=== PATIENT | male | born 1970 | race Caucasian/White ===

== ENCOUNTER 2020-04-05 08:37 | Outpatient (REF) | payer OTHER, SELFPAY ==
[2020-04-05 11:39] LABS: Alanine Aminotransferase 25 U/L (0-40); Albumin Level 4.3 g/dL (3.5-5.0); Alkaline Phosphatase 66 U/L (39-117); Anion Gap 13 (12-20); Aspartate Amino Transferase 19 U/L (5-37); Bilirubin Total 1.1 mg/dL (0.0-1.0); Blood Urea Nitrogen 16 mg/dL (9-16); Calcium 9.2 mg/dL (8.4-10.2); Carbon Dioxide 30 mmol/L (22-29); Chloride 100 mmol/L (96-108); Cholesterol 132 mg/dL; Estimated Glomerular Filt Rate > 60; Glucose Fasting 113 mg/dL (60-99); HDL Cholesterol 42 mg/dL; LDL Cholesterol Calculated 78 mg/dl; Potassium 4.6 mmol/l (3.3-5.1); Sodium 138 mmol/L (135-145); Total Protein 6.4 g/dL (6.5-8.0); Triglycerides 63 mg/dL
[2020-04-05 11:48] LABS: Estimated Average Glucose 140 mg/dL; Hemoglobin A1c % 6.5 %
[2020-04-05 13:45] LABS: TSH reflex Free T4 0.73 mIU/mL (0.32-4.0)
== END 2020-04-05 08:38 | disposition home or self-care (01) ==
LOC: HO.HMGCLDS 08:37
PROVIDERS: PCP Nurse Practitioner Family; Visit Provider Nurse Practitioner Family
DX: Z13.29 Encounter for screening for other suspected endocrine disorder (principal); E11.9 Type 2 diabetes mellitus without complications
CPT/HCPCS: 80053; 80061; 83036; 84443

== ENCOUNTER 2020-09-29 06:10 | Outpatient (REF) | payer OTHER, SELFPAY ==
[2020-09-29 12:11] LABS: TSH reflex Free T4 1.19 uIU/mL (0.32-4.0)
[2020-09-29 12:13] LABS: Alanine Aminotransferase 41 U/L (0-40); Albumin Level 4.5 g/dL (3.5-5.0); Alkaline Phosphatase 70 U/L (39-117); Anion Gap 14 (12-20); Aspartate Amino Transferase 23 U/L (5-37); Bilirubin Total 1.2 mg/dL (0.0-1.0); Blood Urea Nitrogen 21 mg/dL (9-16); Calcium 9.3 mg/dL (8.4-10.2); Carbon Dioxide 27 mmol/L (22-29); Chloride 103 mmol/L (96-108); Cholesterol 122 mg/dL; Estimated Glomerular Filt Rate > 60; Glucose Fasting 124 mg/dL (60-99); HDL Cholesterol 42 mg/dL; LDL Cholesterol Calculated 71 mg/dl; Potassium 4.4 mmol/L (3.3-5.1); Sodium 140 mmol/L (135-145); Total Protein 6.8 g/dL (6.5-8.0); Triglycerides 45 mg/dL
[2020-09-29 12:34] LABS: Estimated Average Glucose 131 mg/dL; Hemoglobin A1c % 6.2 %
== END 2020-09-29 06:11 | disposition home or self-care (01) ==
LOC: HO.HMGCLDS 06:10
PROVIDERS: PCP Nurse Practitioner Family; Visit Provider Nurse Practitioner Family
DX: Z00.00 Encounter for general adult medical examination without abnormal findings (principal); E11.9 Type 2 diabetes mellitus without complications
CPT/HCPCS: 36415; 80053; 80061; 83036; 84443

== ENCOUNTER 2021-02-12 13:41 | Inpatient (IN) | payer OTHER, SELFPAY ==
--- NOTE | ~2021-02-12 | CT_ITS ---
EXAMINATION: CT ABDOMEN AND PELVIS WITH CONTRAST CLINICAL INFORMATION: Diffuse abdominal pain and bilious vomiting COMPARISON: Previous CT of the abdomen and pelvis December 2014 and abdominal ultrasound July 2016 TECHNIQUE: Multidetector volumetric images were obtained from the superior aspect of the liver through the pubic symphysis following administration 100 mL of Omnipaque 350 intravenous contrast. Sagittal and coronal reformatted images were obtained on the technologist's workstation. Oral contrast: Yes This CT examination was performed using dose optimization techniques as appropriate, variously including the following: *Automated exposure control *Adjustment of mA and/or kV according to patient size (this includes techniques or standardized protocols for targeted exams where dose is matched to indication/reason for exam; i.e. extremities or head) *Use of iterative reconstruction technique DLP: 1285 mGy-cm FINDINGS: LUNG BASES: The visualized lung bases are unremarkable. LIVER, GALLBLADDER, AND BILIARY TREE: The liver is low in attenuation suggestive of fatty infiltration. There are high attenuation areas in the medial segment of the left lobe of the liver near the cosmo hepatis and adjacent to the gallbladder probably representing areas of focal fatty sparing. No focal hepatic lesion or biliary ductal dilatation is present. The gallbladder is slightly enlarged measuring 13 x 4 x 4.4 cm in dimension. No gallstones are seen. There is question of a gallbladder wall thickening or fluid. PANCREAS: Unremarkable. SPLEEN: Unremarkable. ADRENAL GLANDS: Unremarkable. KIDNEYS AND URETERS: The kidneys are normal in size, shape, and attenuation. No hydronephrosis, hydroureter, or calculi seen. No perinephric stranding. BLADDER: Unremarkable. GASTROINTESTINAL TRACT: There is mild diverticulosis of the colon. No evidence of diverticulitis is seen. The small and large bowel are otherwise unremarkable. The appendix is unremarkable. The stomach is not optimally distended. ABDOMINAL WALL: There is a left inguinal hernia containing fat. LYMPH NODES: Normal. VASCULAR: Unremarkable. PELVIC VISCERA: Unremarkable. OSSEOUS STRUCTURES: There are degenerative changes of the spine. CT/CT abdomen pelvis w con IMPRESSION: Fatty liver. Distended gallbladder. No gallstones seen. Question slight gallbladder wall thickening or fluid. If there is clinical suspicion of cholecystitis, ultrasound or HIDA scan would be recommended. Diverticulosis of the colon. No evidence of diverticulitis.
--- NOTE | ~2021-02-12 | US_ITS ---
EXAMINATION: US ABDOMEN LIMITED CLINICAL INFORMATION: Assess for acute cholecystitis. COMPARISON: CT scan earlier today TECHNIQUE: Real-time imaging of the right upper quadrant abdominal viscera. FINDINGS: PANCREAS: Partially obscured by overlying bowel gas but where seen it is grossly unremarkable LIVER: Diffuse fatty infiltration of the liver with areas of fatty sparing giving a heterogeneous echotexture corresponding with the abnormal appearance on the recent CT scan. No focal hepatic lesion or biliary ductal dilatation. GALLBLADDER: The gallbladder is physiologically distended without evidence of stones, sludge, polyps, or gallbladder wall thickening. Small amount of nonspecific gallbladder wall edema suggested. COMMON BILE DUCT: Normal in caliber measuring 0.6 cm in diameter. RIGHT KIDNEY: Normal. No hydronephrosis. No renal calculi or focal parenchymal lesions. The kidney measures 13.3 cm in maximum dimension. FREE FLUID: None. US/US abdomen limited IMPRESSION: Diffuse fatty infiltration of the liver with areas of focal fatty sparing. No obvious gallstones with a small amount of fluid seen in the gallbladder wall. No obvious gallstones
--- NOTE | ~2021-02-12 | NM_ITS ---
EXAMINATION: NUCLEAR MEDICINE HEPATOBILIARY SCAN WITH PHARMACY. CLINICAL INFORMATION: Right upper quadrant pain. COMPARISON: None TECHNIQUE: Following intravenous administration of 5 mCi of 90 9M technetium mebrofenin imaging was obtained up to 3 1/2 hours. FINDINGS: There is normal hepatic uptake without any focal defect. There is prompt visualization of common bile duct by 14 minutes. Small bowel is visualized by 70 minutes. The gallbladder is not visualized up to 3 1/2 hours. Findings are consistent with cystic duct obstruction. NM/NM hepatobiliary w pharm IMPRESSION: Findings consistent with cystic duct obstruction. Patent CBD. Normal hepatic uptake.
[2021-02-12 14:10] VITALS: BP 119/62; BP 137/99; PULSE 90; PULSE 95; RESP 20; TEMP 36.6; O2SAT 97; O2SAT 99; BMI 39.4
--- NOTE | 2021-02-12 15:23 | ECG_ITS ---
Test Reason : ABD PAIN Blood Pressure : / mmHG Vent. Rate : 091 BPM Atrial Rate : 091 BPM P-R Int : 158 ms QRS Dur : 096 ms QT Int : 346 ms P-R-T Axes : 022 010 038 degrees QTc Int : 425 ms Normal sinus rhythm Normal ECG No previous ECGs available Referred By: Bekah Freire Electronically Signed By:MAGGIE WAGGONER
[2021-02-12] MEDS: Morphine Sulfate 4 MG/ML CARTRIDGE IVPUSH ×2 (15:46→17:19)
[2021-02-12] MEDS: ondansetron HCL 4 MG/2 ML VIAL IVPUSH (15:46)
[2021-02-12] MEDS: 0.9 % Sodium Chloride 1,000 ML 999 ML IV ×2 (15:47→19:44)
--- NOTE | 2021-02-12 15:50 | ED.ABDPAIN ---
HPI - Abdominal Pain General Chief Complaint: Abdominal Pain Stated Complaint: ABD PAIN Time Seen by Provider: 02/12/21 15:10 Source: patient Mode of arrival: ambulatory Limitations: no limitations History of Present Illness HPI narrative: 51-year-old male with a past medical history of NIDDM, HTN, HLD, GERD here with complaints of mid to upper abdominal pain since 20:00 Friday evening with associated vomiting. Patient tells me he is vomiting bile. He did have a small bowel movement this morning. No diarrhea. No fevers, chills, urinary symptoms. He went to urgent care was referred into the emergency department for further evaluation. No prior history of abdominal surgery. Related Data Previous Rx's Medication Instructions Recorded omeprazole 40 mg capsule,delayed 40 mg PO DAILY #90 cap 05/12/20 release cyclobenzaprine 10 mg tablet 10 mg PO BEDTIME PRN 30 Days #30 06/22/20 tab aspirin 81 mg chewable tablet 1 tab PO DAILY 90 Days #90 tab 09/25/20 atorvastatin 20 mg tablet 20 mg PO DAILY 90 Days #90 tab 10/02/20 metoprolol succinate 50 mg 50 mg PO DAILY #90 tab 11/06/20 tablet,extended release 24 hr amlodipine 5 mg tablet 5 mg PO DAILY #90 tab 12/27/20 hydrochlorothiazide 25 mg tablet 25 mg PO DAILY #90 tab 01/11/21 diclofenac sodium 75 mg 75 mg PO BID PRN 30 Days #60 tab 01/18/21 tablet,delayed release metformin 1,000 mg tablet 1,000 mg PO BID 90 Days #180 tab 01/18/21 tramadol 50 mg tablet 50 mg PO BID PRN 10 Days #20 tab 01/18/21 spironolactone 25 mg tablet 50 mg PO DAILY #90 tab 01/22/21 irbesartan 150 mg tablet 150 mg PO DAILY #90 tab 01/28/21 Allergies Allergy/AdvReac Type Severity Reaction Status Date / Time lisinopril AdvReac Unknown Cough Verified 09/25/20 16:23 Review of Systems Review of Systems Yes all other systems are reviewed and are negative Constitutional: Reports no additional constitutional complaints, Denies body ache(s), Denies chills, Denies fever(s), Denies headache(s) and Denies weakness Eyes: Reports no additional eye complaints and Denies change in vision Reports system reviewed and no additional complaints, except as documented, Denies dizziness, Denies headache(s), Denies nasal congestion, Denies nasal discharge and Denies neck pain Cardiovascular: Reports no additional cardiovascular complaints, Denies chest pain, Denies leg edema and Denies dyspnea Respiratory: Reports no additional respiratory complaints, Denies cough and Denies dyspnea Gastrointestinal: Reports no additional gastrointestinal complaints, Reports abdominal pain, Denies diarrhea, Reports nausea and Reports vomiting Genitourinary: Denies urinary incontinence Musculoskeletal: Reports no additional musculoskeletal complaints, Denies back pain, Denies arthralgias, Denies joint swelling, Denies neck pain, Denies numbness and Denies tingling Skin/Breast: Reports system reviewed and no additional complaints, except as docu and Denies rash Reports system reviewed and no additional complaints, except as documented, Denies Abnormal speech present, Denies dizziness, Denies headache(s), Denies numbness, Denies tingling and Denies weakness Physical Exam Vital Signs: Vital Signs: Last Vital Signs Temp 98.3 F 02/12/21 20:58 Pulse 115 H 02/12/21 20:58 Resp 21 H 02/12/21 20:58 BP 134/83 02/12/21 20:58 Pulse Ox 97 02/12/21 20:58 Body Mass Index 39.4 Const: General: cooperative, healthy appearing, comfortable and no acute distress Orientation/consciousness: patient oriented x3 Limitations: no limitations HENMT: Head: Yes normal to inspection Ears: hearing grossly normal bilaterally General nose exam: Normal external nose present Face and sinus: Yes normal facial exam Mouth: Normal oral and palatal mucosa present Throat: Yes posterior oropharynx normal Eyes: General: appearance normal, both eyes and all related structures Pupils: Equal, round and reactive pupils present Neck: Neck: Yes normal visual inspection Chest: Chest palpation & inspection: normal inspection of the chest Resp: Effort & Inspection: normal respiratory effort Auscultation: clear to auscultation bilaterally Cardio: Rate: regular rate Rhythm: regular rhythm Peripheral pulses: Peripheral pulses 2+ throughout GI: Inspection: Yes normal to inspection Palpation (GI): Soft to palpation and Tenderness to palpation present (GI) (mid to upper AP w/ rebound or guarding-hypoactive BS) Auscultation: normal bowel sounds Back/Spine/Pelvis: Thoracic/Lumbar Spine: thoracic and lumbar spine normal to inspection Skin: General skin exam: no rashes or lesions noted Neuro: General: patient oriented x3, no focal motor deficits and normal sensation to monofilament Cranial nerves: Yes Equal, round and reactive pupils present Cognition (Neuro): normal cognition Speech: No Abnormal speech present Gait exam (Neuro): Normal gait present Motor exam (neuro): 5/5 motor strength present throughout Extrem: General: Yes normal to inspection, Yes no pedal edema and Yes no calf tenderness Course Course Course Narrative: 51-year-old male here with complaints of mid to upper abdominal pain with bilious vomiting since Friday evening. On exam tender moderately with rebound and guarding. Will check labs, EKG, UA, CT. 1714- IMPRESSION: Fatty liver. Distended gallbladder. No gallstones seen. Question slight gallbladder wall thickening or fluid. If there is clinical suspicion of cholecystitis, ultrasound or HIDA scan would be recommended. Diverticulosis of the colon. No evidence of diverticulitis. Patient has a leukocytosis and elevated lactic acid 2.3. He has required 3 rounds of IV pain medications for pain control. At this time infection is suspected. Antibiotics ordered. 1714-spoke to Dr. Birch from surgery. Recommended obtaining a HIDA scan w/cck. This was ordered 1899-I have received a call from nuclear medicine department. Unable to get a HIDA scan tonight d/t lack of IV medication for the scan. Spoke to Dr Birch who recommends abdominal US, repeat cbc to see if improvement of leukocytosis. 2029- IMPRESSION: Diffuse fatty infiltration of the liver with areas of focal fatty sparing. No obvious gallstones with a small amount of fluid seen in the gallbladder wall. No obvious gallstones Repeat CBC shows unchanged leukocytosis with repeat lactic acid unchanged. Patient has required additional dose of analgesia. Now has low grade fever 100.3 with tachycardia 110. Call out to surgery to discuss. 2129-discussed with Dr. An. She feels like the patient should be admitted to the medicine service with plans for HIDA scan tomorrow morning. Discussed with Dr. Marinelli who accepted admission MDM - Abdominal Pain MDM Narrative Medical decision making narrative: Pancreatitis, cholecystitis Differential Diagnosis Differential diagnosis: Likely acute appendicitis Medical Records Attestation: I reviewed the patient's medical records. Lab Data Attestation: I reviewed the patient's lab results. Result diagrams: 02/12/21 19:08 02/12/21 15:40 Labs: Lab Results 02/12/21 02/12/21 02/12/21 Range/Units 15:40 15:40 15:40 WBC 23.0 H (4.8-10.8) X10*3/uL RBC 4.94 (4.60-5.80) X10*6/uL Hgb 15.0 (14.0-18.0) g/dl Hct 43.4 (42-52) % MCV 87.9 (80-98) fL MCH 30.4 (27.0-33.0) pg MCHC 34.6 (31.0-36.0) g/dl RDW 12.6 (11.0-16.0) % Plt Count 283 (160-400) X10*3/uL MPV 10.4 (9.4-12.4) fL Immature Gran % (Auto) 0.7 H (0.0-0.4) % Neut % (Auto) 89.3 H (45-73) % Lymph % (Auto) 3.4 L (20-40) % [place] % (Auto) 6.1 (2-11) % Eos % (Auto) 0.2 (0-4) % Baso % (Auto) 0.3 (0-2) % Lymph # (Auto) 0.8 L (1.2-4.9) X10*3/uL [place] # (Auto) 1.4 H (0.1-1.2) X10*3/uL Eos # (Auto) 0.0 (0.0-0.4) X10*3/uL Baso # (Auto) 0.1 (0.0-0.2) X10*3/uL Abs Immat Gran (auto) 0.15 H (0.00-0.03) X10*3/uL Absolute Neuts (auto) 20.5 H (2.0-8.3) X10*3/uL Absolute Nucleated RBC 0.000 (0.0-0.012) X10*3/uL Nucleated RBC % (auto) 0.0 (0.0-0.2) /100WBC Smear Tech's Comments VERIFIED Sodium 135 (135-145) mmol/L Potassium 3.6 (3.3-5.1) mmol/L Chloride 99 (96-108) mmol/L Carbon Dioxide 24 (22-29) mmol/L Anion Gap 16 (12-20) BUN 15 (9-16) mg/dL Creatinine 0.78 (0.5-1.4) mg/dL Estim Creat Clear Calc 150.1 Estimated GFR > 60 Random Glucose 148 H (60-115) mg/dL Lactic Acid 2.3 H* (0.5-2.0) mmol/L Lactic Acid Fup @ 2Hr (0.5-2.0) mmol/L Lactic Acid Fup @ 4Hr (0.5-2.0) mmol/L Calcium 9.4 (8.4-10.2) mg/dL Magnesium 1.6 (1.6-2.6) mg/dL Total Bilirubin 1.1 H (0.0-1.0) mg/dL Direct Bilirubin 0.5 (0.0-0.5) mg/dL AST 23 (5-37) U/L ALT 54 H (0-40) U/L Alkaline Phosphatase 69 (39-117) U/L Total Protein 6.7 (6.5-8.0) g/dL Albumin 4.4 (3.5-5.0) g/dL Lipase 16 (8-78) U/L COVID-19 (SANDIP) (Negative) COVID-19 Clin Com 02/12/21 02/12/21 02/12/21 Range/Units 17:25 18:21 19:08 WBC 22.3 H (4.8-10.8) X10*3/uL RBC 4.65 (4.60-5.80) X10*6/uL Hgb 14.2 (14.0-18.0) g/dl Hct 41.4 L (42-52) % MCV 89.0 (80-98) fL MCH 30.5 (27.0-33.0) pg MCHC 34.3 (31.0-36.0) g/dl RDW 12.7 (11.0-16.0) % Plt Count 263 (160-400) X10*3/uL MPV 10.3 (9.4-12.4) fL Immature Gran % (Auto) 0.6 H (0.0-0.4) % Neut % (Auto) 86.8 H (45-73) % Lymph % (Auto) 4.8 L (20-40) % [place] % (Auto) 7.4 (2-11) % Eos % (Auto) 0.2 (0-4) % Baso % (Auto) 0.2 (0-2) % Lymph # (Auto) 1.1 L (1.2-4.9) X10*3/uL [place] # (Auto) 1.7 H (0.1-1.2) X10*3/uL Eos # (Auto) 0.0 (0.0-0.4) X10*3/uL Baso # (Auto) 0.1 (0.0-0.2) X10*3/uL Abs Immat Gran (auto) 0.14 H (0.00-0.03) X10*3/uL Absolute Neuts (auto) 19.3 H (2.0-8.3) X10*3/uL Absolute Nucleated RBC 0.000 (0.0-0.012) X10*3/uL Nucleated RBC % (auto) 0.0 (0.0-0.2) /100WBC Smear Tech's Comments Sodium (135-145) mmol/L Potassium (3.3-5.1) mmol/L Chloride (96-108) mmol/L Carbon Dioxide (22-29) mmol/L Anion Gap (12-20) BUN (9-16) mg/dL Creatinine (0.5-1.4) mg/dL Estim Creat Clear Calc Estimated GFR Random Glucose (60-115) mg/dL Lactic Acid (0.5-2.0) mmol/L Lactic Acid Fup @ 2Hr 2.8 H* (0.5-2.0) mmol/L Lactic Acid Fup @ 4Hr (0.5-2.0) mmol/L Calcium (8.4-10.2) mg/dL Magnesium (1.6-2.6) mg/dL Total Bilirubin (0.0-1.0) mg/dL Direct Bilirubin (0.0-0.5) mg/dL AST (5-37) U/L ALT (0-40) U/L Alkaline Phosphatase (39-117) U/L Total Protein (6.5-8.0) g/dL Albumin (3.5-5.0) g/dL Lipase (8-78) U/L COVID-19 (SANDIP) Negative (Negative) COVID-19 Clin Com See Note 02/12/21 Range/Units 21:05 WBC (4.8-10.8) X10*3/uL RBC (4.60-5.80) X10*6/uL Hgb (14.0-18.0) g/dl Hct (42-52) % MCV (80-98) fL MCH (27.0-33.0) pg MCHC (31.0-36.0) g/dl RDW (11.0-16.0) % Plt Count (160-400) X10*3/uL MPV (9.4-12.4) fL Immature Gran % (Auto) (0.0-0.4) % Neut % (Auto) (45-73) % Lymph % (Auto) (20-40) % [place] % (Auto) (2-11) % Eos % (Auto) (0-4) % Baso % (Auto) (0-2) % Lymph # (Auto) (1.2-4.9) X10*3/uL [place] # (Auto) (0.1-1.2) X10*3/uL Eos # (Auto) (0.0-0.4) X10*3/uL Baso # (Auto) (0.0-0.2) X10*3/uL Abs Immat Gran (auto) (0.00-0.03) X10*3/uL Absolute Neuts (auto) (2.0-8.3) X10*3/uL Absolute Nucleated RBC (0.0-0.012) X10*3/uL Nucleated RBC % (auto) (0.0-0.2) /100WBC Smear Tech's Comments Sodium (135-145) mmol/L Potassium (3.3-5.1) mmol/L Chloride (96-108) mmol/L Carbon Dioxide (22-29) mmol/L Anion Gap (12-20) BUN (9-16) mg/dL Creatinine (0.5-1.4) mg/dL Estim Creat Clear Calc Estimated GFR Random Glucose (60-115) mg/dL Lactic Acid (0.5-2.0) mmol/L Lactic Acid Fup @ 2Hr (0.5-2.0) mmol/L Lactic Acid Fup @ 4Hr 1.9 (0.5-2.0) mmol/L Calcium (8.4-10.2) mg/dL Magnesium (1.6-2.6) mg/dL Total Bilirubin (0.0-1.0) mg/dL Direct Bilirubin (0.0-0.5) mg/dL AST (5-37) U/L ALT (0-40) U/L Alkaline Phosphatase (39-117) U/L Total Protein (6.5-8.0) g/dL Albumin (3.5-5.0) g/dL Lipase (8-78) U/L COVID-19 (SANDIP) (Negative) COVID-19 Clin Com Imaging Data US - abdomen: Attestation: I personally reviewed and interpreted this imaging study as follows: Radiologist's impression: IMPRESSION: Diffuse fatty infiltration of the liver with areas of focal fatty sparing. No obvious gallstones with a small amount of fluid seen in the gallbladder wall. No obvious gallstones CT scan - abdomen: Attestation: I personally reviewed and interpreted this imaging study as follows: Radiologist's impression: Pawan Epps??51??M??1970 ? Allergy/Adv: lisinopril Close Diabetic Eye Exam 01/02/21 [facility] ER Physician Documentation 02/12/21 15:50 Electrocardiogram 02/12/21 15:23 Office Visit 02/12/21 11:45 Abdomen Ultrasound 02/12/21 18:49 Abdomen/Pelvis CT 02/12/21 15:24 Launch?Image [address] [address] [address] Scan Report Signed Patient: Pawan Epps MR#: [id number] : 1970 Acct:[id number] Age/Sex: 51 / M ADM Date: 02/12/21 Loc: HO.ED Attending Dr: Ordering Physician: Bekah Freire NP Date of Service: 02/12/21 Procedure(s): CT abdomen pelvis w con Accession Number(s): [id number] cc: Bekah Freire PECAN HULLER~ EXAMINATION: CT ABDOMEN AND PELVIS WITH CONTRAST? CLINICAL INFORMATION: Diffuse abdominal pain and bilious vomiting? COMPARISON: Previous CT of the abdomen and pelvis December 2014 and abdominal ultrasound July 2016? TECHNIQUE: Multidetector volumetric images were obtained from the superior aspect of the liver through the pubic symphysis following administration 100 mL of Omnipaque 350 intravenous contrast. Sagittal and coronal reformatted images were obtained on the technologist's workstation.? Oral contrast: Yes This CT examination was performed using dose optimization techniques as appropriate, variously including the following: *Automated exposure control *Adjustment of mA and/or kV according to patient size (this includes techniques or standardized protocols for targeted exams where dose is matched to indication/reason for exam; i.e. extremities or head) *Use of iterative reconstruction technique DLP: 1285 mGy-cm FINDINGS: LUNG BASES: The visualized lung bases are unremarkable.? LIVER, GALLBLADDER, AND BILIARY TREE: The liver is low in attenuation suggestive of fatty infiltration. There are high attenuation areas in the medial segment of the left lobe of the liver near the cosmo hepatis and adjacent to the gallbladder probably representing areas of focal fatty sparing. No focal hepatic lesion or biliary ductal dilatation is present. The gallbladder is slightly enlarged measuring 13 x 4 x 4.4 cm in dimension. No gallstones are seen. There is question of a gallbladder wall thickening or fluid. PANCREAS: Unremarkable.? SPLEEN: Unremarkable.? ADRENAL GLANDS: Unremarkable.? KIDNEYS AND URETERS: The kidneys are normal in size, shape, and attenuation. No hydronephrosis, hydroureter, or calculi seen. No perinephric stranding. ? BLADDER: Unremarkable.? GASTROINTESTINAL TRACT: There is mild diverticulosis of the colon. No evidence of diverticulitis is seen. The small and large bowel are otherwise unremarkable. The appendix is unremarkable. The stomach is not optimally distended. ABDOMINAL WALL: There is a left inguinal hernia containing fat.? LYMPH NODES: Normal. VASCULAR: Unremarkable. PELVIC VISCERA: Unremarkable.? OSSEOUS STRUCTURES: There are degenerative changes of the spine. CT/CT abdomen pelvis w con IMPRESSION: Fatty liver. Distended gallbladder. No gallstones seen. Question slight gallbladder wall thickening or fluid. If there is clinical suspicion of cholecystitis, ultrasound or HIDA scan would be recommended. Diverticulosis of the colon. No evidence of diverticulitis. ECG Data Attestation: I personally reviewed and interpreted this ECG as follows: ECG interpretation date: 02/12/21 ECG interpretation time: 16:50 Interpretation: NSR with rate 91, normal pr, normal qrs, normal qt Discharge Plan Discharge Clinical Impression: Abdominal pain, Leukocytosis, Elevated lactic acid level Patient Disposition: Admitted As Inpatient [facility] Past Medical History Attestation statement: The following information was validated with the patient. Source: old records reviewed and nursing notes reviewed Medical History Diabetes Dyslipidemia HTN (hypertension) Leukocytosis Morbid obesity Surgical History H/O repair of left rotator cuff History of rotator cuff surgery Family History Family History Father Hypothyroidism Hypercholesteremia Mother Bladder cancer Paternal Grandmother Myocardial infarction Paternal Grandfather Stroke Paternal Aunt Breast cancer Social History Social History Alcohol intake: unknown Patient Tobacco Use Status: Tobacco use Unknown Use of substances other than those prescribed or required for medical reasons: No Advance Directives: No Advance Directives Information Provided: Yes
[2021-02-12 15:52] LABS: Basophils Absolute Auto 0.1 X10*3/uL (0.0-0.2); Basophils Percent Auto 0.3 % (0-2); Eosinophils Percent Auto 0.2 % (0-4); Hematocrit 43.4 % (42-52); Imm Gran Abs Auto 0.15 X10*3/uL (0.00-0.03); Imm Gran Pct Auto 0.7 % (0.0-0.4); Lymphocytes Absolute Auto 0.8 X10*3/uL (1.2-4.9); Lymphocytes Percent Auto 3.4 % (20-40); MANUAL DIFF FLAG SCAN; Mean Corpuscular HGB Conc 34.6 g/dl (31.0-36.0); Mean Corpuscular Hemoglobin 30.4 pg (27.0-33.0); Mean Corpuscular Volume 87.9 fL (80-98); Mean Platelet Volume 10.4 fL (9.4-12.4); Monocytes Absolute Auto 1.4 X10*3/uL (0.1-1.2); Monocytes Percent Auto 6.1 % (2-11); Neutrophils Absolute Auto 20.5 X10*3/uL (2.0-8.3); Neutrophils Percent Auto 89.3 % (45-73); Platelet Count 283 X10*3/uL (160-400); Red Blood Count 4.94 X10*6/uL (4.60-5.80); Red Cell Distribution Width 12.6 % (11.0-16.0); SCAN SMEAR FLAG 1
[2021-02-12 16:09] LABS: Alanine Aminotransferase 54 U/L (0-40); Albumin Level 4.4 g/dL (3.5-5.0); Alkaline Phosphatase 69 U/L (39-117); Anion Gap 16 (12-20); Aspartate Amino Transferase 23 U/L (5-37); Bilirubin Direct 0.5 mg/dL (0.0-0.5); Bilirubin Total 1.1 mg/dL (0.0-1.0); Blood Urea Nitrogen 15 mg/dL (9-16); Calcium 9.4 mg/dL (8.4-10.2); Carbon Dioxide 24 mmol/L (22-29); Chloride 99 mmol/L (96-108); Creatinine Clr Calc Pharmacy 150.1; Estimated Glomerular Filt Rate > 60; Glucose Random 148 mg/dL (60-115); Lipase 16 U/L (8-78); Magnesium 1.6 mg/dL (1.6-2.6); Potassium 3.6 mmol/L (3.3-5.1); Sodium 135 mmol/L (135-145); Total Protein 6.7 g/dL (6.5-8.0)
[2021-02-12 16:15] LABS: Lactic Acid 2.3 mmol/L (0.5-2.0)
[2021-02-12] MEDS: iohexoL 350 MG/ML 100 ML INFUS..BTL IV (16:23)
[2021-02-12 16:32] LABS: SLIDE REVIEW VERIFIED
[2021-02-12] MEDS: Piperacillin Sodium/Tazobactam 3.375 GM in 0.9 % Sodium Chloride 50 ML IV (17:19)
[2021-02-12 17:28] VITALS: BP 111/81; PULSE 105; RESP 18; O2SAT 99
[2021-02-12 17:49] LABS: Reflex Lactate? Lactic Acid Added
[2021-02-12 17:52] LABS: COVID-19 Test Negative (Negative)
--- NOTE | 2021-02-12 17:58 | PHA.MEDREC ---
Pharmacy Consult ? Medication Reconciliation Pharmacy has completed the medication reconciliation.
[2021-02-12 18:47] LABS: ~Lactic Acid-LAB USE ONLY 2.8 mmol/L (0.5-2.0)
[2021-02-12 18:58] VITALS: BP 144/91; PULSE 110; RESP 17; TEMP 37.9; O2SAT 97
--- NOTE | 2021-02-12 19:02 | PC.NURSE ---
Pt resting on stretcher in NAD, breathing with ease on RA. Pt aaox4, reports mid abd pain 8/10 as documented, denies nausea at this time. Pt denies BANUELOS, dizziness, weakness, CP, SOB/SAAD, cough, v/d, urinary sx at this time. Pt requesting pain meds, made aware that he has dilaudid ordered; this RN to administer. Pt aware and agreeable to plan for abd US and possible surgical intervention. Pt lactic increasing, Bekah PEEL OVEN TENDER made aware. Pt VSS at this time. Stretcher low locked position, rails raised, call sanchez within reach.
[2021-02-12 19:16] LABS: Basophils Absolute Auto 0.1 X10*3/uL (0.0-0.2); Basophils Percent Auto 0.2 % (0-2); Eosinophils Percent Auto 0.2 % (0-4); Hematocrit 41.4 % (42-52); Hemoglobin 14.2 g/dl (14.0-18.0); Imm Gran Abs Auto 0.14 X10*3/uL (0.00-0.03); Imm Gran Pct Auto 0.6 % (0.0-0.4); Lymphocytes Absolute Auto 1.1 X10*3/uL (1.2-4.9); Lymphocytes Percent Auto 4.8 % (20-40); MANUAL DIFF FLAG SCAN; Mean Corpuscular HGB Conc 34.3 g/dl (31.0-36.0); Mean Corpuscular Hemoglobin 30.5 pg (27.0-33.0); Mean Platelet Volume 10.3 fL (9.4-12.4); Monocytes Absolute Auto 1.7 X10*3/uL (0.1-1.2); Monocytes Percent Auto 7.4 % (2-11); Neutrophils Absolute Auto 19.3 X10*3/uL (2.0-8.3); Neutrophils Percent Auto 86.8 % (45-73); Platelet Count 263 X10*3/uL (160-400); Red Blood Count 4.65 X10*6/uL (4.60-5.80); Red Cell Distribution Width 12.7 % (11.0-16.0); SCAN SMEAR FLAG 1; White Blood Count 22.3 X10*3/uL (4.8-10.8)
[2021-02-12] MEDS: HYDROmorphone HCl 0.5 MG/0.5 ML SYRINGE 1 MG IVPUSH (19:44)
--- NOTE | 2021-02-12 20:11 | PC.NURSE ---
Pt found to be 88% on RA while this RN passing by room. Pt placed on 2L NC, sat 97% at this time on 2L NC. Pt was asleep in between care, when awoken for placement of NC, pt reports 0/0 pain.
[2021-02-12 20:27] LABS: Reflex Lactate? 2 Y
[2021-02-12 20:58] VITALS: BP 134/83; PULSE 115; RESP 21; TEMP 36.8; O2SAT 97
[2021-02-12 21:21] LABS: ~Lactic Acid-LAB USE ONLY 1.9 mmol/L (0.5-2.0)
[2021-02-12 22:36] VITALS: BP 139/80; PULSE 117; RESP 21; TEMP 37.2; O2SAT 95
[2021-02-12 22:44] LABS: Appearance Urine CLEAR; Color Urine YELLOW; Glucose Urine UA NEG (NEG); Leukocyte Esterase Urine NEG (NEG); Nitrite Urine NEG (NEG); Urine Blood NEG (NEG); Urine Ketones NEG (NEG); Urine Protein NEG (NEG-TRACE)
--- NOTE | 2021-02-12 23:09 | P.HPHOSP_ITS ---
History of Present Illness Date of Service: 02/12/21 Chief Complaint: abdominal pain 51-year-old male with past medical history of hypertension, diabetes, HLD, obesity presents to the hospital with complaints of epigastric abdominal pain that is radiating to the right upper quadrant, worse with drinking and eating, associated with nausea and vomiting, started on Friday night worsened over the next 24 hours. Patient denies any previous similar episode. Patient reports that Tylenol helps slightly but the pain is constant and non relenting. Denies any chest pain, no shortness of breath, no fever or chills, no diarrhea or constipation, no urinary symptoms and no lower extremity edema. No dizziness headache or change in vision. No numbness or tingling or weakness. On arrival to the ED vitals are significant for a temp of a 100.3?, heart rate of 110, respiratory rate of 17, blood pressure of 144/91, satting 97% on room air Labs are significant for 22.3, lactic acid of 2.3 that improved after IV fluids, normal direct bili, AST normal, ALT of 54, alk-phos of 69, UA negative. Liver, distended gallbladder, no gallstones seen. Question of slight gallbladder wall thickness or fluid. Ultrasound done showed no significant abnormality General surgery was consulted recommended admission to the medical team with HIDA scan in a.m. Review of Systems 2 Review of Systems: Yes all other systems are reviewed and are negative [facility] Medical History Diabetes Dyslipidemia HTN (hypertension) Leukocytosis Morbid obesity Family History Father Hypothyroidism Hypercholesteremia Mother Bladder cancer Paternal Grandmother Myocardial infarction Paternal Grandfather Stroke Paternal Aunt Breast cancer Pertinent family history: No pertinent history except as mentioned in family history Surgical History H/O repair of left rotator cuff History of rotator cuff surgery Social History Household Members: None Housing: House Do you presently have visiting nurse or other home services: No Alcohol intake: unknown Patient Tobacco Use Status: Never used Tobacco Use of substances other than those prescribed or required for medical reasons: No Have you been hit, kicked, punched, or otherwise hurt by someone within the past year? If so, by whom?: No Do you feel safe in your current relationship?: Yes Is there a partner from a previous relationship who is making you feel unsafe now?: No Are you made to feel afraid or neglected: No Advance Directives: No Advance Directives Information Provided: Yes Advance Directives on File: No Do you have thoughts of harming others: None Do you have a plan to hurt others: No Plan Recently lost weight without trying: No Nutrition Risks: No Nutritional Risk Poor oral hygiene: No Meds Allergies Allergy/AdvReac Type Severity Reaction Status Date / Time lisinopril AdvReac Unknown Cough Verified 09/25/20 16:23 Active Medications: Current Medications Acetaminophen (Acetaminophen 325 Mg Tablet) 650 mg PO Q6H PRN PRN Reason: Pain, Mild (Pain Scale 1-3) Amlodipine Besylate (Amlodipine Besylate 5 Mg Tablet) 5 mg PO DAILY [facility]; Protocol Aspirin (Aspirin 81 Mg Tab.Chew) 81 mg PO DAILY [facility] Atorvastatin Calcium (Atorvastatin Calcium 20 Mg Tablet) 20 mg PO DAILY [facility] Cyclobenzaprine HCl (Cyclobenzaprine Hcl 10 Mg Tablet) 10 mg PO BEDTIME PRN PRN Reason: muscle spasm Diclofenac Sodium (Diclofenac Sodium Delayed Rel 75 Mg Tablet.) 75 mg PO BID PRN PRN Reason: pain Docusate Sodium (Docusate Sodium 100 Mg Capsule) 100 mg PO DAILY PRN PRN Reason: Constipation Hydrochlorothiazide (Hydrochlorothiazide 25 Mg Tablet) 25 mg PO DAILY [facility]; Protocol Piperacillin Sod/Tazobactam (Sod 4.5 gm/ Sodium Chloride) 100 mls @ 200 mls/hr IV Q6H [facility] Metoprolol Succinate (Metoprolol Succinate Er 50 Mg Tab.Er.24h) 50 mg PO DAILY [facility]; Protocol Morphine Sulfate (Morphine Sulfate 4 Mg/Ml Cartridge) 4 mg IVPUSH Q4H PRN; Protocol PRN Reason: Pain, Severe (Pain Scale 7-10) Omeprazole (Omeprazole 40 Mg Capsule.) 40 mg PO DAILY@0630 [facility] Ondansetron HCl (Ondansetron Hcl 4 Mg/2 Ml Vial) 4 mg IVPUSH Q8H PRN PRN Reason: Nausea and Vomiting Pharmacy Consult (Consult Rx Perform Med Rec) 1 each MISCELLANE ONCE PRN PRN Reason: Consult order Sodium Chloride (0.9 % Sodium Chloride Flush 3 Ml Syringe) 3 ml IVFLUSH QSHIFT [facility] Spironolactone (Spironolactone 25 Mg Tablet) 50 mg PO DAILY [facility]; Protocol Tramadol HCl (Tramadol Hcl 50 Mg Tablet) 50 mg PO BID PRN PRN Reason: pain Valsartan (Valsartan 80 Mg Tablet) 80 mg PO DAILY [facility] Physical Exam Vital Signs and Narrative: Vital Signs: Last Vital Signs Temp 98.9 F 02/12/21 22:36 Pulse 117 H 02/12/21 22:36 Resp 21 H 02/12/21 22:36 BP 139/80 02/12/21 22:36 Pulse Ox 95 02/12/21 22:36 Body Mass Index 39.4 Const: General: cooperative and no acute distress Orientation/consciousness: patient oriented x3 Eyes: General: appearance normal, both eyes and all related structures Pupils: Equal, round and reactive pupils present Resp: Effort & Inspection: normal respiratory effort Auscultation: clear to auscultation bilaterally Cardio: Rate: regular rate Rhythm: regular rhythm GI: Other: Right upper quadrant tenderness on deep palpation Palpation (GI): Soft to palpation Auscultation: normal bowel sounds Skin: General skin exam: no rashes or lesions noted Neuro: General: patient oriented x3 Cranial nerves: Yes Equal, round and reactive pupils present Cognition (Neuro): normal cognition Extrem: General: Yes normal to inspection and Yes no pedal edema Results Labs CBC and Chem 7: 02/12/21 19:08 02/12/21 15:40 Labs: Laboratory Results - last 24 hr 02/12/21 02/12/21 02/12/21 15:40 15:40 15:40 MCV 87.9 MCH 30.4 MCHC 34.6 RDW 12.6 Plt Count 283 MPV 10.4 Immature Gran % (Auto) 0.7 H Neut % (Auto) 89.3 H Lymph % (Auto) 3.4 L [place] % (Auto) 6.1 Eos % (Auto) 0.2 Baso % (Auto) 0.3 Lymph # (Auto) 0.8 L [place] # (Auto) 1.4 H Eos # (Auto) 0.0 Baso # (Auto) 0.1 Abs Immat Gran (auto) 0.15 H Absolute Neuts (auto) 20.5 H Absolute Nucleated RBC 0.000 Nucleated RBC % (auto) 0.0 Smear Tech's Comments VERIFIED Anion Gap 16 Estim Creat Clear Calc 150.1 Estimated GFR > 60 Random Glucose 148 H Lactic Acid 2.3 H* Lactic Acid Fup @ 2Hr Lactic Acid Fup @ 4Hr Calcium 9.4 Magnesium 1.6 Total Bilirubin 1.1 H Direct Bilirubin 0.5 AST 23 ALT 54 H Alkaline Phosphatase 69 Total Protein 6.7 Albumin 4.4 Lipase 16 Urine Color Urine Appearance Urine pH Ur Specific [place] Urine Protein Urine Glucose (UA) Urine Ketones Urine Blood Urine Nitrite Ur Leukocyte Esterase COVID-19 ([facility]ANDIP) COVID-Critical [employer] 02/12/21 02/12/21 02/12/21 17:25 18:21 19:08 MCV 89.0 MCH 30.5 MCHC 34.3 RDW 12.7 Plt Count 263 MPV 10.3 Immature Gran % (Auto) 0.6 H Neut % (Auto) 86.8 H Lymph % (Auto) 4.8 L [place] % (Auto) 7.4 Eos % (Auto) 0.2 Baso % (Auto) 0.2 Lymph # (Auto) 1.1 L [place] # (Auto) 1.7 H Eos # (Auto) 0.0 Baso # (Auto) 0.1 Abs Immat Gran (auto) 0.14 H Absolute Neuts (auto) 19.3 H Absolute Nucleated RBC 0.000 Nucleated RBC % (auto) 0.0 Smear Tech's Comments Anion Gap Estim Creat Clear Calc Estimated GFR Random Glucose Lactic Acid Lactic Acid Fup @ 2Hr 2.8 H* Lactic Acid Fup @ 4Hr Calcium Magnesium Total Bilirubin Direct Bilirubin AST ALT Alkaline Phosphatase Total Protein Albumin Lipase Urine Color Urine Appearance Urine pH Ur Specific [place] Urine Protein Urine Glucose (UA) Urine Ketones Urine Blood Urine Nitrite Ur Leukocyte Esterase COVID-19 (SANDIP) Negative COVID-Critical [employer] See Note 02/12/21 02/12/21 21:05 22:32 MCV MCH MCHC RDW Plt Count MPV Immature Gran % (Auto) Neut % (Auto) Lymph % (Auto) [place] % (Auto) Eos % (Auto) Baso % (Auto) Lymph # (Auto) [place] # (Auto) Eos # (Auto) Baso # (Auto) Abs Immat Gran (auto) Absolute Neuts (auto) Absolute Nucleated RBC Nucleated RBC % (auto) Smear Tech's Comments Anion Gap Estim Creat Clear Calc Estimated GFR Random Glucose Lactic Acid Lactic Acid Fup @ 2Hr Lactic Acid Fup @ 4Hr 1.9 Calcium Magnesium Total Bilirubin Direct Bilirubin AST ALT Alkaline Phosphatase Total Protein Albumin Lipase Urine Color YELLOW Urine Appearance CLEAR Urine pH 6.0 Ur Specific [place] 1.010 Urine Protein NEG Urine Glucose (UA) NEG Urine Ketones NEG Urine Blood NEG Urine Nitrite NEG Ur Leukocyte Esterase NEG COVID-19 ([facility]ANDIP) COVID-19 Clin Com ECG Interpretation: Normal sinus rhythm Imaging Radiologist's Impressions: Impressions Abdomen/Pelvis CT 02/12/21 15:24 IMPRESSION: Fatty liver. Distended gallbladder. No gallstones seen. Question slight gallbladder wall thickening or fluid. If there is clinical suspicion of cholecystitis, ultrasound or HIDA scan would be recommended. Diverticulosis of the colon. No evidence of diverticulitis. Abdomen Ultrasound 02/12/21 18:49 IMPRESSION: Diffuse fatty infiltration of the liver with areas of focal fatty sparing. No obvious gallstones with a small amount of fluid seen in the gallbladder wall. No obvious gallstones Assessment and Plan (1) Sepsis: Status: Acute (2) Abdominal pain: Status: Acute (3) Thickening of wall of gallbladder: Status: Acute (4) Leukocytosis: Status: Acute (5) Elevated lactic acid level: Status: Acute This is a 51-year-old male with past medical history of diabetes and hypertension who presents to the hospital with complaints of abdominal pain being admitted for concern of cholecystitis # sepsis - has leukocytosis, febrile, as well as lactic acidosis, no tachycardia - most likely aches secondary to cholecystitis - start on IV antibiotics - HIDA scan in a.m. - follow cultures # abdominal pain - most likely secondary to cholecystitis? Versus gastritis - patient has right upper quadrant pain that is worsened with food intake - has elevated ALT with no elevated AST - CT abdomen showing gallbladder distention with gallbladder wall thickening - abdominal ultrasound negative for cholecystitis - gastroenterology recommended HIDA scan, ordered # thickening of gallbladder wall - will obtain HIDA scan - will start him on IV antibiotics - follow cultures # diabetes - hold oral antihyperglycemics - start low-dose sliding scale of - NPO in anticipation of further evaluation in a.m. # hypertension - continue home medications # GERD - continue home PPI DVT prophylaxis: lovenox Quality Stroke Does the patient have a stroke diagnosis?: No VTE Prior VTE?: No VTE Risk Level:: Medical - moderate - high VTE Device Contraindication: N/A - Device Ordered VTE Drug Contraindication: Treatment Not Tolerated
[2021-02-12] MEDS: Acetaminophen 325 MG TABLET 650 MG PO (23:37)
[2021-02-12] MEDS: Piperacillin Sodium/Tazobactam 4.5 GM in 0.9 % Sodium Chloride 100 ML IV (23:37)
[2021-02-13 02:32] VITALS: BP 136/92; PULSE 111; RESP 18; TEMP 36.7; O2SAT 94
[2021-02-13 02:34] VITALS: BMI 39.2
[2021-02-13] MEDS: Piperacillin Sodium/Tazobactam 4.5 GM in 0.9 % Sodium Chloride 100 ML IV ×2 (05:10→17:09)
[2021-02-13] MEDS: Morphine Sulfate 4 MG/ML CARTRIDGE IVPUSH ×4 (05:12→20:56)
[2021-02-13 06:45] LABS: Basophils Absolute Auto 0.1 X10*3/uL (0.0-0.2); Basophils Percent Auto 0.3 % (0-2); Eosinophils Absolute Auto 0.2 X10*3/uL (0.0-0.4); Eosinophils Percent Auto 0.8 % (0-4); Hematocrit 40.6 % (42-52); Hemoglobin 13.9 g/dl (14.0-18.0); Imm Gran Abs Auto 0.14 X10*3/uL (0.00-0.03); Imm Gran Pct Auto 0.7 % (0.0-0.4); Lymphocytes Percent Auto 4.9 % (20-40); MANUAL DIFF FLAG SCAN; Mean Corpuscular HGB Conc 34.2 g/dl (31.0-36.0); Mean Corpuscular Hemoglobin 30.7 pg (27.0-33.0); Mean Corpuscular Volume 89.6 fL (80-98); Mean Platelet Volume 10.5 fL (9.4-12.4); Monocytes Absolute Auto 2.1 X10*3/uL (0.1-1.2); Monocytes Percent Auto 10.6 % (2-11); Neutrophils Absolute Auto 16.1 X10*3/uL (2.0-8.3); Neutrophils Percent Auto 82.7 % (45-73); Platelet Count 242 X10*3/uL (160-400); Red Blood Count 4.53 X10*6/uL (4.60-5.80); Red Cell Distribution Width 12.7 % (11.0-16.0); SCAN SMEAR FLAG 1; White Blood Count 19.4 X10*3/uL (4.8-10.8)
[2021-02-13 06:58] LABS: Anion Gap 13 (12-20); Blood Urea Nitrogen 13 mg/dL (9-16); Calcium 8.5 mg/dL (8.4-10.2); Carbon Dioxide 26 mmol/L (22-29); Chloride 104 mmol/L (96-108); Creatinine Clr Calc Pharmacy 159.9; Estimated Glomerular Filt Rate > 60; Glucose Random 147 mg/dL (60-115); Potassium 3.9 mmol/L (3.3-5.1); Sodium 139 mmol/L (135-145)
[2021-02-13 07:07] VITALS: BP 130/79; PULSE 104; RESP 18; TEMP 36.6; O2SAT 92
[2021-02-13 07:15] LABS: SLIDE REVIEW VERIFIED
[2021-02-13 07:16] LABS: Glucose, Whole Blood 138 mg/dL (60-115)
[2021-02-13 08:40] LABS: Alanine Aminotransferase 41 U/L (0-40); Alkaline Phosphatase 59 U/L (39-117); Aspartate Amino Transferase 16 U/L (5-37); Bilirubin Direct 0.6 mg/dL (0.0-0.5); Bilirubin Total 1.7 mg/dL (0.0-1.0); Total Protein 6.1 g/dL (6.5-8.0)
[2021-02-13] MEDS: Aspirin 81 MG TAB.CHEW PO (08:48)
[2021-02-13] MEDS: amLODIPine Besylate 5 MG TABLET PO (08:48)
[2021-02-13] MEDS: Atorvastatin Calcium 20 MG TABLET PO (08:49)
[2021-02-13] MEDS: Spironolactone 25 MG TABLET 50 MG PO (08:49)
[2021-02-13] MEDS: Metoprolol Succinate ER 50 MG TAB.ER.24H PO (08:51)
[2021-02-13] MEDS: hydroCHLOROthiazide 25 MG TABLET PO (08:51)
[2021-02-13] MEDS: Dextrose 5 % and 0.45 % NaCl 1,000 ML 100 ML IVCONT ×2 (08:52→20:57)
[2021-02-13] MEDS: Enoxaparin Sodium 40 MG/0.4 ML SYRINGE SUBCUT (08:52)
[2021-02-13] MEDS: 0.9 % Sodium Chloride Flush 3 ML SYRINGE IVFLUSH ×2 (08:53→16:02)
[2021-02-13] MEDS: Valsartan 80 MG TABLET PO (08:54)
--- NOTE | 2021-02-13 09:28 | PM.CNGS ---
History of Present Illness Consult details Consult date: 02/13/21 Reason for consult: abdominal pain (Epigastric and right upper quadrant) Requesting physician: Brittany Bentley Narrative: This is a 51-year-old obese gentleman with a history of hypertension hypercholesterolemia and diabetes who presents to the emergency department yesterday with 10/10 epigastric pain that radiates around to the right upper quadrant. Patient reports this is 1st episode of pain of this sort. Patient reported the pain began about 12 hours previously. The pain began 2 hours after eating his last meal which was dinner of pasta in spaghetti sauce without meat or cheese. Patient reports sudden onset of epigastric pain and right upper quadrant pain. He reports several hours later he developed multiple episodes of bilious vomiting. Patient reports the epigastric and right upper quadrant pain and bilious vomiting continued throughout the night and then he went to see his primary care doctor the following morning at [facility] who sent him to the emergency department. In the emergency department the patient was noted to have a white blood cell count of 23 and lactic acid of 2.4. Patient underwent CT scan abdomen and pelvis that showed only showed a distended gallbladder without any evidence of gallstones. Patient then underwent ultrasound of the right upper quadrant which showed no evidence of gallbladder wall thickening or gallstones or sludge. Again the gallbladder was noted to be mildly distended. Patient was unable to undergo a HIDA scan as there was no CCK for the HIDA scan available until the following day. Patient had a repeat lactic acid which was 2.8. Patient was admitted to the Medicine service and a surgical consult was obtained to rule out cholecystitis. This morning patient reports his pain is significantly improved and is about a 4 to 5/10. He reports having some mild nausea but no further episodes of vomiting since last evening. Patient reports his last bowel movement was 2 days ago. Patient denies any fever chills or chest pain. He reports mild shortness of breath with exertion secondary to his weight. Review of Systems Constitutional: Constitutional: Denies chills, Denies difficulty sleeping, Denies excessive sweating, Denies fatigue, Denies fever(s), Denies headache(s), Denies night sweats, Reports poor appetite, Denies weakness and Denies weight loss Eyes: Eyes: Denies blurry vision, Denies diplopia and Denies eye discharge ENT: Reports Normal hearing present, Denies change in voice, Denies headache(s), Denies neck mass, Denies sore throat, Denies throat swelling and Denies tongue swelling Cardiovascular: Cardiovascular: Denies chest pain, Denies chest pain at rest, Denies chest pain with activity, Denies edema, Denies leg edema and Reports dyspnea on exertion Respiratory: Respiratory: Denies cough, Denies excessive phlegm production, Reports dyspnea on exertion, Denies stridor and Denies wheezing Gastrointestinal: Gastrointestinal: Reports abdominal pain (Epigastric and right upper quadrant), Denies melena, Denies bloating, Denies hematochezia, Denies constipation, Reports heartburn, Reports nausea and Reports vomiting Genitourinary: Genitourinary: Denies hematuria, Denies dysuria, Denies urinary hesitancy, Denies urinary incontinence and Denies urinary urgency Musculoskeletal: Musculoskeletal: Denies back pain, Reports arthralgias and Denies muscle weakness Integumentary/Breasts: Skin/Breast: Denies breast swelling, Denies breast pain, Denies breast mass, Denies change in pigmentation, Denies new lesions and Denies rash Neurologic: Reports Normal hearing present, Denies confusion, Denies headache(s), Denies lack of coordination, Denies focal weakness, Denies paresthesias and Denies weakness Psychiatric: Psychiatric: Denies anxiety, Denies confusion and Denies depression Endocrine: Endocrine: Denies cold intolerance, Denies excessive sweating and Denies fatigue Hematologic/Lymphatic: Hematologic/Lymphatic: Denies easy bleeding, Denies easy bruising and Denies lymphadenopathy Allergic/Immunologic: Allergic/Immunologic: Denies urticaria, Denies throat swelling, Denies tongue swelling and Denies wheezing PMFSH Past Medical History Medical History (Updated 02/13/21 @ 12:23 by Sparkle Ly MD) Diabetes Dyslipidemia GERD (gastroesophageal reflux disease) HTN (hypertension) Leukocytosis Morbid obesity Family History Family History (Updated 02/13/21 @ 12:26 by Sparkle Ly MD) Father Hypothyroidism Hypercholesteremia Colon cancer Dementia Mother Bladder cancer Paternal Grandmother Myocardial infarction Paternal Grandfather Stroke Paternal Aunt Breast cancer Brother No problems noted. Sister No problems noted. Brother No problems noted. Surgical History Surgical History (Updated 02/13/21 @ 12:23 by Sparkle Ly MD) History of oral surgery History of rotator cuff surgery Social History Social History (Updated 02/13/21 @ 12:27 by Sparkle Ly MD) Household Members: None Housing: House Are you a primary patient care technician to a significant other at home: No Do you presently have visiting nurse or other home services: No Alcohol intake: current Alcohol intake frequency: holidays/special occasions only Patient Tobacco Use Status: Never used Tobacco Use of substances other than those prescribed or required for medical reasons: No Have you been hit, kicked, punched, or otherwise hurt by someone within the past year? If so, by whom?: No Do you feel safe in your current relationship?: Yes Is there a partner from a previous relationship who is making you feel unsafe now?: No Are you made to feel afraid or neglected: No Advance Directives: No Advance Directives Information Provided: Yes Advance Directives on File: No Do you have thoughts of harming others: None Do you have a plan to hurt others: No Plan Recently lost weight without trying: No Nutrition Risks: No Nutritional Risk Poor oral hygiene: No service: No Meds Allergies Allergy/AdvReac Type Severity Reaction Status Date / Time lisinopril AdvReac Unknown Cough Verified 09/25/20 16:23 Active Medications: Current Medications Acetaminophen (Acetaminophen 325 Mg Tablet) 650 mg PO Q6H PRN PRN Reason: Pain, Mild (Pain Scale 1-3) Last Admin: 02/12/21 23:37 Dose: 650 mg Documented by: Amlodipine Besylate (Amlodipine Besylate 5 Mg Tablet) 5 mg PO DAILY [facility]; Protocol Last Admin: 02/13/21 08:48 Dose: 5 mg Documented by: Aspirin (Aspirin 81 Mg Tab.Chew) 81 mg PO DAILY [facility] Last Admin: 02/13/21 08:48 Dose: 81 mg Documented by: Atorvastatin Calcium (Atorvastatin Calcium 20 Mg Tablet) 20 mg PO DAILY [facility] Last Admin: 02/13/21 08:49 Dose: 20 mg Documented by: Cyclobenzaprine HCl (Cyclobenzaprine Hcl 10 Mg Tablet) 10 mg PO BEDTIME PRN PRN Reason: muscle spasm Dextrose (Dextrose 50 % 25 Gm/50 Ml Vial) 25 gm IVPUSH Q15M PRN; Protocol PRN Reason: per Hypoglycemia Standing Ord. Diclofenac Sodium (Diclofenac Sodium Delayed Rel 75 Mg Tablet.Dr) 75 mg PO BID PRN PRN Reason: pain Docusate Sodium (Docusate Sodium 100 Mg Capsule) 100 mg PO DAILY PRN PRN Reason: Constipation Enoxaparin Sodium (Enoxaparin Sodium 40 Mg/0.4 Ml Syringe) 40 mg SUBCUT Q24H [facility] Last Admin: 02/13/21 08:52 Dose: 40 mg Documented by: Glucose (Glucose Gel 15 Gm Gel..Gram.) 15 gm PO Q15M PRN; Protocol PRN Reason: per Hypoglycemia Standing Ord. Hydrochlorothiazide (Hydrochlorothiazide 25 Mg Tablet) 25 mg PO DAILY [facility]; Protocol Last Admin: 02/13/21 08:51 Dose: 25 mg Documented by: Piperacillin Sod/Tazobactam (Sod 4.5 gm/ Sodium Chloride) 100 mls @ 200 mls/hr IV Q6H [facility] Last Infusion: 02/13/21 05:51 Dose: Infused Documented by: Dextrose/Sodium Chloride (D51/2ns) 1,000 mls @ 100 mls/hr IVCONT .Q10H [facility] Last Admin: 02/13/21 08:52 Dose: 100 mls/hr Documented by: Insulin Human Lispro (Insulin Lispro 100 Unit/Ml 3 Ml Vial) 0 unit SUBCUT QIDACHS [facility]; Protocol Last Admin: 02/13/21 08:38 Dose: Not Given Documented by: Metoprolol Succinate (Metoprolol Succinate Er 50 Mg Tab.Er.24h) 50 mg PO DAILY [facility]; Protocol Last Admin: 02/13/21 08:51 Dose: 50 mg Documented by: Morphine Sulfate (Morphine Sulfate 4 Mg/Ml Cartridge) 4 mg IVPUSH Q4H PRN; Protocol PRN Reason: Pain, Severe (Pain Scale 7-10) Last Admin: 02/13/21 05:12 Dose: 4 mg Documented by: Omeprazole (Omeprazole 40 Mg Capsule.) 40 mg PO DAILY@0630 [facility] Last Admin: 02/13/21 04:33 Dose: Not Given Documented by: Ondansetron HCl (Ondansetron Hcl 4 Mg/2 Ml Vial) 4 mg IVPUSH Q8H PRN PRN Reason: Nausea and Vomiting Pharmacy Consult (Consult Rx Perform Med Rec) 1 each MISCELLANE ONCE PRN PRN Reason: Consult order Sodium Chloride (0.9 % Sodium Chloride Flush 3 Ml Syringe) 3 ml IVFLUSH QSHIFT [facility] Last Admin: 02/13/21 08:53 Dose: 3 ml Documented by: Spironolactone (Spironolactone 25 Mg Tablet) 50 mg PO DAILY [facility]; Protocol Last Admin: 02/13/21 08:49 Dose: 50 mg Documented by: Tramadol HCl (Tramadol Hcl 50 Mg Tablet) 50 mg PO BID PRN PRN Reason: pain Valsartan (Valsartan 80 Mg Tablet) 80 mg PO DAILY [facility] Last Admin: 02/13/21 08:54 Dose: 80 mg Documented by: Physical Exam Vital Signs: Vital Signs: Last Vital Signs Temp 98 F 02/13/21 07:07 Pulse 104 H 02/13/21 07:07 Resp 18 02/13/21 07:07 BP 130/79 02/13/21 07:07 Pulse Ox 92 02/13/21 07:07 Body Mass Index 39.2 Const: General: No confusion Nutritional Appearance: well nourished and obese Orientation/consciousness: No confusion HENMT: Head: Yes normal to inspection, Yes normocephalic and Yes atraumatic Ears: hearing grossly normal bilaterally Mouth: Normal oral and palatal mucosa present Teeth and gingiva: dentition normal Throat: Yes posterior oropharynx normal Eyes: General: appearance normal, both eyes and all related structures Eyelids: Yes eyelids normal EOM: EOMs intact bilaterally Neck: Neck: Yes normal visual inspection, Yes full ROM, Yes trachea midline and Yes no JVD Thyroid: Thyroid normal Lymphatic: no lymphadenopathy noted Resp: Effort & Inspection: normal respiratory effort and able to speak in complete sentences Auscultation: clear to auscultation bilaterally Cardio: Jugular venous distension: no JVD Rate: regular rate Heart sounds: S1 normal heart sound present, S2 normal heart sound present, no click, no gallops and no murmurs GI: Inspection: Yes normal to inspection, No distended and No incision Palpation (GI): Soft to palpation, Tenderness to palpation present (GI) (Tenderness to palpation in the epigastric and right upper quadrant), Guarding due to palpation present (GI) (Voluntary guarding with palpation in the epigastric and right upper quadran), not rigid, no hernias and no masses Percussion: Yes normal to percussion Rectal Exam - Male: Yes deferred Skin: Rashes: no rashes Neuro: General: No confusion Cranial nerves: Yes Normal hearing present Extrem: General: Yes normal to inspection, Yes full ROM, Yes no clubbing, cyanosis or edema and Yes no calf tenderness Results Labs Result diagrams: 02/13/21 06:26 02/13/21 06:26 Labs: Abnormal lab results 02/12/21 02/12/21 02/12/21 Range/Units 15:40 15:40 15:40 WBC 23.0 H (4.8-10.8) X10*3/uL RBC (4.60-5.80) X10*6/uL Hgb (14.0-18.0) g/dl Hct (42-52) % Immature Gran % (Auto) 0.7 H (0.0-0.4) % Neut % (Auto) 89.3 H (45-73) % Lymph % (Auto) 3.4 L (20-40) % Lymph # (Auto) 0.8 L (1.2-4.9) X10*3/uL [place] # (Auto) 1.4 H (0.1-1.2) X10*3/uL Abs Immat Gran (auto) 0.15 H (0.00-0.03) X10*3/uL Absolute Neuts (auto) 20.5 H (2.0-8.3) X10*3/uL POC Glucose (60-115) mg/dL Random Glucose 148 H (60-115) mg/dL Lactic Acid 2.3 H* (0.5-2.0) mmol/L Lactic Acid Fup @ 2Hr (0.5-2.0) mmol/L Total Bilirubin 1.1 H (0.0-1.0) mg/dL Direct Bilirubin (0.0-0.5) mg/dL ALT 54 H (0-40) U/L Total Protein (6.5-8.0) g/dL 02/12/21 02/12/21 02/13/21 Range/Units 18:21 19:08 06:26 WBC 22.3 H 19.4 H (4.8-10.8) X10*3/uL RBC 4.53 L (4.60-5.80) X10*6/uL Hgb 13.9 L (14.0-18.0) g/dl Hct 41.4 L 40.6 L (42-52) % Immature Gran % (Auto) 0.6 H 0.7 H (0.0-0.4) % Neut % (Auto) 86.8 H 82.7 H (45-73) % Lymph % (Auto) 4.8 L 4.9 L (20-40) % Lymph # (Auto) 1.1 L 1.0 L (1.2-4.9) X10*3/uL [place] # (Auto) 1.7 H 2.1 H (0.1-1.2) X10*3/uL Abs Immat Gran (auto) 0.14 H 0.14 H (0.00-0.03) X10*3/uL Absolute Neuts (auto) 19.3 H 16.1 H (2.0-8.3) X10*3/uL POC Glucose (60-115) mg/dL Random Glucose (60-115) mg/dL Lactic Acid (0.5-2.0) mmol/L Lactic Acid Fup @ 2Hr 2.8 H* (0.5-2.0) mmol/L Total Bilirubin (0.0-1.0) mg/dL Direct Bilirubin (0.0-0.5) mg/dL ALT (0-40) U/L Total Protein (6.5-8.0) g/dL 02/13/21 02/13/21 Range/Units 06:26 07:07 WBC (4.8-10.8) X10*3/uL RBC (4.60-5.80) X10*6/uL Hgb (14.0-18.0) g/dl Hct (42-52) % Immature Gran % (Auto) (0.0-0.4) % Neut % (Auto) (45-73) % Lymph % (Auto) (20-40) % Lymph # (Auto) (1.2-4.9) X10*3/uL [place] # (Auto) (0.1-1.2) X10*3/uL Abs Immat Gran (auto) (0.00-0.03) X10*3/uL Absolute Neuts (auto) (2.0-8.3) X10*3/uL POC Glucose 138 H (60-115) mg/dL Random Glucose 147 H (60-115) mg/dL Lactic Acid (0.5-2.0) mmol/L Lactic Acid Fup @ 2Hr (0.5-2.0) mmol/L Total Bilirubin 1.7 H (0.0-1.0) mg/dL Direct Bilirubin 0.6 H (0.0-0.5) mg/dL ALT 41 H (0-40) U/L Total Protein 6.1 L (6.5-8.0) g/dL Short CBC 02/12/21 02/12/21 02/13/21 Range/Units 15:40 19:08 06:26 WBC 23.0 H 22.3 H 19.4 H (4.8-10.8) X10*3/uL Hgb 15.0 14.2 13.9 L (14.0-18.0) g/dl Hct 43.4 41.4 L 40.6 L (42-52) % Plt Count 283 263 242 (160-400) X10*3/uL BMP 02/12/21 02/13/21 15:40 06:26 Sodium 135 139 Potassium 3.6 3.9 Chloride 99 104 Carbon Dioxide 24 26 BUN 15 13 Creatinine 0.78 0.73 Calcium 9.4 8.5 D Liver Function 02/12/21 02/13/21 Range/Units 15:40 06:26 Total Bilirubin 1.1 H 1.7 H (0.0-1.0) mg/dL Direct Bilirubin 0.5 0.6 H (0.0-0.5) mg/dL AST 23 16 (5-37) U/L ALT 54 H 41 H (0-40) U/L Alkaline Phosphatase 69 59 (39-117) U/L Albumin 4.4 4.0 (3.5-5.0) g/dL Urine 02/12/21 Range/Units 22:32 Urine Color YELLOW Urine Appearance CLEAR Urine pH 6.0 (5.0-8.0) Ur Specific [place] 1.010 (1.005-1.025) Urine Protein NEG (NEG-TRACE) MG/DL Urine Glucose (UA) NEG (NEG) MG/DL All other labs normal. Imaging Abdomen CT scan report/results: report reviewed and image reviewed Abdominal ultrasound report/results: report reviewed Assessment and Plan (1) Right upper quadrant abdominal pain: Status: Acute This is a 51-year-old gentleman with right upper quadrant abdominal pain with a CT scan and right upper quadrant ultrasound that showed no evidence gallstones or sludge or gallbladder wall thickening which are either the usual signs for cholecystitis or biliary colic. Patient will undergo HIDA scan with CCK administration to evaluate for cholecystitis. If cholecystitis is found on HIDA scan the plan will be to perform a laparoscopic possible open cholecystectomy tomorrow. I discussed this with the patient who agrees to proceed with surgical intervention should he be diagnosed with cholecystitis by HIDA scan. Patient may have clear liquids now but should be NPO after midnight. Aspirin should be held as well as any other blood thinners in anticipation of surgical intervention tomorrow. I spent 45 minutes with this patient performed history physical examination, reviewing blood work and radiologic studies and documenting. Procedures Date of Service Date of Service: 02/13/21
--- NOTE | 2021-02-13 11:39 | MHC.CM.PN ---
met with pt who is indepdent cm intervention is not indicated he will have his own transportaion home
--- NOTE | 2021-02-13 11:49 | MHC.CM.PN ---
met with pt pt is indepdent dc plan home with family no servceis
--- NOTE | 2021-02-13 13:37 | P.PNIM_ITS ---
Progress Note: A&P (1) Right upper quadrant abdominal pain: Status: Acute (2) HTN (hypertension): Status: Acute (3) Transaminitis: Status: Acute (4) Diabetes: Status: Acute Assessment and Plan: This is a 51-year-old male with past medical history of diabetes and hypertension who presents to the hospital with complaints of abdominal pain being admitted for concern of cholecystitis sepsis Fever, leukocytosis, lactic acidosis Continue IV antibiotics Follow cultures Zosyn for now abdominal pain. Question cholecystitis versus gastritis Abdominal CT showed gallbladder distension Abdominal ultrasound negative for cholecystitis GI to follow Seen and evaluated by gen surg, XANDER pending Transaminitis. question secondary to cholecystitis diabetes sliding scale, ADA diet hypertension continue home medications GERD ppi DVT prophylaxis: lovevijayx Attending Dr. Roche Subjective Subjective Date of Service: 02/13/21 Review of Systems Follow up and Abdominal pain Still with some diffuse abdominal pain Denies chest pain, shortness of breath, nausea, vomiting, diarrhea Physical Exam Vital Signs: Vital Signs: Last Vital Signs Temp 98 F 02/13/21 07:07 Pulse 104 H 02/13/21 07:07 Resp 18 02/13/21 07:07 BP 130/79 02/13/21 07:07 Pulse Ox 92 02/13/21 07:07 Body Mass Index 39.2 Appearing in no acute distress lung sounds are clear to auscultation heart regular rate rhythm, clear S1, S2 positive bowel sounds, a diffuse tenderness neuro patient is alert x3, no focal deficits Objective Data Current Medications Acetaminophen (Acetaminophen 325 Mg Tablet) 650 mg PO Q6H PRN PRN Reason: Pain, Mild (Pain Scale 1-3) Last Admin: 02/12/21 23:37 Dose: 650 mg Documented by: Amlodipine Besylate (Amlodipine Besylate 5 Mg Tablet) 5 mg PO DAILY [facility]; Protocol Last Admin: 02/13/21 08:48 Dose: 5 mg Documented by: Aspirin (Aspirin 81 Mg Tab.Chew) 81 mg PO DAILY [facility] Last Admin: 02/13/21 08:48 Dose: 81 mg Documented by: Atorvastatin Calcium (Atorvastatin Calcium 20 Mg Tablet) 20 mg PO DAILY [facility] Last Admin: 02/13/21 08:49 Dose: 20 mg Documented by: Cyclobenzaprine HCl (Cyclobenzaprine Hcl 10 Mg Tablet) 10 mg PO BEDTIME PRN PRN Reason: muscle spasm Dextrose (Dextrose 50 % 25 Gm/50 Ml Vial) 25 gm IVPUSH Q15M PRN; Protocol PRN Reason: per Hypoglycemia Standing Ord. Diclofenac Sodium (Diclofenac Sodium Delayed Rel 75 Mg Tablet.) 75 mg PO BID PRN PRN Reason: pain Docusate Sodium (Docusate Sodium 100 Mg Capsule) 100 mg PO DAILY PRN PRN Reason: Constipation Enoxaparin Sodium (Enoxaparin Sodium 40 Mg/0.4 Ml Syringe) 40 mg SUBCUT Q24H [facility] Last Admin: 02/13/21 08:52 Dose: 40 mg Documented by: Glucose (Glucose Gel 15 Gm Gel..Gram.) 15 gm PO Q15M PRN; Protocol PRN Reason: per Hypoglycemia Standing Ord. Hydrochlorothiazide (Hydrochlorothiazide 25 Mg Tablet) 25 mg PO DAILY [facility]; Protocol Last Admin: 02/13/21 08:51 Dose: 25 mg Documented by: Piperacillin Sod/Tazobactam (Sod 4.5 gm/ Sodium Chloride) 100 mls @ 200 mls/hr IV Q6H [facility] Last Admin: 02/13/21 10:50 Dose: Not Given Documented by: Dextrose/Sodium Chloride (D51/2ns) 1,000 mls @ 100 mls/hr IVCONT .Q10H [facility] Last Admin: 02/13/21 08:52 Dose: 100 mls/hr Documented by: Insulin Human Lispro (Insulin Lispro 100 Unit/Ml 3 Ml Vial) 0 unit SUBCUT QIDACHS [facility]; Protocol Last Admin: 02/13/21 10:49 Dose: Not Given Documented by: Metoprolol Succinate (Metoprolol Succinate Er 50 Mg Tab.Er.24h) 50 mg PO DAILY [facility]; Protocol Last Admin: 02/13/21 08:51 Dose: 50 mg Documented by: Morphine Sulfate (Morphine Sulfate 4 Mg/Ml Cartridge) 4 mg IVPUSH Q4H PRN; Protocol PRN Reason: Pain, Severe (Pain Scale 7-10) Last Admin: 02/13/21 13:02 Dose: 4 mg Documented by: Omeprazole (Omeprazole 40 Mg Capsule.) 40 mg PO DAILY@0630 [facility] Last Admin: 02/13/21 04:33 Dose: Not Given Documented by: Ondansetron HCl (Ondansetron Hcl 4 Mg/2 Ml Vial) 4 mg IVPUSH Q8H PRN PRN Reason: Nausea and Vomiting Pharmacy Consult (Consult Rx Perform Med Rec) 1 each MISCELLANE ONCE PRN PRN Reason: Consult order Sodium Chloride (0.9 % Sodium Chloride Flush 3 Ml Syringe) 3 ml IVFLUSH QSHIFT [facility] Last Admin: 02/13/21 08:53 Dose: 3 ml Documented by: Spironolactone (Spironolactone 25 Mg Tablet) 50 mg PO DAILY [facility]; Protocol Last Admin: 02/13/21 08:49 Dose: 50 mg Documented by: Tramadol HCl (Tramadol Hcl 50 Mg Tablet) 50 mg PO BID PRN PRN Reason: pain Valsartan (Valsartan 80 Mg Tablet) 80 mg PO DAILY [facility] Last Admin: 02/13/21 08:54 Dose: 80 mg Documented by: Labs CBC & Chem 7: 02/13/21 06:26 02/13/21 06:26 Labs: Laboratory Results - last 24 hr 02/12/21 02/12/21 02/12/21 15:40 15:40 15:40 MCV 87.9 MCH 30.4 MCHC 34.6 RDW 12.6 Plt Count 283 MPV 10.4 Immature Gran % (Auto) 0.7 H Neut % (Auto) 89.3 H Lymph % (Auto) 3.[address] [place] % (Auto) 6.1 Eos % (Auto) 0.2 Baso % (Auto) 0.3 Lymph # (Auto) 0.[address] [place] # (Auto) 1.4 H Eos # (Auto) 0.0 Baso # (Auto) 0.1 Abs Immat Gran (auto) 0.15 H Absolute Neuts (auto) 20.5 H Absolute Nucleated RBC 0.000 Nucleated RBC % (auto) 0.0 Smear Tech's Comments VERIFIED Anion Gap 16 Estim Creat Clear Calc 150.1 Estimated GFR > 60 POC Glucose Random Glucose 148 H Lactic Acid 2.3 H* Lactic Acid Fup @ 2Hr Lactic Acid Fup @ 4Hr Calcium 9.4 Magnesium 1.6 Total Bilirubin 1.1 H Direct Bilirubin 0.5 AST 23 ALT 54 H Alkaline Phosphatase 69 Total Protein 6.7 Albumin 4.4 Lipase 16 Urine Color Urine Appearance Urine pH Ur Specific [place] Urine Protein Urine Glucose (UA) Urine Ketones Urine Blood Urine Nitrite Ur Leukocyte Esterase COVID-19 (SANDIP) COVID-19 Clin Com 02/12/21 02/12/21 02/12/21 17:25 18:21 19:08 MCV 89.0 MCH 30.5 MCHC 34.3 RDW 12.7 Plt Count 263 MPV 10.3 Immature Gran % (Auto) 0.6 H Neut % (Auto) 86.8 H Lymph % (Auto) 4.[address] [place] % (Auto) 7.4 Eos % (Auto) 0.2 Baso % (Auto) 0.2 Lymph # (Auto) 1.[address] [place] # (Auto) 1.7 H Eos # (Auto) 0.0 Baso # (Auto) 0.1 Abs Immat Gran (auto) 0.14 H Absolute Neuts (auto) 19.3 H Absolute Nucleated RBC 0.000 Nucleated RBC % (auto) 0.0 Smear Tech's Comments Anion Gap Estim Creat Clear Calc Estimated GFR POC Glucose Random Glucose Lactic Acid Lactic Acid Fup @ 2Hr 2.8 H* Lactic Acid Fup @ 4Hr Calcium Magnesium Total Bilirubin Direct Bilirubin AST ALT Alkaline Phosphatase Total Protein Albumin Lipase Urine Color Urine Appearance Urine pH Ur Specific [place] Urine Protein Urine Glucose (UA) Urine Ketones Urine Blood Urine Nitrite Ur Leukocyte Esterase COVID-19 (SANDIP) Negative COVID-19 Clin Com See Note 02/12/21 02/12/21 02/13/21 21:05 22:32 06:26 MCV 89.6 MCH 30.7 MCHC 34.2 RDW 12.7 Plt Count 242 MPV 10.5 Immature Gran % (Auto) 0.7 H Neut % (Auto) 82.7 H Lymph % (Auto) 4.[address] [place] % (Auto) 10.6 Eos % (Auto) 0.8 Baso % (Auto) 0.3 Lymph # (Auto) 1.[address] [place] # (Auto) 2.1 H Eos # (Auto) 0.2 Baso # (Auto) 0.1 Abs Immat Gran (auto) 0.14 H Absolute Neuts (auto) 16.1 H Absolute Nucleated RBC 0.000 Nucleated RBC % (auto) 0.0 Smear Tech's Comments VERIFIED Anion Gap Estim Creat Clear Calc Estimated GFR POC Glucose Random Glucose Lactic Acid Lactic Acid Fup @ 2Hr Lactic Acid Fup @ 4Hr 1.9 Calcium Magnesium Total Bilirubin Direct Bilirubin AST ALT Alkaline Phosphatase Total Protein Albumin Lipase Urine Color YELLOW Urine Appearance CLEAR Urine pH 6.0 Ur Specific [place] 1.010 Urine Protein NEG Urine Glucose (UA) NEG Urine Ketones NEG Urine Blood NEG Urine Nitrite NEG Ur Leukocyte Esterase NEG COVID-19 (SANDIP) COVID-19 Clin Com 02/13/21 02/13/21 06:26 07:07 MCV MCH MCHC RDW Plt Count MPV Immature Gran % (Auto) Neut % (Auto) Lymph % (Auto) [place] % (Auto) Eos % (Auto) Baso % (Auto) Lymph # (Auto) [place] # (Auto) Eos # (Auto) Baso # (Auto) Abs Immat Gran (auto) Absolute Neuts (auto) Absolute Nucleated RBC Nucleated RBC % (auto) Smear Tech's Comments Anion Gap 13 Estim Creat Clear Calc 159.9 Estimated GFR > 60 POC Glucose 138 H Random Glucose 147 H Lactic Acid Lactic Acid Fup @ 2Hr Lactic Acid Fup @ 4Hr Calcium 8.5 D Magnesium Total Bilirubin 1.7 H Direct Bilirubin 0.6 H AST 16 ALT 41 H Alkaline Phosphatase 59 Total Protein 6.1 L Albumin 4.0 Lipase Urine Color Urine Appearance Urine pH Ur Specific [place] Urine Protein Urine Glucose (UA) Urine Ketones Urine Blood Urine Nitrite Ur Leukocyte Esterase COVID-19 (SANDIP) COVID-19 Clin Com Quality Stroke Does the patient have a stroke diagnosis?: No VTE Prior VTE?: No VTE Risk Level:: Medical - moderate - high VTE Device Contraindication: N/A - Device Ordered VTE Drug Contraindication: Treatment Not Tolerated
[2021-02-13 13:58] LABS: Glucose, Whole Blood 161 mg/dL (60-115)
[2021-02-13 16:00] VITALS: BP 130/84; PULSE 98; RESP 18; TEMP 38.3; O2SAT 93
--- NOTE | 2021-02-13 16:31 | MHC.SHP ---
Pre-Procedural Eval Section A Date of Service: 02/13/21 Section B Chief Complaint: Abdominal Pain Allergies: Allergies Allergy/AdvReac Type Severity Reaction Status Date / Time lisinopril AdvReac Unknown Cough Verified 09/25/20 16:23 Plan I have reviewed the history and physical and performed a pertinent physical examination on my patient. No changes have occurred unless specified.
[2021-02-13 16:35] LABS: Glucose, Whole Blood 154 mg/dL (60-115)
[2021-02-13] MEDS: Acetaminophen 325 MG TABLET 650 MG PO (17:09)
[2021-02-13] MEDS: Insulin Lispro 100 UNIT/ML 3 ML VIAL SUBCUT (17:12)
[2021-02-13 20:00] VITALS: BP 120/75; PULSE 95; RESP 18; TEMP 37.6; O2SAT 93
[2021-02-13 20:50] LABS: Glucose, Whole Blood 144 mg/dL (60-115)
[2021-02-13 23:49] VITALS: BP 134/87; PULSE 107; RESP 19; TEMP 36.7; O2SAT 94
[2021-02-14] VITALS (15 sets, daily range): BP systolic 105–136; BP diastolic 55–85; PULSE 86–101; RESP 16–21; TEMP 36.1–37.5; O2SAT 94–98
[2021-02-14] MEDS: Piperacillin Sodium/Tazobactam 4.5 GM in 0.9 % Sodium Chloride 100 ML IV ×4 (00:31→22:54)
[2021-02-14] MEDS: 0.9 % Sodium Chloride Flush 3 ML SYRINGE IVFLUSH ×3 (00:32→22:54)
[2021-02-14] MEDS: Morphine Sulfate 4 MG/ML CARTRIDGE IVPUSH ×4 (00:41→22:32)
[2021-02-14] MEDS: Dextrose 5 % and 0.45 % NaCl 1,000 ML 100 ML IVCONT (05:56)
[2021-02-14 07:29] LABS: Glucose, Whole Blood 146 mg/dL (60-115)
[2021-02-14] MEDS: Metoprolol Succinate ER 50 MG TAB.ER.24H PO (08:46)
[2021-02-14] MEDS: ondansetron HCL 4 MG/2 ML VIAL IVPUSH (09:09)
[2021-02-14 09:41] LABS: Hematocrit 41.2 % (42-52); Hemoglobin 13.7 g/dl (14.0-18.0); Mean Corpuscular HGB Conc 33.3 g/dl (31.0-36.0); Mean Corpuscular Volume 90.4 fL (80-98); Mean Platelet Volume 10.6 fL (9.4-12.4); Platelet Count 255 X10*3/uL (160-400); Red Blood Count 4.56 X10*6/uL (4.60-5.80); Red Cell Distribution Width 12.8 % (11.0-16.0); White Blood Count 19.7 X10*3/uL (4.8-10.8)
--- NOTE | 2021-02-14 09:49 | HO.PM.IMPN ---
Subjective Subjective Date of Service: 02/14/21 Interval History: seen and examined this AM feels soreness but not pain reports fevers denies current nausea Review of Systems +fevers, no chills +RUQ soreness, no pain no nausea or vomiting Review of Systems: Yes all other systems are reviewed and are negative Physical Exam Vital Signs: Vital Signs: Last Vital Signs Temp 98.6 F 02/14/21 08:00 Pulse 99 02/14/21 08:00 Resp 20 02/14/21 08:00 BP 136/84 02/14/21 08:00 Pulse Ox 94 02/14/21 08:00 Body Mass Index 39.2 Const: Other: General - no acute distress, appears comfortable Cardiovascular - regular rate and rhythm, S1-S2 Lungs - normal respiratory effort, clear to auscultation bilaterally, no wheezing Abdomen - RUQ mild TTP, no rebound Extremities - no edema bilaterally Neuro - awake and alert, no focal deficits Objective Data Active Medications Acetaminophen (Acetaminophen 325 Mg Tablet) 650 mg PO Q6H PRN PRN Reason: Pain, Mild (Pain Scale 1-3) Last Admin: 02/13/21 17:09 Dose: 650 mg Documented by: AMITA Amlodipine Besylate (Amlodipine Besylate 5 Mg Tablet) 5 mg PO DAILY [facility]; Protocol Last Admin: 02/14/21 09:12 Dose: Not Given Documented by: TJ Non-Admin Reason: NPO Atorvastatin Calcium (Atorvastatin Calcium 20 Mg Tablet) 20 mg PO DAILY [facility] Last Admin: 02/14/21 09:12 Dose: Not Given Documented by: TJ Non-Admin Reason: NPO Cyclobenzaprine HCl (Cyclobenzaprine Hcl 10 Mg Tablet) 10 mg PO BEDTIME PRN PRN Reason: muscle spasm Dextrose (Dextrose 50 % 25 Gm/50 Ml Vial) 25 gm IVPUSH Q15M PRN; Protocol PRN Reason: per Hypoglycemia Standing Ord. Docusate Sodium (Docusate Sodium 100 Mg Capsule) 100 mg PO DAILY PRN PRN Reason: Constipation Enoxaparin Sodium (Enoxaparin Sodium 40 Mg/0.4 Ml Syringe) 40 mg SUBCUT Q24H [facility] Last Admin: 02/13/21 08:52 Dose: 40 mg Documented by: INGRID Glucose (Glucose Gel 15 Gm Gel..Gram.) 15 gm PO Q15M PRN; Protocol PRN Reason: per Hypoglycemia Standing Ord. Hydrochlorothiazide (Hydrochlorothiazide 25 Mg Tablet) 25 mg PO DAILY [facility]; Protocol Last Admin: 02/14/21 09:12 Dose: Not Given Documented by: TJ Non-Admin Reason: NPO Piperacillin Sod/Tazobactam (Sod 4.5 gm/ Sodium Chloride) 100 mls @ 200 mls/hr IV Q6H [facility] Last Infusion: 02/14/21 06:27 Dose: 200 mls/hr Documented by: HEBERT Dextrose/Sodium Chloride (D51/2ns) 1,000 mls @ 100 mls/hr IVCONT .Q10H [facility] Last Admin: 02/14/21 05:56 Dose: 100 mls/hr Documented by: HEBERT Insulin Human Lispro (Insulin Lispro 100 Unit/Ml 3 Ml Vial) 0 unit SUBCUT QIDACHS [facility]; Protocol Last Admin: 02/14/21 07:58 Dose: Not Given Documented by: TJ Non-Admin Reason: No Insulin Coverage Metoprolol Succinate (Metoprolol Succinate Er 50 Mg Tab.Er.24h) 50 mg PO DAILY [facility]; Protocol Last Admin: 02/14/21 08:46 Dose: 50 mg Documented by: TJ Morphine Sulfate (Morphine Sulfate 4 Mg/Ml Cartridge) 4 mg IVPUSH Q4H PRN; Protocol PRN Reason: Pain, Severe (Pain Scale 7-10) Last Admin: 02/14/21 06:03 Dose: 4 mg Documented by: HEBERT Omeprazole (Omeprazole 40 Mg Capsule.Dr) 40 mg PO DAILY@0630 [facility] Last Admin: 02/14/21 05:54 Dose: Not Given Documented by: HEBERT Non-Admin Reason: NPO Ondansetron HCl (Ondansetron Hcl 4 Mg/2 Ml Vial) 4 mg IVPUSH Q8H PRN PRN Reason: Nausea and Vomiting Last Admin: 02/14/21 09:09 Dose: 4 mg Documented by: TJ Pharmacy Consult (Consult Rx Perform Med Rec) 1 each MISCELLANE ONCE PRN PRN Reason: Consult order Sodium Chloride (0.9 % Sodium Chloride Flush 3 Ml Syringe) 3 ml IVFLUSH QSHIFT [facility] Last Admin: 02/14/21 08:47 Dose: Not Given Documented by: TJ Non-Admin Reason: IV Running Spironolactone (Spironolactone 25 Mg Tablet) 50 mg PO DAILY [facility]; Protocol Last Admin: 02/14/21 09:12 Dose: Not Given Documented by: TJ Non-Admin Reason: NPO Tramadol HCl (Tramadol Hcl 50 Mg Tablet) 50 mg PO BID PRN PRN Reason: pain Valsartan (Valsartan 80 Mg Tablet) 80 mg PO DAILY [facility] Last Admin: 02/14/21 09:12 Dose: Not Given Documented by: TJ Non-Admin Reason: NPO Labs CBC & Chem 7: 02/14/21 08:56 02/13/21 06:26 Labs: Laboratory Results - last 24 hr 02/13/21 02/13/21 02/13/21 13:54 16:30 20:47 MCV MCH MCHC RDW Plt Count MPV Absolute Nucleated RBC Nucleated RBC % (auto) POC Glucose 161 H 154 H 144 H 02/14/21 02/14/21 07:24 08:56 MCV 90.4 MCH 30.0 MCHC 33.3 RDW 12.8 Plt Count 255 MPV 10.6 Absolute Nucleated RBC 0.000 Nucleated RBC % (auto) 0.0 POC Glucose 146 H Microbiology Microbiology Results: Microbiology 02/12/21 15:40 Blood Culture - Preliminary Blood - Venous No growth after 24 hours. 02/12/21 16:51 Blood Culture - Preliminary Blood - Venous Prelim: GPC Gram Stain only Assessment and Plan (1) Sepsis: Status: Acute Assessment and Plan: This is a 51 yo M with a PMH of DM, HTN who presented to the hospital on 02/12 with complaints of RUQ abdominal pain. He is admitted for further work up. Sepsis secondary to acute cholecysitis continue IV zosyn Gen Surg input appreciated - plan for CCK today npo d5-1/2 while npo 1/2 blood cx positive d/w micro -- verbally reported coag neg staph (contaminant) DM hold metformin sliding scale Elevated LFTs due to sepsis + acute cck HTN on multiple meds at home continue hctz, valsarta, metoprolol, aldactone, norvasc GERD PPI Full Code DVT pptx, Lovenox (on hold for surg) Quality Stroke Does the patient have a stroke diagnosis?: No VTE Prior VTE?: No VTE Risk Level:: Medical - moderate - high VTE Device Contraindication: N/A - Device Ordered VTE Drug Contraindication: Treatment Not Tolerated
[2021-02-14 09:54] LABS: Anion Gap 14 (12-20); Blood Urea Nitrogen 11 mg/dL (9-16); Calcium 8.6 mg/dL (8.4-10.2); Carbon Dioxide 25 mmol/L (22-29); Chloride 100 mmol/L (96-108); Creatinine Clr Calc Pharmacy 153.6; Estimated Glomerular Filt Rate > 60; Glucose Random 149 mg/dL (60-115); Potassium 3.3 mmol/L (3.3-5.1); Sodium 136 mmol/L (135-145)
[2021-02-14 10:33] LABS: Glucose, Whole Blood 134 mg/dL (60-115)
--- NOTE | 2021-02-14 11:03 | HO.ANESPROP2 ---
[facility] Active Problems Active Problems: All Active Problems (Updated 02/13/21 @ 14:07 by Adore Gar NP) Transaminitis (Acute) Right upper quadrant abdominal pain (Acute) Sepsis (Acute) Thickening of wall of gallbladder (Acute) Leukocytosis (Acute) Elevated lactic acid level (Acute) Abdominal pain (Acute) Physical exam (Acute) HTN (hypertension) (Acute) Screening for hypothyroidism (Acute) Diabetes (Acute) Past Medical History Medical History (Updated 02/13/21 @ 14:07 by Adore Gar NP) Diabetes Dyslipidemia GERD (gastroesophageal reflux disease) HTN (hypertension) Leukocytosis Morbid obesity Family History Family History (Updated 02/13/21 @ 12:26 by Sparkle Ly MD) Father Hypothyroidism Hypercholesteremia Colon cancer Dementia Mother Bladder cancer Paternal Grandmother Myocardial infarction Paternal Grandfather Stroke Paternal Aunt Breast cancer Brother No problems noted. Sister No problems noted. Brother No problems noted. Family history of problems with anesthesia: No Surgical History Surgical History (Updated 02/13/21 @ 12:23 by Sparkle Ly MD) History of oral surgery History of rotator cuff surgery History of Problems with Anesthesia: No Social History Social History (Updated 02/13/21 @ 12:27 by Sparkle Ly MD) Household Members: None Housing: House Are you a primary rn intensive care unit to a significant other at home: No Do you presently have visiting nurse or other home services: No Alcohol intake: current Alcohol intake frequency: holidays/special occasions only Patient Tobacco Use Status: Never used Tobacco Use of substances other than those prescribed or required for medical reasons: No Currently Displaying Signs/Symptoms of Drug Intoxication Withdrawal: No Have you been hit, kicked, punched, or otherwise hurt by someone within the past year? If so, by whom?: No Do you feel safe in your current relationship?: Yes Is there a partner from a previous relationship who is making you feel unsafe now?: No Are you made to feel afraid or neglected: No Are you DNR?: No Advance Directives: No Advance Directives Information Provided: Yes Advance Directives on File: No Do you have thoughts of harming others: None Do you have a plan to hurt others: No Plan Recently lost weight without trying: No Nutrition Risks: No Nutritional Risk Poor oral hygiene: No service: No Meds Allergies Allergy/AdvReac Type Severity Reaction Status Date / Time lisinopril AdvReac Unknown Cough Verified 09/25/20 16:23 Active Medications: Current Medications Acetaminophen (Acetaminophen 325 Mg Tablet) 650 mg PO Q6H PRN PRN Reason: Pain, Mild (Pain Scale 1-3) Last Admin: 02/13/21 17:09 Dose: 650 mg Documented by: Amlodipine Besylate (Amlodipine Besylate 5 Mg Tablet) 5 mg PO DAILY [facility]; Protocol Last Admin: 02/14/21 09:12 Dose: Not Given Documented by: Atorvastatin Calcium (Atorvastatin Calcium 20 Mg Tablet) 20 mg PO DAILY [facility] Last Admin: 02/14/21 09:12 Dose: Not Given Documented by: Cyclobenzaprine HCl (Cyclobenzaprine Hcl 10 Mg Tablet) 10 mg PO BEDTIME PRN PRN Reason: muscle spasm Dextrose (Dextrose 50 % 25 Gm/50 Ml Vial) 25 gm IVPUSH Q15M PRN; Protocol PRN Reason: per Hypoglycemia Standing Ord. Docusate Sodium (Docusate Sodium 100 Mg Capsule) 100 mg PO DAILY PRN PRN Reason: Constipation Enoxaparin Sodium (Enoxaparin Sodium 40 Mg/0.4 Ml Syringe) 40 mg SUBCUT Q24H [facility] Last Admin: 02/13/21 08:52 Dose: 40 mg Documented by: Glucose (Glucose Gel 15 Gm Gel..Gram.) 15 gm PO Q15M PRN; Protocol PRN Reason: per Hypoglycemia Standing Ord. Hydrochlorothiazide (Hydrochlorothiazide 25 Mg Tablet) 25 mg PO DAILY [facility]; Protocol Last Admin: 02/14/21 09:12 Dose: Not Given Documented by: Piperacillin Sod/Tazobactam (Sod 4.5 gm/ Sodium Chloride) 100 mls @ 200 mls/hr IV Q6H [facility] Last Infusion: 02/14/21 06:27 Dose: Infused Documented by: Dextrose/Sodium Chloride (D51/2ns) 1,000 mls @ 100 mls/hr IVCONT .Q10H [facility] Last Admin: 02/14/21 05:56 Dose: 100 mls/hr Documented by: Lactated Ringer's (Lr) 1,000 mls @ 50 mls/hr IVCONT .Q20H [facility] Insulin Human Lispro (Insulin Lispro 100 Unit/Ml 3 Ml Vial) 0 unit SUBCUT QIDACHS [facility]; Protocol Last Admin: 02/14/21 07:58 Dose: Not Given Documented by: Metoprolol Succinate (Metoprolol Succinate Er 50 Mg Tab.Er.24h) 50 mg PO DAILY [facility]; Protocol Last Admin: 02/14/21 08:46 Dose: 50 mg Documented by: Morphine Sulfate (Morphine Sulfate 4 Mg/Ml Cartridge) 4 mg IVPUSH Q4H PRN; Protocol PRN Reason: Pain, Severe (Pain Scale 7-10) Last Admin: 02/14/21 06:03 Dose: 4 mg Documented by: Omeprazole (Omeprazole 40 Mg Capsule.Dr) 40 mg PO DAILY@0630 [facility] Last Admin: 02/14/21 05:54 Dose: Not Given Documented by: Ondansetron HCl (Ondansetron Hcl 4 Mg/2 Ml Vial) 4 mg IVPUSH Q8H PRN PRN Reason: Nausea and Vomiting Last Admin: 02/14/21 09:09 Dose: 4 mg Documented by: Pharmacy Consult (Consult Rx Perform Med Rec) 1 each MISCELLANE ONCE PRN PRN Reason: Consult order Sodium Chloride (0.9 % Sodium Chloride Flush 3 Ml Syringe) [facility] Last Admin: 02/14/21 08:47 Dose: Not Given Documented by: Spironolactone (Spironolactone 25 Mg Tablet) 50 mg PO DAILY [facility]; Protocol Last Admin: 02/14/21 09:12 Dose: Not Given Documented by: Tramadol HCl (Tramadol Hcl 50 Mg Tablet) 50 mg PO BID PRN PRN Reason: pain Valsartan (Valsartan 80 Mg Tablet) 80 mg PO DAILY [facility] Last Admin: 02/14/21 09:12 Dose: Not Given Documented by: Exam Exam Date and Time: February 14, 2021 1104 Height,Weight and Vital Signs: Height 5 ft 10 in Weight 124 kg Last Vital Signs Temp 98.1 F 02/14/21 10:37 Pulse 94 02/14/21 10:37 Resp 16 02/14/21 10:37 BP 126/85 02/14/21 10:37 Pulse Ox 94 02/14/21 10:37 Pertinent Lab Results Pertinent Lab Results: Laboratory Tests 02/12/21 02/12/21 02/12/21 15:40 15:40 15:40 WBC 23.0 H RBC 4.94 Hgb 15.0 Hct 43.4 MCV 87.9 MCH 30.4 MCHC 34.6 RDW 12.6 Plt Count 283 MPV 10.4 Immature Gran % (Auto) 0.7 H Neut % (Auto) 89.3 H Lymph % (Auto) 3.4 L [place] % (Auto) 6.1 Eos % (Auto) 0.2 Baso % (Auto) 0.3 Lymph # (Auto) 0.8 L [place] # (Auto) 1.4 H Eos # (Auto) 0.0 Baso # (Auto) 0.1 Abs Immat Gran (auto) 0.15 H Absolute Neuts (auto) 20.5 H Absolute Nucleated RBC 0.000 Nucleated RBC % (auto) 0.0 Smear Tech's Comments VERIFIED Sodium 135 Potassium 3.6 Chloride 99 Carbon Dioxide 24 Anion Gap 16 BUN 15 Creatinine 0.78 Estim Creat Clear Calc 150.1 Estimated GFR > 60 POC Glucose Random Glucose 148 H Lactic Acid 2.3 H* Lactic Acid Fup @ 2Hr Lactic Acid Fup @ 4Hr Calcium 9.4 Magnesium 1.6 Total Bilirubin 1.1 H Direct Bilirubin 0.5 AST 23 ALT 54 H Alkaline Phosphatase 69 Total Protein 6.7 Albumin 4.4 Lipase 16 Urine Color Urine Appearance Urine pH Ur Specific [place] Urine Protein Urine Glucose (UA) Urine Ketones Urine Blood Urine Nitrite Ur Leukocyte Esterase COVID-19 ([facility]IP) COVID-19 Clin Com 02/12/21 02/12/21 02/12/21 17:25 18:21 19:08 WBC 22.3 H RBC 4.65 Hgb 14.2 Hct 41.4 L MCV 89.0 MCH 30.5 MCHC 34.3 RDW 12.7 Plt Count 263 MPV 10.3 Immature Gran % (Auto) 0.6 H Neut % (Auto) 86.8 H Lymph % (Auto) 4.8 L [place] % (Auto) 7.4 Eos % (Auto) 0.2 Baso % (Auto) 0.2 Lymph # (Auto) 1.1 L [place] # (Auto) 1.7 H Eos # (Auto) 0.0 Baso # (Auto) 0.1 Abs Immat Gran (auto) 0.14 H Absolute Neuts (auto) 19.3 H Absolute Nucleated RBC 0.000 Nucleated RBC % (auto) 0.0 Smear Tech's Comments Sodium Potassium Chloride Carbon Dioxide Anion Gap BUN Creatinine Estim Creat Clear Calc Estimated GFR POC Glucose Random Glucose Lactic Acid Lactic Acid Fup @ 2Hr 2.8 H* Lactic Acid Fup @ 4Hr Calcium Magnesium Total Bilirubin Direct Bilirubin AST ALT Alkaline Phosphatase Total Protein Albumin Lipase Urine Color Urine Appearance Urine pH Ur Specific [place] Urine Protein Urine Glucose (UA) Urine Ketones Urine Blood Urine Nitrite Ur Leukocyte Esterase COVID-19 ([facility]ANDIP) Negative COVID-19 Clin Com See Note 02/12/21 02/12/21 02/13/21 21:05 22:32 06:26 WBC 19.4 H RBC 4.53 L Hgb 13.9 L Hct 40.6 L MCV 89.6 MCH 30.7 MCHC 34.2 RDW 12.7 Plt Count 242 MPV 10.5 Immature Gran % (Auto) 0.7 H Neut % (Auto) 82.7 H Lymph % (Auto) 4.9 L [place] % (Auto) 10.6 Eos % (Auto) 0.8 Baso % (Auto) 0.3 Lymph # (Auto) 1.0 L [place] # (Auto) 2.1 H Eos # (Auto) 0.2 Baso # (Auto) 0.1 Abs Immat Gran (auto) 0.14 H Absolute Neuts (auto) 16.1 H Absolute Nucleated RBC 0.000 Nucleated RBC % (auto) 0.0 Smear Tech's Comments VERIFIED Sodium Potassium Chloride Carbon Dioxide Anion Gap BUN Creatinine Estim Creat Clear Calc Estimated GFR POC Glucose Random Glucose Lactic Acid Lactic Acid Fup @ 2Hr Lactic Acid Fup @ 4Hr 1.9 Calcium Magnesium Total Bilirubin Direct Bilirubin AST ALT Alkaline Phosphatase Total Protein Albumin Lipase Urine Color YELLOW Urine Appearance CLEAR Urine pH 6.0 Ur Specific [place] 1.010 Urine Protein NEG Urine Glucose (UA) NEG Urine Ketones NEG Urine Blood NEG Urine Nitrite NEG Ur Leukocyte Esterase NEG COVID-19 ([facility]IP) COVID-19 Clin Com 02/13/21 02/13/21 02/13/21 06:26 07:07 13:54 WBC RBC Hgb Hct MCV MCH MCHC RDW Plt Count MPV Immature Gran % (Auto) Neut % (Auto) Lymph % (Auto) [place] % (Auto) Eos % (Auto) Baso % (Auto) Lymph # (Auto) [place] # (Auto) Eos # (Auto) Baso # (Auto) Abs Immat Gran (auto) Absolute Neuts (auto) Absolute Nucleated RBC Nucleated RBC % (auto) Smear Tech's Comments Sodium 139 Potassium 3.9 Chloride 104 Carbon Dioxide 26 Anion Gap 13 BUN 13 Creatinine 0.73 Estim Creat Clear Calc 159.9 Estimated GFR > 60 POC Glucose 138 H 161 H Random Glucose 147 H Lactic Acid Lactic Acid Fup @ 2Hr Lactic Acid Fup @ 4Hr Calcium 8.5 D Magnesium Total Bilirubin 1.7 H Direct Bilirubin 0.6 H AST 16 ALT 41 H Alkaline Phosphatase 59 Total Protein 6.1 L Albumin 4.0 Lipase Urine Color Urine Appearance Urine pH Ur Specific [place] Urine Protein Urine Glucose (UA) Urine Ketones Urine Blood Urine Nitrite Ur Leukocyte Esterase COVID-19 ([facility]ANDIP) COVID-19 [facility]IOX 02/13/21 02/13/21 02/14/21 16:30 20:47 07:24 WBC RBC Hgb Hct MCV MCH MCHC RDW Plt Count MPV Immature Gran % (Auto) Neut % (Auto) Lymph % (Auto) [place] % (Auto) Eos % (Auto) Baso % (Auto) Lymph # (Auto) [place] # (Auto) Eos # (Auto) Baso # (Auto) Abs Immat Gran (auto) Absolute Neuts (auto) Absolute Nucleated RBC Nucleated RBC % (auto) Smear Tech's Comments Sodium Potassium Chloride Carbon Dioxide Anion Gap BUN Creatinine Estim Creat Clear Calc Estimated GFR POC Glucose 154 H 144 H 146 H Random Glucose Lactic Acid Lactic Acid Fup @ 2Hr Lactic Acid Fup @ 4Hr Calcium Magnesium Total Bilirubin Direct Bilirubin AST ALT Alkaline Phosphatase Total Protein Albumin Lipase Urine Color Urine Appearance Urine pH Ur Specific [place] Urine Protein Urine Glucose (UA) Urine Ketones Urine Blood Urine Nitrite Ur Leukocyte Esterase COVID-19 ([facility]ANDIP) COVID-19 MIOX 02/14/21 02/14/21 02/14/21 08:56 08:56 10:30 WBC 19.7 H RBC 4.56 L Hgb 13.7 L Hct 41.2 L MCV 90.4 MCH 30.0 MCHC 33.3 RDW 12.8 Plt Count 255 MPV 10.6 Immature Gran % (Auto) Neut % (Auto) Lymph % (Auto) [place] % (Auto) Eos % (Auto) Baso % (Auto) Lymph # (Auto) [place] # (Auto) Eos # (Auto) Baso # (Auto) Abs Immat Gran (auto) Absolute Neuts (auto) Absolute Nucleated RBC 0.000 Nucleated RBC % (auto) 0.0 Smear Tech's Comments Sodium 136 Potassium 3.3 Chloride 100 Carbon Dioxide 25 Anion Gap 14 BUN 11 Creatinine 0.76 Estim Creat Clear Calc 153.6 Estimated GFR > 60 POC Glucose 134 H Random Glucose 149 H Lactic Acid Lactic Acid Fup @ 2Hr Lactic Acid Fup @ 4Hr Calcium 8.6 Magnesium Total Bilirubin Direct Bilirubin AST ALT Alkaline Phosphatase Total Protein Albumin Lipase Urine Color Urine Appearance Urine pH Ur Specific [place] Urine Protein Urine Glucose (UA) Urine Ketones Urine Blood Urine Nitrite Ur Leukocyte Esterase COVID-19 ([facility]IP) COVID-19 Clin Com Airway Mallampati Class: III (One implant laterally) TM Dist: >3cm Neck ROM: Full Heart: rrr Lungs: cta Assessment and Plan Assessment Anesthesia Assessment: Anesthesia Plan Discussed, Smoking Cess. Discussed and Chart Reviewed Final Anesthetic Review Family History of Problems with Anesthesia: No History of Problems with Anesthesia: No NPO: Yes ASA Class: III Final Preanesthetic Review: No Changes in Pt Med Stat, Meds/Allgs Chart Reviewed and Consent Obtained/Reviewed Patient Risk: Intermediate Procedure Risk: Intermediate Anesthetic Plan Anesthetic Plan: GA Disposition: Standard PACU
--- NOTE | 2021-02-14 11:39 | P.BOP_ITS ---
Brief Operative Note Date of Service: 02/14/21 Pre-op diagnosis: Acalculous cholecystitis Post-op diagnosis: other (Cholelithiasis and cholecystitis) Procedure: Laparoscopic cholecystectomy with SERGIO drain placement Surgeon: Sparkle Ly MD Anesthesia: KINGSA Was an Preschool Paraprofessional used for this Procedure?: Yes Preschool Paraprofessional: Sofia Armstrong Estimated blood loss (mL): 400 Pathology: other (Gallbladder) Condition: stable Disposition: PACU
--- NOTE | 2021-02-14 11:39 | P.OP_ITS ---
Operative Note Operative Note Date of Service: 02/14/21 Narrative: Patient was brought into the operating room, placed on operating table in the supine position. Normal DVT prophylaxis was instituted. Patient received 2 g of IV cefotetan preoperatively. General anesthesia was induced. The abdomen was prepped and draped in the normal sterile fashion using ChloraPrep. A safety time-out was performed. Next a mixture of 1% lidocaine with epinephrine and 0.25% Marcaine plain was used to anesthetize the planned incision site in the infraumbilical position. A #11 Scalpel was used to make a 2 cm epigastric longitudinal surgical incision through which the subcutaneous tissues were dissected down to level the fascia. I then used the Veress needle and placed it into the intra-abdominal cavity. I used a saline drop test to confirm that the Veress needle was intra-abdominal. I insufflated the intra- abdominal cavity to 15 mm of mercury. I then placed a 5 mm port through this fascial site and placed a 5 mm 45 degree laparoscope intra-abdominally. There was a significant amount of intra-abdominal fat that came from the omentum. I then placed 4 additional 5 mm ports under direct vision 1 in the epigastrium to the right of falciform ligament and 2 in the patient's right upper quadrant 1 laterally, 1 more medially. I also placed an additional 5 mm port adjacent to the epigastric port that was 1st placed. I then converted the 5 mm port in epigastrium to a 12 mm port. We placed the patient in reverse Trendelenburg positioning. The liver was very large and fatty. We were able to removed the omentum from on top of the liver and noted a very distended inflamed tense g allbladder. We used a laparoscopic needle aspirator in order to aspirate the gallbladder so that we could grasp it. We then started to dissect the distal aspect of the gallbladder in order to find the cystic artery and cystic duct. We were able to find the cystic artery and its tributaries. We placed clips on the cystic artery and several of its tributaries and divided these. Given the amount of inflammation it was very difficult to find the cystic duct and the gallbladder wall was very thick and edematous. In the process of trying to hold onto the neck of the gallbladder we did create a hole in the distal aspect of the gallbladder and there were several small stones that we were able to suction with the laparoscopic suction microsoft bi consultant. We then decided to take the gallbladder down in a top-down fashion using the cautery. Given the inflammation of the gallbladder there was a significant amount of venous bleeding from the gallbladder fossa as we dissected the gallbladder off the g allbladder fossa. Once the gallbladder was off the gallbladder fossa and it was just being held by the cystic duct we noted that there was no additional bleeding from the gallbladder fossa. The cystic duct was very large in size and we decided to amputate the gallbladder from the cystic duct and we placed a total of 2, 0 Vicryl Endoloops around the cystic duct stump. We then cauterized the mucosa that was still visible at the cystic duct stump. We placed the gallbladder in an Endo-Catch bag removed from the abdomen through the 12 mm port site. We irrigated under the liver edge and over the liver edge into the effluent was clear. We evaluated the gallbladder fossa in who was also hemostatic. We visualized the cystic duct stump and there was evidence of any bleeding and again the endo-loops were around the cystic duct stump without any evidence of bleeding or bile draining. We then placed a 10 mm Héctor-Phillips drain in the gallbladder fossa and brought the tubing out of the right most right upper quadrant port site. We secured the tubing to the abdominal wall using a 2 0 nylon suture. We then removed the 5 mm ports under direct vision and removed the 12 mm port. We reapproximated the 12 mm port using a total of 2 [id number] 0 Vicryl sutures there is no residual fascial defect. We instilled local anesthetic into all of the skin incisions and the fascial closure site at the 12 mm port site. We placed a Héctor-Phillips drain to bulb suction. We then closed all skin incisions with 4-0 Monocryl subcuticular stitch. We cleaned and dried the skin and applied skin glue to all skin incisions. All counts were correct at the end the case there were no complications. The patient was awake and in stable condition prior to extubation and transfer to the recovery room.
--- NOTE | 2021-02-14 12:42 | MHC.CM.PN ---
Male 51 DX AB pain. He is scheduled for Cholicystectomy today. DP Home no services. He will arrange for transportation home. Per MD rounds discharge is anticipated tomorrow. CM will follow.
[2021-02-14 17:33] LABS: Glucose, Whole Blood 157 mg/dL (60-115)
[2021-02-14] MEDS: Lactated Ringers 1,000 ML 50 ML IVCONT (18:33)
[2021-02-14] MEDS: Insulin Lispro 100 UNIT/ML 3 ML VIAL SUBCUT ×2 (18:33→22:33)
[2021-02-14 21:02] LABS: Glucose, Whole Blood 173 mg/dL (60-115)
[2021-02-15] MEDS: Piperacillin Sodium/Tazobactam 4.5 GM in 0.9 % Sodium Chloride 100 ML IV (06:10)
[2021-02-15] MEDS: Omeprazole 40 MG CAPSULE.DR PO (06:12)
[2021-02-15 07:23] LABS: Glucose, Whole Blood 128 mg/dL (60-115)
[2021-02-15 08:21] LABS: Hematocrit 37.2 % (42-52); Hemoglobin 12.2 g/dl (14.0-18.0); Mean Corpuscular HGB Conc 32.8 g/dl (31.0-36.0); Mean Corpuscular Volume 91.4 fL (80-98); Mean Platelet Volume 10.5 fL (9.4-12.4); Platelet Count 258 X10*3/uL (160-400); Red Blood Count 4.07 X10*6/uL (4.60-5.80); Red Cell Distribution Width 12.9 % (11.0-16.0); White Blood Count 15.4 X10*3/uL (4.8-10.8)
[2021-02-15 08:26] LABS: Anion Gap 12 (12-20); Blood Urea Nitrogen 12 mg/dL (9-16); Calcium 8.2 mg/dL (8.4-10.2); Carbon Dioxide 27 mmol/L (22-29); Chloride 103 mmol/L (96-108); Creatinine Clr Calc Pharmacy 157.7; Estimated Glomerular Filt Rate > 60; Glucose Random 142 mg/dL (60-115); Potassium 3.6 mmol/L (3.3-5.1); Sodium 138 mmol/L (135-145)
--- NOTE | 2021-02-15 08:27 | P.PNGS_ITS ---
Subjective Subjective Date of Service: 02/15/21 <Sofia Armstrong PA-C - Last Filed: 02/15/21 08:34> 02/15/21 <Sparkle Ly MD - Last Filed: 02/15/21 09:16> Interval history: He feels much better this morning. He only has soreness at the incision sites and is comfortable with analgesics. He has been OOB to the bathroom without difficulty. Ate fruit last night without any nausea or vomiting. <Sofia Armstrong PA-C - Last Filed: 02/15/21 08:34> He feels much better this morning. He only has soreness at the incision sites and is comfortable with analgesics. He has been OOB to the bathroom without difficulty. Ate fruit last night without any nausea or vomiting. Patient doing well on postoperative day 1. Status post laparoscopic cholecystectomy with SERGIO drain placement. Patient feels well with the exception of some incisional soreness. He is tolerating a diet. Vital signs are within normal limits and the patient has been afebrile. Héctor-Phillips drain has put out serosanguineous fluid in last shift only 15 mL. Patient denies nausea vomiting. White blood cell count has decreased significantly down the 15 from 20/3 on admission. 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 Patient will keep the Héctor- Phillips drain a week and monitor outputs I will plan to remove the Héctor-Phillips drain in the office when the patient follows up with me next week. Patient should avoid all heavy lifting greater than 5-10 lb for the next 4 weeks. We did provide a work note. <Sparkle Ly MD - Last Filed: 02/15/21 09:16> Physical Exam Vital Signs: Vital Signs: Last Vital Signs Temp 98.7 F 02/14/21 23:27 Pulse 90 02/14/21 23:27 Resp 20 02/14/21 23:27 BP 105/61 02/14/21 23:27 Pulse Ox 97 02/14/21 23:27 Body Mass Index 39.2 <Sofia Armstrong PA-C - Last Filed: 02/15/21 08:34> Const: General: healthy appearing, comfortable, no acute distress and alert <Sofia Armstrong PA-C - Last Filed: 02/15/21 08:34> Orientation/consciousness: patient oriented x3 <Sofia Armstrong PA-C - Last Filed: 02/15/21 08:34> Resp: Effort & Inspection: normal respiratory effort <Sofia Armstrong PA-C - Last Filed: 02/15/21 08:34> GI: Other: SERGIO drain output sanguineous, nonbilious <CHRISTOPHER Sawant - Last Filed: 02/15/21 08:34> Inspection: No distended and Yes incision (clean) <Sofia Armstrong PA-C - Last Filed: 02/15/21 08:34> Palpation (GI): Soft to palpation, Tenderness to palpation present (GI) (mild, incisional), no guarding and not rigid <Sofia Armstrong PA-C - Last Filed: 02/15/21 08:34> Percussion: Yes normal to percussion <Sofia Armstrong PA-C - Last Filed: 02/15/21 08:34> Skin: General skin exam: no rashes or lesions noted <Sofia Armstrong PA-C - Last Filed: 02/15/21 08:34> Neuro: General: patient oriented x3 <Sofia Armstrong PA-C - Last Filed: 02/15/21 08:34> Extrem: General: Yes no clubbing, cyanosis or edema <Sofia Armstrong PA-C - Last Filed: 02/15/21 08:34> Procedures Date of Service Date of Service: 02/15/21 <Sparkle Ly MD - Last Filed: 02/15/21 09:16> Progress Note: A&P Assessment and plan (1) Sepsis: Status: Acute <Sofia Armstrong PA-C - Last Filed: 02/15/21 08:34> (2) Transaminitis: Status: Acute <Sofia Armstrong PA-C - Last Filed: 02/15/21 08:34> (3) Acute calculous cholecystitis: Status: Acute <Sofia Armstrong PA-C - Last Filed: 02/15/21 08:34> (4) S/P laparoscopic cholecystectomy: Status: Acute <Sofia Armstrong PA-C - Last Filed: 02/15/21 08:34> Assessment and Plan: 51 year old male admitted with RUQ pain, leukocytosis, transaminitis found to sepsis secondary to acute cholecystitis. He has been on IV zosyn. He is now POD #1 s/p lap CCY. The gallbladder was found to be significantly inflamed with hydroptic and purulent contents. He is doing well post op, comfortable. VSS. Abd exam benign with clean incisions and appropriate post op tenderness. SERGIO with moderate output with nonbilious, nonpurulent output. WBC downtrending. He is stable for discharge but unsure if he feels comfortable going home this morning. Will reassess later today. Will remove SERGIO drain prior to discharge. <Sofia Armstrong PA-C - Last Filed: 02/15/21 08:34> Fall Risk Details Current Medications: Current Medications Acetaminophen (Acetaminophen 325 Mg Tablet) 650 mg PO Q6H PRN PRN Reason: Pain, Mild (Pain Scale 1-3) Last Admin: 02/13/21 17:09 Dose: 650 mg Documented by: Amlodipine Besylate (Amlodipine Besylate 5 Mg Tablet) 5 mg PO DAILY BEVERLY; Protocol Last Admin: 02/14/21 09:12 Dose: Not Given Documented by: Atorvastatin Calcium (Atorvastatin Calcium 20 Mg Tablet) 20 mg PO DAILY B[facility]LY Last Admin: 02/14/21 09:12 Dose: Not Given Documented by: Cyclobenzaprine HCl (Cyclobenzaprine Hcl 10 Mg Tablet) 10 mg PO BEDTIME PRN PRN Reason: muscle spasm Dextrose (Dextrose 50 % 25 Gm/50 Ml Vial) 25 gm IVPUSH Q15M PRN; Protocol PRN Reason: per Hypoglycemia Standing Ord. Docusate Sodium (Docusate Sodium 100 Mg Capsule) 100 mg PO DAILY PRN PRN Reason: Constipation Glucose (Glucose Gel 15 Gm Gel..Gram.) 15 gm PO Q15M PRN; Protocol PRN Reason: per Hypoglycemia Standing Ord. Hydrochlorothiazide (Hydrochlorothiazide 25 Mg Tablet) 25 mg PO DAILY BEVERLY; Protocol Last Admin: 02/14/21 09:12 Dose: Not Given Documented by: Piperacillin Sod/Tazobactam (Sod 4.5 gm/ Sodium Chloride) 100 mls @ 200 mls/hr IV Q6H [facility] Last Infusion: 02/15/21 07:13 Dose: Infused Documented by: Lactated Ringer's (Lr) 1,000 mls @ 50 mls/hr IVCONT .Q20H [facility] Last Admin: 02/14/21 18:33 Dose: 50 mls/hr Documented by: Insulin Human Lispro (Insulin Lispro 100 Unit/Ml 3 Ml Vial) 0 unit SUBCUT QIDACHS [facility]; Protocol Last Admin: 02/15/21 08:02 Dose: Not Given Documented by: Metoprolol Succinate (Metoprolol Succinate Er 50 Mg Tab.Er.24h) 50 mg PO DAILY [facility]; Protocol Last Admin: 02/14/21 08:46 Dose: 50 mg Documented by: Morphine Sulfate (Morphine Sulfate 4 Mg/Ml Cartridge) 4 mg IVPUSH Q4H PRN; Protocol PRN Reason: Pain, Severe (Pain Scale 7-10) Last Admin: 02/14/21 22:32 Dose: 4 mg Documented by: Omeprazole (Omeprazole 40 Mg Capsule.Dr) 40 mg PO DAILY@0630 [facility] Last Admin: 02/15/21 06:12 Dose: 40 mg Documented by: Ondansetron HCl (Ondansetron Hcl 4 Mg/2 Ml Vial) 4 mg IVPUSH Q8H PRN PRN Reason: Nausea and Vomiting Last Admin: 02/14/21 09:09 Dose: 4 mg Documented by: Oxycodone HCl (Oxycodone Hcl Immed Release 5 Mg Tablet) 5 mg PO Q3H PRN PRN Reason: Pain, Moderate (Pain Scale 4-6 Oxycodone HCl (Oxycodone Hcl Immed Release 5 Mg Tablet) 10 mg PO Q3H PRN PRN Reason: Pain, Severe (Pain Scale 7-10) Pharmacy Consult (Consult Rx Perform Med Rec) 1 each MISCELLANE ONCE PRN PRN Reason: Consult order Sodium Chloride (0.9 % Sodium Chloride Flush 3 Ml Syringe) 3 ml IVFLUSH QSHIFT [facility] Last Admin: 02/14/21 22:54 Dose: 3 ml Documented by: Spironolactone (Spironolactone 25 Mg Tablet) 50 mg PO DAILY [facility]; Protocol Last Admin: 02/14/21 09:12 Dose: Not Given Documented by: Valsartan (Valsartan 80 Mg Tablet) 80 mg PO DAILY [facility] Last Admin: 02/14/21 09:12 Dose: Not Given Documented by: <Sofia Armstrong PA-C - Last Filed: 02/15/21 08:34> Time Spent With Patient Time: Total time spent is greater than 50% in coordination of care (as documented) at patient's floor/unit and/or counseling patient: <Sofia Armstrong PA-C - Last Filed: 02/15/21 08:34> Time with patient: 15 - 24 minutes <Sofia Armstrong PA-C - Last Filed: 02/15/21 08:34> Quality Stroke Does the patient have a stroke diagnosis?: No <Sofia Armstrong PA-C - Last Filed: 02/15/21 08:34> VTE Prior VTE?: No <Sofia Armstrong PA-C - Last Filed: 02/15/21 08:34> VTE Risk Level:: Medical - moderate - high <Sofia Armstrong PA-C - Last Filed: 02/15/21 08:34> VTE Device Contraindication: N/A - Device Ordered <VERÓNICA Sawant Last Filed: 02/15/21 08:34> VTE Drug Contraindication: Treatment Not Tolerated <VERÓNICA Sawant Last Filed: 02/15/21 08:34>
[2021-02-15 08:31] VITALS: BP 132/81; PULSE 100; RESP 18; TEMP 37.4; O2SAT 93
[2021-02-15] MEDS: Morphine Sulfate 4 MG/ML CARTRIDGE IVPUSH (08:48)
[2021-02-15 08:49] VITALS: BP 132/81; PULSE 100
[2021-02-15] MEDS: hydroCHLOROthiazide 25 MG TABLET PO (08:49)
[2021-02-15] MEDS: Spironolactone 25 MG TABLET 50 MG PO (08:49)
[2021-02-15] MEDS: Valsartan 80 MG TABLET PO (08:49)
[2021-02-15] MEDS: amLODIPine Besylate 5 MG TABLET PO (08:49)
[2021-02-15] MEDS: Metoprolol Succinate ER 50 MG TAB.ER.24H PO (08:49)
[2021-02-15] MEDS: Atorvastatin Calcium 20 MG TABLET PO (08:50)
--- NOTE | 2021-02-15 09:08 | PM.DS ---
DS: Providers Provider Date of Service: 02/15/21 Date of admission: 02/12/21 21:51 Primary care physician: JACKIE Jimenez Consults: 02/12/21 22:03 Consult to General Surgery Routine Consulting Provider: Sparkle Birch Reason for consultation: Maddison? Has provider been notified: Yes DS: Diagnosis Discharge Diagnosis (1) Sepsis: Status: Acute (2) Acute calculous cholecystitis: Status: Acute (3) Transaminitis: Status: Acute (4) S/P laparoscopic cholecystectomy: Status: Acute DS: Summary Hospital Course Hospital Course: HPI: 51-year-old male with past medical history of hypertension, diabetes, HLD, obesity presents to the hospital with complaints of epigastric abdominal pain that is radiating to the right upper quadrant, worse with drinking and eating, associated with nausea and vomiting, started on Friday night worsened over the next 24 hours.? Patient denies any previous similar episode.? Patient reports that Tylenol helps slightly but the pain is constant and non relenting.? Denies any chest pain, no shortness of breath, no fever or chills, no diarrhea or constipation, no urinary symptoms and no lower extremity edema.? No dizziness headache or change in vision.? No numbness or tingling or weakness. On arrival to the ED vitals are significant for a temp of a 100.3?, heart rate of 110, respiratory rate of 17, blood pressure of 144/91, satting 97% on room air Labs are significant for 22.3, lactic acid of 2.3 that improved after IV fluids, normal direct bili, AST normal, ALT of 54, alk-phos of 69, UA negative. Hospital Course: Patient presented to the hospital with right upper quadrant abdominal pain. He met sepsis criteria. His biochemical and imaging studies were consistent with acute cholecystitis. He was started on IV fluids and antibiotics. He had blood cultures drawn. He was evaluated by General surgery and on the medically underwent a laparoscopic cholecystectomy. A SERGIO drain has been placed and will be continued at the time of discharge. His blood cultures were positive 1/2 with coag-negative Staph aureus which is likely contaminant. Patient's sepsis has resolved. He will be discharged on postop day 1. He has been tolerating a diet and has been cleared by surgery for discharge. He will be discharged on 7 more days of oral Augmentin Time Spent with Patient Time attestation: Total time spent providing and/or coordinating discharge services: Discharge coordination time: Greater than 30 minutes Quality: Stroke Does the patient have a stroke diagnosis?: No Physical Exam Vital Signs: Vital Signs: Last Vital Signs Temp 99.4 F 02/15/21 08:31 Pulse 100 02/15/21 08:49 Resp 18 02/15/21 08:31 BP 132/81 02/15/21 08:49 Pulse Ox 93 02/15/21 08:31 Body Mass Index 39.2 Const: Other: General - no acute distress, appears comfortable Cardiovascular - regular rate and rhythm, S1-S2 Lungs - normal respiratory effort, clear to auscultation bilaterally, no wheezing Abdomen - soft, ND, no rebound or guarding, serosanginous drainage in SERGIO drain Extremities - no edema bilaterally Neuro - awake and alert, no focal deficits DS: Data Data Completed and Pending Pending studies at discharge: Pending at discharge 02/14/21 14:30 Surgical [PTH] Routine Labs on day of discharge: Laboratory Results - last 24 hr 02/14/21 02/14/21 02/14/21 08:56 08:56 10:30 WBC 19.7 H RBC 4.56 L Hgb 13.7 L Hct 41.2 L MCV 90.4 MCH 30.0 MCHC 33.3 RDW 12.8 Plt Count 255 MPV 10.6 Absolute Nucleated RBC 0.000 Nucleated RBC % (auto) 0.0 Sodium 136 Potassium 3.3 Chloride 100 Carbon Dioxide 25 Anion Gap 14 BUN 11 Creatinine 0.76 Estim Creat Clear Calc 153.6 Estimated GFR > 60 POC Glucose 134 H Random Glucose 149 H Calcium 8.6 02/14/21 02/14/21 02/15/21 17:29 20:52 07:09 WBC RBC Hgb Hct MCV MCH MCHC RDW Plt Count MPV Absolute Nucleated RBC Nucleated RBC % (auto) Sodium Potassium Chloride Carbon Dioxide Anion Gap BUN Creatinine Estim Creat Clear Calc Estimated GFR POC Glucose 157 H 173 H 128 H Random Glucose Calcium 02/15/21 02/15/21 08:02 08:02 WBC 15.4 H RBC 4.07 L Hgb 12.2 L Hct 37.2 L MCV 91.4 MCH 30.0 MCHC 32.8 RDW 12.9 Plt Count 258 MPV 10.5 Absolute Nucleated RBC 0.000 Nucleated RBC % (auto) 0.0 Sodium 138 Potassium 3.6 Chloride 103 Carbon Dioxide 27 Anion Gap 12 BUN 12 Creatinine 0.74 Estim Creat Clear Calc 157.7 Estimated GFR > 60 POC Glucose Random Glucose 142 H Calcium 8.2 L Preliminary micro results at discharge 02/12/21 15:40 Blood Culture - Preliminary Blood - Venous No growth after 48 hours. Discharge Plan Discharge Patient Disposition: Home, Self-Care Discharge Diagnosis: Acute cholecystitis Referrals: Kevin Griffith FNP- [Primary Care Provider] - 1 Week Sparkle Birch MD [Physician] - 1 Week Discharge Medications: New amoxicillin-pot clavulanate [Augmentin] 875-125 mg tablet 1 tab PO BID Qty: 14 RF: 0 oxycodone 5 mg tablet 5 mg PO TID PRN (Reason: pain (scale score 7-10)) Qty: 20 RF: 0 Continued omeprazole 40 mg capsule,delayed release(DR/EC) 40 mg PO DAILY Qty: 90 RF: 1 cyclobenzaprine 10 mg tablet 10 mg PO BEDTIME PRN (Reason: muscle spasm) 30 Days Qty: 30 RF: 0 atorvastatin 20 mg tablet 20 mg PO DAILY 90 Days Qty: 90 RF: 1 metoprolol succinate 50 mg tablet extended release 24 hr 50 mg PO DAILY Qty: 90 RF: 0 amlodipine 5 mg tablet 5 mg PO DAILY Qty: 90 RF: 1 hydrochlorothiazide 25 mg tablet 25 mg PO DAILY Qty: 90 RF: 0 tramadol 50 mg tablet 50 mg PO BID PRN (Reason: pain) 10 Days Qty: 20 RF: 0 metformin 1,000 mg tablet 1,000 mg PO BID 90 Days Qty: 180 RF: 1 diclofenac sodium 75 mg tablet,delayed release (DR/EC) 75 mg PO BID PRN (Reason: pain) 30 Days Qty: 60 RF: 1 spironolactone 25 mg tablet 50 mg PO DAILY Qty: 90 RF: 4 irbesartan 150 mg tablet 150 mg PO DAILY Qty: 90 RF: 0 aspirin 81 mg tablet,chewable 1 tab PO DAILY 90 Days Qty: 90 RF: 5 Discharge Orders: Discharge Order (Routine); Ordered 02/15/21 Ordered By: Edgardo Roche Diet: low fat, low cholesterol Activity on Discharge: No heavy lifting Stand Alone Forms: Patient Portal Discharge page, Work/School Release Activity Restrictions/Additional Instructions: If the incision area is tender, you may apply an ice pack for short intervals (No more than 20 minutes on, followed by at least 20 minutes off). Do not apply heat. Do not use creams, lotions, or topical antibiotics unless instructed to do so by your surgeon. These can cause infection or allergic reaction. Patient may sponge bathe while the Héctor-Phillips drain is in place. Patient will follow-up with Dr. Birch in 1 weeks time frame and should call the office at [phone] to schedule the follow-up appointment. Patient should also call Dr. Birch office with any questions or concerns such as increasing abdominal pain, persistent nausea vomiting, fever, chills, shortness of breath, chest pain, lower extremity pain or swelling. Patient may not return to work for the next 4 weeks given the lifting restrictions of 5-10 lb. No heavy lifting (>10lbs)! Call Your Doctor If: -Your temperature exceeds 101.5? F -You experience excessive pain or swelling -You have an unexpected reaction to medication -You have excessive bleeding -You experience continued vomiting/nausea -Your incision begins to separate -Your incision shows signs of infection such as increased redness, swelling, excessive pain, drainage (light blood or clear fluid is normal) or heat Care Plan Goals: To stay healthy and out of the hospital. Health Concerns: To stay healthy and out of the hospital. Plan of Treatment: Take Augmentin for 1 week. Follow up with Dr. Birch next week. Assessment: 51 yo M admitted for acute maddison. Treated with iv antibiotics and eventually surgery.
--- NOTE | 2021-02-15 09:10 | MHC.CM.PN ---
PT CLEARED TO DC HOME TODAY WITH NO SERVICES PT TO SELF ARRANGE TRANSPORTATION
[2021-02-15 10:55] LABS: Glucose, Whole Blood 152 mg/dL (60-115)
[2021-02-15 10:59] VITALS: BP 125/71; PULSE 93; RESP 18; TEMP 37; O2SAT 94
[2021-02-15 11:00] VITALS: O2SAT 94
--- NOTE | 2021-02-15 15:11 | HO.POSTANES ---
Post Anesthesia Evaluation Post Anesthesia Evaluation Vital Signs: Vital Signs Temp Pulse Resp BP Pulse Ox 02/15/21 11:00 94 02/15/21 10:59 98.6 F 93 18 125/71 94 02/15/21 08:49 100 132/81 02/15/21 08:31 99.4 F 100 18 132/81 93 Anesthesia: General Endotracheal-GETA Mental Status: Awake Pain Control: Satisfactory Nausea/Vomiting: None Hydration: Adequate Anesthesia-Related Issues: No Anes. Related Issues
== END 2021-02-15 12:22 | disposition home or self-care (01) | DRG 263 ==
LOC: HO.ED 21:40 → HO.EDOVER 22:28 → HO.IMC 02-13 00:10
PROVIDERS: Family Medicine; Nurse Practitioner Acute Care; Nurse Practitioner Family; Surgery; Admitting Provider Internal Medicine; Emergency Provider Emergency Medicine Emergency Medical Services; PCP Nurse Practitioner Family; Visit Provider Physician Assistant Medical
PROC: 0FT44ZZ Resection of Gallbladder, Percutaneous Endoscopic Approach (ICD-10-PCS; CPT 47562; principal; 2021-02-14 11:10)
DX: K80.00 Calculus of gallbladder with acute cholecystitis without obstruction (principal); E11.9 Type 2 diabetes mellitus without complications; E78.5 Hyperlipidemia, unspecified; K21.9 Gastro-esophageal reflux disease without esophagitis; Z20.822 Contact with and (suspected) exposure to COVID-19; Z79.82 Long term (current) use of aspirin; Z79.84 Long term (current) use of oral hypoglycemic drugs; Z79.899 Other long term (current) drug therapy
CPT/HCPCS: 36415; 74177; 76705; 78227; 80048; 80076; 81003; 82947; 83605; 83690; 83735; 85025; 85027; 87040; 87147; 87205; 87635; 88304; 93005; 96361; 96365; 96376; 99024; 99285; A9537; J1100; J1170; J1650; J2250; J2270; J2370; J2405; J2543; J3010; Q9967

== ENCOUNTER → 2021-02-19 10:55 | Outpatient (BNVA) | payer OTHER, SELFPAY | PROVIDERS: PCP Nurse Practitioner Family; Referring Provider Nurse Practitioner Family; Visit Provider Surgery | DX: Z48.815 Encounter for surgical aftercare following surgery on the digestive system (principal); Z90.49 Acquired absence of other specified parts of digestive tract; Z87.19 Personal history of other diseases of the digestive system | CPT/HCPCS: 99212 ==

== ENCOUNTER → 2021-03-09 12:50 | Outpatient (BNVA) | payer OTHER, SELFPAY | PROVIDERS: PCP Nurse Practitioner Family; Visit Provider Physician Assistant Surgical | DX: Z90.49 Acquired absence of other specified parts of digestive tract (principal) | CPT/HCPCS: 99212 ==

== ENCOUNTER 2021-04-21 06:58 | Outpatient (REF) | payer OTHER, SELFPAY ==
[2021-04-21 11:13] LABS: Appearance Urine CLEAR; Color Urine YELLOW; Glucose Urine UA NEG (NEG); Leukocyte Esterase Urine NEG (NEG); Nitrite Urine NEG (NEG); PH 7.5 (5.0-8.0); Urine Blood NEG (NEG); Urine Ketones NEG (NEG); Urine Protein NEG (NEG-TRACE)
[2021-04-21 11:25] LABS: Estimated Average Glucose 123 mg/dL; Hemoglobin A1c % 5.9 %
[2021-04-21 11:33] LABS: Creatinine Urine 92.43 mg/dL; Microalbum/Creatinine Ratio Ur 5.4 ug/mg cr
[2021-04-21 11:39] LABS: Alanine Aminotransferase 51 U/L (0-40); Albumin Level 4.4 g/dL (3.5-5.0); Alkaline Phosphatase 69 U/L (39-117); Anion Gap 16 (12-20); Aspartate Amino Transferase 28 U/L (5-37); Bilirubin Total 1.4 mg/dL (0.0-1.0); Blood Urea Nitrogen 17 mg/dL (9-16); Calcium 9.5 mg/dL (8.4-10.2); Carbon Dioxide 26 mmol/L (22-29); Chloride 102 mmol/L (96-108); Cholesterol 108 mg/dL; Estimated Glomerular Filt Rate > 60; Glucose Fasting 110 mg/dL (60-99); HDL Cholesterol 33 mg/dL; LDL Cholesterol Calculated 60 mg/dl; Potassium 4.4 mmol/L (3.3-5.1); Sodium 140 mmol/L (135-145); Total Protein 6.8 g/dL (6.5-8.0); Triglycerides 79 mg/dL
[2021-04-21 11:54] LABS: Prostate Specific Antigen Scr 0.39 ng/mL (<0.05-4.0); TSH reflex Free T4 1.27 uIU/mL (0.32-4.0)
== END 2021-04-21 06:59 | disposition home or self-care (01) ==
LOC: HO.HMGCLDS 06:58
PROVIDERS: PCP Nurse Practitioner Family; Visit Provider Nurse Practitioner Family
DX: Z12.5 Encounter for screening for malignant neoplasm of prostate (principal); E11.9 Type 2 diabetes mellitus without complications
CPT/HCPCS: 36415; 80053; 80061; 81003; 82043; 83036; 84153; 84443

== ENCOUNTER 2021-05-08 08:58 | Outpatient (REF) | payer OTHER, SELFPAY ==
--- NOTE | ~2021-05-08 | XR_ITS ---
EXAMINATION: XR SHOULDER, RIGHT CLINICAL INFORMATION: M25.511 - Pain in right shoulder COMPARISON: Radiographs right shoulder 10/30/2017 TECHNIQUE: Right shoulder is imaged in 4 views. FINDINGS: There is old posttraumatic changes distal right clavicle with corticated ossific fragments similar to prior exam 10/30/2017. There is no acute fracture or dislocation or destructive process. No visible rotator cuff calcifications. XR/XR shoulder RT min 2V IMPRESSION: 1. Old posttraumatic changes distal right clavicle similar to 2018. 2. No acute fracture or dislocation. 3. No visible rotator cuff calcifications.
== END 2021-05-08 08:59 | disposition home or self-care (01) ==
LOC: HO.HMGCX 08:58
PROVIDERS: PCP Nurse Practitioner Family; Visit Provider Nurse Practitioner Family
DX: M25.511 Pain in right shoulder (principal)
CPT/HCPCS: 73030

== ENCOUNTER → 2021-06-04 13:24 | Outpatient (BNVA) | payer OTHER, SELFPAY | PROVIDERS: Visit Provider Orthopaedic Surgery | DX: M25.511 Pain in right shoulder (principal); E11.9 Type 2 diabetes mellitus without complications | CPT/HCPCS: 20610; 99212; J1100 ==

== ENCOUNTER → 2021-08-28 07:48 | Outpatient (BNVA) | payer OTHER, SELFPAY | PROVIDERS: PCP Nurse Practitioner Family; Referring Provider Nurse Practitioner Family; Visit Provider Nurse Practitioner Family | DX: Z12.11 Encounter for screening for malignant neoplasm of colon (principal); K21.9 Gastro-esophageal reflux disease without esophagitis | CPT/HCPCS: 99202 ==

== ENCOUNTER 2021-10-15 07:27 | Outpatient (REF) | payer OTHER, SELFPAY ==
[2021-10-15 11:14] LABS: MANUAL DIFF FLAG NO
[2021-10-15 11:16] LABS: Appearance Urine CLEAR; Color Urine YELLOW; Glucose Urine UA NEG (NEG); Leukocyte Esterase Urine NEG (NEG); Nitrite Urine NEG (NEG); Urine Blood NEG (NEG); Urine Ketones NEG (NEG); Urine Protein NEG (NEG-TRACE)
[2021-10-15 11:23] LABS: Basophils Absolute Auto 0.1 X10*3/uL (0.0-0.2); Basophils Percent Auto 0.9 % (0-2); Eosinophils Absolute Auto 0.6 X10*3/uL (0.0-0.4); Eosinophils Percent Auto 5.6 % (0-4); Hematocrit 46.2 % (42.0-52.0); Hemoglobin 15.2 g/dl (14.0-18.0); Imm Gran Abs Auto 0.14 X10*3/uL (0.00-0.03); Imm Gran Pct Auto 1.3 % (0.0-0.4); Lymphocytes Absolute Auto 2.1 X10*3/uL (1.2-4.9); Mean Corpuscular HGB Conc 32.9 g/dl (31.0-36.0); Mean Corpuscular Volume 91.1 fL (80.0-98.0); Mean Platelet Volume 10.7 fL (9.4-12.4); Monocytes Percent Auto 9.2 % (2-11); Neutrophils Absolute Auto 6.7 x10*3/uL (2.0-8.3); Platelet Count 319 X10*3/uL (160-400); Red Blood Count 5.07 X10*6/uL (4.60-5.80); Red Cell Distribution Width 12.8 % (11.0-16.0); White Blood Count 10.6 X10*3/uL (4.8-10.8)
[2021-10-15 11:30] LABS: Estimated Average Glucose 131 mg/dL; Hemoglobin A1c % 6.2 %
[2021-10-15 11:53] LABS: Alanine Aminotransferase 32 U/L (0-40); Albumin Level 4.2 g/dL (3.5-5.0); Alkaline Phosphatase 75 U/L (39-117); Anion Gap 15 (12-20); Aspartate Amino Transferase 16 U/L (5-37); Bilirubin Total 0.6 mg/dL (0.0-1.0); Blood Urea Nitrogen 18 mg/dL (9-16); Calcium 9.5 mg/dL (8.4-10.2); Carbon Dioxide 26 mmol/L (22-29); Chloride 102 mmol/L (96-108); Cholesterol 126 mg/dL; Estimated Glomerular Filt Rate > 60; Glucose Fasting 143 mg/dL (60-99); HDL Cholesterol 40 mg/dL; LDL Cholesterol Calculated 69 mg/dl; Potassium 4.8 mmol/L (3.3-5.1); Sodium 138 mmol/L (135-145); Total Protein 6.6 g/dL (6.5-8.0); Triglycerides 87 mg/dL
[2021-10-15 11:54] LABS: TSH reflex Free T4 1.55 uIU/mL (0.32-4.0)
== END 2021-10-15 07:28 | disposition home or self-care (01) ==
LOC: HO.HMGCLDS 07:27
PROVIDERS: Visit Provider Nurse Practitioner Family
DX: E11.9 Type 2 diabetes mellitus without complications (principal); I10 Essential (primary) hypertension
CPT/HCPCS: 36415; 80053; 80061; 81003; 83036; 84443; 85025

== ENCOUNTER 2021-10-31 08:21 | Outpatient (REF) | payer OTHER, SELFPAY ==
--- NOTE | ~2021-10-31 | CT_ITS ---
EXAMINATION: CT ABDOMEN WITHOUT CONTRAST CLINICAL INFORMATION: Abdominal hernia COMPARISON: Previous CT of the abdomen and pelvis January 2021 TECHNIQUE: Contiguous axial thin section helical images of the abdomen were performed without contrast. The data set was reformatted in the coronal and sagittal planes and reviewed on an independent workstation. This CT examination was performed using dose optimization techniques as appropriate, variously including the following: *Automated exposure control *Adjustment of mA and/or kV according to patient size (this includes techniques or standardized protocols for targeted exams where dose is matched to indication/reason for exam; i.e. extremities or head) *Use of iterative reconstruction technique DLP: 606 mGy-cm FINDINGS: LUNG BASES: The lung bases are clear. LIVER, GALLBLADDER, BILIARY TREE: The liver is low in attenuation suggestive of fatty infiltration. There is a hyperechoic area in the medial segment of the left lobe of the liver. This is similar to previous exams and likely represents an area of focal fatty sparing. No other focal liver lesion is seen. The gallbladder is been removed. There is no biliary duct dilatation. PANCREAS: Normal SPLEEN: Normal ADRENAL GLANDS AND KIDNEYS: Normal BOWEL LOOPS: There is an upper midline ventral hernia containing transverse colon. There is no evidence of obstruction. There is mild diverticulosis of the colon. Visualized bowel is otherwise unremarkable. LYMPH NODES: Normal. VASCULAR: Unremarkable. BONES: There are degenerative changes of the spine. CT/CT abdomen wo con IMPRESSION: Midline ventral hernia containing transverse colon. No evidence for obstruction. Fatty liver without large area of focal fatty sparing in the medial segment of the left lobe of the liver similar to previous exams. Post cholecystectomy. Fleischner guidelines were followed.
== END 2021-10-31 08:22 | disposition home or self-care (01) ==
LOC: HO.CT 08:21
PROVIDERS: PCP Nurse Practitioner Family; Visit Provider Nurse Practitioner Family
DX: K46.9 Unspecified abdominal hernia without obstruction or gangrene (principal)
CPT/HCPCS: 74150

== ENCOUNTER → 2021-11-02 08:11 | Outpatient (BNVA) | payer OTHER, SELFPAY | PROVIDERS: PCP Nurse Practitioner Family; Visit Provider Surgery | DX: K43.2 Incisional hernia without obstruction or gangrene (principal); E66.01 Morbid (severe) obesity due to excess calories; Z68.41 Body mass index [BMI] 40.0-44.9, adult; E78.5 Hyperlipidemia, unspecified; M25.511 Pain in right shoulder; M25.512 Pain in left shoulder; K46.9 Unspecified abdominal hernia without obstruction or gangrene; M50.90 Cervical disc disorder, unspecified, unspecified cervical region; I10 Essential (primary) hypertension; E11.9 Type 2 diabetes mellitus without complications; G47.33 Obstructive sleep apnea (adult) (pediatric); K75.81 Nonalcoholic steatohepatitis (NASH); Z90.49 Acquired absence of other specified parts of digestive tract | CPT/HCPCS: 99202 ==

== ENCOUNTER → 2021-11-16 08:34 | Outpatient (BNVA) | payer OTHER, SELFPAY | PROVIDERS: PCP Nurse Practitioner Family; Visit Provider Surgery | DX: K43.2 Incisional hernia without obstruction or gangrene (principal); E66.01 Morbid (severe) obesity due to excess calories; E78.5 Hyperlipidemia, unspecified; G47.33 Obstructive sleep apnea (adult) (pediatric); K75.81 Nonalcoholic steatohepatitis (NASH); M25.511 Pain in right shoulder; M25.512 Pain in left shoulder; M50.90 Cervical disc disorder, unspecified, unspecified cervical region; I10 Essential (primary) hypertension; E11.9 Type 2 diabetes mellitus without complications; Z90.49 Acquired absence of other specified parts of digestive tract | CPT/HCPCS: 99212 ==

== ENCOUNTER 2021-11-30 08:55 | Day surgery (SDC) | payer OTHER, SELFPAY ==
--- NOTE | 2021-11-29 09:29 | HO.ANESPROP2 ---
Documented by User: Lety Bains NP 11/29/21 09:30 HPI - Anesthesia Eval Consult details Narrative: 51yo M for Colonoscopy PMFSH Active Problems Active Problems: All Active Problems (Updated 11/02/21 @ 09:41 by Jonnathan Astudillo MD) Nonalcoholic steatohepatitis (MATHEW) (Acute) SABA (obstructive sleep apnea) (Acute) Dyslipidemia (Acute) Morbid obesity (Acute) Incisional hernia (Acute) Bilateral shoulder pain (Acute) Abdominal hernia (Acute) Cervical neck pain with evidence of disc disease (Acute) Right shoulder pain (Acute) Screening PSA (prostate specific antigen) (Acute) Screening for colon cancer (Acute) S/P laparoscopic cholecystectomy (Acute) Acute calculous cholecystitis (Acute) Sepsis (Acute) Physical exam (Acute) HTN (hypertension) (Acute) Screening for hypothyroidism (Acute) Diabetes (Acute) Past Medical History Medical History GERD (gastroesophageal reflux disease) Leukocytosis Family History Family History Father Hypothyroidism Hypercholesteremia Colon cancer Dementia Mother Bladder cancer Paternal Grandmother Myocardial infarction Paternal Grandfather Stroke Paternal Aunt Breast cancer Brother No problems noted. Sister No problems noted. Brother No problems noted. Family history of problems with anesthesia: No Surgical History Surgical History History of oral surgery History of rotator cuff surgery Hx laparoscopic cholecystectomy History of Problems with Anesthesia: No Social History Social History Household Members: None Housing: House Are you a primary career services manager to a significant other at home: No Do you presently have visiting nurse or other home services: No Alcohol intake: current Alcohol intake frequency: holidays/special occasions only Patient Tobacco Use Status: Never used Tobacco e-Cigarette/Vaping Use: Never Used Second Hand Smoke Exposure: No Use of substances other than those prescribed or required for medical reasons: No Are you DNR?: No Advance Directives: No Advance Directives Information Provided: Yes service: No Current occupational status: employed Current occupation: [employer] Cognitive needs: No Hearing needs: No Vision needs: No Meds Allergies Allergy/AdvReac Type Severity Reaction Status Date / Time lisinopril AdvReac Unknown Cough Verified 11/16/21 08:45 Exam Exam Date and Time: November 29, [id number] Pertinent Lab Results Pertinent Lab Results: Laboratory Tests 10/15/21 10/15/21 07:33 07:33 WBC 10.6 Hgb 15.2 Hct 46.2 Plt Count 319 Sodium 138 Potassium 4.8 Chloride 102 Carbon Dioxide 26 BUN 18 H Creatinine 0.85 Assessment and Plan Assessment Anesthesia Assessment: Chart Reviewed Final Anesthetic Review Family History of Problems with Anesthesia: No History of Problems with Anesthesia: No Documented by User: Christin Castro MD 11/30/21 10:16 [facility] Past Medical History Medical History GERD (gastroesophageal reflux disease) Leukocytosis Family History Family History Father Hypothyroidism Hypercholesteremia Colon cancer Dementia Mother Bladder cancer Paternal Grandmother Myocardial infarction Paternal Grandfather Stroke Paternal Aunt Breast cancer Brother No problems noted. Sister No problems noted. Brother No problems noted. Surgical History Surgical History History of oral surgery History of rotator cuff surgery Hx laparoscopic cholecystectomy Social History Social History Household Members: None Housing: House Are you a primary career services manager to a significant other at home: No Do you presently have visiting nurse or other home services: No Alcohol intake: current Alcohol intake frequency: holidays/special occasions only Patient Tobacco Use Status: Never used Tobacco e-Cigarette/Vaping Use: Never Used Second Hand Smoke Exposure: No Use of substances other than those prescribed or required for medical reasons: No Are you DNR?: No Advance Directives: No Advance Directives Information Provided: Yes service: No Current occupational status: employed Current occupation: [employer] Cognitive needs: No Hearing needs: No Vision needs: No Meds Allergies Allergy/AdvReac Type Severity Reaction Status Date / Time lisinopril AdvReac Unknown Cough Verified 11/16/21 08:45 Exam Airway Mallampati Class: II (Imokant upoer right) TM Dist: >3cm Neck ROM: Full Heart: rrr Lungs: cta Assessment and Plan Assessment Anesthesia Assessment: Anesthesia Plan Discussed and Chart Reviewed Final Anesthetic Review NPO: Yes ASA Class: III Final Preanesthetic Review: No Changes in Pt Med Stat, Meds/Allgs Chart Reviewed and Consent Obtained/Reviewed Patient Risk: Intermediate Procedure Risk: Intermediate Anesthetic Plan Anesthetic Plan: MAC: Disposition: Standard PACU
--- NOTE | 2021-11-30 09:33 | MHC.SHP ---
Pre-Procedural Eval Section A Date of Service: 11/30/21 The patient is an INPATIENT: No The History & Physical has been completed within 30 days and I have reviewed it.: No Section B Chief Complaint: screening Details of Present Illness: Colon cancer screening Relevant Family History (Specify if Yes): Yes Relevant Social History: None Present Medications: see Short Stay Collaborative assessment Medical History: Significant History (Diabetes Dyslipidemia GERD (gastroesophageal reflux disease) HTN (hypertension) Leukocytosis Morbid obesity) History of Previous Operations: Relevant previous surgery/procedure and date(s) (History of oral surgery History of rotator cuff surgery Hx laparoscopic cholecystectomy S/P laparoscopic cholecystectomy) Allergies: Allergies Allergy/AdvReac Type Severity Reaction Status Date / Time lisinopril AdvReac Unknown Cough Verified 11/16/21 08:45 Review of Systems Sugical H&P ROS: Negative: Constitution, Cardiovascular, Respiratory and Gastrointestinal Exam Surgical H&P Exam: Normal: Heart, Normal: Lungs, Normal: Extremities and Normal: Abdomen Plan Diagnosis/Plan: Unchanged I have reviewed the history and physical and performed a pertinent physical examination on my patient. No changes have occurred unless specified.
[2021-11-30 09:50] VITALS: BMI 41.3
[2021-11-30 10:01] VITALS: BP 153/103; PULSE 88; RESP 16; TEMP 36.8; O2SAT 95
[2021-11-30 10:10] LABS: Glucose, Whole Blood 136 mg/dL (60-115)
--- NOTE | 2021-11-30 10:14 | W.PM.OPN ---
Operative Note Operative Note Date of Service: 11/30/21 Narrative: Pre-op diagnosis: Colon cancer screening, colorectal cancer in his father, diagnosed in early 60s.? Post-op diagnosis:?other (Colon polyps, diverticulosis, hemorrhoids) Procedure: COLONOSCOPY TILL CECUM WITH SNARE POLYPECTOMY Consent: Indications for the procedure and potential complications of bleeding, perforation, reaction to medications and missed diagnosis were discussed with the patient and informed consent was obtained. Instrument: Olympus CF H 190 L variable stiffness adult colonoscope Monitoring: Vital signs and clinical assessment, intermittent blood pressure monitoring, continuous EKG monitoring, Pulse oximetry and Carbon Dioxide monitoring were done throughout the procedure. Colon withdrawl time was 20 minutes. Procedure: The patient was placed in the left lateral decubitis position and pre-procedure medications were administered. After a digital rectal examination of the ano-rectum, the video colonoscope was inserted into the rectum and advanced through the colon to the cecum. The colonoscope was slowly withdrawn in a retrograde panoramic fashion and the colon mucosa was carefully examined including a retroflexed view of the rectum. Findings and interventions are described below. Procedure Difficulty: Without difficulty Findings: Terminal Ileum: Not evaluated Cecum:? Normal Ascending Colon:? Normal Transverse Colon:? Normal Descending Colon:? Normal Sigmoid Colon:? A 10 mm sessile polyp removed with a cold snare. Moderate diverticulosis Rectum:? A 1.6 to 1.8 mm sessile polyp removed with a hot snare. Ano-rectum:? Moderate internal hemorrhoids Colon preparation:? Good? Impression and Post Procedure Diagnosis: Colonoscopy Findings: Two medium sized polyps removed Moderate diverticulosis seen in the sigmoid colon Moderate hemorrhoids on retroflexed exam. Plan: Await pathology results Patient has an appointment on 12/14/21 in the GI Clinic with ? Catherine Campo FNP-POOJA . Repeat Colonoscopy interval based on path results - in 3 years if polyps are adenomatous and 5 years if polyps are hyperplastic (due to FH of colon cancer). Above findings were reviewed with the patient and colon polyps and diverticulosis handouts were given in the discharge area Surgeon: Dinah Montgomery MD Anesthesia:?MAC (Dr Law) Was an Sr Technical Sales Consultant used for this Procedure?:?Yes Sr Technical Sales Consultant:?Uzma Juárez Estimated blood loss (mL):?0 Pathology:?other ( A. sigmoid polyp? B. rectal polyp) Condition:?stable Disposition:?PACU
[2021-11-30] MEDS: Lactated Ringers 1,000 ML 100 ML IVCONT (10:16)
[2021-11-30 10:56] VITALS: BP 125/80; PULSE 93; RESP 16; TEMP 36.5; O2SAT 94
[2021-11-30 11:11] VITALS: BP 130/86; PULSE 85; RESP 16; TEMP 36.5; O2SAT 97
== END 2021-11-30 13:30 | disposition home or self-care (01) ==
PROVIDERS: PCP Nurse Practitioner Family; Visit Provider Internal Medicine Gastroenterology
PROC: 0DJD8ZZ Inspection of Lower Intestinal Tract, Via Natural or Artificial Opening Endoscopic (ICD-10-PCS; CPT 45378; principal; 2021-11-30 10:50)
DX: Z12.11 Encounter for screening for malignant neoplasm of colon (principal); Z80.0 Family history of malignant neoplasm of digestive organs; D12.5 Benign neoplasm of sigmoid colon; K62.1 Rectal polyp; K57.30 Diverticulosis of large intestine without perforation or abscess without bleeding; K64.8 Other hemorrhoids; K21.9 Gastro-esophageal reflux disease without esophagitis; E78.5 Hyperlipidemia, unspecified; I10 Essential (primary) hypertension; D72.829 Elevated white blood cell count, unspecified; E66.01 Morbid (severe) obesity due to excess calories; Z68.39 Body mass index [BMI] 39.0-39.9, adult; E11.9 Type 2 diabetes mellitus without complications; Z79.84 Long term (current) use of oral hypoglycemic drugs; Z79.82 Long term (current) use of aspirin; Z79.899 Other long term (current) drug therapy; Z88.8 Allergy status to other drugs, medicaments and biological substances; Z90.49 Acquired absence of other specified parts of digestive tract
CPT/HCPCS: 45385; 82947; 88305

== ENCOUNTER → 2021-12-13 08:41 | Outpatient (BNVA) | payer OTHER, SELFPAY | PROVIDERS: PCP Nurse Practitioner Family; Visit Provider Physician Assistant | DX: M75.22 Bicipital tendinitis, left shoulder (principal); M75.21 Bicipital tendinitis, right shoulder; M54.12 Radiculopathy, cervical region; R20.0 Anesthesia of skin; R20.2 Paresthesia of skin | CPT/HCPCS: 99202 ==

== ENCOUNTER → 2021-12-14 08:04 | Outpatient (BNVA) | payer OTHER, SELFPAY | PROVIDERS: PCP Nurse Practitioner Family; Visit Provider Nurse Practitioner Family | DX: D12.5 Benign neoplasm of sigmoid colon (principal); K62.1 Rectal polyp; K64.8 Other hemorrhoids; K21.9 Gastro-esophageal reflux disease without esophagitis; K57.30 Diverticulosis of large intestine without perforation or abscess without bleeding; Z79.899 Other long term (current) drug therapy; Z98.890 Other specified postprocedural states | CPT/HCPCS: 99212 ==

== ENCOUNTER 2022-02-07 16:00 | Outpatient (RCR) | payer OTHER, SELFPAY ==
--- NOTE | 2021-12-31 17:51 | MHC.PT.EP ---
[facility] [place] Office [place] Office [place] Office [address] Emily Chaney [address] [phone] F: [phone] F: [phone] F: [phone] F: [phone] Physical Therapy Plan of Care Date of Evaluation: Date of Surgery: n/a Diagnosis: B shoulder tendinitis, neck radiculopathy Assessment: Patient is a 51 year old male presenting to PT with complaints of pain in in his B shoulders and neck. Pt reports onset of pain began about 3 years ago due to insidious onset. He presents today with impairments in pain, numbness and tingling, shoulder strength, DNF strength. 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 Clinical presentation today is most consistent with signs and sx associated with possible cervical radiculopathy and B shoulder pain with likely postural component and pt will benefit from skilled PT to address the following problems and impairments noted upon evaluation: pain, numbness and tingling, shoulder strength, DNF strength. These problems limit the patient with the following functional activities: ADLs, work, sleep. The prescribed treatment plan of care is medically necessary. Co-morbidities of HTN, DM were identified and taken into considerations of plan of care. Pt was educated on HEP, role of PT, prognosis, POC. Frequency and Duration: The patient will be seen 2 x week x 4 weeks Short Term Goals: Pt will demonstrate centralization of sx in 2 weeks. Pt will demonstrate improved shoulder MMT strength by 1/3 grade with min pain in 2 weeks. Pt will demonstrate ability to perform chin tuck without sx and good DNF recruitment in 2 weeks. Jail Goals: Pt will demonstrate improved SPADI score by 13 points in 4 weeks for improved functional mobility. Pt will demonstrate improved NDI score to <10% disability in 4 weeks for improved functional mobility. Pt will demonstrate ability to complete ADLs with min to no pain or sx in 4 weeks for return to PLOF. Treatment Plan: Modalities to reduce pain, spasms and effusion. Manual therapy to restore motion and function. Therapeutic exercise to improve strength and flexibility. Neuromuscular re-education for posture and balance. Therapeutic activities to return to functional activities of daily living. Electronically signed by: Tasneem Hammond PT, DPT, ATC Please sign and return to therapist. Thank you for your referral.
--- NOTE | 2022-02-07 17:03 | MHC.PT.DC ---
[facility] [place] Office [place] Office [place] Office [address] Emily Chaney [address] [phone] F: [phone] F: [phone] F: [phone] F: [phone] Physical Therapy Discharge Report Diagnosis: B shoulder tendinitis, neck radiculopathy Date of Surgery: n/a Date of Evaluation: 12/31/21 Date of Discharge: 02/07/22 Treatments to Date: 9 Cancellations to Date: 0 No Shows to Date: 0 Discharge Status: Recommend MD Follow-up Discharge Summary: 02/07/2022: Pt has unfortunately made only minimal progress and functional improvement since start of care. He feels some relief however this is temporary only lasting a few hours at best. He has a very physical job which is likely contributing to his continued pain and sx. Despite this however he does tolerate his HEP slightly better than when he initially started. Sx appear to be coming from both his neck and shoulders. At this point max benefits of PT have been provided as pt is not making significant progress. Skilled PT is no longer indicated at this time. He does have EMG testing scheduled and advised him to attend this as well as follow ups as further imaging appears necessary at this point. Pt is in agreement with this plan and d/c today. 02/04/2022: Lasted longer today before onset of discomfort with exercises. Still most relief felt from manual. Discussed plan going forward and concern that pt is feeling only temporary relief from PT. Plan is to d/c pt next visit while he is pending further imaging tests. Pt in agreement with this plan. 01/31/2022: Pt with relief from gentle manual traction today. Tolerated exercises with minor discomfort in the shoulders although this did not increase from his baseline presentation. At end of session sx resolved and without pain. 01/24; Pt baldo exs with no increase in c/o pain. pt had relief from manual Rx. Pt job is very taxing on his body. Electronically signed by: Tasneem Hammond, PT, DPT, ATC Please sign and return to therapist. Thank you for your referral.
== END 2022-02-07 17:03 | disposition home or self-care (01) ==
LOC: HO.PTCHIC 16:00
PROVIDERS: PCP Nurse Practitioner Family; Visit Provider Physician Assistant
DX: M75.22 Bicipital tendinitis, left shoulder (principal); M75.21 Bicipital tendinitis, right shoulder; M54.12 Radiculopathy, cervical region
CPT/HCPCS: 97012; 97110; 97140; 97162

== ENCOUNTER → 2022-03-08 07:51 | Outpatient (BNVA) | payer OTHER, SELFPAY | PROVIDERS: PCP Nurse Practitioner Family; Visit Provider Nurse Practitioner Family | DX: G47.33 Obstructive sleep apnea (adult) (pediatric) (principal); E11.9 Type 2 diabetes mellitus without complications; E66.01 Morbid (severe) obesity due to excess calories; I10 Essential (primary) hypertension | CPT/HCPCS: 99202 ==

== ENCOUNTER 2022-03-14 13:04 | Outpatient (REF) | payer OTHER, SELFPAY ==
--- NOTE | 2022-03-14 08:00 | EMG_ITS ---
Bilateral median and ulnar motor and sensory studies were performed. Bilateral radial and sensory studies were performed and paraspinal muscles were tested. IMPRESSION: 1. Mild bilateral median neuropathy across carpal tunnel. 2. Chronic bilateral lower cervical radiculopathy. MD ISELA Hurtado/TRUDY / [id number]
== END 2022-03-14 13:05 | disposition home or self-care (01) ==
LOC: HO.NEURO 13:04
PROVIDERS: Visit Provider Physician Assistant
DX: R20.0 Anesthesia of skin (principal); R20.2 Paresthesia of skin; K43.2 Incisional hernia without obstruction or gangrene; E66.01 Morbid (severe) obesity due to excess calories; E78.5 Hyperlipidemia, unspecified; G47.33 Obstructive sleep apnea (adult) (pediatric); K75.81 Nonalcoholic steatohepatitis (NASH); E11.9 Type 2 diabetes mellitus without complications; Z90.49 Acquired absence of other specified parts of digestive tract
CPT/HCPCS: 95886; 95911; 99212

== ENCOUNTER → 2022-03-21 08:58 | Outpatient (BNVA) | payer OTHER, SELFPAY | PROVIDERS: PCP Nurse Practitioner Family; Visit Provider Physician Assistant | DX: G56.03 Carpal tunnel syndrome, bilateral upper limbs (principal); M75.21 Bicipital tendinitis, right shoulder; M75.22 Bicipital tendinitis, left shoulder; M54.12 Radiculopathy, cervical region | CPT/HCPCS: 99212 ==

== ENCOUNTER → 2022-05-01 11:16 | Outpatient (BNVA) | payer OTHER, SELFPAY | PROVIDERS: PCP Nurse Practitioner Family; Visit Provider Anesthesiology | DX: M47.812 Spondylosis without myelopathy or radiculopathy, cervical region (principal); M48.02 Spinal stenosis, cervical region; G56.03 Carpal tunnel syndrome, bilateral upper limbs; E66.01 Morbid (severe) obesity due to excess calories; Z68.41 Body mass index [BMI] 40.0-44.9, adult | CPT/HCPCS: 99202 ==

== ENCOUNTER 2022-05-21 18:32 | Outpatient (REF) | payer OTHER, SELFPAY ==
--- NOTE | ~2022-05-21 | MR_ITS ---
EXAMINATION: MR CERVICAL SPINE WITHOUT CONTRAST CLINICAL INFORMATION: Spinal stenosis, cervical region. COMPARISON: There are no prior studies available for comparison. TECHNIQUE: MRI of the cervical spine was obtained using routine sequences without contrast. Due to patient's weight, the gantry table undocked and the axial images do not directly correlate with the sagittal images. FINDINGS: VERTEBRAL BODIES AND PARASPINAL SOFT TISSUES: There is a mild anterolisthesis of C7 on T1. There is narrowing of intervertebral disc height at C5-C6 with loss of signal from the disc. The vertebral bodies have normal height and contour and no fractures are demonstrated. Overall, marrow signal is homogenous. The regional soft tissues are unremarkable. CERVICOMEDULLARY JUNCTION AND VISUALIZED POSTERIOR FOSSA: The craniocervical and posterior fossa structures are normal. Accounting for artifact, spinal cord signal appears normal. SPINAL LEVELS: C2-C3: There is mild right facet arthropathy. Posterior disc contour is normal. There is no central stenosis or foraminal narrowing. C3-C4: The facet joints appear normal. There is a shallow posterior disc protrusion without cord compression or central stenosis. The neural foramina are patent bilaterally. C4-C5: The facets joints appear normal. There is a broad-based posterior disc protrusion which is most prominent to the left of midline, and there may be impingement on the ventral spinal cord on the left. There is effacement of CSF around the cord with mild central stenosis. There are uncovertebral osteophytes and there is moderate right and mild left foraminal narrowing. C5-C6: The facet joints appear normal. There is a broad-based posterior disc protrusion, which is more prominent on the right. There is effacement of CSF around the cord without cord compression, and there is mild central stenosis. There are uncovertebral osteophytes and there is severe right and mild left foraminal narrowing. C6-C7: There is a shallow posterior disc protrusion without cord compression or central stenosis. There are uncovertebral osteophytes with mild bilateral foraminal narrowing. C7-T1: The facet joints appear normal bilaterally. Posterior disc contour is normal. There is no spinal cord compression or central stenosis. The neural foramina are patent bilaterally. MR/MR cervical spine wo con IMPRESSION: 1. At C4-C5 there is a broad-based posterior disc protrusion, most prominent to the left of midline. There is mild central stenosis. There is moderate right and mild left foraminal narrowing. 2. At C5-C6 there is a broad-based posterior disc protrusion, more prominent on the right. There is mild central stenosis. There is severe right and mild left foraminal narrowing. 3. Spondylosis and facet arthropathic changes are also demonstrated at other levels as described above. 4. Due to patient's weight, the gantry table undocked and the axial images do not directly correlate with the sagittal images.
== END 2022-05-21 18:33 | disposition home or self-care (01) ==
LOC: HO.MRI 18:32
PROVIDERS: Visit Provider Anesthesiology
DX: M48.02 Spinal stenosis, cervical region (principal)
CPT/HCPCS: 72141

== ENCOUNTER → 2022-06-03 15:49 | Outpatient (BNVA) | payer OTHER, SELFPAY | PROVIDERS: PCP Nurse Practitioner Family; Visit Provider Anesthesiology | DX: Z13.89 Encounter for screening for other disorder (principal) ==

== ENCOUNTER → 2022-06-24 08:09 | Outpatient (BNVA) | payer OTHER, SELFPAY | PROVIDERS: PCP Nurse Practitioner Family; Visit Provider Physician Assistant | DX: M75.81 Other shoulder lesions, right shoulder (principal); M25.512 Pain in left shoulder; M75.20 Bicipital tendinitis, unspecified shoulder | CPT/HCPCS: 20610; 99212; J1020 ==

== ENCOUNTER → 2022-07-03 12:04 | Outpatient (BNVA) | payer OTHER, SELFPAY | PROVIDERS: PCP Nurse Practitioner Family; Visit Provider Orthopaedic Surgery | DX: G56.03 Carpal tunnel syndrome, bilateral upper limbs (principal) | CPT/HCPCS: 99202 ==

== ENCOUNTER → 2022-08-09 19:30 | Outpatient (REF) | payer OTHER, SELFPAY | LOC: HO.SL 19:30 | PROVIDERS: Visit Provider Nurse Practitioner Family | DX: G47.33 Obstructive sleep apnea (adult) (pediatric) (principal) | CPT/HCPCS: 95810 ==

== ENCOUNTER → 2022-09-27 20:30 | Outpatient (REF) | payer OTHER, SELFPAY | LOC: HO.SL 20:30 | PROVIDERS: PCP Nurse Practitioner Family; Visit Provider Nurse Practitioner Family | DX: G47.33 Obstructive sleep apnea (adult) (pediatric) (principal); E66.01 Morbid (severe) obesity due to excess calories | CPT/HCPCS: 95811 ==

== ENCOUNTER 2022-10-23 07:33 | Outpatient (REF) | payer OTHER, SELFPAY ==
[2022-10-23 11:10] LABS: MANUAL DIFF FLAG NO
[2022-10-23 11:22] LABS: Appearance Urine Clear; Color Urine Yellow; Glucose Urine UA Negative (Negative); Leukocyte Esterase Urine Negative (Negative); Nitrite Urine Negative (Negative); PH 7.5 (5.0-9.0); Specific Gravity - Urine 1.025 (1.005-1.025); Urine Blood Negative (Negative); Urine Ketones Negative (Negative); Urine Protein Trace mg/dL (Neg-Trace)
[2022-10-23 11:37] LABS: Basophils Absolute Auto 0.1 X10*3/uL (0.0-0.2); Basophils Percent Auto 0.8 % (0-2); Eosinophils Absolute Auto 0.4 X10*3/uL (0.0-0.4); Eosinophils Percent Auto 4.2 % (0-4); Hematocrit 43.2 % (42.0-52.0); Hemoglobin 14.4 g/dl (14.0-18.0); Imm Gran Abs Auto 0.11 X10*3/uL (0.00-0.03); Imm Gran Pct Auto 1.1 % (0.0-0.4); Lymphocytes Absolute Auto 1.9 X10*3/uL (1.2-4.9); Lymphocytes Percent Auto 18.3 % (20-40); Mean Corpuscular HGB Conc 33.3 g/dl (31.0-36.0); Mean Corpuscular Hemoglobin 30.2 pg (27.0-33.0); Mean Corpuscular Volume 90.6 fL (80.0-98.0); Mean Platelet Volume 10.8 fL (9.4-12.4); Monocytes Absolute Auto 0.8 X10*3/uL (0.1-1.2); Monocytes Percent Auto 7.5 % (2-11); Neutrophils Percent Auto 68.1 % (45-73); Platelet Count 285 X10*3/uL (160-400); Red Blood Count 4.77 X10*6/uL (4.60-5.80); Red Cell Distribution Width 12.8 % (11.0-16.0); White Blood Count 10.2 X10*3/uL (4.8-10.8)
[2022-10-23 11:59] LABS: Alanine Aminotransferase 42 U/L (0-40); Albumin Level 4.3 g/dL (3.5-5.0); Alkaline Phosphatase 68 U/L (39-117); Anion Gap 17 (12-20); Aspartate Amino Transferase 30 U/L (5-37); Bilirubin Total 1.4 mg/dL (0.0-1.0); Blood Urea Nitrogen 13 mg/dL (9-16); Calcium 9.6 mg/dL (8.4-10.2); Carbon Dioxide 28 mmol/L (22-29); Chloride 99 mmol/L (96-108); Cholesterol 115 mg/dL; Estimated Glomerular Filt Rate > 60; Glucose Fasting 153 mg/dL (60-99); HDL Cholesterol 33 mg/dL; LDL Cholesterol Calculated 64 mg/dl; Potassium 4.5 mmol/L (3.3-5.1); Prostate Specific Antigen Scr 0.45 ng/mL (<0.05-4.0); Sodium 139 mmol/L (135-145); TSH reflex Free T4 1.59 uIU/mL (0.32-4.0); Total Protein 6.6 g/dL (6.5-8.0); Triglycerides 90 mg/dL
[2022-10-23 12:05] LABS: Estimated Average Glucose 148 mg/dL; Hemoglobin A1c % 6.8 %
[2022-10-23 12:06] LABS: Creatinine Urine 227.17 mg/dL
== END 2022-10-23 07:34 | disposition home or self-care (01) ==
LOC: HO.HMGCLDS 07:33
PROVIDERS: PCP Nurse Practitioner Family; Visit Provider Nurse Practitioner Family
DX: Z00.00 Encounter for general adult medical examination without abnormal findings (principal); E11.9 Type 2 diabetes mellitus without complications; Z12.5 Encounter for screening for malignant neoplasm of prostate
CPT/HCPCS: 36415; 80053; 80061; 81003; 82043; 83036; 84153; 84443; 85025

== ENCOUNTER → 2022-11-11 14:22 | Outpatient (BNVA) | payer OTHER, SELFPAY | PROVIDERS: PCP Nurse Practitioner Family; Visit Provider Physician Assistant | DX: M75.80 Other shoulder lesions, unspecified shoulder (principal); M75.20 Bicipital tendinitis, unspecified shoulder | CPT/HCPCS: 20610; 99212; J1040 ==

== ENCOUNTER 2022-12-16 08:05 | Outpatient (AMB) | payer OTHER, SELFPAY ==
--- NOTE | 2022-12-16 08:15 | MHC.OFFVIS ---
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 Polysomnograph Tech Required: No Allergies lisinopril Adverse Reaction (Unknown, Verified 12/16/22 08:16) Cough HPI HPI Comments History of Present Illness Details 52 y/o male patient presents for follow up of sleep apnea. Pt had a spilt sleep study done. The baseline portion of sleep study result was significant for severe degree of sleep apnea. The AHI was 86/hr and oxygen malorie was 76%. Pt tried CPAP titration study twice, but not tolerated. He developped vomiting, dizziness and tingling on his extremities. He tried wt management program, but left the program. Pt states that he sleep on his stomach, and does not have problem sleeping. He sleeps 9 pm to 5 am. He denies daytime sleepiness. [facility] Medical History Cervical radiculopathy Diabetes Dyslipidemia Fatty liver GERD (gastroesophageal reflux disease) GERD (gastroesophageal reflux disease) HTN (hypertension) Leukocytosis Morbid obesity Tubular adenoma Surgical History History of oral surgery History of rotator cuff surgery Hx laparoscopic cholecystectomy S/P laparoscopic cholecystectomy Family History Father Hypothyroidism Hypercholesteremia Colon cancer Dementia Mother Bladder cancer Paternal Grandmother Myocardial infarction Paternal Grandfather Stroke Paternal Aunt Breast cancer Brother No problems noted. Sister No problems noted. Brother No problems noted. Social History Household Members: None Housing: House Are you a primary elderly caregiver to a significant other at home: No Do you presently have visiting nurse or other home services: No Alcohol intake: current Alcohol intake frequency: holidays/special occasions only Patient Tobacco Use Status: Never used Tobacco e-Cigarette/Vaping Use: Never Used Second Hand Smoke Exposure: No Use of substances other than those prescribed or required for medical reasons: No service: No Current occupational status: employed Current occupation: [employer] Cognitive needs: No Hearing needs: No Vision needs: No Review of Systems ENT Reports Normal hearing present Neuro Reports Normal hearing present Physical Exam Vital Signs: Last Vital Signs Pulse 78 12/16/22 08:20 BP 128/82 12/16/22 08:20 Pulse Ox 96 12/16/22 08:20 Oxygen Delivery Method Room Air 12/16/22 08:20 Const General: no acute distress Nutritional Appearance: obese Orientation/consciousness: patient oriented x3 Neck Neck: Yes full ROM and Yes supple Resp Effort & Inspection: normal respiratory effort and able to speak in complete sentences Neuro General: patient oriented x3, gait normal and moves all extremities Cranial nerves: Yes Bilaterally intact EOM present, Yes Normal facial strength present, Yes Midline tongue present, Yes Symmetric palate elevation present, Yes Normal hearing present, Yes Ability to bilaterally rotate head present and Yes Ability to bilaterally elevate shoulders present Cognition (Neuro): normal cognition Psych Appearance: grossly normal Mental Status: mental status grossly normal Assessment & Plan Assessment & Plan (1) SABA (obstructive sleep apnea): Comment: Severe degree of sleep apnea. The AHI was 83/hr and oxygen malorie was 76%. Code(s): G47.33 - Obstructive sleep apnea (adult) (pediatric) Plan Pt is in processing to treat his severe degree of sleep apnea. He did not tolerate CPAP, so will refer to dentist try mandibular device to treat sleep apnea. Also refer patient to ENT for evaluation for surgery to treat SABA. Wt reduction advised. Orders: Orders RT PSG in-lab sleep titration 09/27/22 E66.01 - Morbid (severe) obesity due to excess calories, G47.33 - Obstructive sleep apnea (adult) (pediatric) Referrals Ear/Nose/Throat Referral G47.33 - Obstructive sleep apnea (adult) (pediatric) Dentistry Referral G47.33 - Obstructive sleep apnea (adult) (pediatric) Coding Level of Care Code Est Pt Level 4 (92589) Diagnoses SABA (obstructive sleep apnea) G47.33
[2022-12-16 08:20] VITALS: BP 128/82; PULSE 78; O2SAT 96; BMI 42.5
== END 2022-12-16 08:53 | disposition home or self-care (01) ==
PROVIDERS: Visit Provider Nurse Practitioner Family
DX: G47.33 Obstructive sleep apnea (adult) (pediatric) (principal)
CPT/HCPCS: 99214

== ENCOUNTER → 2022-12-16 08:05 | Outpatient (BNVA) | payer OTHER, SELFPAY | PROVIDERS: Visit Provider Nurse Practitioner Family | DX: G47.33 Obstructive sleep apnea (adult) (pediatric) (principal) | CPT/HCPCS: 99212 ==

== ENCOUNTER → 2022-12-16 14:47 | Outpatient (BNVA) | payer SELFPAY | PROVIDERS: PCP Nurse Practitioner Family; Visit Provider Physician Assistant Medical | DX: Z02.79 Encounter for issue of other medical certificate (principal) ==

== ENCOUNTER → 2023-01-24 14:53 | Outpatient (BNVA) | payer SELFPAY | PROVIDERS: PCP Nurse Practitioner Family; Visit Provider Physician Assistant | DX: Z02.79 Encounter for issue of other medical certificate (principal) ==

== ENCOUNTER 2023-02-04 15:29 | Outpatient (AMB) | payer OTHER, SELFPAY ==
--- NOTE | 2023-02-04 15:31 | A.OFFPC_ITS ---
Vital Signs 02/04/23 15:32 Height 5 ft 9 in Weight 294 lb 6 oz BMI 43.5 BP 110/76 Blood Pressure Location Rt brachial Position Sitting Pulse 82 Pulse Source Pulse Oximeter Pulse Oximetry (%) 96 Oxygen Delivery Method Room Air Intake Visit Reasons: work form Allergies lisinopril Adverse Reaction (Unknown, Verified 02/04/23 15:33) Cough Tobacco use date assessed: 02/04/23 Dental Screening Dental Screen Date: 02/04/23 Did you have a dental visit in the last 12 months?: Yes Did you have a dental problem in the last 6 months where you did not have access to dental care?: No Was dental information given to patient?: Patient has dentist HPI work form HPI Details 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 Form will be filled out by me. Denies fever, chills, and dizziness. (see scanned copy) [facility] Medical History Tubular adenoma of colon Fatty liver GERD (gastroesophageal reflux disease) Cervical radiculopathy SABA (obstructive sleep apnea) Morbid obesity Dyslipidemia Leukocytosis Diabetes HTN (hypertension) Surgical History History of colonoscopy History of laparoscopic cholecystectomy History of oral surgery History of rotator cuff surgery Family History Father Hypothyroidism Hypercholesteremia Colon cancer Dementia Mother Bladder cancer Paternal Grandmother Myocardial infarction Paternal Grandfather Stroke Paternal Aunt Breast cancer Brother No problems noted. Sister No problems noted. Brother No problems noted. Social History Household Members: None Housing: House Are you a primary healthcare administrative assistant to a significant other at home: No Do you presently have visiting nurse or other home services: No Alcohol intake: current Alcohol intake frequency: holidays/special occasions only Patient Tobacco Use Status: Never used Tobacco e-Cigarette/Vaping Use: Never Used Second Hand Smoke Exposure: No service: No Current occupational status: employed Current occupation: [employer] Cognitive needs: No Hearing needs: No Vision needs: No Questionnaire Thrive Questionnaire Date Thrive assessed: 10/01/21 EDGAR-7 AMB Questionnaire EDGAR-7 Date EDGAR - 7 assessed: 10/01/21 Source: Developed by Drs. Dane Holden, Mackenzie Perez, Nasir Grossman and colleagues, with an educational hector from [employer]. Review of Systems Const Reports as per HPI Physical exam (Primary Care) Vital Signs: Last Vital Signs Pulse 82 02/04/23 15:32 BP 110/76 02/04/23 15:32 Pulse Ox 96 02/04/23 15:32 Oxygen Delivery Method Room Air 02/04/23 15:32 BMI result Body Mass Index 43.5 Tobacco/Smoking Status: Tobacco use Status Tobacco use date assessed 02/04/23 02/04/23 15:37 Patient Tobacco Use Status Never used Tobacco 02/04/23 15:37 e-Cigarette/Vaping Use Never Used 02/04/23 15:37 Thrive Assessment: Date of Thrive Assessment Date Thrive assessed 10/01/21 02/04/23 15:37 Const General: cooperative Nutritional Appearance: obese morbidly obese Orientation/consciousness: patient oriented x3 Resp Effort & Inspection: normal respiratory effort Auscultation: clear to auscultation bilaterally Cardio Rate: regular rate Rhythm: regular rhythm Heart sounds: S1 normal heart sound present and S2 normal heart sound present Neuro Other: passed whisper test, no color deficiency noted General: patient oriented x3 Psych Appearance: grossly normal Mental Status: mental status grossly normal Speech and movement: Normal speech and movement present Affect: normal affect Attitude: cooperative Thought process: Normal thought process present Thought content: Normal thought content present Insight: Good insight present (Psych) Judgement: Good judgement present (Psych) Assessment and Plan Assessment & Plan (1) Encounter for work capability assessment: Code(s): Z00.8 - Encounter for other general examination Plan The patient agreed to the use of a biomedical technician for this encounter. Scribed for MARY Mcdaniels by Ashly Ortiz biomedical technician, on 02/04/2023 at 15:45 EST. Coding Level of Care Code Est Pt Level 3 (67236) Diagnoses Encounter for work capability assessment Z00.8
[2023-02-04 15:32] VITALS: BP 110/76; PULSE 82; O2SAT 96; BMI 43.5
== END 2023-02-04 15:58 | disposition home or self-care (01) ==
PROVIDERS: PCP Nurse Practitioner Family; Visit Provider Nurse Practitioner Family
DX: Z00.8 Encounter for other general examination (principal)
CPT/HCPCS: 99213

== ENCOUNTER 2023-06-05 15:36 | Outpatient (AMB) | payer OTHER, SELFPAY ==
--- NOTE | 2023-06-05 15:41 | MHC.PC.OV ---
Vital Signs 06/05/23 15:45 Height 5 ft 9 in Weight 258 lb BMI 38.1 BP 126/80 Blood Pressure Location Rt brachial Position Sitting Pulse 81 Pulse Source Pulse Oximeter Pulse Oximetry (%) 97 Oxygen Delivery Method Room Air Intake Visit Reasons: diabetes f/u Intake Note: Patient here for diabetes f/u and states sugars have been very good at home. Allergies lisinopril Adverse Reaction (Unknown, Verified 02/04/23 15:33) Cough Medication List - Last Reconciled 06/05/23 by MARY Randle amlodipine 5 mg PO DAILY aspirin 1 tab PO DAILY PRN atorvastatin 20 mg PO DAILY blood sugar diagnostic ([employer] Verio test strips) TEST 3 TIMES A DAY cyclobenzaprine 10 mg PO BEDTIME PRN 30 days diclofenac sodium 75 mg PO BID PRN 30 days empagliflozin (Jardiance) 10 mg PO DAILY hydrochlorothiazide 25 mg PO DAILY irbesartan 150 mg PO DAILY 90 days lancets use to test blood sugar tid metformin 1,000 mg PO BID 90 days metoprolol succinate ER 50 mg PO DAILY omeprazole 40 mg PO DAILY spironolactone 50 mg (2 x 25 mg) PO DAILY tramadol 50 mg PO BID PRN 10 days Tobacco use date assessed: 06/05/23 Dental Screening Dental Screen Date: 06/05/23 Did you have a dental visit in the last 12 months?: Yes Did you have a dental problem in the last 6 months where you did not have access to dental care?: No Was dental information given to patient?: Patient has dentist HPI diabetes f/u HPI Details DM: on a arb and statin. eye exam is up to date. 7.2 A1c today. WIll start jardiance. Pt understands the s/s of hypoglycemia and how to correct it. Pt denies any polyuria, polydipsia, or neuropathy. Pt has been working on his diet and reports exercising more [facility] Medical History Tubular adenoma of colon Fatty liver GERD (gastroesophageal reflux disease) Cervical radiculopathy SABA (obstructive sleep apnea) Morbid obesity Dyslipidemia Leukocytosis Diabetes HTN (hypertension) Surgical History History of colonoscopy History of laparoscopic cholecystectomy History of oral surgery History of rotator cuff surgery Family History Father Hypothyroidism Hypercholesteremia Colon cancer Dementia Mother Bladder cancer Paternal Grandmother Myocardial infarction Paternal Grandfather Stroke Paternal Aunt Breast cancer Brother No problems noted. Sister No problems noted. Brother No problems noted. Social History Household Members: None Housing: House Are you a primary personal caregiver to a significant other at home: No Do you presently have visiting nurse or other home services: No Alcohol intake: current Alcohol intake frequency: holidays/special occasions only Comment: soreness Patient Tobacco Use Status: Never used Tobacco e-Cigarette/Vaping Use: Never Used Second Hand Smoke Exposure: No service: No Current occupational status: employed Current occupation: [employer] Cognitive needs: No Hearing needs: No Vision needs: No Questionnaire Thrive Questionnaire Date Thrive assessed: 10/01/21 I am a: Patient What is your living situation today?: I have a steady place to live Within the past 12 months, did the food you bought not last and you didn't have the money to get more?: I choose not to answer this question Within the past 12 months, did you worry whether your food would run out before you got money to buy more?: I choose not to answer this question AUDIT C Alcohol Use Questionnaire (AUDIT-C) 1. How often do you have a drink containing alcohol?: Monthly or less 2. How many drinks containing alcohol do you have on a typical day when you are drinking?: 1 or 2 3. How often do you have six or more drinks on one occasion?: Never Total Score: 1 EDGAR-7 AMB Questionnaire EDGAR-7 Date EDGAR - 7 assessed: 10/01/21 Feeling nervous, anxious, or on edge: 0 = Not at all Not being able to stop or control worryin = Not at all Worrying too much about different things: 0 = Not at all Trouble relaxin = Not at all Being so restless that it is hard to sit still: 0 = Not at all Becoming easily annoyed or irritable: 0 = Not at all Feeling afraid as if something awful might happen: 0 = Not at all Total EDGAR-7 score (0-4 normal; 5-9 mild; 10-14 moderate; 15-21 severe): 0 Source: Developed by Drs. Dane Holden, Mackenzie Perez, Nasir Grossman and colleagues, with an educational hector from [employer]. Physical exam (Primary Care) Vital Signs: Last Vital Signs Pulse 81 06/05/23 15:45 BP 126/80 06/05/23 15:45 Pulse Ox 97 06/05/23 15:45 Oxygen Delivery Method Room Air 06/05/23 15:45 BMI result Body Mass Index 38.1 Tobacco/Smoking Status: Tobacco use Status Tobacco use date assessed 06/05/23 06/05/23 15:50 Patient Tobacco Use Status Never used Tobacco 06/05/23 15:44 e-Cigarette/Vaping Use Never Used 06/05/23 15:44 Thrive Assessment: Date of Thrive Assessment Date Thrive assessed 10/01/21 06/05/23 15:44 Const General: cooperative and healthy appearing Nutritional Appearance: obese Resp Effort & Inspection: normal respiratory effort Auscultation: clear to auscultation bilaterally Cardio Rate: regular rate Rhythm: regular rhythm Heart sounds: S1 normal heart sound present, S2 normal heart sound present and no murmurs Extrem Other: feet are intact, + sensation with use of monofilament. Psych Appearance: grossly normal Mental Status: mental status grossly normal Speech and movement: Normal speech and movement present Affect: normal affect Attitude: cooperative Thought process: Normal thought process present Thought content: Normal thought content present Results AMB Hemoglobin A1c AMB Hemoglobin A1c 7.2 % Last Edit by AIDEN Clark on 06/05/23 16:30 Immunizations pneumoc 20-sherry conj-dip cr(PF) 0.5 mL IM syringe Performing Provider: MARY Randle [place] [facility] [place] [facility] Administered by: AIDEN Clark on 06/05/23 16:43 Dose Route Admin Location Dispensed Lot Number Expiration Date NDC Toe Puller 0.5 mL IM Left Deltoid 0.5 mL [id number] 07/24/24 4489-3114-08 [employer] VIS Given Date VIS Provided VIS Publication Date 06/05/23 Single Vaccine 21 Eligibility Eligibility Date Funding Source Not VFC Eligible 06/05/23 Private Results Reviewed Results Reviewed: Laboratory Last Values Hgb A1c (Clinic) 7.2 % (4.0-6.0) H 06/05/23 15:54 Assessment and Plan Assessment & Plan (1) Diabetes: Code(s): E11.9 - Type 2 diabetes mellitus without complications Orders: Orders AMB Hemoglobin A1c Today E11.9 - Type 2 diabetes mellitus without complications TSH reflex Free T4 Today E11.9 - Type 2 diabetes mellitus without complications Complete Blood Count Auto Diff Today E11.9 - Type 2 diabetes mellitus without complications Comprehensive [place]. Panel Fast Today E11.9 - Type 2 diabetes mellitus without complications UA CC w/rflx Micro + Cult Today E11.9 - Type 2 diabetes mellitus without complications Lipid Panel Today E11.9 - Type 2 diabetes mellitus without complications Pneumococcal 20 Immunization Today Z23 - Encounter for immunization Medications: New empagliflozin (Jardiance) 10 mg PO DAILY 30 tabs 3RF Coding Level of Care Code Est Pt Level 3 (79255) Diagnoses Diabetes E11.9
[2023-06-05 15:45] VITALS: BP 126/80; PULSE 81; O2SAT 97; BMI 38.1
== END 2023-06-05 16:41 | disposition home or self-care (01) ==
PROVIDERS: PCP Nurse Practitioner Family; Visit Provider Nurse Practitioner Family
DX: E11.9 Type 2 diabetes mellitus without complications (principal); Z23 Encounter for immunization
CPT/HCPCS: 83036; 90471; 90677; 99213

== ENCOUNTER 2023-06-18 08:41 | Outpatient (AMB) | payer OTHER, SELFPAY ==
--- NOTE | 2023-06-18 08:42 | MHC.OFFVIS ---
Intake Vital Signs 06/18/23 08:50 Height 5 ft 9 in Weight 278 lb 2 oz BMI 41.1 BP 126/80 Blood Pressure Location Lt brachial Position Sitting Pulse 83 Pulse Source Pulse Oximeter Pulse Oximetry (%) 94 Oxygen Delivery Method Room Air Intake Visit Reasons: 2 mo f/u -SABA-Confirmed Intake Note: Patient presents laying on his belly, when he went for his sleep study had difficult time laying on his back and got physically sick. sleeping better at night Allergies lisinopril Adverse Reaction (Unknown, Verified 06/18/23 08:48) Cough HPI HPI Comments History of Present Illness Details 53 y/o male patient presents for follow up of sleep apnea. Pt had a spilt sleep study done. The baseline portion of sleep study result was significant for severe degree of sleep apnea. The AHI was 86/hr and oxygen malorie was 76%. Pt tried CPAP titration study twice, but not tolerated. He developped vomiting, dizziness and tingling on his extremities. He tried wt management program, but left the program. He saw director of medical staff services and changed his diet. He lost about 30 lb since January,. Pt was also evaluated by dentist, and will get the mandibular device probably next week. He also evaualted by ENT but not surgical candidate to treat SABA. Pt states that he sleep on his stomach, and does not have problem sleeping. He sleeps 9 pm to 5 am. He denies daytime sleepiness. [facility] Medical History Tubular adenoma of colon Fatty liver GERD (gastroesophageal reflux disease) Cervical radiculopathy SABA (obstructive sleep apnea) Morbid obesity Dyslipidemia Leukocytosis Diabetes HTN (hypertension) Surgical History History of colonoscopy History of laparoscopic cholecystectomy History of oral surgery History of rotator cuff surgery Family History Father Hypothyroidism Hypercholesteremia Colon cancer Dementia Mother Bladder cancer Paternal Grandmother Myocardial infarction Paternal Grandfather Stroke Paternal Aunt Breast cancer Brother No problems noted. Sister No problems noted. Brother No problems noted. Social History Household Members: None Housing: House Are you a primary campground caretaker to a significant other at home: No Do you presently have visiting nurse or other home services: No Alcohol intake: current Alcohol intake frequency: holidays/special occasions only Comment: soreness Patient Tobacco Use Status: Never used Tobacco e-Cigarette/Vaping Use: Never Used Second Hand Smoke Exposure: No service: No Current occupational status: employed Current occupation: [employer] Cognitive needs: No Hearing needs: No Vision needs: No Review of Systems Const All systems reviewed & are unremarkable except as noted in HPI and below ENT Reports Normal hearing present Neuro Reports Normal hearing present Physical Exam Vital Signs: Last Vital Signs Pulse 83 06/18/23 08:50 BP 126/80 06/18/23 08:50 Pulse Ox 94 06/18/23 08:50 Oxygen Delivery Method Room Air 06/18/23 08:50 BMI result Body Mass Index 41.1 Const General: no acute distress Nutritional Appearance: obese Orientation/consciousness: patient oriented x3 Neck Neck: Yes full ROM and Yes supple Resp Effort & Inspection: normal respiratory effort and able to speak in complete sentences Neuro General: patient oriented x3, gait normal and moves all extremities Cranial nerves: Yes Bilaterally intact EOM present, Yes Normal facial strength present, Yes Midline tongue present, Yes Symmetric palate elevation present, Yes Normal hearing present, Yes Ability to bilaterally rotate head present and Yes Ability to bilaterally elevate shoulders present Cognition (Neuro): normal cognition Psych Appearance: grossly normal Mental Status: mental status grossly normal Assessment & Plan Assessment & Plan (1) SABA (obstructive sleep apnea): Comment: Severe degree of sleep apnea. The AHI was 83/hr and oxygen malorie was 76%. Code(s): G47.33 - Obstructive sleep apnea (adult) (pediatric) Plan Pt is in processing to treat his severe degree of sleep apnea. He did not tolerate CPAP, so will refer to dentist try mandibular device to treat sleep apnea. Wt reduction advised. Coding Level of Care Code Est Pt Level 3 (07948) Diagnoses SABA (obstructive sleep apnea) G47.33
[2023-06-18 08:50] VITALS: BP 126/80; PULSE 83; O2SAT 94; BMI 41.1
== END 2023-06-18 09:06 | disposition home or self-care (01) ==
PROVIDERS: PCP Nurse Practitioner Family; Visit Provider Nurse Practitioner Family
DX: G47.33 Obstructive sleep apnea (adult) (pediatric) (principal)
CPT/HCPCS: 99213

== ENCOUNTER → 2023-06-18 08:41 | Outpatient (BNVA) | payer OTHER, SELFPAY | PROVIDERS: PCP Nurse Practitioner Family; Visit Provider Nurse Practitioner Family | DX: G47.33 Obstructive sleep apnea (adult) (pediatric) (principal) | CPT/HCPCS: 99212 ==

== ENCOUNTER 2023-06-21 07:07 | Outpatient (REF) | payer OTHER, SELFPAY ==
[2023-06-21 11:20] LABS: MANUAL DIFF FLAG NO
[2023-06-21 11:30] LABS: Basophils Absolute Auto 0.1 X10*3/uL (0.0-0.2); Basophils Percent Auto 0.8 % (0-2); Eosinophils Absolute Auto 0.5 X10*3/uL (0.0-0.4); Eosinophils Percent Auto 5.5 % (0-4); Hematocrit 42.2 % (42.0-52.0); Hemoglobin 14.4 g/dl (14.0-18.0); Imm Gran Abs Auto 0.05 X10*3/uL (0.00-0.03); Imm Gran Pct Auto 0.6 % (0.0-0.4); Lymphocytes Absolute Auto 1.8 X10*3/uL (1.2-4.9); Lymphocytes Percent Auto 20.7 % (20-40); Mean Corpuscular HGB Conc 34.1 g/dl (31.0-36.0); Mean Corpuscular Hemoglobin 29.8 pg (27.0-33.0); Mean Corpuscular Volume 87.2 fL (80.0-98.0); Mean Platelet Volume 10.4 fL (9.4-12.4); Monocytes Absolute Auto 0.7 X10*3/uL (0.1-1.2); Monocytes Percent Auto 8.2 % (2-11); Neutrophils Absolute Auto 5.6 x10*3/uL (2.0-8.3); Neutrophils Percent Auto 64.2 % (45-73); Platelet Count 330 X10*3/uL (160-400); Red Blood Count 4.84 X10*6/uL (4.60-5.80); Red Cell Distribution Width 13.2 % (11.0-16.0); White Blood Count 8.8 X10*3/uL (4.8-10.8)
[2023-06-21 12:21] LABS: Alanine Aminotransferase 49 U/L (0-40); Albumin Level 4.3 g/dL (3.5-5.0); Alkaline Phosphatase 58 U/L (39-117); Anion Gap 16 (12-20); Aspartate Amino Transferase 39 U/L (5-37); Bilirubin Total 1.2 mg/dL (0.0-1.0); Blood Urea Nitrogen 18 mg/dL (9-16); Calcium 9.5 mg/dL (8.4-10.2); Carbon Dioxide 23 mmol/L (22-29); Chloride 103 mmol/L (96-108); Cholesterol 100 mg/dL (<200); Estimated Glomerular Filt Rate > 60; Glucose Fasting 131 mg/dL (60-99); HDL Cholesterol 33 mg/dL (>40); LDL Cholesterol Calculated 52 mg/dL (<100); Sodium 138 mmol/L (135-145); Total Protein 6.9 g/dL (6.5-8.0); Triglycerides 79 mg/dL (<150)
[2023-06-21 12:27] LABS: TSH reflex Free T4 0.85 uIU/mL (0.32-4.0)
== END 2023-06-21 07:08 | disposition home or self-care (01) ==
LOC: HO.HMGCLDS 07:07
PROVIDERS: PCP Nurse Practitioner Family; Visit Provider Nurse Practitioner Family
DX: E11.9 Type 2 diabetes mellitus without complications (principal)
CPT/HCPCS: 36415; 80053; 80061; 84443; 85025

== ENCOUNTER 2023-10-16 15:37 | Outpatient (AMB) | payer OTHER, SELFPAY ==
--- NOTE | 2023-10-16 15:45 | A.OFFPC_ITS ---
Vital Signs 10/16/23 15:49 Height 5 ft 9 in Weight 276 lb BMI 40.8 BP 110/74 Blood Pressure Location Rt brachial Position Sitting Pulse 70 Pulse Source Pulse Oximeter Pulse Oximetry (%) 95 Oxygen Delivery Method Room Air Intake Visit Reasons: PE Intake Note: Patient here for physical exam. Allergies lisinopril Adverse Reaction (Unknown, Verified 10/16/23 15:50) Cough Medication List - Last Reconciled 10/16/23 by MARY Randle amlodipine 5 mg PO DAILY aspirin 1 tab PO DAILY PRN atorvastatin 20 mg PO DAILY blood sugar diagnostic ([employer] test strips) TEST 3 TIMES A DAY cyclobenzaprine 10 mg PO BEDTIME PRN 30 days diclofenac sodium 75 mg PO BID PRN 30 days empagliflozin (Jardiance) 10 mg PO DAILY hydrochlorothiazide 25 mg PO DAILY irbesartan 150 mg PO DAILY 90 days lancets use to test blood sugar tid metformin 1,000 mg PO BID 90 days metoprolol succinate ER 50 mg PO DAILY omeprazole 40 mg PO DAILY spironolactone 50 mg (2 x 25 mg) PO DAILY tramadol 50 mg PO BID PRN 10 days Tobacco use date assessed: 06/05/23 Dental Screening Dental Screen Date: 06/05/23 HPI PE HPI Details Pt is here for a PE. Will order labs. Colon screen is up to date. Due for PSA, will order. Denies dribbling with urination, weak stream, and frequent nocturia. Pt is a diabetic, on an ARB and a statin. A1C in office today is 6.7. Due for microalbumin, will order. Denies polyuria, polydipsia, and neuropathy. Pt denies any signs and symptoms of hypoglycemia and does know how to correct it. Eye exam is up to date. Pt reports a cystic lesion just superior to his left testicle. Will order US. [facility] Medical History Tubular adenoma of colon Fatty liver GERD (gastroesophageal reflux disease) Cervical radiculopathy SABA (obstructive sleep apnea) Morbid obesity Dyslipidemia Leukocytosis Diabetes HTN (hypertension) Surgical History History of colonoscopy History of laparoscopic cholecystectomy History of oral surgery History of rotator cuff surgery Family History Father Hypothyroidism Hypercholesteremia Colon cancer Dementia Mother Bladder cancer Paternal Grandmother Myocardial infarction Paternal Grandfather Stroke Paternal Aunt Breast cancer Brother No problems noted. Sister No problems noted. Brother No problems noted. Social History Household Members: None Housing: House Are you a primary care tech to a significant other at home: No Do you presently have visiting nurse or other home services: No Alcohol intake: current Alcohol intake frequency: holidays/special occasions only Comment: soreness Patient Tobacco Use Status: Never used Tobacco e-Cigarette/Vaping Use: Never Used Second Hand Smoke Exposure: No service: No Current occupational status: employed Current occupation: [employer] Cognitive needs: No Hearing needs: No Vision needs: No Questionnaire PHQ-9 Over the last 2 weeks, how often have you been bothered by any of the following problems? 1. Little interest or pleasure in doing things: not at all 2. Feeling down, depressed, or hopeless: not at all 3. Trouble falling or staying asleep, or sleeping too much: not at all 4. Feeling tired or having little energy: not at all 5. Poor appetite or overeating: not at all 6. Feeling bad about yourself - or that you are a failure or have let yourself or your family down: not at all 7. Trouble concentrating on things, such as reading the newspaper or watching television: not at all 8. Moving or speaking so slowly that other people could have noticed. Or the opposite - being so fidgety or restless that you have been moving around a lot more than usual: not at all 9. Thoughts that you would be better off or of hurting yourself in some way: not at all Total score: 0 Depression Screening Interpretation: Negative Depression Screening Done: Yes 87430 - PHQ-9 Billing: Yes Source: Developed by Drs. Dane Holden, Mackenzie Perez, Nasir Grossman and colleagues, with an educational hector from [employer]. Thrive Questionnaire Date Thrive assessed: 10/16/23 I am a: Patient What is your living situation today?: I have a steady place to live Within the past 12 months, did the food you bought not last and you didn't have the money to get more?: Never true Within the past 12 months, did you worry whether your food would run out before you got money to buy more?: Never true Do you have trouble paying for medicines?: No Do you have trouble getting transportation to medical appointments?: No Do you have trouble paying your heating and electricity bill?: No Do you have trouble taking care of your child, family member or friend?: No Do you have trouble with day-to-day activities such as bathing, preparing meals, shopping, managing finances, etc.?: No Are you currently unemployed and looking for a job?: No Are you interested in more education?: No Currently or been in a relationship where the following occur: I choose not to answer this question THRIVE Score: 0 EDGAR-7 AMB Questionnaire EDGAR-7 Date EDGAR - 7 assessed: 10/16/23 Feeling nervous, anxious, or on edge: 0 = Not at all Not being able to stop or control worryin = Not at all Worrying too much about different things: 0 = Not at all Trouble relaxin = Not at all Being so restless that it is hard to sit still: 0 = Not at all Becoming easily annoyed or irritable: 0 = Not at all Feeling afraid as if something awful might happen: 0 = Not at all Total EDGAR-7 score (0-4 normal; 5-9 mild; 10-14 moderate; 15-21 severe): 0 Source: Developed by Drs. Dane Holden, Mackenzie Perez, Nasir Grossman and colleagues, with an educational hector from [employer]. EDGAR-7 Assessment Billing EDGAR-7 Assessment Tool: EDGAR-7 Assessment 98079 Review of Systems Const Denies chills and Denies fever(s) Eyes Denies blurry vision ENT Denies vertigo, Denies dizziness and Denies sore throat Card Denies chest pain at rest, Denies chest pain with activity, Denies diaphoresis, Denies dyspnea and Denies dyspnea on exertion Resp Denies cough, Denies dyspnea, Denies dyspnea on exertion and Denies wheezing GI Denies abdominal pain, Denies melena, Denies hematochezia, Denies constipation, Denies diarrhea and Denies loose stools Denies hematuria Musc Denies numbness and Denies tingling Skin/Breast Denies lesions Neuro Denies vertigo, Denies dizziness, Denies numbness and Denies tingling Psych Denies anxiety, Denies depression, Denies homicidal ideation, Denies suicidal ideation and Denies other (substance abuse) Aller/Immun Denies wheezing Physical exam (Primary Care) Vital Signs: Last Vital Signs Pulse 70 10/16/23 15:49 BP 110/74 10/16/23 15:49 Pulse Ox 95 10/16/23 15:49 Oxygen Delivery Method Room Air 10/16/23 15:49 BMI result Body Mass Index 40.8 Tobacco/Smoking Status: Tobacco use Status Tobacco use date assessed 06/05/23 10/16/23 15:47 Patient Tobacco Use Status Never used Tobacco 10/16/23 15:47 e-Cigarette/Vaping Use Never Used 10/16/23 15:47 PHQ-9: PHQ-9 Score PHQ-9: Total score 0 10/16/23 16:14 Depression Screening Interpretation: Negative Thrive Assessment: Date of Thrive Assessment Date Thrive assessed 10/16/23 10/16/23 16:14 Currently or been in a relationship where the following occur: I choose not to answer this question Const General: cooperative Nutritional Appearance: obese morbidly obese Orientation/consciousness: patient oriented x3 HENMT Head: Yes normal to inspection, Yes normocephalic and Yes atraumatic Ears: TM's normal bilaterally Eyes General: appearance normal, both eyes and all related structures Alignment and Position: alignment normal and position normal Neck Neck: Yes normal visual inspection and Yes no lymphadenopathy Thyroid: Thyroid normal Resp Effort & Inspection: normal respiratory effort Auscultation: clear to auscultation bilaterally Cardio Rate: regular rate Rhythm: regular rhythm Heart sounds: S1 normal heart sound present, S2 normal heart sound present and no murmurs GI Other: abdominal hernia noted Palpation (GI): Soft to palpation and nontender Auscultation: normal bowel sounds Other: just superior to left testicle with large palpable mass/lesion Male General Exam: Yes normal external exam Penis: normal penis Scrotum: scrotum normal, testes descended bilaterally and no inguinal hernias Skin Rashes: no rashes Neuro General: patient oriented x3, moves all extremities, no focal motor deficits and deep tendon reflexes 2+ bilaterally Romberg Test: Negative Extrem Other: bilat feet: + sensation with use of monofilament, feet intact Psych Appearance: grossly normal Mental Status: mental status grossly normal Speech and movement: Normal speech and movement present Affect: normal affect Attitude: cooperative Thought process: Normal thought process present Thought content: Normal thought content present Insight: Good insight present (Psych) Judgement: Good judgement present (Psych) Results AMB Hemoglobin A1c AMB Hemoglobin A1c 6.7 % Last Edit by AIDEN Clark on 10/16/23 16 :13 Results Reviewed Results Reviewed: Laboratory Last Values Hgb A1c (Clinic) 6.7 % (4.0-6.0) H 10/16/23 16:12 Assessment and Plan Assessment & Plan (1) Diabetes: Code(s): E11.9 - Type 2 diabetes mellitus without complications Plan: Labs ordered (2) Screening PSA (prostate specific antigen): Code(s): Z12.5 - Encounter for screening for malignant neoplasm of prostate (3) Encounter for routine adult physical exam with abnormal findings: Code(s): Z00.01 - Encounter for general adult medical examination with abnormal findings Plan The patient agreed to the use of a medical laboratory technicians for this encounter. Scribed for MARY Mcdaniels by Ashly Ortiz medical laboratory technicians, on 10/16/2023 at 16:30 EST. Orders: Orders AMB Hemoglobin A1c Today Z13.9 - Encounter for screening, unspecified TSH reflex Free T4 Today E11.9 - Type 2 diabetes mellitus without complications US scrotum Today N50.89 - Other specified disorders of the male genital organs Complete Blood Count Auto Diff Today E11.9 - Type 2 diabetes mellitus without complications Comprehensive [place]. Panel Fast Today E11.9 - Type 2 diabetes mellitus without complications UA CC w/rflx Micro + Cult Today E11.9 - Type 2 diabetes mellitus without complications Lipid Panel Today E11.9 - Type 2 diabetes mellitus without complications Microalbumin, Random (w Creat) Today E11.9 - Type 2 diabetes mellitus without complications Prostate Specific Antigen Scr Today Z12.5 - Encounter for screening for malignant neoplasm of prostate Coding Level of Care Code Est Pt Prev Care 40-64y(61614) Diagnoses Diabetes E11.9 Screening PSA (prostate specific antigen) Z12.5 Encounter for routine adult physical exam with abnormal findings Z00.01 Additional Codes EDGAR-7 Assessment Billing - EDGAR-7 Assessment Tool: EDGAR-7 Assessment 63253 ([id number])
[2023-10-16 15:49] VITALS: BP 110/74; PULSE 70; O2SAT 95; BMI 40.8
== END 2023-10-16 16:39 | disposition home or self-care (01) ==
PROVIDERS: Visit Provider Nurse Practitioner Family
DX: Z00.00 Encounter for general adult medical examination without abnormal findings (principal); E11.9 Type 2 diabetes mellitus without complications; Z12.5 Encounter for screening for malignant neoplasm of prostate
CPT/HCPCS: 83036; 99396

== ENCOUNTER 2023-11-21 09:26 | Outpatient (REF) | payer OTHER, SELFPAY ==
[2023-11-21 11:20] LABS: Appearance Urine Clear; Color Urine Yellow; Glucose Urine UA >=1000 mg/dL (Negative); Leukocyte Esterase Urine Negative (Negative); Nitrite Urine Negative (Negative); PH 5.5 (5.0-9.0); Specific Gravity - Urine >= 1.030 (1.005-1.025); UMIC TRIGGER UACC YES; Urine Blood Negative (Negative); Urine Ketones 15 mg/dL (Negative); Urine Protein Negative (Neg-Trace)
[2023-11-21 11:21] LABS: MANUAL DIFF FLAG NO
[2023-11-21 11:28] LABS: Basophils Absolute Auto 0.1 X10*3/uL (0.0-0.2); Basophils Percent Auto 0.5 % (0-2); Eosinophils Absolute Auto 0.5 X10*3/uL (0.0-0.4); Eosinophils Percent Auto 3.1 % (0-4); Hematocrit 46.9 % (42.0-52.0); Hemoglobin 15.7 g/dl (14.0-18.0); Imm Gran Abs Auto 0.15 X10*3/uL (0.00-0.03); Lymphocytes Absolute Auto 1.9 X10*3/uL (1.2-4.9); Lymphocytes Percent Auto 13.2 % (20-40); Mean Corpuscular HGB Conc 33.5 g/dl (31.0-36.0); Mean Corpuscular Hemoglobin 29.3 pg (27.0-33.0); Mean Corpuscular Volume 87.7 fL (80.0-98.0); Mean Platelet Volume 10.4 fL (9.4-12.4); Monocytes Absolute Auto 1.1 X10*3/uL (0.1-1.2); Monocytes Percent Auto 7.4 % (2-11); Neutrophils Percent Auto 74.8 % (45-73); Platelet Count 305 X10*3/uL (160-400); Red Blood Count 5.35 X10*6/uL (4.60-5.80); Red Cell Distribution Width 13.9 % (11.0-16.0); White Blood Count 14.7 X10*3/uL (4.8-10.8)
[2023-11-21 11:31] LABS: Bacteria Urine None Seen (None Seen); Hyaline Casts Urine 0-2 /LPF (0-2); RBC Urine 0-2 /HPF (0-2); Squamous Epithelial Cell Urine 0-2 /HPF (0-2); WBC Urine 0-5 /HPF (0-5)
[2023-11-21 11:54] LABS: Creatinine Urine 167.41 mg/dL; Microalbum/Creatinine Ratio Ur 6.5 ug/mg cr (<30)
[2023-11-21 12:05] LABS: Alanine Aminotransferase 40 U/L (0-40); Albumin Level 4.6 g/dL (3.5-5.0); Alkaline Phosphatase 75 U/L (39-117); Anion Gap 16 (12-20); Aspartate Amino Transferase 25 U/L (5-37); Bilirubin Total 1.2 mg/dL (0.0-1.0); Blood Urea Nitrogen 22 mg/dL (9-16); Calcium 9.8 mg/dL (8.4-10.2); Carbon Dioxide 28 mmol/L (22-29); Chloride 98 mmol/L (96-108); Cholesterol 116 mg/dL (<200); Estimated Glomerular Filt Rate > 60; Glucose Fasting 107 mg/dL (60-99); HDL Cholesterol 36 mg/dL (>40); LDL Cholesterol Calculated 64 mg/dL (<100); Potassium 4.4 mmol/L (3.3-5.1); Sodium 138 mmol/L (135-145); Total Protein 7.4 g/dL (6.5-8.0); Triglycerides 81 mg/dL (<150)
[2023-11-21 12:20] LABS: Prostate Specific Antigen Scr 0.49 ng/mL (<0.05-4.0)
[2023-11-21 12:21] LABS: TSH reflex Free T4 0.69 uIU/mL (0.32-4.0)
== END 2023-11-21 09:27 | disposition home or self-care (01) ==
LOC: HO.HMGCLDS 09:26
PROVIDERS: PCP Nurse Practitioner Family; Visit Provider Nurse Practitioner Family
DX: E11.9 Type 2 diabetes mellitus without complications (principal); Z12.5 Encounter for screening for malignant neoplasm of prostate
CPT/HCPCS: 36415; 80053; 80061; 81001; 82043; 82570; 84153; 84443; 85025

== ENCOUNTER 2023-12-08 07:59 | Outpatient (REF) | payer OTHER, SELFPAY ==
--- NOTE | ~2023-12-08 | US_ITS ---
EXAMINATION: US SCROTUM CLINICAL INFORMATION: Other specified disorders of the male genital organs. Scrotal mass. Cystic lesion just superior to the left testicle, question scrotal mass. COMPARISON: CT abdomen and pelvis of 02/12/2021. TECHNIQUE: A sonogram of the scrotum was performed assessing welch-scale appearance and color Doppler flow. Spectral Doppler analysis of the arterial and venous flow were performed in the testes bilaterally. FINDINGS: RIGHT: Right testicle measures 5.0 x 2.4 x 3.0 cm, volume 18.9 mL. No focal testicular parenchymal lesions are visualized. Spectral Doppler analysis of the arterial and venous flow is normal in the right testis. Multiple small cysts measuring up to 0.5 cm in the right epididymal head and body. Right appendix epididymis is visualized. No right varicocele is seen. Moderate right hydrocele. Right epididymal Doppler flow is normal. LEFT: Left testicle measures 4.8 x 2.7 x 3.2 cm, volume 21.7 mL. No focal testicular parenchymal lesions are visualized. Spectral Doppler analysis of the arterial and venous flow is normal in the left testis. Large 2.8 x 2.4 x 2.8 cm complex cyst in the region of the left epididymal head with low-level internal echoes. Left appendix epididymis visualized. Large 2.8 x 2.4 x 2.8 cm cyst in the region of the left epididymal head with low-level internal echoes. Moderate left hydrocele. No left varicocele is seen. Left epididymal Doppler flow is normal. US/US scrotum IMPRESSION: 1. Large 2.8 x 2.4 x 2.8 cm complex cyst in the region of the left epididymal head with low-level internal echoes. 2. Multiple small cysts measuring up to 0.5 cm in the right epididymal head and body. 3. Right appendix epididymis is visualized. 4. Left appendix epididymis visualized. 5. Urology consultation and correlation with clinical exam recommended to determine further management.
== END 2023-12-08 08:00 | disposition home or self-care (01) ==
LOC: HO.HMGCX 07:59
PROVIDERS: PCP Nurse Practitioner Family; Visit Provider Nurse Practitioner Family
DX: N50.3 Cyst of epididymis (principal); N50.89 Other specified disorders of the male genital organs
CPT/HCPCS: 76870

== ENCOUNTER 2024-01-01 10:11 | Outpatient (REF) | payer OTHER, SELFPAY ==
[2024-01-01 13:12] LABS: MANUAL DIFF FLAG NO
[2024-01-01 13:23] LABS: Basophils Absolute Auto 0.1 X10*3/uL (0.0-0.2); Eosinophils Absolute Auto 0.4 X10*3/uL (0.0-0.4); Eosinophils Percent Auto 4.1 % (0-4); Hematocrit 45.8 % (42.0-52.0); Hemoglobin 15.4 g/dl (14.0-18.0); Imm Gran Abs Auto 0.11 X10*3/uL (0.00-0.03); Imm Gran Pct Auto 1.1 % (0.0-0.4); Lymphocytes Absolute Auto 1.7 X10*3/uL (1.2-4.9); Lymphocytes Percent Auto 17.5 % (20-40); Mean Corpuscular HGB Conc 33.6 g/dl (31.0-36.0); Mean Corpuscular Hemoglobin 29.8 pg (27.0-33.0); Mean Corpuscular Volume 88.6 fL (80.0-98.0); Mean Platelet Volume 10.6 fL (9.4-12.4); Monocytes Absolute Auto 0.7 X10*3/uL (0.1-1.2); Monocytes Percent Auto 7.3 % (2-11); Neutrophils Absolute Auto 6.8 x10*3/uL (2.0-8.3); Platelet Count 305 X10*3/uL (160-400); Red Blood Count 5.17 X10*6/uL (4.60-5.80); Red Cell Distribution Width 13.6 % (11.0-16.0); White Blood Count 9.9 X10*3/uL (4.8-10.8)
[2024-01-01 13:50] LABS: Appearance Urine Clear; Color Urine Yellow; Glucose Urine UA >=1000 mg/dL (Negative); Leukocyte Esterase Urine Negative (Negative); Nitrite Urine Negative (Negative); PH 5.5 (5.0-9.0); Specific Gravity - Urine >= 1.030 (1.005-1.025); UMIC TRIGGER UACC YES; Urine Blood Negative (Negative); Urine Ketones Trace mg/dL (Negative); Urine Protein Negative (Neg-Trace)
[2024-01-01 13:56] LABS: Bacteria Urine None Seen (None Seen); Hyaline Casts Urine 0-2 /LPF (0-2); RBC Urine 0-2 /HPF (0-2); Squamous Epithelial Cell Urine 0-2 /HPF (0-2); WBC Urine 0-5 /HPF (0-5)
== END 2024-01-01 10:12 | disposition home or self-care (01) ==
LOC: HO.HMGCLDS 10:11
PROVIDERS: PCP Nurse Practitioner Family; Visit Provider Nurse Practitioner Family
DX: D72.829 Elevated white blood cell count, unspecified (principal)
CPT/HCPCS: 36415; 81001; 85025

== ENCOUNTER 2024-02-16 10:17 | Outpatient (AMB) | payer OTHER, SELFPAY ==
--- NOTE | 2024-02-16 10:21 | A.OFFVIS_ITS ---
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 He denies testicular pain. I reviewed Scrotal US 12/08/23--Left hydrocele moderate, 2.8 x 2.4 x 2.8 cm complex cyst in the region of the left epididymal head. Exam - Nontender, testicles no discrete mass. PSA 11/21/23--0.49ng/mL. Left Hydrocele currently asymptomatic. Left epididymal cyst. Plan continue to monitor hydrocele fu in 9 months. COUNT INCLUDES THE [facility] Medical History Tubular adenoma of colon Fatty liver GERD (gastroesophageal reflux disease) Cervical radiculopathy SABA (obstructive sleep apnea) Morbid obesity Dyslipidemia Leukocytosis Diabetes HTN (hypertension) Surgical History History of colonoscopy History of laparoscopic cholecystectomy History of oral surgery History of rotator cuff surgery Family History Father Hypothyroidism Hypercholesteremia Colon cancer Dementia Mother Bladder cancer Paternal Grandmother Myocardial infarction Paternal Grandfather Stroke Paternal Aunt Breast cancer Brother No problems noted. Sister No problems noted. Brother No problems noted. Social History Household Members: None Housing: House Are you a primary skin care therapist to a significant other at home: No Do you presently have visiting nurse or other home services: No Alcohol intake: current Alcohol intake frequency: holidays/special occasions only Comment: soreness Patient Tobacco Use Status: Never used Tobacco e-Cigarette/Vaping Use: Never Used Second Hand Smoke Exposure: No service: No Current occupational status: employed Current occupation: [employer] Cognitive needs: No Hearing needs: No Vision needs: No Review of Systems Const All systems reviewed & are unremarkable except as noted in HPI and below Reports no additional complaints Eyes Reports no additional complaints ENT Reports no additional complaints Card Reports no additional complaints Resp Reports no additional complaints GI Reports no additional complaints Reports as per HPI Musc Reports no additional complaints Skin/Breast Reports system reviewed and no additional complaints, except as documented Neuro Reports no additional complaints Psych Reports no additional complaints Endo Reports no additional complaints Elroy/Lymph Reports no additional complaints Aller/Immun Reports no additional complaints Physical Exam Const General: healthy appearing, no acute distress and well developed Orientation/consciousness: patient oriented x3 HEENT Head: Yes normocephalic and Yes atraumatic Eyes Conjunctivae: conjunctivae normal Neck Neck: Yes normal visual inspection Chest Chest palpation & inspection: normal inspection of the chest Resp Effort & Inspection: normal respiratory effort Cardio Rate: regular rate GI Inspection: Yes normal to inspection Palpation (GI): Soft to palpation Other: Nontender, left scrotal swelling, left epididymal cyst, left hydrocele Penis: normal penis Neuro General: patient oriented x3 Extrem General: No pedal edema Psych Appearance: grossly normal Affect: normal affect Results AMB Urinalysis, Automated UA Leukoctes 0 Tariq/uL Last Edit by AIDEN Brewer on 02/16/24 10:41 UA Nitrite Negative Last Edit by Jermaine Mackenzie [facility] on 02/16/24 10:41 UA Urobilinogen 0.2 mg/dL Last Edit by AIDEN Brewer on 02/16/24 10:4 1 UA Protein 15 mg/dL Last Edit by Jermaine Mackenzie [facility] on 02/16/24 10:41 UA pH 6.0 Last Edit by Jermaine Mackenzie [facility] on 02/16/24 10:41 UA Blood 0 Miquel/uL Last Edit by Jermaine Mackenzie [facility] on 02/16/24 10:41 UA Specific [place] 1.020 Last Edit by Jermaine Mackenzie [facility] on 02/16/24 10: 41 UA Ketone Positive Last Edit by Jermaine Mackenzie [facility] on 02/16/24 10:41 UA Bilirubin 0 mg/dL Last Edit by Jermaine Mackenzie [facility] on 02/16/24 10:41 UA Glucose 1000 mg/dL Last Edit by Jermaine Mackenzie [facility] on 02/16/24 10:41 Results Reviewed Results Reviewed: Laboratory Last Values Urine pH (Auto) 6.0 09/23/24 10:40 Specific [place] (Auto) 1.020 02/16/24 10:40 Urine Protein (Auto) 15 mg/dL 02/16/24 10:40 Glucose (UA)(Auto) 1000 mg/dL 02/16/24 10:40 Urine Ketones (Auto) Positive 02/16/24 10:40 Urine Blood (Auto) 0 Miquel/uL 02/16/24 10:40 Urine Nitrite (Auto) Negative 02/16/24 10:40 Urine Bilirubin (Auto) 0 mg/dL 02/16/24 10:40 Urine Urobilinogen (Auto) 0.2 mg/dL 02/16/24 10:40 Leukocyte Esterase (Auto) 0 Tariq/uL 02/16/24 10:40 Date of Service: 12/08/23 US SCROTUM CLINICAL INFORMATION: Other specified disorders of the male genital organs. Scrotal mass. Cystic lesion just superior to the left testicle, question scrotal mass. COMPARISON: CT abdomen and pelvis of 02/12/2021. TECHNIQUE: A sonogram of the scrotum was performed assessing welch-scale appearance and color Doppler flow. Spectral Doppler analysis of the arterial and venous flow were performed in the testes bilaterally. FINDINGS: RIGHT: Right testicle measures 5.0 x 2.4 x 3.0 cm, volume 18.9 mL. No focal testicular parenchymal lesions are visualized. Spectral Doppler analysis of the arterial and venous flow is normal in the right testis. Multiple small cysts measuring up to 0.5 cm in the right epididymal head and body. Right appendix epididymis is visualized. No right varicocele is seen. Moderate right hydrocele. Right epididymal Doppler flow is normal. LEFT: Left testicle measures 4.8 x 2.7 x 3.2 cm, volume 21.7 mL. No focal testicular parenchymal lesions are visualized. Spectral Doppler analysis of the arterial and venous flow is normal in the left testis. Large 2.8 x 2.4 x 2.8 cm complex cyst in the region of the left epididymal head with low-level internal echoes. Left appendix epididymis visualized. Large 2.8 x 2.4 x 2.8 cm cyst in the region of the left epididymal head with low-level internal echoes. Moderate left hydrocele. No left varicocele is seen. Left epididymal Doppler flow is normal. IMPRESSION: 1. Large 2.8 x 2.4 x 2.8 cm complex cyst in the region of the left epididymal head with low-level internal echoes. 2. Multiple small cysts measuring up to 0.5 cm in the right epididymal head and body. 3. Right appendix epididymis is visualized. 4. Left appendix epididymis visualized. Assessment & Plan Assessment & Plan (1) Scrotal swelling: Code(s): N50.89 - Other specified disorders of the male genital organs Category: Medical (2) Hydrocele, left: Code(s): N43.3 - Hydrocele, unspecified Category: Medical (3) Epididymal cyst: Code(s): N50.3 - Cyst of epididymis Category: Medical Plan Left Hydrocele currently asymptomatic. Left epididymal cyst. Plan continue to monitor hydrocele fu in 9 months. Orders: Orders AMB Urinalysis Automated 02/16/24 Z13.9 - Encounter for screening, unspecified Patient Instructions: The patient had an opportunity to ask questions regarding treatment plan. The patient expressed understanding and agreement with the above treatment plan. The patient is aware they should contact our office by phone for worsening of their current condition or the appearance of new symptoms. Compliance is encouraged with any medications and followup testing that is ordered. It is a privilege to be allowed the opportunity to participate in the urologic care of your patient. If you have any questions or concerns regarding treatment for the above conditions please do not hesitate to contact me. The office telephone contact is [phone]. This note is constructed in part using voice recognition software. While every effort has been made to ensure accuracy anesthesiologist errors may have been included. Yours sincerely, Delfino Castanon MD Coding Level of Care Code New Pt Level 3 (59874) Diagnoses Scrotal swelling N50.89 Hydrocele, left N43.3 Epididymal cyst N50.3
== END 2024-02-16 11:21 | disposition home or self-care (01) ==
PROVIDERS: PCP Nurse Practitioner Family; Visit Provider Urology
DX: N50.89 Other specified disorders of the male genital organs (principal); N43.3 Hydrocele, unspecified; N50.3 Cyst of epididymis
CPT/HCPCS: 99203

== ENCOUNTER → 2024-02-16 10:17 | Outpatient (BNVA) | payer OTHER, SELFPAY | PROVIDERS: PCP Nurse Practitioner Family; Visit Provider Urology | DX: N43.3 Hydrocele, unspecified (principal); N50.3 Cyst of epididymis; N50.89 Other specified disorders of the male genital organs; Z13.9 Encounter for screening, unspecified | CPT/HCPCS: 81003; 99202 ==

== ENCOUNTER 2024-02-17 07:59 | Outpatient (AMB) | payer OTHER, SELFPAY ==
[2024-02-17 08:00] VITALS: BP 128/76; PULSE 91; O2SAT 96; BMI 40.8
--- NOTE | 2024-02-17 08:00 | MHC.PC.OV ---
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 Required: No Accompanied by: Self / Same As Patient Allergies lisinopril Adverse Reaction (Unknown, Verified 02/17/24 08:00) Cough Medication List - Last Reconciled 02/17/24 by MARY Randle amlodipine 5 mg PO DAILY aspirin 1 tab PO DAILY PRN atorvastatin 20 mg PO DAILY blood sugar diagnostic (Screaming Sportsuch Verio test strips) TEST 3 TIMES A DAY cyclobenzaprine 10 mg PO BEDTIME PRN diclofenac sodium 75 mg PO BID PRN 30 days empagliflozin (Jardiance) 10 mg PO DAILY hydrochlorothiazide 25 mg PO DAILY irbesartan 150 mg PO DAILY 90 days lancets use to test blood sugar tid metformin 1,000 mg PO BID 90 days metoprolol succinate ER 50 mg PO DAILY omeprazole 40 mg PO DAILY spironolactone 50 mg (2 x 25 mg) PO DAILY tramadol 50 mg PO BID PRN 10 days Tobacco use date assessed: 06/05/23 Dental Screening Dental Screen Date: 06/05/23 HPI 4 mon f/u HPI Details Pt is a diabetic, on an ARB and a statin. A1C in office today is 6.6. Microalbumin is up to date. Denies polyuria, polydipsia, and neuropathy. Pt denies any signs and symptoms of hypoglycemic and does know how to correct it. Eye exam is up to date. Pt has been working on his diet. [facility] Medical History Tubular adenoma of colon Fatty liver GERD (gastroesophageal reflux disease) Cervical radiculopathy SABA (obstructive sleep apnea) Morbid obesity Dyslipidemia Leukocytosis Diabetes HTN (hypertension) Surgical History History of colonoscopy History of laparoscopic cholecystectomy History of oral surgery History of rotator cuff surgery Family History Father Hypothyroidism Hypercholesteremia Colon cancer Dementia Mother Bladder cancer Paternal Grandmother Myocardial infarction Paternal Grandfather Stroke Paternal Aunt Breast cancer Brother No problems noted. Sister No problems noted. Brother No problems noted. Social History Household Members: None Housing: House Are you a primary manager wound care to a significant other at home: No Do you presently have visiting nurse or other home services: No Alcohol intake: current Alcohol intake frequency: holidays/special occasions only Comment: soreness Patient Tobacco Use Status: Never used Tobacco e-Cigarette/Vaping Use: Never Used Second Hand Smoke Exposure: No service: No Current occupational status: employed Current occupation: [employer] Cognitive needs: No Hearing needs: No Vision needs: No Questionnaire PHQ-9 Over the last 2 weeks, how often have you been bothered by any of the following problems? 1. Little interest or pleasure in doing things: not at all 2. Feeling down, depressed, or hopeless: not at all 3. Trouble falling or staying asleep, or sleeping too much: not at all 4. Feeling tired or having little energy: not at all 5. Poor appetite or overeating: not at all 6. Feeling bad about yourself - or that you are a failure or have let yourself or your family down: not at all 7. Trouble concentrating on things, such as reading the newspaper or watching television: not at all 8. Moving or speaking so slowly that other people could have noticed. Or the opposite - being so fidgety or restless that you have been moving around a lot more than usual: not at all 9. Thoughts that you would be better off or of hurting yourself in some way: not at all Total score: 0 Depression Screening Interpretation: Negative Depression Screening Done: Yes 05092 - PHQ-9 Billing: Yes Source: Developed by Drs. Dane Holden, Mackenzie Perez, Nasir Grossman and colleagues, with an educational hector from [employer]. Thrive Questionnaire Date Thrive assessed: 02/17/24 I am a: Patient What is your living situation today?: I have a steady place to live Within the past 12 months, did the food you bought not last and you didn't have the money to get more?: Never true Within the past 12 months, did you worry whether your food would run out before you got money to buy more?: Never true Do you have trouble paying for medicines?: No Do you have trouble getting transportation to medical appointments?: No Do you have trouble paying your heating and electricity bill?: No Do you have trouble taking care of your child, family member or friend?: No Do you have trouble with day-to-day activities such as bathing, preparing meals, shopping, managing finances, etc.?: No Are you currently unemployed and looking for a job?: No Are you interested in more education?: I choose not to answer this question Please select the resources that you would like help with: None Currently or been in a relationship where the following occur: No concerns reported THRIVE Score: 0 AUDIT C Alcohol Use Questionnaire (AUDIT-C) 1. How often do you have a drink containing alcohol?: Monthly or less 2. How many drinks containing alcohol do you have on a typical day when you are drinking?: 1 or 2 3. How often do you have six or more drinks on one occasion?: Never Total Score: 1 Score Reviewed/Action Taken: Yes EDGAR-7 AMB Questionnaire EDGAR-7 Date EDGAR - 7 assessed: 02/17/24 Feeling nervous, anxious, or on edge: 0 = Not at all Not being able to stop or control worryin = Not at all Worrying too much about different things: 0 = Not at all Trouble relaxin = Not at all Being so restless that it is hard to sit still: 0 = Not at all Becoming easily annoyed or irritable: 0 = Not at all Feeling afraid as if something awful might happen: 0 = Not at all Total EDGAR-7 score (0-4 normal; 5-9 mild; 10-14 moderate; 15-21 severe): 0 Source: Developed by Drs. Dane Holden, Mackenzie Perez, Nasir Grossman and colleagues, with an educational hector from [employer]. EDGAR-7 Assessment Billing EDGAR-7 Assessment Tool: EDGAR-7 Assessment 50805 Review of Systems Const Reports as per HPI Physical exam (Primary Care) Vital Signs: Last Vital Signs Pulse 91 02/17/24 08:00 BP 128/76 02/17/24 08:00 Pulse Ox 96 02/17/24 08:00 BMI result Body Mass Index 40.8 Tobacco/Smoking Status: Tobacco use Status Tobacco use date assessed 06/05/23 02/17/24 08:01 Patient Tobacco Use Status Never used Tobacco 02/17/24 08:01 e-Cigarette/Vaping Use Never Used 02/17/24 08:01 PHQ-9: PHQ-9 Score PHQ-9: Total score 0 02/17/24 08:09 Depression Screening Interpretation: Negative Thrive Assessment: Date of Thrive Assessment Date Thrive assessed 02/17/24 02/17/24 08:01 Currently or been in a relationship where the following occur: No concerns reported Const General: cooperative Nutritional Appearance: obese Orientation/consciousness: patient oriented x3 Resp Effort & Inspection: normal respiratory effort Auscultation: clear to auscultation bilaterally Cardio Rate: regular rate Rhythm: regular rhythm Heart sounds: S1 normal heart sound present and S2 normal heart sound present Neuro General: patient oriented x3 Extrem Other: bilat feet: + sensation with use of monofilament, feet intact Psych Appearance: grossly normal Mental Status: mental status grossly normal Speech and movement: Normal speech and movement present Affect: normal affect Attitude: cooperative Thought process: Normal thought process present Thought content: Normal thought content present Insight: Good insight present (Psych) Judgement: Good judgement present (Psych) Results AMB Hemoglobin A1c AMB Hemoglobin A1c 6.6 % Last Edit by Ignacio Rob CMA on 02/17/24 08:15 Assessment and Plan Assessment & Plan (1) Diabetes: Code(s): E11.9 - Type 2 diabetes mellitus without complications Plan: Labs ordered Plan The patient agreed to the use of a dental assistant medical assistant for this encounter. Scribed for MARY Mcdaniels by Ashly Ortiz dental assistant medical assistant, on 02/17/2024 at 08:10 EST. Orders: Orders Comprehensive [place]. Panel Fast Today E11.9 - Type 2 diabetes mellitus without complications TSH reflex Free T4 Today E11.9 - Type 2 diabetes mellitus without complications AMB Hemoglobin A1c Today Z13.9 - Encounter for screening, unspecified Complete Blood Count Auto Diff Today E11.9 - Type 2 diabetes mellitus without complications UA CC w/rflx Micro + Cult Today E11.9 - Type 2 diabetes mellitus without complications Lipid Panel Today E11.9 - Type 2 diabetes mellitus without complications Coding Level of Care Code Est Pt Level 3 (73215) Diagnoses Diabetes E11.9 Additional Codes EDGAR-7 Assessment Billing - EDGAR-7 Assessment Tool: EDGAR-7 Assessment [id number] ([id number])
== END 2024-02-17 10:23 | disposition home or self-care (01) ==
PROVIDERS: PCP Nurse Practitioner Family; Visit Provider Nurse Practitioner Family
DX: Z13.9 Encounter for screening, unspecified (principal); E11.9 Type 2 diabetes mellitus without complications

== ENCOUNTER → 2024-02-17 07:59 | Outpatient (BNVA) | payer OTHER, SELFPAY | PROVIDERS: PCP Nurse Practitioner Family; Visit Provider Nurse Practitioner Family | DX: E11.9 Type 2 diabetes mellitus without complications (principal); E78.5 Hyperlipidemia, unspecified; I10 Essential (primary) hypertension | CPT/HCPCS: 83036; 96127; 99212 ==

== ENCOUNTER 2024-03-25 09:37 | Outpatient (REF) | payer OTHER, SELFPAY ==
[2024-03-25 13:18] LABS: Appearance Urine Clear; Color Urine Yellow; Glucose Urine UA >=1000 mg/dL (Negative); Leukocyte Esterase Urine Negative (Negative); Nitrite Urine Negative (Negative); Specific Gravity - Urine >= 1.030 (1.005-1.025); UMIC TRIGGER UACC YES; Urine Blood Negative (Negative); Urine Ketones 15 mg/dL (Negative); Urine Protein Negative (Neg-Trace)
[2024-03-25 13:18] LABS: MANUAL DIFF FLAG NO
[2024-03-25 13:22] LABS: Bacteria Urine None Seen (None Seen); Hyaline Casts Urine 0-2 /LPF (0-2); RBC Urine 0-2 /HPF (0-2); Squamous Epithelial Cell Urine 0-2 /HPF (0-2); WBC Urine 0-5 /HPF (0-5)
[2024-03-25 13:40] LABS: Basophils Absolute Auto 0.1 X10*3/uL (0.0-0.2); Basophils Percent Auto 0.7 % (0-2); Eosinophils Absolute Auto 0.4 X10*3/uL (0.0-0.4); Eosinophils Percent Auto 2.6 % (0-4); Hematocrit 49.8 % (42.0-52.0); Hemoglobin 16.5 g/dl (14.0-18.0); Imm Gran Abs Auto 0.12 X10*3/uL (0.00-0.03); Imm Gran Pct Auto 0.9 % (0.0-0.4); Lymphocytes Absolute Auto 2.2 X10*3/uL (1.2-4.9); Lymphocytes Percent Auto 15.7 % (20-40); Mean Corpuscular HGB Conc 33.1 g/dl (31.0-36.0); Mean Corpuscular Hemoglobin 29.2 pg (27.0-33.0); Mean Corpuscular Volume 88.1 fL (80.0-98.0); Mean Platelet Volume 10.5 fL (9.4-12.4); Monocytes Percent Auto 6.9 % (2-11); Neutrophils Absolute Auto 10.2 x10*3/uL (2.0-8.3); Neutrophils Percent Auto 73.2 % (45-73); Platelet Count 308 X10*3/uL (160-400); Red Blood Count 5.65 X10*6/uL (4.60-5.80); Red Cell Distribution Width 13.6 % (11.0-16.0); White Blood Count 13.9 X10*3/uL (4.8-10.8)
[2024-03-25 14:28] LABS: Alanine Aminotransferase 41 U/L (0-40); Albumin Level 4.5 g/dL (3.5-5.0); Alkaline Phosphatase 72 U/L (39-117); Anion Gap 17 (12-20); Aspartate Amino Transferase 34 U/L (5-37); Bilirubin Total 1.3 mg/dL (0.0-1.0); Blood Urea Nitrogen 15 mg/dL (9-16); Calcium 10.7 mg/dL (8.4-10.2); Carbon Dioxide 25 mmol/L (22-29); Chloride 101 mmol/L (96-108); Cholesterol 173 mg/dL (<200); Estimated Glomerular Filt Rate > 60; Glucose Fasting 130 mg/dL (60-99); HDL Cholesterol 42 mg/dL (>40); LDL Cholesterol Calculated 111 mg/dL (<100); Potassium 4.7 mmol/L (3.3-5.1); Sodium 138 mmol/L (135-145); Total Protein 7.4 g/dL (6.5-8.0); Triglycerides 104 mg/dL (<150)
[2024-03-25 14:45] LABS: TSH reflex Free T4 0.89 uIU/mL (0.32-4.0)
== END 2024-03-25 09:38 | disposition home or self-care (01) ==
LOC: HO.HMGCLDS 09:37
PROVIDERS: PCP Nurse Practitioner Family; Visit Provider Nurse Practitioner Family
DX: E11.9 Type 2 diabetes mellitus without complications (principal)
CPT/HCPCS: 36415; 80053; 80061; 81001; 84443; 85025

== ENCOUNTER 2024-03-26 07:36 | Outpatient (AMB) | payer OTHER, SELFPAY ==
[2024-03-26 07:51] VITALS: BMI 40.3
--- NOTE | 2024-03-26 07:51 | A.OFFVIS_ITS ---
Vital Signs 03/26/24 07:51 Height 5 ft 9 in Weight 273 lb BMI 40.3 Intake Visit Reasons: 5 mnts Intake Note: Patient presents for follow up. Allergies lisinopril Adverse Reaction (Unknown, Verified 02/17/24 08:00) Cough HPI Comments Details: 54 year old male with HTN/ SABA/ T2DM, Follow up for SABA, He had the dentist adjust his mandibular device, has an under-bite, so retracting lower jaw forward. He is Sleeping well, not yawning, snoring, coughing or gasping for air. Denies headaches, jaw pain, dizziness, brain fog, or forgetfulness Denies difficulty swallowing, speech difficulties, pain in legs or sleep behaviors. He sleeps 8 hours a night, 9pm to 5am and feels good in the AM. 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 He was not able to tolerate CPAP mask attempted twice, vomiting, tingling in hands and toes. His father recently dx with Dementia and Parkinsons at age 76. Recommend sleep study in house, patient requests Friday evening. 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 His BMI is 40 today, and he is trying to lose weight, walking 15 min days, changing eating habits. Visited ENT, not a good candidate for surgery. Would like to repeat sleep study with the Somno Med device, and enroll in [facility] program. [facility] Medical History Tubular adenoma of colon Fatty liver GERD (gastroesophageal reflux disease) Cervical radiculopathy SABA (obstructive sleep apnea) Morbid obesity Dyslipidemia Leukocytosis Diabetes HTN (hypertension) Surgical History History of colonoscopy History of laparoscopic cholecystectomy History of oral surgery History of rotator cuff surgery Family History Father Hypothyroidism Hypercholesteremia Colon cancer Dementia Mother Bladder cancer Paternal Grandmother Myocardial infarction Paternal Grandfather Stroke Paternal Aunt Breast cancer Brother No problems noted. Sister No problems noted. Brother No problems noted. Social History Household Members: None Housing: House Are you a primary assistant child care teacher to a significant other at home: No Do you presently have visiting nurse or other home services: No Alcohol intake: current Alcohol intake frequency: holidays/special occasions only Comment: soreness Patient Tobacco Use Status: Never used Tobacco e-Cigarette/Vaping Use: Never Used Second Hand Smoke Exposure: No service: No Current occupational status: employed Current occupation: [employer] Cognitive needs: No Hearing needs: No Vision needs: No Physical Exam Vital Signs: BMI result Body Mass Index 40.3 Const General: cooperative Nutritional Appearance: obese Orientation/consciousness: patient oriented x3 HEENT Other: Mallampati grade III. Head: Yes normal to inspection Resp Effort & Inspection: normal respiratory effort and able to speak in complete sentences Neuro General: patient oriented x3 Cranial nerves: Yes CN's II-XII intact bilaterally Psych Affect: normal affect Attitude: cooperative Assessment & Plan Assessment & Plan (1) SABA (obstructive sleep apnea): Comment: Severe degree of sleep apnea. The AHI was 83/hr and oxygen malorie was 76%. Code(s): G47.33 - Obstructive sleep apnea (adult) (pediatric) Category: Medical Plan HST while wearing mandibular device to assess effectiveness of mandibular device on reducing pt's degree of SABA. If pt continues to lose weight, and BMI falls < 40, consider referal back to Dr Lopez, ENT, to reassess for Inspire implant tx and re-address previously discussed tonsillectomy/palatopharyngoplasty. Discussed weight management program options, sucha s medical weight loss clinics and surgical weight. Pt to follow-up in 6 months or sooner prn. Pt seen by Gretel JAMESON in coordination w/ myself FLOR Last- , I agree with the above documentation and plan. Coding Level of Care Code Est Pt Level 2 (35229) Est Pt Prev 1-4yr (27830) Diagnoses SABA (obstructive sleep apnea) G47.33
== END 2024-03-26 08:58 | disposition home or self-care (01) ==
LOC: HO.HSMS 07:36
PROVIDERS: Absent Provider Nurse Practitioner Family; PCP Nurse Practitioner Family; Visit Provider Nurse Practitioner Family
DX: G47.33 Obstructive sleep apnea (adult) (pediatric) (principal)
CPT/HCPCS: 99212

== ENCOUNTER → 2024-03-26 07:36 | Outpatient (BNVA) | payer OTHER, SELFPAY | PROVIDERS: Absent Provider Nurse Practitioner Family; PCP Nurse Practitioner Family; Visit Provider Nurse Practitioner Family | DX: G47.33 Obstructive sleep apnea (adult) (pediatric) (principal) | CPT/HCPCS: 99212 ==

== ENCOUNTER → 2024-05-27 14:20 | Outpatient (REF) | payer OTHER, SELFPAY | LOC: HO.SL 14:20 | PROVIDERS: PCP Nurse Practitioner Family; Visit Provider Nurse Practitioner Family | DX: G47.33 Obstructive sleep apnea (adult) (pediatric) (principal) | CPT/HCPCS: 95806 ==

== ENCOUNTER → 2024-05-27 14:31 | Outpatient (BNV) | payer OTHER, SELFPAY | PROVIDERS: PCP Nurse Practitioner Family; Visit Provider Psychiatry & Neurology Neurology | DX: G47.33 Obstructive sleep apnea (adult) (pediatric) (principal) | CPT/HCPCS: 95806 ==

== ENCOUNTER 2024-08-06 08:20 | Outpatient (REF) | payer OTHER, SELFPAY ==
--- NOTE | ~2024-08-06 | XR_ITS ---
CLINICAL HISTORY: M50.90 - Cervical disc disorder, unspecified, unspecified cervical region Exam: AP, lateral, open-mouth odontoid, bilateral oblique views of the cervical spine. Comparison: MRI May 21, 2022. Findings: Bony alignment of the cervical vertebral bodies is anatomic. No fracture or prevertebral soft tissue swelling. [id number] multilevel degenerative disc disease and degenerative facet disease throughout the cervical spine, most pronounced at C5-6. Oblique images demonstrates severe right foraminal narrowing at C2-3, C3-4, and C4-5. There is mild left neural foraminal narrowing at C5-6. Impression: Multilevel degenerative disc disease and degenerative facet disease with severe multilevel right neural foraminal narrowing. This document has been electronically signed by: Pawan Owen MD on 08/07/2024 09:12:53
--- NOTE | ~2024-08-06 | XR_ITS ---
CLINICAL HISTORY: M25.511 - Pain in right shoulder Exam: AP, Grashey, scapular Y, and axillary views of the right shoulder. Comparison: October 30, 2017. Findings: There is truncation of the distal clavicle as seen on the patient's prior study, likely related to subacromial decompression and distal clavicle resection. Heterotopic ossification seen distal to the clavicle as before. Alignment of the glenohumeral joint is anatomic. Mild glenohumeral joint degenerative change. No acute fracture. Impression: Likely postsurgical change of the right distal clavicle. Mild glenohumeral joint DJD. This document has been electronically signed by: Pawan Owen MD on 08/07/2024 09:14:54
--- NOTE | ~2024-08-06 | XR_ITS ---
CLINICAL HISTORY: M25.511 - Pain in right shoulder Exam: AP, Grashey, scapular Y, and axillary views of the left shoulder. Comparison: April 22, 2016. Findings: Bony alignment of the glenohumeral joint and AC joints is anatomic. No acute fracture, dislocation, or separation. Moderate glenohumeral joint and AC joint DJD. Likely remote fracture deformity of the distal left clavicle. Impression: Degenerative changes as above without acute finding. This document has been electronically signed by: Pawan Owen MD on 08/07/2024 09:13:49
== END 2024-08-06 08:21 | disposition home or self-care (01) ==
LOC: HO.XRAY 08:20
PROVIDERS: PCP Nurse Practitioner Family; Referring Provider Nurse Practitioner Family; Visit Provider Nurse Practitioner Family
DX: M25.511 Pain in right shoulder (principal); M25.512 Pain in left shoulder; M47.812 Spondylosis without myelopathy or radiculopathy, cervical region; M50.90 Cervical disc disorder, unspecified, unspecified cervical region; M54.12 Radiculopathy, cervical region; M62.838 Other muscle spasm
CPT/HCPCS: 72050; 73030; 99212

== ENCOUNTER 2024-08-06 08:20 | Outpatient (AMB) | payer OTHER, SELFPAY ==
--- NOTE | 2024-08-06 08:24 | MHC.OFFVIS ---
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 Right hand dominant. The pain increased when using backpack blowers or weed whackers. Initially accompanied by numbness and tingling, these symptoms have resolved. Prior MRI imaging in 2021 is noted below, no surgical intervention was required. Historical interventions include physical therapy and trigger point injections, with temporary relief from lidocaine injections. Self-managed strategies include Biofreeze, Tylenol, and ibuprofen. His occupation and movements, particularly with lifting, exacerbate the symptoms. Management includes conservative analgesics and potential x-rays for further evaluation. He was also evaluated by Hand specialist in 2022 for mild bilateral carpal tunnel syndromes. Denies any fever or chills, dizziness, shortness of breaths, chest pain, headaches, weakness, gait instability, bladder or bowel dysfunction or saddle anesthesia. - Onset: Chronic, worsened over time. - Quality: Aching and pulling sensation. - Primary Location: Neck and bilateral shoulders. - Radiation: From the neck to the elbows on both arms. 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 - Relieving Factors: Biofreeze application, hot showers, rest, cyclobenzaprine, and analgesics. - Interference: Sleep disturbance, leaving discomfort when laying on shoulders. - Affect: Pain impacts sleep and work activities. - Analgesia: Biofreeze and [id number] medications such as Tylenol and ibuprofen; cyclobenzaprine; current level of pain is impairing, with short-term relief. - Adverse Effects: None specifically from the current regimen, though aware of risk with long-term ibuprofen. - Activities of Daily Living: Limited sleep quality, impacted work performance. - Aberrant Drug Related Behaviors: None discussed or noted in the report. PRIOR Dr. Sauceda 06/03/22: Pawan is is on the phone today to discuss the results of the MRI which was performed on him by my order on 05/21/2022. I again was asking patient if he has any symptoms in the projection of his cervical spine. The patient denied pain at rest the neck. He reports stiffness of the neck however denies pain. He reports that pain is not in his cervical spine when he flexes the head forward and backwards when he turns his head left and right and when he tilts his head left and right. On the MRI there are some changes related to mild spinal canal stenosis and mild foraminal stenosis however noted however no overt nerve root compressions are detected. Therefore I believe that most likely his symptoms in the hands as well as shoulder pains might be related to bilateral carpal tunnel syndrome. She was referred for appointment with Dr. Mueller. We will expedite this appointment. Prior: very pleasant 52 years old gentleman who presents in my office with complains on neck pain with radiation into bilateral shoulders as well as pain in bilateral hands. He reports that those pains are separate. He was under care of Orthopedic surgery office and diagnosed with carpal tunnel syndrome for hands pain. He reports pain in the projection of the 3 middle fingers as if the were squeeze by the pliers. He was offered carpal tunnel surgery however he refused. Today he is in my office to discuss possibility of treatment. He reports that he is working full-time. He unable to sleep normally because of his pain but he can do activities of daily living he can take care of himself and he can not function normally. He reports his pain is most severe in the morning and at night and this severe in the evening. He reports his pain in terms of tissue damage is pulsing, throbbing, pounding, stabbing, lancinating, tingling, stinging, dull, sore, aching, heavy, spreading, piercing. He had x-rays done for his neck but not MRI. He went for physical therapy 2 months ago and received very short pain relief. [facility] Medical History Tubular adenoma of colon Fatty liver GERD (gastroesophageal reflux disease) Cervical radiculopathy SABA (obstructive sleep apnea) Morbid obesity Dyslipidemia Leukocytosis Diabetes HTN (hypertension) Surgical History History of colonoscopy History of laparoscopic cholecystectomy History of oral surgery History of rotator cuff surgery Family History Father Hypothyroidism Hypercholesteremia Colon cancer Dementia Mother Bladder cancer Paternal Grandmother Myocardial infarction Paternal Grandfather Stroke Paternal Aunt Breast cancer Brother No problems noted. Sister No problems noted. Brother No problems noted. Social History Household Members: None Housing: House Are you a primary memory care director to a significant other at home: No Do you presently have visiting nurse or other home services: No Alcohol intake: current Alcohol intake frequency: holidays/special occasions only Comment: soreness Patient Tobacco Use Status: Never used Tobacco e-Cigarette/Vaping Use: Never Used Second Hand Smoke Exposure: No service: No Current occupational status: employed Current occupation: [employer] Cognitive needs: No Hearing needs: No Vision needs: No Review of Systems Const Details: - Neurological: Denies current numbness or tingling; denies headaches. - Musculoskeletal: Reports neck and shoulder pain with movement limitations. - Endocrine: Reports diabetes as stable. A1C=6.6 on 01/2024. All systems reviewed & are unremarkable except as noted in HPI and below Physical Exam Vital Signs: Last Vital Signs Pulse 85 08/06/24 08:34 BP 146/99 H 08/06/24 08:34 Pulse Ox 97 08/06/24 08:34 Oxygen Delivery Method Room Air 08/06/24 08:34 BMI result Body Mass Index 41.3 General: Appears afebrile. Alert and oriented. Mood and affect appropriate. Follows and participates in conversation appropriately. Respiratory effort is unlabored. No cough. Able to transition from sit to stand unassisted. Ambulates with bilaterally normal heel strike and toe off. Neck Other: Patient with decreased cervical ROM in all planes/especially with lateral rotation. Reports increased pain with cervical extension. Spurling compression test equivocal. Pain is unchanged by Spurling maneuver with retraction. Elvey's tension test positive bilaterally, with radiation of pain from neck to elbows, left>right. Lhermitte's test was negative. DTR intact, +1 and symmetrical. Patient demonstrated 5/5 motor strength of bilateral upper extremities. 2 + radial pulses. Significant tightness throughout cervical paraspinals as well as TTP throughout bilateral upper trapezius muscles. No paravertebral tenderness over facet joints bilaterally. Multiple taut bands palpated throughout bilateral upper trapezius muscles. Neck: Yes normal visual inspection, Yes full ROM (with pain), Yes supple, Yes anterior neck swelling, Yes no JVD, No prominent supraclavicular fat pad and Yes prominent dorsocervical fat pad Back/Spine/Pelvis Cervical Spine: cervical ROM normal, No collar present, cervical muscular tenderness, pain with cervical ROM, Cervical spine scars present (mid occipital), No Cervical spine tenderness and No step off deformity Results Reviewed Results Reviewed: MR CERVICAL SPINE WITHOUT CONTRAST 05/21/22 CLINICAL INFORMATION: Spinal stenosis, cervical region. FINDINGS: VERTEBRAL BODIES AND PARASPINAL SOFT TISSUES: There is a mild anterolisthesis of C7 on T1. There is narrowing of intervertebral disc height at C5-C6 with loss of signal from the disc. The vertebral bodies have normal height and contour and no fractures are demonstrated. Overall, marrow signal is homogenous. The regional soft tissues are unremarkable. CERVICOMEDULLARY JUNCTION AND VISUALIZED POSTERIOR FOSSA: The craniocervical and posterior fossa structures are normal. Accounting for artifact, spinal cord signal appears normal. SPINAL LEVELS: C2-C3: There is mild right facet arthropathy. Posterior disc contour is normal. There is no central stenosis or foraminal narrowing. C3-C4: The facet joints appear normal. There is a shallow posterior disc protrusion without cord compression or central stenosis. The neural foramina are patent bilaterally. C4-C5: The facets joints appear normal. There is a broad-based posterior disc protrusion which is most prominent to the left of midline, and there may be impingement on the ventral spinal cord on the left. There is effacement of CSF around the cord with mild central stenosis. There are uncovertebral osteophytes and there is moderate right and mild left foraminal narrowing. C5-C6: The facet joints appear normal. There is a broad-based posterior disc protrusion, which is more prominent on the right. There is effacement of CSF around the cord without cord compression, and there is mild central stenosis. There are uncovertebral osteophytes and there is severe right and mild left foraminal narrowing. C6-C7: There is a shallow posterior disc protrusion without cord compression or central stenosis. There are uncovertebral osteophytes with mild bilateral foraminal narrowing. C7-T1: The facet joints appear normal bilaterally. Posterior disc contour is normal. There is no spinal cord compression or central stenosis. The neural foramina are patent bilaterally. IMPRESSION: 1. At C4-C5 there is a broad-based posterior disc protrusion, most prominent to the left of midline. There is mild central stenosis. There is moderate right and mild left foraminal narrowing. 2. At C5-C6 there is a broad-based posterior disc protrusion, more prominent on the right. There is mild central stenosis. There is severe right and mild left foraminal narrowing. 3. Spondylosis and facet arthropathic changes are also demonstrated at other levels as described above. 4. Due to patient's weight, the gantry table undocked and the axial images do not directly correlate with the sagittal images. Assessment & Plan Assessment & Plan (1) Cervical neck pain with evidence of disc disease: Code(s): M50.90 - Cervical disc disorder, unspecified, unspecified cervical region Category: Medical (2) Bilateral shoulder pain: Code(s): M25.511 - Pain in right shoulder; M25.512 - Pain in left shoulder Category: Medical (3) Spondylosis of cervical spine: Code(s): M47.812 - Spondylosis without myelopathy or radiculopathy, cervical region Category: Medical (4) Cervical radiculopathy: Code(s): M54.12 - Radiculopathy, cervical region Category: Medical (5) Muscle spasms of neck: Code(s): M62.838 - Other muscle spasm Category: Medical Plan We will proceed with obtaining updated cervical spine and bilateral shoulder x-rays to further assess the patient?s degenerative changes and degree of arthritis. Conservative measures include continuing with current analgesics, gentle stretching exercises and ice/heat therapy, while exploring the addition of cervical support pillows and positional changes to alleviate pain. Interventional procedures such as diagnostic nerve blocks and possible radiofrequency ablation are considered based on further diagnostic findings and insurance approval. Detailed procedures and potential effects have been explained to the patient, along with possible advancements to neuromodulation techniques. The patient is advised to avoid chronic NSAID use due to potential renal implications and to focus on conservative pain management, including lifestyle modifications, good posture, avoid sleeping positions that contribute to increased neck pain, and adequate hydration. All questions and concerns have been answered and patient agreed with the plan. Follow up for x-ray results and sooner as needed. Patient was informed and verbally consented to the use of an ambient scribe for clinic note documentation during this visit. Orders: Orders XR shoulder RT min 2V Today M25.511 - Pain in right shoulder, M25.512 - Pain in left shoulder, M47.812 - Spondylosis without myelopathy or radiculopathy, cervical region XR shoulder LT min 2V Today M25.511 - Pain in right shoulder, M25.512 - Pain in left shoulder XR cervical spine 4V Today M25.511 - Pain in right shoulder, M25.512 - Pain in left shoulder, M47.812 - Spondylosis without myelopathy or radiculopathy, cervical region, M50.90 - Cervical disc disorder, unspecified, unspecified cervical region Patient Instructions: After reviewing the case details, I discussed cervical spondylosis contributing to the patient's neck pain and the association of this condition with shoulder involvement. We reviewed and planned for updated imaging studies to better visualize the current status of the cervical spine and shoulders. I outlined the potential use of interventional procedures such as diagnostic nerve blocks and radiofrequency ablation and Sprint PNS trial, clarifying that these could significantly alleviate symptoms if the diagnostic results correlate with the symptoms. Risks, including the potential for increased blood sugar from steroid use and effects of prolonged NSAID use, were discussed, and the patient expressed understanding. Alternative management strategies, including posture modifications, hydrating adequately, employing neck support pillows, and avoiding certain sleep positions, were agreed upon. The patient received brochures on interventional treatment options and left with a clear understanding of the recommended next steps and consideration of lifestyle modifications. - Complete x-rays of cervical spine and shoulders at the hospital today. - Continue using Tylenol and ibuprofen with food to manage pain. - Avoid sleeping on the stomach; consider using a cervical support pillow to reduce neck strain. - Ensure hydration and engage in gentle exercises as able to maintain range of motion. - Return for follow-up to discuss x-ray results and consider potential pain management options, including nerve blocks or radiofrequency ablation. - Avoid chronic NSAID use due to potential kidney implications; seek care if pain significantly worsens or if numbness and tingling return. Coding Level of Care Code Est Pt Level 4 (55920) Complex EM visit Add On G2211 Diagnoses Cervical neck pain with evidence of disc disease M50.90 Bilateral shoulder pain M25.511; M25.512 Spondylosis of cervical spine M47.812 Cervical radiculopathy M54.12 Muscle spasms of neck M62.838
[2024-08-06 08:34] VITALS: BP 146/99; PULSE 85; O2SAT 97; BMI 41.3
== END 2024-08-06 09:19 | disposition home or self-care (01) ==
PROVIDERS: PCP Nurse Practitioner Family; Referring Provider Nurse Practitioner Family; Visit Provider Nurse Practitioner Family
DX: M50.90 Cervical disc disorder, unspecified, unspecified cervical region (principal); M25.511 Pain in right shoulder; M25.512 Pain in left shoulder; M47.812 Spondylosis without myelopathy or radiculopathy, cervical region; M54.12 Radiculopathy, cervical region; M62.838 Other muscle spasm
CPT/HCPCS: 99214; G2211

== ENCOUNTER → 2024-08-06 09:25 | Outpatient (BNV) | payer OTHER, SELFPAY | PROVIDERS: PCP Nurse Practitioner Family; Referring Provider Nurse Practitioner Family; Visit Provider Radiology Diagnostic Radiology | DX: M50.30 Other cervical disc degeneration, unspecified cervical region (principal); M25.511 Pain in right shoulder; M19.012 Primary osteoarthritis, left shoulder | CPT/HCPCS: 72050; 73030 ==

== ENCOUNTER 2024-09-07 08:49 | Outpatient (AMB) | payer OTHER, SELFPAY ==
--- NOTE | 2024-09-07 09:12 | A.OFFVIS_ITS ---
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 He reports sharp neck pain primarily localized in the middle with associated numbness or tingling, worsened by occupational use of a backpack blower and specific movements such as bending forward. Neck extension provides some relief. The shoulder pain, which is reported in both shoulders with equal intensity, especially during overhead activities, follows a history of right rotator cuff surgery and a remote left clavicle fracture. Previous shoulder injections without imaging guidance have provided some mitigation of shoulder pain. Should ers and cervical spine xrays findings are noted below. Patient is interested to proceed with therapeutic right shoulder injection and update cervical spine MRI as next steps. Denies any recent cough, cold, infection, fever or any other significant changes in medical history since last office visit. PRIOR: The patient is a 54-year-old male presenting with neck and shoulder pain. 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 Right hand dominant. The pain increased when using backpack blowers or weed whackers. Initially accompanied by numbness and tingling, these symptoms have resolved. Prior MRI imaging in 2021 is noted below, no surgical intervention was required. Historical interventions include physical therapy and trigger point injections, with temporary relief from lidocaine injections. Self-managed strategies include Biofreeze, Tylenol, and ibuprofen. His occupation and movements, particularly with lifting, exacerbate the symptoms. Management includes conservative analgesics and potential x-rays for further evaluation. He was also evaluated by Hand specialist in 2022 for mild bilateral carpal tunnel syndromes. Denies any fever or chills, dizziness, shortness of breaths, chest pain, headaches, weakness, gait instability, bladder or bowel dysfunction or saddle anesthesia. - Onset: Chronic, worsened over time. - Quality: Aching and pulling sensation. - Primary Location: Neck and bilateral shoulders. - Radiation: From the neck to the elbows on both arms. 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 - Relieving Factors: Biofreeze application, hot showers, rest, cyclobenzaprine, and analgesics. - Interference: Sleep disturbance, leaving discomfort when laying on shoulders. - Affect: Pain impacts sleep and work activities. - Analgesia: Biofreeze and [id number] medications such as Tylenol and ibuprofen; cyclobenzaprine; current level of pain is impairing, with short-term relief. - Adverse Effects: None specifically from the current regimen, though aware of risk with long-term ibuprofen. - Activities of Daily Living: Limited sleep quality, impacted work performance. - Aberrant Drug Related Behaviors: None discussed or noted in the report. PRIOR Dr. Sauceda 06/03/22: Pawan is is on the phone today to discuss the results of the MRI which was performed on him by my order on 05/21/2022. I again was asking patient if he has any symptoms in the projection of his cervical spine. The patient denied pain at rest the neck. He reports stiffness of the neck however denies pain. He reports that pain is not in his cervical spine when he flexes the head forward and backwards when he turns his head left and right and when he tilts his head left and right. On the MRI there are some changes related to mild spinal canal stenosis and mild foraminal stenosis however noted however no overt nerve root compressions are detected. Therefore I believe that most likely his symptoms in the hands as well as shoulder pains might be related to bilateral carpal tunnel syndrome. She was referred for appointment with Dr. Mueller. We will expedite this appointment. Prior: very pleasant 52 years old gentleman who presents in my office with complains on neck pain with radiation into bilateral shoulders as well as pain in bilateral hands. He reports that those pains are separate. He was under care of Orthopedic surgery office and diagnosed with carpal tunnel syndrome for hands pain. He reports pain in the projection of the 3 middle fingers as if the were squeeze by the pliers. He was offered carpal tunnel surgery however he refused. Today he is in my office to discuss possibility of treatment. He reports that he is working full-time. He unable to sleep normally because of his pain but he can do activities of daily living he can take care of himself and he can not function normally. He reports his pain is most severe in the morning and at night and this severe in the evening. He reports his pain in terms of tissue damage is pulsing, throbbing, pounding, stabbing, lancinating, tingling, stinging, dull, sore, aching, heavy, spreading, piercing. He had x-rays done for his neck but not MRI. He went for physical therapy 2 months ago and received very short pain relief. [facility] Medical History Tubular adenoma of colon Fatty liver GERD (gastroesophageal reflux disease) Cervical radiculopathy SABA (obstructive sleep apnea) Morbid obesity Dyslipidemia Leukocytosis Diabetes HTN (hypertension) Surgical History History of colonoscopy History of laparoscopic cholecystectomy History of oral surgery History of rotator cuff surgery Family History Father Hypothyroidism Hypercholesteremia Colon cancer Dementia Mother Bladder cancer Paternal Grandmother Myocardial infarction Paternal Grandfather Stroke Paternal Aunt Breast cancer Brother No problems noted. Sister No problems noted. Brother No problems noted. Social History Household Members: None Housing: House Are you a primary career technical counselor to a significant other at home: No Do you presently have visiting nurse or other home services: No Alcohol intake: current Alcohol intake frequency: holidays/special occasions only Comment: soreness Patient Tobacco Use Status: Never used Tobacco e-Cigarette/Vaping Use: Never Used Second Hand Smoke Exposure: No service: No Current occupational status: employed Current occupation: [employer] Cognitive needs: No Hearing needs: No Vision needs: No Review of Systems Const All systems reviewed & are unremarkable except as noted in HPI and below Physical Exam Vital Signs: Last Vital Signs Pulse 107 H 09/07/24 09:19 BP 164/99 H 09/07/24 09:19 Pulse Ox 99 09/07/24 09:19 Oxygen Delivery Method Room Air 09/07/24 09:19 BMI result Body Mass Index 40.6 General: Appears afebrile. Moderate discomfort due to neck and bilateral shoulder pain. Alert and oriented. Mood and affect appropriate. Follows and participates in conversation appropriately. Respiratory effort is unlabored. No cough. Able to transition from sit to stand unassisted. Ambulates with bilaterally normal heel strike and toe off. Neck Other: Patient with decreased cervical ROM in all planes/especially with lateral rotation. Reports increased pain with cervical extension but worse with flexion and bending. Spurling compression test equivocal. Pain is unchanged by Spurling maneuver with retraction. Elvey's tension test positive bilaterally, with radiation of pain from neck to elbows. Lhermitte's test was negative. DTR intact, +1 and symmetrical. Patient demonstrated 5/5 left and 4/5 right motor strength of bilateral upper extremities. 2 + radial pulses. Significant tightness throughout cervical paraspinals as well as TTP throughout bilateral upper trapezius muscles. Multiple taut bands palpated throughout bilateral upper trapezius muscles. Neck: Yes normal visual inspection, Yes full ROM (with pain), Yes supple, Yes anterior neck swelling, Yes no JVD, No prominent supraclavicular fat pad and Yes prominent dorsocervical fat pad Back/Spine/Pelvis Cervical Spine: cervical ROM normal, No collar present, cervical muscular tenderness, pain with cervical ROM, Cervical spine scars present (mid occipital), No Cervical spine tenderness and No step off deformity Extrem General: Yes capillary refill normal, Yes no clubbing, cyanosis or edema and Yes no calf tenderness Right upper extremity: shoulder/upper arm (Limited ROM, increased pain with overhead reaches) Details: normal to inspection, tenderness (posterior and anterior aspects) and crepitus; no swelling, no ecchymosis and no unusual warmth Left upper extremity: shoulder/upper arm (Limited ROM, increased pain with overhead reaches) Details: inspection abnormal, tenderness Location: of the A-C joint and over the subacromial bursa and crepitus; no ecchymosis and no unsual warmth Results Reviewed Results Reviewed: MR CERVICAL SPINE WITHOUT CONTRAST 05/21/22 CLINICAL INFORMATION: Spinal stenosis, cervical region. FINDINGS: VERTEBRAL BODIES AND PARASPINAL SOFT TISSUES: There is a mild anterolisthesis of C7 on T1. There is narrowing of intervertebral disc height at C5-C6 with loss of signal from the disc. The vertebral bodies have normal height and contour and no fractures are demonstrated. Overall, marrow signal is homogenous. The regional soft tissues are unremarkable. CERVICOMEDULLARY JUNCTION AND VISUALIZED POSTERIOR FOSSA: The craniocervical and posterior fossa structures are normal. Accounting for artifact, spinal cord signal appears normal. SPINAL LEVELS: C2-C3: There is mild right facet arthropathy. Posterior disc contour is normal. There is no central stenosis or foraminal narrowing. C3-C4: The facet joints appear normal. There is a shallow posterior disc protrusion without cord compression or central stenosis. The neural foramina are patent bilaterally. C4-C5: The facets joints appear normal. There is a broad-based posterior disc protrusion which is most prominent to the left of midline, and there may be impingement on the ventral spinal cord on the left. There is effacement of CSF around the cord with mild central stenosis. There are uncovertebral osteophytes and there is moderate right and mild left foraminal narrowing. C5-C6: The facet joints appear normal. There is a broad-based posterior disc protrusion, which is more prominent on the right. There is effacement of CSF around the cord without cord compression, and there is mild central stenosis. There are uncovertebral osteophytes and there is severe right and mild left foraminal narrowing. C6-C7: There is a shallow posterior disc protrusion without cord compression or central stenosis. There are uncovertebral osteophytes with mild bilateral foraminal narrowing. C7-T1: The facet joints appear normal bilaterally. Posterior disc contour is normal. There is no spinal cord compression or central stenosis. The neural foramina are patent bilaterally. IMPRESSION: 1. At C4-C5 there is a broad-based posterior disc protrusion, most prominent to the left of midline. There is mild central stenosis. There is moderate right and mild left foraminal narrowing. 2. At C5-C6 there is a broad-based posterior disc protrusion, more prominent on the right. There is mild central stenosis. There is severe right and mild left foraminal narrowing. 3. Spondylosis and facet arthropathic changes are also demonstrated at other levels as described above. 4. Due to patient's weight, the gantry table undocked and the axial images do not directly correlate with the sagittal images. XR shoulder RT min 2V 08/06/24 Comparison: October 30, 2017. Findings: There is truncation of the distal clavicle as seen on the patient's prior study, likely related to subacromial decompression and distal clavicle resection. Heterotopic ossification seen distal to the clavicle as before. Alignment of the glenohumeral joint is anatomic. Mild glenohumeral joint degenerative change. No acute fracture. Impression: Likely postsurgical change of the right distal clavicle. Mild glenohumeral joint DJD. XR shoulder LT min 2V 08/06/24 Comparison: April 22, 2016. Findings: Bony alignment of the glenohumeral joint and AC joints is anatomic. No acute fracture, dislocation, or separation. Moderate glenohumeral joint and AC joint DJD. Likely remote fracture deformity of the distal left clavicle. Impression: Degenerative changes as above without acute finding. XR cervical spine 4V 08/06/24 Comparison: MRI May 21, 2022. Findings: Bony alignment of the cervical vertebral bodies is anatomic. No fracture or prevertebral soft tissue swelling. [id number] multilevel degenerative disc disease and degenerative facet disease throughout the cervical spine, most pronounced at C5-6. Oblique images demonstrates severe right foraminal narrowing at C2-3, C3-4, and C4-5. There is mild left neural foraminal narrowing at C5-6. Impression: Multilevel degenerative disc disease and degenerative facet disease with severe multilevel right neural foraminal narrowing. Assessment & Plan Assessment & Plan (1) Bilateral shoulder pain: Code(s): M25.511 - Pain in right shoulder; M25.512 - Pain in left shoulder Category: Medical (2) Spondylosis of cervical spine: Code(s): M47.812 - Spondylosis without myelopathy or radiculopathy, cervical region Category: Medical (3) Cervical radiculopathy: Code(s): M54.12 - Radiculopathy, cervical region Category: Medical (4) Muscle spasms of neck: Code(s): M62.838 - Other muscle spasm Category: Medical (5) Osteoarthritis of shoulders, bilateral: Code(s): M19.011 - Primary osteoarthritis, right shoulder; M19.012 - Primary osteoarthritis, left shoulder Category: Medical (6) Cervical spinal stenosis: Code(s): M48.02 - Spinal stenosis, cervical region Category: Medical Plan Cervical spine and shoulder xray results were discussed with patient today. Conservative measures have been inadequate with current analgesics, NSAIDs, gentle stretching exercises and ice/heat therapy and cervical support pillows and positional changes. We will proceed with Right shoulder intra-articular steroid injections with local and fluoroscopy. Expectations, risks and benefits were reviewed. Patient is aware he will be contacted to schedule this procedure. Monitoring of blood glucose levels post-injection, considering the patient's well-controlled diabetes mellitus, will be advised. Interventional procedures such as cervical HELGA, diagnostic nerve blocks and possible radiofrequency ablation are considered based on further diagnostic findings with cervical MRI which will be pursued to assess for neural integrity and compression and follow up on previous xray/MRI findings. All questions and concerns have been answered and patient agreed with the plan. Follow up for MRI results/after injections and sooner as needed. Patient was informed and verbally consented to the use of an ambient scribe for clinic note documentation during this visit. Patient Instructions: We discussed the possibility of multifactorial causes for the patient's neck and shoulder pain due to identified significant right sided cervical foraminal narrowing and shoulder degeneration. I explained the plan to perform an MRI for precise evaluation and consider guided steroid injections to optimize targeting and relieve shoulder pain. The patient understood that this approach would help differentiate the primary source of pain and consented to the outlined management plan. The potential effects on blood glucose levels due to steroid use were reviewed, given the patient's diabetes. Consent for each diagnostic and therapeutic procedure was obtained. Coding Level of Care Code Est Pt Level 4 (48181) Complex EM visit Add On G2211 Diagnoses Bilateral shoulder pain M25.511; M25.512 Spondylosis of cervical spine M47.812 Cervical radiculopathy M54.12 Muscle spasms of neck M62.838 Osteoarthritis of shoulders, bilateral M19.011; M19.012 Cervical spinal stenosis M48.02
[2024-09-07 09:19] VITALS: BP 164/99; PULSE 107; O2SAT 99; BMI 40.6
== END 2024-09-07 09:43 | disposition home or self-care (01) ==
LOC: HO.PMC 08:50
PROVIDERS: PCP Nurse Practitioner Family; Visit Provider Nurse Practitioner Family
DX: M25.511 Pain in right shoulder (principal); M25.512 Pain in left shoulder; M47.812 Spondylosis without myelopathy or radiculopathy, cervical region; M54.12 Radiculopathy, cervical region; M62.838 Other muscle spasm; M19.011 Primary osteoarthritis, right shoulder; M19.012 Primary osteoarthritis, left shoulder; M48.02 Spinal stenosis, cervical region
CPT/HCPCS: 99214; G2211

== ENCOUNTER → 2024-09-07 08:49 | Outpatient (BNVA) | payer OTHER, SELFPAY | PROVIDERS: PCP Nurse Practitioner Family; Visit Provider Nurse Practitioner Family | DX: M19.011 Primary osteoarthritis, right shoulder (principal); M19.012 Primary osteoarthritis, left shoulder; M47.812 Spondylosis without myelopathy or radiculopathy, cervical region; M54.12 Radiculopathy, cervical region; M62.838 Other muscle spasm; M48.02 Spinal stenosis, cervical region | CPT/HCPCS: 99212 ==

== ENCOUNTER 2024-09-23 07:35 | Outpatient (AMB) | payer OTHER, SELFPAY ==
[2024-09-23 07:50] VITALS: BP 120/88; PULSE 84; O2SAT 95; BMI 41.7
--- NOTE | 2024-09-23 07:50 | MHC.OFFVIS ---
Vital Signs 09/23/24 07:50 Height 5 ft 9 in Weight 282 lb 6 oz BMI 41.7 BP 120/88 Blood Pressure Location Lt brachial Position Sitting Pulse 84 Pulse Source Pulse Oximeter Pulse Oximetry (%) 95 Oxygen Delivery Method Room Air Intake Visit Reasons: 6m follow up Intake Note: Patient presents follow up SABA. 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 Not on CPAP can not tolerate. Allergies lisinopril Adverse Reaction (Unknown, Verified 09/23/24 07:52) Cough HPI Comments Details: 54 year old male with h/o HTN is here for a f/u of SABA. 05/2024 HST c/w AHI 25/hr and oxygen nadirs to 82%. He has his dentist adjust his mandibular device as needed due to an under-bite, so retracting lower jaw, he attempted the CPAP twice and started vomiting, with a tingling sensation in his hands and toes. He is a belly sleeper and was not able to tolerate it. He is Sleeping well, 9pme to 5am and feels pretty good in the morning, not yawning, snoring, coughing or gasping for air. Denies headaches, jaw pain, dizziness, brain fog, or forgetfulness Denies difficulty swallowing, speech difficulties, and or sleep behaviors. 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 His father recently dx with Dementia and Parkinsons at age 76. He does not smoke or drinks alcohol on holidays, today we discussed his BMI being elevated to 41.7 and weight reduction, though he was approved for Zepbound, he has a needle phobia, but started to walk for 15 min daily and started to drink lots of water. He is referred to ENT for an Inspire therapy consult, we discussed sleep pathology and the importance of accountability for monitoring AHI and oxygenation which is not possible with the Somnogaurd. RLS He complains of pins and needles below the knees today which start at his ankles and travel all the way up to the knees. His L. feet is worse than the R. feet. with quick shock-like stabbing spasms, and he jumps out of bed to stretch out the legs. [facility] Medical History Tubular adenoma of colon Fatty liver GERD (gastroesophageal reflux disease) Cervical radiculopathy SABA (obstructive sleep apnea) Morbid obesity Dyslipidemia Leukocytosis Diabetes HTN (hypertension) Surgical History History of colonoscopy History of laparoscopic cholecystectomy History of oral surgery History of rotator cuff surgery Family History Father Hypothyroidism Hypercholesteremia Colon cancer Dementia Mother Bladder cancer Paternal Grandmother Myocardial infarction Paternal Grandfather Stroke Paternal Aunt Breast cancer Brother No problems noted. Sister No problems noted. Brother No problems noted. Social History Household Members: None Housing: House Are you a primary health care facilities inspector to a significant other at home: No Do you presently have visiting nurse or other home services: No Alcohol intake: current Alcohol intake frequency: holidays/special occasions only Comment: soreness Patient Tobacco Use Status: Never used Tobacco e-Cigarette/Vaping Use: Never Used Second Hand Smoke Exposure: No service: No Current occupational status: employed Current occupation: [employer] Cognitive needs: No Hearing needs: No Vision needs: No Physical Exam Vital Signs: Last Vital Signs Pulse 84 09/23/24 07:50 BP 120/88 09/23/24 07:50 Pulse Ox 95 09/23/24 07:50 Oxygen Delivery Method Room Air 09/23/24 07:50 BMI result Body Mass Index 41.7 Const General: cooperative Nutritional Appearance: obese Orientation/consciousness: patient oriented x3 HEENT Other: Mallampati grade III. Head: Yes normal to inspection Eyes Pupils: Equal, round and reactive pupils present Resp Effort & Inspection: normal respiratory effort and able to speak in complete sentences Neuro Other: Mallampti score is 4, unable to visualize the [place] and he is being followed with ENT for Inspire. mild tremor LUE >RUE noted. General: patient oriented x3 and moves all extremities Cranial nerves: Yes Facial sensation intact/muscles of mastication intact, Yes Equal, round and reactive pupils present, Yes Normal accommodation reflex present, Yes Normal facial strength present, Yes Midline tongue present, Yes Ability to bilaterally rotate head present and Yes Ability to bilaterally elevate shoulders present Motor exam (neuro): 5/5 motor strength present throughout and Normal motor muscle tone present throughout Psych Appearance: grossly normal Affect: normal affect Thought process: Normal thought process present Thought content: Normal thought content present Results Reviewed Results Reviewed: 05/2024 HST c/w with severe SABA AHI 24/hr and oxygen Malorie to 82%. Labs reviewed, A1c is elevated being followed by PCP. Assessment & Plan Assessment & Plan (1) SABA (obstructive sleep apnea): Comment: Severe degree of sleep apnea. The AHI was 83/hr and oxygen malorie was 76%. Code(s): G47.33 - Obstructive sleep apnea (adult) (pediatric) Category: Medical (2) Numbness and tingling of both feet: Code(s): R20.0 - Anesthesia of skin; R20.2 - Paresthesia of skin Category: Medical (3) Numbness and tingling of both feet: Code(s): R20.0 - Anesthesia of skin; R20.2 - Paresthesia of skin Category: Medical (4) Muscle spasms of lower extremity: Code(s): M62.838 - Other muscle spasm Category: Medical (5) Numbness and tingling of both feet: Code(s): R20.0 - Anesthesia of skin; R20.2 - Paresthesia of skin Category: Medical Plan HST completed he has severe SABA, will f/u with ENT for inspire therapy evaluation. If pt continues to lose weight, and BMI falls < 40, consider referal back to Dr Lopez, ENT, to reassess for Inspire implant tx and re-address previously discussed tonsillectomy/palatopharyngoplasty. Discussed weight management program options, such as medical weight loss, nutritional counseling, and surgical weight loss programs as well as dietary and lifestyle changes. RLS: will monitor after Iron panel, B12, Folate, MMA, B12 Homocysteine. Pt. to follow-up in 4 months. Orders: Orders Ferritin Today M62.838 - Other muscle spasm, R20.0 - Anesthesia of skin, R20.2 - Paresthesia of skin IRON PROFILE Today M62.838 - Other muscle spasm, R20.0 - Anesthesia of skin, R20.2 - Paresthesia of skin Vitamin B12 and Folate Today M62.838 - Other muscle spasm, R20.0 - Anesthesia of skin, R20.2 - Paresthesia of skin Vitamin D 25-OH Total Today M6.838 - Other muscle spasm, R20.0 - Anesthesia of skin, R20.2 - Paresthesia of skin Homocysteine Today M6.838 - Other muscle spasm, R20.0 - Anesthesia of skin, R20.2 - Paresthesia of skin Methylmalonic Acid Today M6.838 - Other muscle spasm, R20.0 - Anesthesia of skin, R20.2 - Paresthesia of skin Hemoglobin A1c Today M6.838 - Other muscle spasm, R20.0 - Anesthesia of skin, R20.2 - Paresthesia of skin Patient Instructions: Patient Education: Continue use of mandibular device, and f/u with ENT, monitor BP and A1c with PCP. RLS will evaluate with labs. Each sleep cycle is 90 min. N1, N2, N3 and REM, thus cycling through these 4 phases reaching REM allows the Hypothalamus signals to the Pituitary gland to release GNRH, GHRH, TSH, CRH etc. for growth tissue repair, mood and immunity. BMI is elevated today, we discussed weight loss with diet and exercise, medication, and surgical options. Coding Level of Care Code Est Pt Level 4 (75000) Diagnoses SABA (obstructive sleep apnea) G47.33 Numbness and tingling of both feet R20.0; R20.2 Muscle spasms of lower extremity M62.838 Time Spent (min) 30
== END 2024-09-23 08:47 | disposition home or self-care (01) ==
LOC: HO.HSMS 07:36
PROVIDERS: PCP Nurse Practitioner Family; Visit Provider Physician Assistant Medical
DX: G47.33 Obstructive sleep apnea (adult) (pediatric) (principal); R20.0 Anesthesia of skin; R20.2 Paresthesia of skin; M62.838 Other muscle spasm
CPT/HCPCS: 99214

== ENCOUNTER → 2024-09-23 07:35 | Outpatient (BNVA) | payer OTHER, SELFPAY | PROVIDERS: PCP Nurse Practitioner Family; Visit Provider Physician Assistant Medical | DX: G47.33 Obstructive sleep apnea (adult) (pediatric) (principal); R20.0 Anesthesia of skin; R20.2 Paresthesia of skin; M62.838 Other muscle spasm | CPT/HCPCS: 99212 ==

== ENCOUNTER 2024-09-27 08:56 | Outpatient (AMB) | payer OTHER, SELFPAY ==
--- NOTE | 2024-09-27 09:04 | MHC.OFFVIS ---
Vital Signs 09/27/24 09:06 Height 5 ft 9 in Weight 262 lb BMI 38.7 BP 132/84 Blood Pressure Location Lt brachial Position Sitting Respiration 16 Pulse 106 H Pulse Source Pulse Oximeter Pulse Oximetry (%) 95 Oxygen Delivery Method Room Air Intake Visit Reasons: Right shoulder injection Fancy Stitcher Required: No Wide Area Network Administrator: Wide Area Network Administrator Present Accompanied by: Reese Barnhart Allergies lisinopril Adverse Reaction (Unknown, Verified 09/27/24 09:07) Cough Medication List - Last Reconciled 09/27/24 by Angie Rojas LPN amlodipine 5 mg PO DAILY aspirin 1 tab PO DAILY PRN atorvastatin 20 mg PO DAILY blood sugar diagnostic (DokDokuch Verio test strips) TEST 3 TIMES A DAY cyclobenzaprine 10 mg PO BEDTIME PRN diclofenac sodium 75 mg PO BID PRN 30 days empagliflozin (Jardiance) 10 mg PO DAILY hydrochlorothiazide 25 mg PO DAILY irbesartan 150 mg PO DAILY 90 days lancets use to test blood sugar tid loteprednol etabonate 0.5% drps ophthalmic (eye) metformin 1,000 mg PO BID 90 days metoprolol succinate ER 50 mg PO DAILY omeprazole 40 mg PO DAILY spironolactone 50 mg (2 x 25 mg) PO DAILY tramadol 50 mg PO BID PRN 10 days HPI HPI Right shoulder injection: Details: History of Present Illness The patient is a 54-year-old male presenting with right shoulder pain. The pain reportedly emanates from the shoulder and extends to both sides, although the right shoulder is presently more affected. The patient previously had surgery on the left shoulder for a rotator cuff issue, but has not experienced surgery on the right shoulder. He describes the pain as being present when he moves his shoulder, indicating a level of impairment in mobility due to discomfort. Despite experiencing pain, the patient retains some ability to move his right arm. He expressed uncertainty about the onset of the pain but notes that certain motions exacerbate it. 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 This was noted as potentially impacting the symptomatology given the physical demands of his job. Past therapeutic interventions on his shoulder, possibly related to the left, included corticosteroid and lidocaine injections, as well as physical therapy which reportedly improved strength but did not resolve the underlying symptomatology completely. Additionally, there has been mention of neck issues potentially affecting both shoulders in the past. Pain Description - Onset and Timing: Uncertain initial onset, pain present upon movement. - Quality and Character: Aching pain, potentially sharp during certain motions. - Primary Location: Right shoulder. - Areas of Radiation: Pain extending to both shoulders. - Exacerbating Factors: Movement of the right shoulder. - Relieving Factors: No specific relieving factors mentioned. - Interference with Activities: Pain inhibits normal movement and potentially affects job-related physical activity. Physical Exam - Musculoskeletal- Right subacromial bursa visualized; ultrasound indicates at least a partial thickness rotator cuff tear. Results - Tests and Diagnostics: Ultrasound indicating at least a partial thickness rotator cuff tear in the right shoulder. Pain Management - Affect: Pain impacts movement and potentially occupational function. - Activities of Daily Living: Pain limits shoulder mobility, impacting work-related activities. - Aberrant Drug Related Behaviors: None reported. [facility] Medical History Tubular adenoma of colon Fatty liver GERD (gastroesophageal reflux disease) Cervical radiculopathy SABA (obstructive sleep apnea) Morbid obesity Dyslipidemia Leukocytosis Diabetes HTN (hypertension) Surgical History History of colonoscopy History of laparoscopic cholecystectomy History of oral surgery History of rotator cuff surgery Family History Father Hypothyroidism Hypercholesteremia Colon cancer Dementia Mother Bladder cancer Paternal Grandmother Myocardial infarction Paternal Grandfather Stroke Paternal Aunt Breast cancer Brother No problems noted. Sister No problems noted. Brother No problems noted. Social History Household Members: None Housing: House Are you a primary critical care transport nurse to a significant other at home: No Do you presently have visiting nurse or other home services: No Alcohol intake: current Alcohol intake frequency: holidays/special occasions only Comment: soreness Patient Tobacco Use Status: Never used Tobacco e-Cigarette/Vaping Use: Never Used Second Hand Smoke Exposure: No service: No Current occupational status: employed Current occupation: [employer] Cognitive needs: No Hearing needs: No Vision needs: No Physical Exam Vital Signs: Last Vital Signs Pulse 106 H 09/27/24 09:06 Resp 16 09/27/24 09:06 BP 132/84 09/27/24 09:06 Pulse Ox 95 09/27/24 09:06 Oxygen Delivery Method Room Air 09/27/24 09:06 BMI result Body Mass Index 38.7 Office Procedures AMB Joint Injection/Aspiration Joint Injection/Aspiration Primary Site: right shoulder Prep: site was prepped using sterile technique Injected: 40 mg of, Kenalog, with 3 mL of (Ropivacaine 0.25%) and in the subcromial space Approach Used: posterolateral (Ultrasound guided) Procedure: The patient tolerated the procedure well Coding Details: Ultrasound image saved to the patient's record [id number] - Acromioclavicular with ultrasound guidance Procedure code (CPT) selection complete Assessment & Plan Assessment & Plan (1) Osteoarthritis of shoulders, bilateral: Code(s): M19.011 - Primary osteoarthritis, right shoulder; M19.012 - Primary osteoarthritis, left shoulder Category: Medical (2) Rotator cuff tendonitis: Code(s): M75.80 - Other shoulder lesions, unspecified shoulder Category: Medical Plan Plan - Obtain MRI of the right shoulder to confirm the suspected rotator cuff tear. - Evaluate the need for surgical intervention based on MRI findings. - Awaiting MRI results to inform further treatment strategies. - Informed the patient regarding the procedure for MRI scheduling and further planning based on the results. Patient was informed and verbally consented to the use of an ambient scribe for clinic note documentation during this visit. Discussion Notes I discussed the working diagnosis of a partial thickness rotator cuff tear based on ultrasound findings with the patient and emphasized the importance of confirming this via MRI. The patient was informed that following the MRI, we might discuss surgical options if they are indicated. Risks, benefits, and alternatives of surgical intervention were briefly mentioned, emphasizing that the decision will depend on further imaging outcomes. I also outlined the process required for scheduling the MRI, and explained the potential need for continued physical therapy and follow-up based on post-MRI assessments. The patient expressed understanding and consented to the proposed plan of care, including today's injection. Patient Instructions - Await contact for MRI scheduling of the right shoulder. - Monitor pain levels and report any significant changes. - Follow-up for evaluation of MRI results and any further management. - Avoid activities that exacerbate shoulder pain if possible. Orders: Orders MR shoulder RT wo con 09/27/24 M75.80 - Other shoulder lesions, unspecified shoulder Coding Level of Care Code Est Pt Level 3 (18823) Diagnoses Osteoarthritis of shoulders, bilateral M19.011; M19.012 Rotator cuff tendonitis M75.80 CPT Codes Coding - Joint 6: 34303 - Acromioclavicular with ultrasound guidance ([id number])
[2024-09-27 09:06] VITALS: BP 132/84; PULSE 106; RESP 16; O2SAT 95; BMI 38.7
== END 2024-09-27 09:37 | disposition home or self-care (01) ==
LOC: HO.PMC 08:57
PROVIDERS: PCP Nurse Practitioner Family; Visit Provider Internal Medicine
DX: M19.011 Primary osteoarthritis, right shoulder (principal); M19.012 Primary osteoarthritis, left shoulder; M75.80 Other shoulder lesions, unspecified shoulder
CPT/HCPCS: 20606; 99213

== ENCOUNTER → 2024-09-27 08:56 | Outpatient (BNVA) | payer OTHER, SELFPAY | PROVIDERS: PCP Nurse Practitioner Family; Visit Provider Internal Medicine | DX: M19.011 Primary osteoarthritis, right shoulder (principal); M19.012 Primary osteoarthritis, left shoulder; M75.81 Other shoulder lesions, right shoulder | CPT/HCPCS: 20606; 99212 ==

== ENCOUNTER 2024-10-16 06:55 | Outpatient (REF) | payer OTHER, SELFPAY ==
[2024-10-16 11:05] LABS: MANUAL DIFF FLAG NO
[2024-10-16 11:08] LABS: Basophils Absolute Auto 0.1 X10*3/uL (0.0-0.2); Basophils Percent Auto 0.9 % (0-2); Eosinophils Absolute Auto 0.4 X10*3/uL (0.0-0.4); Eosinophils Percent Auto 4.4 % (0-4); Hematocrit 46.2 % (42.0-52.0); Hemoglobin 15.6 g/dl (14.0-18.0); Imm Gran Abs Auto 0.11 X10*3/uL (0.00-0.03); Imm Gran Pct Auto 1.2 % (0.0-0.4); Mean Corpuscular HGB Conc 33.8 g/dl (31.0-36.0); Mean Corpuscular Hemoglobin 29.8 pg (27.0-33.0); Mean Corpuscular Volume 88.3 fL (80.0-98.0); Mean Platelet Volume 10.2 fL (9.4-12.4); Monocytes Absolute Auto 0.7 X10*3/uL (0.1-1.2); Monocytes Percent Auto 7.3 % (2-11); Neutrophils Percent Auto 65.2 % (45-73); Platelet Count 274 X10*3/uL (160-400); Red Blood Count 5.23 X10*6/uL (4.60-5.80); Red Cell Distribution Width 13.4 % (11.0-16.0); White Blood Count 9.3 X10*3/uL (4.8-10.8)
[2024-10-16 11:18] LABS: Estimated Average Glucose 169 mg/dL; Hemoglobin A1c % 7.5 % (<6.0)
[2024-10-16 11:20] LABS: Appearance Urine Clear; Color Urine Yellow; Glucose Urine UA >=1000 mg/dL (Negative); Leukocyte Esterase Urine Negative (Negative); Nitrite Urine Negative (Negative); PH 5.5 (5.0-9.0); Specific Gravity - Urine >= 1.030 (1.005-1.025); UMIC TRIGGER UACC YES; Urine Blood Negative (Negative); Urine Ketones Trace mg/dL (Negative); Urine Protein Negative (Neg-Trace)
[2024-10-16 11:27] LABS: Bacteria Urine None Seen (None Seen); Hyaline Casts Urine 0-2 /LPF (0-2); RBC Urine 0-2 /HPF (0-2); Squamous Epithelial Cell Urine 0-2 /HPF (0-2); WBC Urine 0-5 /HPF (0-5)
[2024-10-16 11:29] LABS: Alanine Aminotransferase 45 U/L (0-40); Albumin Level 4.4 g/dL (3.5-5.0); Alkaline Phosphatase 76 U/L (39-117); Anion Gap 15 (12-20); Aspartate Amino Transferase 35 U/L (5-37); Blood Urea Nitrogen 17 mg/dL (9-16); Calcium 9.4 mg/dL (8.4-10.2); Carbon Dioxide 28 mmol/L (22-29); Chloride 100 mmol/L (96-108); Cholesterol 116 mg/dL (<200); Estimated Glomerular Filt Rate > 60; Glucose Fasting 148 mg/dL (60-99); HDL Cholesterol 40 mg/dL (>40); LDL Cholesterol Calculated 61 mg/dL (<100); Potassium 4.5 mmol/L (3.3-5.1); Sodium 138 mmol/L (135-145); Total Protein 6.8 g/dL (6.5-8.0); Triglycerides 75 mg/dL (<150)
[2024-10-16 11:49] LABS: Microalbum/Creatinine Ratio Ur 8.5 ug/mg cr (<30)
[2024-10-16 11:50] LABS: Prostate Specific Antigen Scr 0.44 ng/mL (<0.05-4.0); TSH reflex Free T4 0.99 uIU/mL (0.32-4.0)
== END 2024-10-16 06:56 | disposition home or self-care (01) ==
LOC: HO.HMGCLDS 06:55
PROVIDERS: PCP Nurse Practitioner Family; Visit Provider Nurse Practitioner Family
DX: E11.9 Type 2 diabetes mellitus without complications (principal)
CPT/HCPCS: 36415; 80053; 80061; 81001; 82043; 82570; 83036; 84153; 84443; 85025

== ENCOUNTER 2024-10-29 07:05 | Outpatient (REF) | payer OTHER, SELFPAY ==
--- NOTE | ~2024-10-29 | MR_ITS ---
CLINICAL HISTORY: M75.80 - Other shoulder lesions, unspecified shoulder --- Additional Notes or Speci al Instructions: Persistent shoulder pain despite PT injections MR right shoulder without gadolinium Comparison: CR/SR - XR SHOULDER RT MIN 2V - 08/06/24 09:53 EDT Findings: There are remote ununited fractures of the distal clavicle. No significant degenerative changes. Type II acromion. Trace fluid is seen within the subacromial subdeltoid bursa. There is tendinopathy and attenuation of the supraspinatus tendon with an insertional tear. A rim rent tear of the infraspinatus tendon is also suspected. Both the long and short heads of the biceps tendons are significantly attenuated and at least partially torn. The long head of the biceps is subluxed outside of the bicipital groove. No tears of the glenoid labrum. IMPRESSION: 1. Both the long and short heads of the biceps tendons are significantly attenuated and at least partially torn. The long head of the biceps is subluxed outside of the bicipital groove. 2. There is tendinopathy and attenuation of the supraspinatus tendon with an insertional tear. 3. A rim rent tear of the infraspinatus tendon is also suspected. This document has been electronically signed by: Rommel Grimes MD on 10/29/2024 11:36:50
--- OUTSIDE RECORDS SUMMARY | 2024-10-29 07:07 | XMS_ITS | Continuity of Care Document ---
Author Organization [place] - [facility], [facility] Address [address] [place] [address] Care Team Providers Care Occasional Caregiver Name Role Phone RIVAS HULL Primary Care Provider [phone] Assessment Encounter Date Assessment Date Assessment LastModified by Organization Details LastModified Time 10/28/2024 10/28/2024 Palate and tonsil surgery is used to improve certain sleep disorder conditons such as obstructive sleep apnea and snoring. Because there may be several causes occurring at the same time, this procedure may only give partial relief depending on the relative importance of tonsil, palate and uvula size. The success rate in treating apnea cases has been reported to be greater than 50%, and the expectation for snoring improvement may be greater than 80%. The most common complications include bleeding after surgery, infection, and temporary airway obstruction due to post operative swelling. Occasionally patients with severe obstruction or added risk due to obesity may require a temporary tracheostomy. Some patients also have complaints due to an inability of a shortened palate to make contact with the back of the throat. This may cause some nasal regurgitation and a hyponasal or hollow-sounding voice. The opposite effect due to narrowing of the space behind the nose (nasopharynx) is even less likely. Other complications are very uncommon. [email or web address] Not available 10/28/2024 11:06:41 Plan of Treatment Reminders Order Date Submit Date Provider Last Modified By Organization Details Last Modified Time Details Appointments None recorded. Lab None recorded. Referral None recorded. Procedures None recorded. Surgeries pharyngopla sty (plastic or reconstruct neto operation on pharynx) (SURG) 2024 025 [email or web address] [id number] Not available 06/05/202 5 11:11:17 tonsillecto my (SURG) 2024 025 [email or web address] 9 Not available 5 11:11:32 Imaging None recorded. Medication Orders None recorded. Patient TargetsNo targets recorded. Patient InstructionsNo instructions recorded. Reason for Referral None Reported. Problems Name Problem SNOMED Code Status Onset Date Resolution Date Notes Provider Name and Address Organization Details Recorded Time Obstructiv e sleep apnea syndrome 23407760 Active 2022 Obstructiv e sleep apnea (adult) (pediatric ); Note: Date Diagnosed: 04/03/2023 11:16 AM (G47.33) Not Available [facility] 4 02:39:34 Problem Notes None recorded. Medical Equipment None Reported. Allergies Allergen ID Allergen Name Allergen Category Reaction Reaction Severity Criticality Documentation Date Start Date Code Code System Note Provider Name and Address Organization Details Recorded Time 313976 lisinopri l medicatio n cough Not available Not available 10/07/2023 28131 RxNorm React ion: Cough ; Not Available [facility] 4 01:14:55 Medications Name Sig Start Date Stop Date Status Note LastModified by Organization Details LastModified Time cyclobenzapr ine 10 mg tablet TAKE 1 TABLET BY MOUTH AT BEDTIME NEEDED FOR FOR MUSCLE SPASM TOO SOON 08/31/24 active Not Available Not Available No t Available atorvastatin 20 mg tablet 20 MG ORALLY DAILY active Not Available Not Available No t Available metoprolol succinate ER 50 mg tablet,exten ded release 24 hr TAKE 1 TABLET BY MOUTH EVERY DAY active Not Available Not Available No t Available amlodipine 5 mg tablet TAKE 1 TABLET BY MOUTH EVERY DAY active Not Available Not Available No t Available omeprazole 40 mg capsule,lynn yed release TAKE 1 TABLET BY MOUTH DAILY active Not Available Not Available Not Available tramadol 50 mg tablet TAKE 1 TABLET BY MOUTH TWICE A DAY FOR 10 DAYS NEEDED FOR PAIN. DO NOT TAKE WITH CYCLOBENZAP RINE. active Not Available Not Available No t Available spironolacto ne 25 mg tablet TAKE 2 TABLETS BY MOUTH DAILY active Not Available Not Available Not Available metformin 1,000 mg tablet TAKE 1 TABLET BY MOUTH TWICE A DAY active Not Available Not Available No t Available diclofenac sodium 75 mg tablet,delay ed release TAKE 1 TABLET BY MOUTH TWICE A DAY NEEDED FOR PAIN USE SPARINGLY active Not Available Not Available No t Available hydrochlorot hiazide 25 mg tablet TAKE 1 TABLET BY MOUTH DAILY active Not Available Not Available Not Available loteprednol etabonate 0.5 % eye drops,suspen carrie INSTILL 1 DROP INTO BOTH EYES TWICE A DAY FOR 1 MONTH active Not Available Not Available Not Available irbesartan 150 mg tablet TAKE 1 TABLET BY MOUTH EVERY DAY active Not Available Not Available No t Available cyclosporine 0.05 % eye drops in a dropperette PUT 1 DROP INTO BOTH EYES TWICE A DAY CONTINUOUSL Y active Not Available Not Available No t Available OneTouch Verio test strips USE TO TEST 3 TIMES A DAY active Not Available Not Available No t Available Jardiance 10 mg tablet TAKE 1 TABLET BY MOUTH EVERY DAY active Not Available Not Available No t Available OneTouch Delica Plus Lancet 30 gauge USE TO TEST BLOOD SUGAR 3 TIMES A DAY active Not Available Not Available No t Available Vitals Date Recorded Body height Body mass index (BMI) Body weight Provider Name and Address Organization Details Last Updated DateTime 10/28/2024 175.26 cm 40.6 kg/m2 020986.9 g [facility] - [facility] 10/28/2024 10:45:04 Social History None recorded. Functional Status None recorded. Mental Status None recorded. Family History Nothing Reported. Medical History No medical history recorded. Past Encounters Encounter ID Performer Location Encounter Start Date Encounter Closed Date Diagnosis/Indication Diagnosis SNOMED-CT Code Diagnosis ICD10 Code Diagnosis Note [id number] KODY VALENTIN MD [facility] [address] [address] 10/28/2024 10:14:30 10/28/2024 11:07:38 Obstructive sleep apnea syndrome 91491111 G47.33 Patient will consider weight loss in addition to continued use of his mandible advancemen t device to manage his sleep apnea. If he is unsuccessf ul he will contact surgery scheduling to move forward with tonsillect anna and uvulopalat opharyngop lasty Health Concerns Section Related Observation LastModified by Organization Detai ls LastModified Time None Recorded Concern Status LastModified by Organization Details LastModified Time None Recorded Payers Encounter Date Sequence Insurance Name Policy Number Policy Frazier Covered Member ID Frazier Member ID Guarantor Name 10/28/2024 1 [facility] [id number] Pawan Epps [id number] Pawan Epps Notes Date Note Type Note Provider Name and Address Organization Details Recorded Time 10/28/2024 text/html OSA09/27/[address] [place] 43AHI 83 with O2 malorie 76%central & mixed - unable to readCPAP - got dizzy, mental fog and then vomit into mask 05/27/2024 Home PSG at [facility] 40.3AHI 26.3 with use of MADCentral and mixed none recordedCPAP trial no prior throat surgeryreflux - uses meds PRNwork - heavy labor PV 04/03/23 Jessica SABA, FOL normal, not INSPIRE candidate. offered UPPP tonsil KODY VALENTIN MD [address] [place] [address], [phone] [place] - [facility] 10/28/2024 11:07:28
== END 2024-10-29 07:06 | disposition home or self-care (01) ==
LOC: HO.MRI 07:05
PROVIDERS: PCP Nurse Practitioner Family; Visit Provider Internal Medicine
DX: M75.80 Other shoulder lesions, unspecified shoulder (principal)
CPT/HCPCS: 73221

== ENCOUNTER → 2024-10-29 07:29 | Outpatient (BNV) | payer OTHER, SELFPAY | PROVIDERS: PCP Nurse Practitioner Family; Visit Provider Radiology Diagnostic Radiology | DX: M75.31 Calcific tendinitis of right shoulder (principal) | CPT/HCPCS: 73221 ==

== ENCOUNTER 2024-11-15 08:02 | Outpatient (REF) | payer OTHER, SELFPAY ==
[2024-11-15 10:14] LABS: Estimated Average Glucose 160 mg/dL; Hemoglobin A1c % 7.2 % (<6.0)
[2024-11-15 10:19] LABS: Iron 94 mcg/dL (45-160); Percent Iron Saturation 24 % (15-50); Total Iron Binding Capacity 387 mcg/dL (228-428); Unsaturated Iron Binding 293 ug/dL
[2024-11-15 10:30] LABS: Ferritin 22 ng/mL (20-250); Vitamin D 25-OH Total 33.7 ng/mL (>30)
[2024-11-15 10:39] LABS: Vitamin B12 420 pg/mL (200-900)
[2024-11-16 17:49] LABS: Homocysteine 10.2 umol/L (< or = 15.2)
[2024-11-18 06:34] LABS: Methylmalonic Acid 132 nmol/L (55-335)
== END 2024-11-15 08:03 | disposition home or self-care (01) ==
LOC: HO.LAB 08:02
PROVIDERS: PCP Nurse Practitioner Family; Visit Provider Physician Assistant Medical
DX: R20.0 Anesthesia of skin (principal); R20.2 Paresthesia of skin; M62.838 Other muscle spasm; N43.3 Hydrocele, unspecified
CPT/HCPCS: 36415; 81003; 82306; 82607; 82728; 82746; 83036; 83090; 83540; 83921; 99212

== ENCOUNTER 2024-11-15 08:02 | Outpatient (AMB) | payer OTHER, SELFPAY ==
--- OUTSIDE RECORDS SUMMARY | 2024-11-15 08:09 | XMS_ITS | Data Portability ---
Author Organization [place] - [facility], Allergy Address [address] [place] [id number] Care Team Providers Care Section Repairer Name Role Phone RIVAS HULL Primary Care Provider Assessment Encounter Date Assessment Date Assessment LastModified [...] Organization Details Last Modified Time Details Appointments SURGERY 90 2024 07:30A M KODY VALENTIN MD Not available Not available Not available Lab None recorded. Referral None recorded. Procedures None recorded. Surgeries pharyngop lasty (plastic or reconstru ctive operation on pharynx) (SURG) 2024 025 [email or web address] Not available 10/28/2024 11:11:17 tonsillec neris (SURG) 2024 025 Not available 10/28/2024 11:11:32 Imaging None recorded. Medication Orders None recorded. Patient TargetsNo targets recorded. Patient InstructionsNo instructions recorded. Reason for Referral None Reported. Problems Name Problem SNOMED Code Status Onset Date Resolution Date Notes Provider Name and Address Organization Details Recorded Time Obstructiv e sleep apnea syndrome 72595811 Active 2022 Obstructiv e sleep apnea (adult) (pediatric ); Note: Date Diagnosed: 04/03/2023 11:16 AM (G47.33) Not Available [facility] 4 02:39:34 Problem Notes None recorded. Medical Equipment None Reported. Allergies Allergen ID Allergen Name Allergen Category Reaction Reaction Severity Criticality Documentation Date Start Date Code Code System Note Provider Name and Address Organization Details Recorded Time 799905 lisinopri l medicatio n cough Not available Not available 10/07/2023 31473 RxNorm React ion: Cough ; Not Available [facility] 4 01:14:55 Medications Name Sig Start Date [...] Updated DateTime 10/28/2024 175.26 cm 40.6 kg/m2 886412.9 g [facility] 10/28/2024 10:45:04 Social History None recorded. Functional Status None recorded. Mental Status None recorded. Family History Nothing Reported. Medical History No medical history recorded. Past Encounters Encounter ID Performer Location Encounter Start Date Encounter Closed Date Diagnosis/Indication Diagnosis SNOMED-CT Code Diagnosis ICD10 Code Diagnosis Note [id number] KODY VALENTIN MD [facility] of [address] [address] 10/28/2024 10:14:30 10/28/2024 11:07:38 Obstructive sleep apnea syndrome 89344964 G47.33 Patient will consider weight loss in [...] by Organization Details LastModified Time None Recorded Advance Directives Directive None Recorded Payers Insurance Date Sequence Insurance Name Policy Number Policy Frazier Covered Member ID Frazier Member ID Guarantor Name 10/28/2024 1 [facility] [id number] Pawan Epps [id number] 1 [id number] Pawan Epps Notes Date Note Type Note Provider Name and Address Organization Details Recorded Time 10/28/2024 text/html OSA09/27/[address] [place] 43AHI 83 with O2 malorie 76%central & mixed - unable to readCPAP - got dizzy, mental fog and then vomit into mask 05/27/2024 Home PSG at [facility] 40.3AHI 26.3 with use of MADCentral and mixed none recordedCPAP trial no prior throat surgeryreflux - uses meds PRNwork - heavy labor PV 04/03/23 Jessica SABA, FOL normal, not INSPIRE candidate. offered UPPP tonsil KODY VALETNIN MD [address] [place] [address], [phone], [place] - [facility] 10/28/2024 11:07:28
--- NOTE | 2024-11-15 08:13 | A.OFFVIS_ITS ---
Intake Visit Reasons: 9m/Hydrocele Intake Note: Patient is present for 9m/hydrocele Urology Medication:NONE Antibiotic Allergy:NONE Blood Thinner:Aspirin Plaster Applicator Required: No Allergies lisinopril Adverse Reaction (Unknown, Verified 11/15/24 08:14) Cough Medication List - Last Reconciled 11/15/24 by Delfino Castanon MD amlodipine 5 mg PO DAILY aspirin 1 tab PO DAILY PRN atorvastatin 20 mg PO DAILY blood sugar diagnostic (OneTouch Verio test strips) TEST 3 TIMES A DAY cyclobenzaprine 10 mg PO BEDTIME PRN diclofenac sodium 75 mg PO BID PRN 30 days empagliflozin (Jardiance) 10 mg PO DAILY hydrochlorothiazide 25 mg PO DAILY irbesartan 150 mg PO DAILY 90 days loteprednol etabonate 0.5% drps ophthalmic (eye) metformin 1,000 mg PO BID 90 days metoprolol succinate ER 50 mg PO DAILY omeprazole 40 mg PO DAILY OneTouch Delica Plus Lancet (lancets) use to test blood sugar tid NS spironolactone 50 mg (2 x 25 mg) PO DAILY tramadol 50 mg PO BID PRN 10 days HPI Comments Details: 11/15/2024-- History of Present Illness - The patient is a 54-year-old male presenting for follow-up of a hydrocele and PSA monitoring. - Hydrocele: Previously noted scrotal swelling was not bothersome, and conservative management was advised. Mild decrease in size no discomfort reported. - PSA Monitoring: Recent PSA test result was 0.44, within normal limits. Patient is informed about age-related PSA changes and remains vigilant. Results - PSA test result: 0.44 (normal range) Discussion Notes I discussed with the patient the current status of his hydrocele, noting that there has been no increase in size or discomfort, which is a positive sign for continued conservative management. We reviewed his recent PSA test results, which are within normal limits, and I explained the importance of ongoing monitoring due to potential age-related changes. We agreed on a follow-up in one year with repeat PSA testing to ensure continued health monitoring. 02/16/2024-- Pawan is a 54 year old male who is here for GRAPHIC MANAGER evaluation for left scrotal swelling. He denies testicular pain. I reviewed Scrotal US 12/08/23--Left hydrocele moderate, 2.8 x 2.4 x 2.8 cm complex cyst in the region of the left epididymal head. Exam - Nontender, testicles no discrete mass. PSA 11/21/23--0.49ng/mL. Left Hydrocele currently asymptomatic. Left epididymal cyst. Plan continue to monitor hydrocele fu in 9 months. [facility] Medical History Tubular adenoma of colon Fatty liver GERD (gastroesophageal reflux disease) Cervical radiculopathy SABA (obstructive sleep apnea) Morbid obesity Dyslipidemia Leukocytosis Diabetes HTN (hypertension) Surgical History History of colonoscopy History of laparoscopic cholecystectomy History of oral surgery History of rotator cuff surgery Family History Father Hypothyroidism Hypercholesteremia Colon cancer Dementia Mother Bladder cancer Paternal Grandmother Myocardial infarction Paternal Grandfather Stroke Paternal Aunt Breast cancer Brother No problems noted. Sister No problems noted. Brother No problems noted. Social History Household Members: None Housing: House Are you a primary personal care aid to a significant other at home: No Do you presently have visiting nurse or other home services: No Alcohol intake: current Alcohol intake frequency: holidays/special occasions only Comment: soreness Patient Tobacco Use Status: Never used Tobacco e-Cigarette/Vaping Use: Never Used Second Hand Smoke Exposure: No service: No Current occupational status: employed Current occupation: [employer] Cognitive needs: No Hearing needs: No Vision needs: No Review of Systems Const All systems reviewed & are unremarkable except as noted in HPI and below Reports no additional complaints Eyes Reports no additional complaints ENT Reports no additional complaints Card Reports no additional complaints Resp Reports no additional complaints GI Reports no additional complaints Reports as per HPI Musc Reports no additional complaints Skin/Breast Reports system reviewed and no additional complaints, except as documented Neuro Reports no additional complaints Psych Reports no additional complaints Endo Reports no additional complaints Elroy/Lymph Reports no additional complaints Aller/Immun Reports no additional complaints Physical Exam Const General: healthy appearing, no acute distress and well developed Orientation/consciousness: patient oriented x3 HEENT Head: Yes normocephalic and Yes atraumatic Eyes Conjunctivae: conjunctivae normal Neck Neck: Yes normal visual inspection Chest Chest palpation & inspection: normal inspection of the chest Resp Effort & Inspection: normal respiratory effort GI Inspection: Yes normal to inspection Other: Scrotal examination left scrotal swelling has decreased testicles nontender. Penis: normal penis Neuro General: patient oriented x3 Psych Appearance: grossly normal Affect: normal affect Results Reviewed Results Reviewed: Date of Service: 12/08/23 US SCROTUM CLINICAL INFORMATION: Other specified disorders of the male genital organs. Scrotal mass. Cystic lesion just superior to the left testicle, question scrotal mass. COMPARISON: CT abdomen and pelvis of 02/12/2021. TECHNIQUE: A sonogram of the scrotum was performed assessing welch-scale appearance and color Doppler flow. Spectral Doppler analysis of the arterial and venous flow were performed in the testes bilaterally. FINDINGS: RIGHT: Right testicle measures 5.0 x 2.4 x 3.0 cm, volume 18.9 mL. No focal testicular parenchymal lesions are visualized. Spectral Doppler analysis of the arterial and venous flow is normal in the right testis. Multiple small cysts measuring up to 0.5 cm in the right epididymal head and body. Right appendix epididymis is visualized. No right varicocele is seen. Moderate right hydrocele. Right epididymal Doppler flow is normal. LEFT: Left testicle measures 4.8 x 2.7 x 3.2 cm, volume 21.7 mL. No focal testicular parenchymal lesions are visualized. Spectral Doppler analysis of the arterial and venous flow is normal in the left testis. Large 2.8 x 2.4 x 2.8 cm complex cyst in the region of the left epididymal head with low-level internal echoes. Left appendix epididymis visualized. Large 2.8 x 2.4 x 2.8 cm cyst in the region of the left epididymal head with low-level internal echoes. Moderate left hydrocele. No left varicocele is seen. Left epididymal Doppler flow is normal. IMPRESSION: 1. Large 2.8 x 2.4 x 2.8 cm complex cyst in the region of the left epididymal head with low-level internal echoes. 2. Multiple small cysts measuring up to 0.5 cm in the right epididymal head and body. 3. Right appendix epididymis is visualized. 4. Left appendix epididymis visualized. Assessment & Plan Assessment & Plan (1) Scrotal swelling: Code(s): N50.89 - Other specified disorders of the male genital organs Category: Medical (2) Hydrocele, left: Code(s): N43.3 - Hydrocele, unspecified Category: Medical (3) Epididymal cyst: Code(s): N50.3 - Cyst of epididymis Category: Medical (4) Screening PSA (prostate specific antigen): Code(s): Z12.5 - Encounter for screening for malignant neoplasm of prostate Category: Medical Plan Left Hydrocele currently asymptomatic. Left epididymal cyst. - Maintain conservative management for hydrocele due to stable condition without discomfort. - Plan for annual follow-up with PSA testing to monitor for any changes in prostate health. Patient Instructions: The patient had an opportunity to ask questions regarding treatment plan. The patient expressed understanding and agreement with the above treatment plan. The patient is aware they should contact our office by phone for worsening of their current condition or the appearance of new symptoms. Compliance is encouraged with any medications and followup testing that is ordered. It is a privilege to be allowed the opportunity to participate in the urologic care of your patient. If you have any questions or concerns regarding treatment for the above conditions please do not hesitate to contact me. The office telephone contact is [phone]. This note is constructed in part using voice recognition software. While every effort has been made to ensure accuracy coil inspector errors may have been included. Yours sincerely, Delfino Castanon MD Scribe Plan - Not visible on output: Patient was informed and verbally consented to the use of an ambient scribe for clinic note documentation during this visit. Coding Level of Care Code Est Pt Level 4 (86467) Diagnoses Scrotal swelling N50.89 Hydrocele, left N43.3 Epididymal cyst N50.3 Screening PSA (prostate specific antigen) Z12.5
== END 2024-11-15 08:50 | disposition home or self-care (01) ==
LOC: HO.HUSH 08:02
PROVIDERS: PCP Nurse Practitioner Family; Visit Provider Urology
DX: N50.89 Other specified disorders of the male genital organs (principal); N43.3 Hydrocele, unspecified; N50.3 Cyst of epididymis; Z12.5 Encounter for screening for malignant neoplasm of prostate; Z13.9 Encounter for screening, unspecified
CPT/HCPCS: 99214

== ENCOUNTER 2024-11-17 10:08 | Outpatient (AMB) | payer OTHER, SELFPAY ==
--- NOTE | 2024-11-17 10:15 | A.OFFVIS_ITS ---
Vital Signs 11/17/24 10:16 Height 5 ft 9 in Weight 275 lb BMI 40.6 BP 144/94 H Blood Pressure Location Lt brachial Position Sitting Respiration 16 Pulse 106 H Pulse Source Pulse Oximeter Pulse Oximetry (%) 94 Oxygen Delivery Method Room Air Intake Visit Reasons: MRI FOLLOW UP Insurance Verify Rep Required: No Allergies lisinopril Adverse Reaction (Unknown, Verified 11/17/24 14:26) Cough HPI HPI MRI FOLLOW UP: Details: History of Present Illness The patient is a 54-year-old male presenting with shoulder pain and suspected tendon issues. The patient reports a history of left rotator cuff tear in 2011, which required surgical intervention by Dr. Major. He knows has torn tendons in the right shoulder. He describes the current issue as involving the biceps tendon, with pain occurring during heavy lifting but not persisting long. The patient is able to perform daily activities without significant limitation, although he experiences discomfort with certain movements. Pain Description - Pain occurs during heavy lifting but does not persist long. - Discomfort with certain movements, but able to perform daily activities. PENDING SALE TO [facility] Medical History Tubular adenoma of colon Fatty liver GERD (gastroesophageal reflux disease) Cervical radiculopathy SABA (obstructive sleep apnea) Morbid obesity Dyslipidemia Leukocytosis Diabetes HTN (hypertension) Surgical History History of colonoscopy History of laparoscopic cholecystectomy History of oral surgery History of rotator cuff surgery Family History Father Hypothyroidism Hypercholesteremia Colon cancer Dementia Mother Bladder cancer Paternal Grandmother Myocardial infarction Paternal Grandfather Stroke Paternal Aunt Breast cancer Brother No problems noted. Sister No problems noted. Brother No problems noted. Social History Household Members: None Housing: House Are you a primary college and career counselor to a significant other at home: No Do you presently have visiting nurse or other home services: No Alcohol intake: current Alcohol intake frequency: holidays/special occasions only Comment: soreness Patient Tobacco Use Status: Never used Tobacco e-Cigarette/Vaping Use: Never Used Second Hand Smoke Exposure: No service: No Current occupational status: employed Current occupation: [employer] Cognitive needs: No Hearing needs: No Vision needs: No Physical Exam Vital Signs: Last Vital Signs Pulse 106 H 11/17/24 10:16 Resp 16 11/17/24 10:16 BP 144/94 H 11/17/24 10:16 Pulse Ox 94 11/17/24 10:16 Oxygen Delivery Method Room Air 11/17/24 10:16 BMI result Body Mass Index 40.6 Assessment & Plan Assessment & Plan (1) Biceps tendon tear: Code(s): S46.219A - Strain of muscle, fascia and tendon of other parts of biceps, unspecified arm, initial encounter Category: Medical Plan Plan - Follow up with Dr. Major for evaluation of the biceps tendon and potential surgical intervention. - Consideration of platelet-rich plasma PRP) injections if surgery is not pursued, though not covered by insurance. - Avoidance of steroid injections in the affected area to prevent interference with potential surgical repair. Patient was informed and verbally consented to the use of an ambient scribe for clinic note documentation during this visit. Discussion Notes I discussed with the patient the findings related to his shoulder, including the biceps tendon issue and the history of rotator cuff tear. We talked about the possibility of consulting Dr. Major for further evaluation and potential surgical intervention. I explained the option of PRP injections as an alternative to surgery, noting that they are not covered by insurance. We also discussed avoiding steroid injections to prevent interference with potential surgical repair. Patient Instructions - Schedule an appointment with Dr. Major for evaluation of the shoulder and potential surgery. - Consider PRP injections if surgery is not an option, understanding they are not covered by insurance. - Avoid activities that exacerbate shoulder pain. Coding Level of Care Code Est Pt Level 3 (67542) Diagnoses Biceps tendon tear S46.219A
[2024-11-17 10:16] VITALS: BP 144/94; PULSE 106; RESP 16; O2SAT 94; BMI 40.6
--- OUTSIDE RECORDS SUMMARY | 2024-11-17 11:38 | XMS_ITS | Data Portability ---
Author Organization [place] - [facility], Allergy Address [address] [place] [id number] Care Team Providers Care Senior Bookkeeper Name Role Phone RIVAS HULL Primary Care Provider [phone] Assessment Encounter Date Assessment Date Assessment LastModified [...] ctive operation on pharynx) (SURG) 2024 025 [id number] Not available 10/28/2024 11:11:17 tonsillec neris (SURG) 2024 025 [id number] Not available 10/28/2024 11:11:32 Imaging None recorded. Medication Orders None recorded. Patient TargetsNo targets recorded. Patient InstructionsNo instructions recorded. Reason for Referral None Reported. Problems Name Problem SNOMED Code Status Onset Date Resolution Date Notes Provider Name and Address Organization Details Recorded Time Obstructiv e sleep apnea syndrome 02858443 Active 2022 Obstructiv e sleep apnea (adult) (pediatric ); Note: Date Diagnosed: 04/03/2023 11:16 AM (G47.33) Not Available [facility] 4 02:39:34 Problem Notes None recorded. Medical Equipment None Reported. Allergies Allergen ID Allergen Name Allergen Category Reaction Reaction Severity Criticality Documentation Date Start Date Code Code System Note Provider Name and Address Organization Details Recorded Time 057410 lisinopri l medicatio n cough Not available Not available 10/07/2023 75250 RxNorm React ion: Cough ; Not Available [facility] 4 01:14:55 Medications Name Sig Start Date [...] Updated DateTime 10/28/2024 175.26 cm 40.6 kg/m2 841732.9 g [facility] 10/28/2024 10:45:04 Social History None recorded. Functional Status None recorded. Mental Status None recorded. Family History Nothing Reported. Medical History No medical history recorded. Past Encounters Encounter ID Performer Location Encounter Start Date Encounter Closed Date Diagnosis/Indication Diagnosis SNOMED-CT Code Diagnosis ICD10 Code Diagnosis Note [id number] KODY VALENTIN MD [facility] [address] [id number] 10/28/2024 10:14:30 10/28/2024 11:07:38 Obstructive sleep apnea syndrome 79868850 G47.33 Patient will consider weight loss in [...] Frazier Member ID Guarantor Name 10/28/2024 1 [facility] [id number] Pawan Epps [id number] 1 [id number] Pawan Epps Notes Date Note Type Note Provider Name and Address Organization Details Recorded Time 10/28/2024 text/html OSA09/27/[address] Bronson 43AHI 83 with O2 malorie 76%central & mixed - unable to readCPAP - got dizzy, mental fog and then vomit into mask 05/27/2024 Home PSG at [facility] 40.3AHI 26.3 with use of MADCentral and mixed none recordedCPAP trial no prior throat surgeryreflux - uses meds PRNwork - heavy labor PV 04/03/23 Jessica SABA, FOL normal, not INSPIRE candidate. offered UPPP tonsil KODY VALENTIN MD [address] [place] [address], [id number], [place] - [facility] 10/28/2024 11:07:28
== END 2024-11-17 10:59 | disposition home or self-care (01) ==
PROVIDERS: PCP Nurse Practitioner Family; Visit Provider Internal Medicine
DX: S46.219A Strain of muscle, fascia and tendon of other parts of biceps, unspecified arm, initial encounter (principal)
CPT/HCPCS: 99213

== ENCOUNTER → 2024-11-17 10:08 | Outpatient (BNVA) | payer OTHER, SELFPAY | PROVIDERS: PCP Nurse Practitioner Family; Visit Provider Internal Medicine | DX: Z00.01 Encounter for general adult medical examination with abnormal findings (principal); Z23 Encounter for immunization; Z13.31 Encounter for screening for depression; I10 Essential (primary) hypertension; E11.9 Type 2 diabetes mellitus without complications; S46.212A Strain of muscle, fascia and tendon of other parts of biceps, left arm, initial encounter; M25.512 Pain in left shoulder | CPT/HCPCS: 90471; 90715; 96127; 99212; 99396 ==

== ENCOUNTER 2024-11-17 14:20 | Outpatient (AMB) | payer OTHER, SELFPAY ==
[2024-11-17 14:25] VITALS: BP 126/80; PULSE 94; O2SAT 96; BMI 40.8
--- NOTE | 2024-11-17 14:25 | MHC.PC.OV ---
Vital Signs 11/17/24 14:25 Height 5 ft 9 in Weight 276 lb BMI 40.8 BP 126/80 Blood Pressure Location Rt brachial Position Sitting Pulse 94 Pulse Source Pulse Oximeter Pulse Oximetry (%) 96 Oxygen Delivery Method Room Air Intake Visit Reasons: PE Clinical Resource Manager Required: No Accompanied by: Self / Same As Patient Allergies lisinopril Adverse Reaction (Unknown, Verified 11/17/24 14:26) Cough Medication List - Last Reconciled 11/17/24 by FLOR Randle- amlodipine 5 mg PO DAILY aspirin 1 tab PO DAILY PRN atorvastatin 20 mg PO DAILY blood sugar diagnostic ([employer] test strips) TEST 3 TIMES A DAY cyclobenzaprine 10 mg PO BEDTIME PRN cyclosporine 0.05% 1 drp ophthalmic (eye) BID diclofenac sodium 75 mg PO BID PRN 30 days empagliflozin 25 mg PO DAILY hydrochlorothiazide 25 mg PO DAILY irbesartan 150 mg PO DAILY 90 days metformin 1,000 mg PO BID 90 days metoprolol succinate ER 50 mg PO DAILY omeprazole 40 mg PO DAILY OneTouch Delica Plus Lancet (lancets) use to test blood sugar tid NS spironolactone 50 mg (2 x 25 mg) PO DAILY tramadol 50 mg PO BID PRN 10 days Tobacco use date assessed: 11/17/24 Dental Screening Dental Screen Date: 11/17/24 Did you have a dental visit in the last 12 months?: Yes Did you have a dental problem in the last 6 months where you did not have access to dental care?: No Was dental information given to patient?: Patient has dentist HPI PE HPI Details History of Present Illness The patient is a 54-year-old male presenting for a physical examination and diabetes management. He has a history of Diabetes Mellitus with a current HbA1c of 7.2%. His medication regimen includes Jardiance, which is being increased from 10 mg to 25 mg to improve glycemic control. The patient has undergone recent laboratory evaluations, and his eye examination is up to date, showing good visual acuity with 20/25 in each eye separately and 20/20 together. He reports good sensation in his feet, indicating no current neuropathy issues. Preventative care measures include a referral for colon cancer screening, which is due. Health Maintenance - Colon cancer screening referral placed eye exam is up to date -sees urology ([facility]) Social History Review of Systems Physical Exam General: Cooperative, healthy appearing, comfortable, no acute distress and well developed, morbidly obese Orientation: Patient oriented x3 Limitations: No limitations Head: Normal to inspection Ears: Hearing grossly normal bilaterally Nose: Normal external nose present Face and sinus: Normal facial exam Eyes: Appearance normal, both eyes and all related structures. Visual acuity 20/25 in each eye separately, 20/20 together Neck: Normal visual inspection and Yes full ROM Respiratory: Normal respiratory effort and able to speak in complete sentences. Clear to auscultation bilaterally Cardiovascular: Regular rate and rhythm. Normal S1 and S2 GI: Normal to inspection. Soft to palpation and nontender, large ABD hernia noted : Testicles without masses/lesions and no hernias appreciated Skin: No rashes or lesions noted Neuro: Patient oriented x3 Extremities: Normal to inspection. Good sensation of feet noted, intact Results - Labs: HbA1c 7.2% Plan The patient's diabetes management plan includes increasing the dosage of Jardiance from 10 mg to 25 mg to better control his blood glucose levels. A referral for colon cancer screening has been placed as part of his preventative care measures. Discussion Notes I discussed with the patient the need to increase his Jardiance dosage to improve his glycemic control, given his current HbA1c level of 7.2%. We also talked about the importance of completing his colon cancer screening, and I have placed a referral for this. Patient Instructions - Increase Jardiance dosage to 25 mg as prescribed. - Complete the colon cancer screening as referred. [facility] Medical History Tubular adenoma of colon Fatty liver GERD (gastroesophageal reflux disease) Cervical radiculopathy SABA (obstructive sleep apnea) Morbid obesity Dyslipidemia Leukocytosis Diabetes HTN (hypertension) Surgical History History of colonoscopy History of laparoscopic cholecystectomy History of oral surgery History of rotator cuff surgery Family History Father Hypothyroidism Hypercholesteremia Colon cancer Dementia Mother Bladder cancer Paternal Grandmother Myocardial infarction Paternal Grandfather Stroke Paternal Aunt Breast cancer Brother No problems noted. Sister No problems noted. Brother No problems noted. Social History Household Members: None Housing: House Are you a primary child care specialist to a significant other at home: No Do you presently have visiting nurse or other home services: No Alcohol intake: current Alcohol intake frequency: holidays/special occasions only Comment: soreness Patient Tobacco Use Status: Never used Tobacco e-Cigarette/Vaping Use: Never Used Second Hand Smoke Exposure: No service: No Current occupational status: employed Current occupation: [employer] Cognitive needs: No Hearing needs: No Vision needs: No Questionnaire PHQ-9 Over the last 2 weeks, how often have you been bothered by any of the following problems? 1. Little interest or pleasure in doing things: not at all 2. Feeling down, depressed, or hopeless: not at all 3. Trouble falling or staying asleep, or sleeping too much: not at all 4. Feeling tired or having little energy: not at all 5. Poor appetite or overeating: not at all 6. Feeling bad about yourself - or that you are a failure or have let yourself or your family down: not at all 7. Trouble concentrating on things, such as reading the newspaper or watching television: not at all 8. Moving or speaking so slowly that other people could have noticed. Or the opposite - being so fidgety or restless that you have been moving around a lot more than usual: not at all 9. Thoughts that you would be better off or of hurting yourself in some way: not at all Total score: 0 Depression Screening Interpretation: Negative Depression Screening Done: Yes 65329 - PHQ-9 Billing: Yes Source: Developed by Drs. Dane Holden, Mackenzie Perez, Nasir Grossman and colleagues, with an educational hector from [employer]. Thrive Questionnaire Date Thrive assessed: 11/10/24 I am a: Patient What is your living situation today?: I have a steady place to live Within the past 12 months, did the food you bought not last and you didn't have the money to get more?: Sometimes True Within the past 12 months, did you worry whether your food would run out before you got money to buy more?: Sometimes True Do you have trouble paying for medicines?: I choose not to answer this question Do you have trouble getting transportation to medical appointments?: No Do you have trouble paying your heating and electricity bill?: No Do you have trouble taking care of your child, family member or friend?: No Do you have trouble with day-to-day activities such as bathing, preparing meals, shopping, managing finances, etc.?: No Are you currently unemployed and looking for a job?: No Are you interested in more education?: I choose not to answer this question Please select the resources that you would like help with: None Currently or been in a relationship where the following occur: No concerns reported THRIVE Score: 2 AUDIT C Alcohol Use Questionnaire (AUDIT-C) 1. How often do you have a drink containing alcohol?: Monthly or less 2. How many drinks containing alcohol do you have on a typical day when you are drinking?: 1 or 2 3. How often do you have six or more drinks on one occasion?: Never Total Score: 1 Score Reviewed/Action Taken: Yes EDGAR-7 AMB Questionnaire EDGAR-7 Date EDGAR - 7 assessed: 11/17/24 Feeling nervous, anxious, or on edge: 0 = Not at all Not being able to stop or control worryin = Not at all Worrying too much about different things: 0 = Not at all Trouble relaxin = Not at all Being so restless that it is hard to sit still: 0 = Not at all Becoming easily annoyed or irritable: 0 = Not at all Feeling afraid as if something awful might happen: 0 = Not at all Total EDGAR-7 score (0-4 normal; 5-9 mild; 10-14 moderate; 15-21 severe): 0 Source: Developed by Drs. Dane Holden, Mackenzie Perez, Nasir Grossman and colleagues, with an educational hector from [employer]. EDGAR-7 Assessment Billing EDGAR-7 Assessment Tool: EDGAR-7 Assessment 11782 Physical exam (Primary Care) Vital Signs: Last Vital Signs Pulse 94 11/17/24 14:25 BP 126/80 11/17/24 14:25 Pulse Ox 96 11/17/24 14:25 Oxygen Delivery Method Room Air 11/17/24 14:25 BMI result Body Mass Index 40.8 Tobacco/Smoking Status: Tobacco use Status Tobacco use date assessed 11/17/24 11/17/24 14:34 Patient Tobacco Use Status Never used Tobacco 11/17/24 14:34 e-Cigarette/Vaping Use Never Used 11/17/24 14:34 PHQ-9: PHQ-9 Score PHQ-9: Total score 0 11/17/24 14:58 Depression Screening Interpretation: Negative Thrive Assessment: Date of Thrive Assessment Date Thrive assessed 11/10/24 11/17/24 14:34 Currently or been in a relationship where the following occur: No concerns reported Immunizations Boostrix Tdap 2.5 Lf unit-8 mcg-5 Lf/0.5 mL intramuscular syringe Performing Provider: MARY Randle Performing Location: [facility] Administered by: Ignacio Rob CMA on 11/17/24 15:13 Dose Route Admin Location Dispensed Lot Number Expiration Date NDC [employer] 0.5 mL IM Left Deltoid 0.5 mL [id number] 01/22/27 92745-013-07 [email or web address] Total Dispensed Waste 0.5 mL 0 % VIS Given Date VIS Provided VIS Publication Date 11/17/24 Single Vaccine 20 Eligibility Eligibility Date Funding Source Not [facility] Eligible 11/17/24 Private Coding Level of Care Code Est Pt Level 3 (54194) Est Pt Prev Care 40-64y(47771) Diagnoses Diabetes E11.9 Encounter for routine adult physical exam with abnormal findings Z00. Encounter for drug screening Z02. CPT Codes Vision Screening - Vision Screenin - Vision Screening ([id number]) Additional Codes EDGAR-7 Assessment Billing - EDGAR-7 Assessment Tool: EDGAR-7 Assessment 16054 ([id number]) PHQ-9 - 82967 - PHQ-9 Billing: Yes ([id number]) Assessment & Plan Assessment & Plan (1) Diabetes: Code(s): E11.9 - Type 2 diabetes mellitus without complications Category: Medical (2) Encounter for routine adult physical exam with abnormal findings: Code(s): Z00.01 - Encounter for general adult medical examination with abnormal findings Category: Medical (3) Encounter for drug screening: Code(s): Z02.83 - Encounter for blood-alcohol and blood-drug test Category: Medical Plan . Orders: Orders TDaP Immunization Today Z23 - Encounter for immunization Comprehensive Met. Panel Today E11.9 - Type 2 diabetes mellitus without complications Drug Screen Urine Today Z02.83 - Encounter for blood-alcohol and blood-drug test Referrals Gastroenterology Referral Z12.11 - Encounter for screening for malignant neoplasm of colon Medications: Changed From empagliflozin (Jardiance) 10 mg PO DAILY 90 tabs 1RF To empagliflozin 25 mg PO DAILY 90 tabs 1RF Vision Screening Right Eye: 20/25 Left Eye: 20/25 Bilateral: 20/20 Overall Vision Screening Results: Pass [id number] - Vision Screening
== END 2024-11-17 15:12 | disposition home or self-care (01) ==
LOC: HO.HMCC 14:21
PROVIDERS: PCP Nurse Practitioner Family; Visit Provider Nurse Practitioner Family
DX: Z00.01 Encounter for general adult medical examination with abnormal findings (principal); E11.9 Type 2 diabetes mellitus without complications; Z23 Encounter for immunization

== ENCOUNTER 2025-01-10 08:18 | Outpatient (AMB) | payer OTHER, SELFPAY ==
--- NOTE | 2025-01-10 08:25 | MHC.OFFVIS ---
Vital Signs 01/10/25 08:28 Height 5 ft 9 in Weight 276 lb BMI 40.8 Intake Visit Reasons: OV- Right Biceps Tendon Tear Intake Note: Pawan is a 54 year old right hand dominant male who presents today for an evaluation of his right shoulder. Currently patient reports pain in the bicep with heavy lifting but does not persist long. He is able to perform daily activities. He was last seen with Dr. Viera in pain mgmt who referred him to discuss surgical options and also gave him information for consideration of possible PRP. Allergies lisinopril Adverse Reaction (Unknown, Verified 11/17/24 14:26) Cough HPI HPI OV- Right Biceps Tendon Tear: Details: Pawan is a 54 year old right hand dominant male who presents today for an evaluation of his right shoulder. Currently patient reports pain in the bicep with heavy lifting but does not persist long. He is able to perform daily activities. He was last seen with Dr. Viera in pain [facility] who referred him to discuss surgical options and also gave him information for consideration of possible PRP. He had a left shoulder rotator cuff repair many years ago and did well. On the right he does not recall any recent injury but states he has difficulty lifting after short periods of time. [facility] Medical History Tubular adenoma of colon Fatty liver GERD (gastroesophageal reflux disease) Cervical radiculopathy SABA (obstructive sleep apnea) Morbid obesity Dyslipidemia Leukocytosis Diabetes HTN (hypertension) Surgical History History of colonoscopy History of laparoscopic cholecystectomy History of oral surgery History of rotator cuff surgery Family History Father Hypothyroidism Hypercholesteremia Colon cancer Dementia Mother Bladder cancer Paternal Grandmother Myocardial infarction Paternal Grandfather Stroke Paternal Aunt Breast cancer Brother No problems noted. Sister No problems noted. Brother No problems noted. Social History Household Members: None Housing: House Are you a primary neonatal intensive care nurse to a significant other at home: No Do you presently have visiting nurse or other home services: No Alcohol intake: current Alcohol intake frequency: holidays/special occasions only Comment: soreness Patient Tobacco Use Status: Never used Tobacco e-Cigarette/Vaping Use: Never Used Second Hand Smoke Exposure: No service: No Current occupational status: employed Current occupation: [employer] Cognitive needs: No Hearing needs: No Vision needs: No Physical Exam Vital Signs: BMI result Body Mass Index 40.8 Const General: cooperative, healthy appearing, no acute distress and well groomed Orientation/consciousness: oriented to person and oriented to place HEENT Head: Yes normal to inspection, Yes normocephalic and Yes atraumatic Eyes General: appearance normal, both eyes and all related structures Alignment and Position: alignment normal Conjunctivae: conjunctivae normal EOM: EOMs intact bilaterally Neck Neck: Yes normal visual inspection and Yes trachea midline Resp Other: No rerpiratory distress Effort & Inspection: normal respiratory effort and able to speak in complete sentences Cardio Other: Palpable radial pulse with no appreciable rythmic abnormalities GI Other: No abdominal distension Back/Spine/Pelvis Cervical Spine: normal cervical lordosis and cervical ROM normal Skin General skin exam: no rashes or lesions noted Neuro General: oriented to person, oriented to place and gait normal Extrem Other: Shoulder: 30 degrees external rotation 90 degrees abduction 130 degrees forward flexion Internal rotation to S1 4+/5 empty can 4+/5 external rotation at neutral Positive Gilmer's Negative lift-off Results Reviewed Results Reviewed: I personally reviewed the MR images. 1. Both the long and short heads of the biceps tendons are significantly attenuated and at least partially torn. The long head of the biceps is subluxed outside of the bicipital groove. 2. There is tendinopathy and attenuation of the supraspinatus tendon with an insertional tear. 3. A rim rent tear of the infraspinatus tendon is also suspected. Assessment & Plan Assessment & Plan (1) Complete rotator cuff tear or rupture of right shoulder, not specified as traumatic: Code(s): M75.121 - Complete rotator cuff tear or rupture of right shoulder, not specified as traumatic Category: Medical Plan: This is a 54-year-old gentleman with a full-thickness tear of his right rotator cuff. He is weak on exam. He is active and under 61 and I recommend operative fixation of his right rotator cuff tear. I discussed the surgery with him. He had a similar surgery on the left shoulder and so he understands the recovery process. I discussed the risks benefits and alternatives including but not limited to the risk of pain, infection, stiffness, need for further surgery as well as potential medical complications such as blood clots, pulmonary embolism and cardiac complications. He is diabetic with a hemoglobin A1c 7.2. This does put him at increased risk of infection but under our threshold of 8. He states he is controlling his diabetes with medication and diet and activity. All his questions were answered to the best my abilities. We will proceed forward with right shoulder rotator cuff repair. Coding Level of Care Code Est Pt Level 4 (94405) Diagnoses Complete rotator cuff tear or rupture of right shoulder, not specified as traumatic M75.121
[2025-01-10 08:28] VITALS: BMI 40.8
== END 2025-01-10 08:49 | disposition home or self-care (01) ==
LOC: HO.HOS 08:19
PROVIDERS: PCP Nurse Practitioner Family; Visit Provider Orthopaedic Surgery
DX: M75.121 Complete rotator cuff tear or rupture of right shoulder, not specified as traumatic (principal)
CPT/HCPCS: 99214

== ENCOUNTER → 2025-01-10 08:18 | Outpatient (BNVA) | payer OTHER, SELFPAY | PROVIDERS: PCP Nurse Practitioner Family; Visit Provider Orthopaedic Surgery | DX: M75.121 Complete rotator cuff tear or rupture of right shoulder, not specified as traumatic (principal) | CPT/HCPCS: 99212 ==

== ENCOUNTER 2025-02-02 08:16 | Outpatient (AMB) | payer OTHER, SELFPAY ==
--- NOTE | 2025-02-02 08:28 | MHC.OFFVIS ---
Vital Signs 02/02/25 08:31 Height 5 ft 9 in Weight 278 lb 6 oz BMI 41.1 BP 136/90 H Blood Pressure Location Lt brachial Position Sitting Pulse 93 Pulse Source Pulse Oximeter Pulse Oximetry (%) 94 Oxygen Delivery Method Room Air Intake Visit Reasons: Follow up Intake Note: Patient presents follow up SABA. Labs in chart. Looking to see if he can get a new sleep study with his mouth guard (after adjustments Dr. walls informed doing good) Accompanied by: Self / Same As Patient Allergies lisinopril Adverse Reaction (Unknown, Verified 02/02/25 08:31) Cough HPI Comments Details: 55 year old male with h/o HTN is here for a f/u of SABA, he is using his somno-guard. 05/2024 HST c/w AHI 25/hr and oxygen nadirs to 82%. Sleep Dentist- zander - Dr. Fernandez's office. ENT Evaluation for Inspire therapy, however BMI is 41. He is a good candidate for palatopharyngoplasty scheduled 2024. He has his dentist adjust his mandibular device as needed due to an under-bite, so retracting lower jaw and now feels as if the quality of his sleep has improved. He attempted the CPAP twice and started vomiting immediately. He then had a tingling sensation in his hands and toes. He sleeps prone and was not able to tolerate the cpap. We discussed acclimation during watching tv for 30min each night with the mask only on his face so he gets used to the mask being on his face as he is clautrophobic. He sleeps well goes to bed at 9pm, wakes up at 5am and feels pretty good in the morning. He is no longer yawning, snoring, coughing or gasping for air. Denies headaches, jaw pain, dizziness, brain fog, or forgetfulness. He has a ventral hernia, BMI is elevated to 41.1 and weight reduction is difficult, though he was approved for Zepbound, he has needle phobia. We discussed monitoring of AHI and oxygenation which is not possible with the Somnogaurd. RLS symptoms, he complains of pins and needles below the knees which start at his ankles and travel up. His L. foot is worse than the R. foot, he has quick shock-like stabbing spasms, which cause him to jump out of bed to stretch out the legs. [facility] Medical History Tubular adenoma of colon Fatty liver GERD (gastroesophageal reflux disease) Cervical radiculopathy SABA (obstructive sleep apnea) Morbid obesity Dyslipidemia Leukocytosis Diabetes HTN (hypertension) Surgical History History of colonoscopy History of laparoscopic cholecystectomy History of oral surgery History of rotator cuff surgery Family History Father Hypothyroidism Hypercholesteremia Colon cancer Dementia Mother Bladder cancer Paternal Grandmother Myocardial infarction Paternal Grandfather Stroke Paternal Aunt Breast cancer Brother No problems noted. Sister No problems noted. Brother No problems noted. Social History Household Members: None Housing: House Are you a primary physician primary care sports medicine to a significant other at home: No Do you presently have visiting nurse or other home services: No Alcohol intake: current Alcohol intake frequency: holidays/special occasions only Comment: soreness Patient Tobacco Use Status: Never used Tobacco e-Cigarette/Vaping Use: Never Used Second Hand Smoke Exposure: No service: No Current occupational status: employed Current occupation: [email or web address] Cognitive needs: No Hearing needs: No Vision needs: No Physical Exam Vital Signs: Last Vital Signs Pulse 93 02/02/25 08:31 BP 136/90 H 02/02/25 08:31 Pulse Ox 94 02/02/25 08:31 Oxygen Delivery Method Room Air 02/02/25 08:31 BMI result Body Mass Index 41.1 Const General: cooperative Nutritional Appearance: obese Orientation/consciousness: patient oriented x3 HEENT Other: Mallampati grade III. Head: Yes normal to inspection Eyes Pupils: Equal, round and reactive pupils present Resp Effort & Inspection: normal respiratory effort and able to speak in complete sentences Neuro Other: Mallampti score is 4, unable to visualize the [place] and he is being followed with ENT for Inspire. mild tremor LUE >RUE noted. General: patient oriented x3 and moves all extremities Cranial nerves: Yes Facial sensation intact/muscles of mastication intact, Yes Equal, round and reactive pupils present, Yes Normal accommodation reflex present, Yes Normal facial strength present, Yes Midline tongue present, Yes Ability to bilaterally rotate head present and Yes Ability to bilaterally elevate shoulders present Motor exam (neuro): 5/5 motor strength present throughout and Normal motor muscle tone present throughout Psych Appearance: grossly normal Affect: normal affect Thought process: Normal thought process present Thought content: Normal thought content present Results Reviewed Results Reviewed: Inspire therapy -ENT referral BMI is elevated to 41, pending palatopharyngoplastay Mar 2025. HST reviwed with pt. Labs reviewed with pt. Dental mandibular device / oral somno-guard with Dentist/ f/u. Assessment & Plan Assessment & Plan (1) SABA (obstructive sleep apnea): Comment: Severe degree of sleep apnea. The AHI was 83/hr and oxygen malorie was 76%. Code(s): G47.33 - Obstructive sleep apnea (adult) (pediatric) Category: Medical (2) Numbness and tingling of both feet: Code(s): R20.0 - Anesthesia of skin; R20.2 - Paresthesia of skin Category: Medical (3) Numbness and tingling of both feet: Code(s): R20.0 - Anesthesia of skin; R20.2 - Paresthesia of skin Category: Medical (4) Muscle spasms of lower extremity: Code(s): M62.838 - Other muscle spasm Category: Medical (5) Numbness and tingling of both feet: Code(s): R20.0 - Anesthesia of skin; R20.2 - Paresthesia of skin Category: Medical (6) Anemia: Comment: ferritin is 22 Code(s): D64.9 - Anemia, unspecified Category: Medical Qualifiers: Anemia type: iron deficiency Iron deficiency anemia type: unspecified iron deficiency Qualified Code(s): D50.9 - Iron deficiency anemia, unspecified (7) Chronic fatigue: Code(s): R53.82 - Chronic fatigue, unspecified Category: Medical (8) Low vitamin D level: Code(s): R79.89 - Other specified abnormal findings of blood chemistry Category: Medical Plan HST May 2024 reviewed with pt in detail AHI is 26 and O2 Nadirs to 82%, with moderate snoring. ENT for Nancy villanueva. due to elevated BMI 41.1, unable to under implant at this time, he is using his mouth guard and has 3 clicks prior to completing jaw retraction. Ventral Hernia unable to exercise or overexert himself physically, we discussed walking daily and limiting carbs. PSG in lab to evaluate SABA and f/u with ENT for Palatopharyngoplasty in Mar 2025. Acclimation of cpap mask at home for 30 min daily without the cpap machine on and while watching tv for distraction. He is a good candidate for Inspire therapy once BMI is <40. Will evaluate SABA with a PSG- in lab and with anxiolytic such as lorazepam and discuss the possibility of positive airway therapy in Apr 2025. RLS: will monitor after Iron panel, B12, Folate, MMA, B12 Homocysteine. Ferritin is 22, Vit D is low, and B12 can be improved. will send to pharmacy, however if not improved due to insurance, purchase B12 1000mcg sublingual, and Vit D 2000units daily, Ferrous Sulfate 325mg po daily or 65mg elemental iron daily to be taken with a glass of oj for absorption Pt. to follow-up in 3 months Orders: Orders RT PSG in-lab sleep study Today G47.33 - Obstructive sleep apnea (adult) (pediatric), R53.82 - Chronic fatigue, unspecified Medications: New cholecalciferol (vitamin D3) 50 mcg PO DAILY 90 caps 0RF low vitamin d 3 months MDD 2000units daily R79.89 - Other specified abnormal findings of blood chemistry ferrous sulfate 325 mg PO DAILY 90 tabs 0RF anemia 3 months MDD 1 tablet D50.9 - Iron deficiency anemia, unspecified, R53.83 - Other fatigue mecobalamin (vitamin B12) 1,000 mcg PO DAILY 90 tabs 0RF anemia 3 months MDD 1000mcg D50.9 - Iron deficiency anemia, unspecified Coding Level of Care Code Est Pt Level 4 (99530) Diagnoses SABA (obstructive sleep apnea) G47.33 Numbness and tingling of both feet R20.0; R20.2 Muscle spasms of lower extremity M62.838 Iron deficiency anemia, unspecified iron deficiency anemia type D50.9 Anemia type: iron deficiency Iron deficiency anemia type: unspecified iron deficiency Chronic fatigue R53.82 Low vitamin D level R79.89
[2025-02-02 08:31] VITALS: BP 136/90; PULSE 93; O2SAT 94; BMI 41.1
== END 2025-02-02 09:13 | disposition home or self-care (01) ==
LOC: HO.HSMC 08:17
PROVIDERS: PCP Nurse Practitioner Family; Visit Provider Physician Assistant Medical
DX: G47.33 Obstructive sleep apnea (adult) (pediatric) (principal); R20.0 Anesthesia of skin; R20.2 Paresthesia of skin; M62.838 Other muscle spasm; D50.9 Iron deficiency anemia, unspecified; R53.82 Chronic fatigue, unspecified; R79.89 Other specified abnormal findings of blood chemistry
CPT/HCPCS: 99214

== ENCOUNTER → 2025-02-02 08:16 | Outpatient (BNVA) | payer OTHER, SELFPAY | PROVIDERS: PCP Nurse Practitioner Family; Visit Provider Physician Assistant Medical | DX: G47.33 Obstructive sleep apnea (adult) (pediatric) (principal); R20.0 Anesthesia of skin; R20.2 Paresthesia of skin; M62.838 Other muscle spasm; D50.9 Iron deficiency anemia, unspecified; R53.82 Chronic fatigue, unspecified; R79.89 Other specified abnormal findings of blood chemistry | CPT/HCPCS: 99212 ==

== ENCOUNTER 2025-03-12 09:31 | Outpatient (REF) | payer OTHER, SELFPAY ==
--- OUTSIDE RECORDS SUMMARY | 2025-03-12 09:34 | XMS_ITS | Data Portability ---
Author Organization [place] - [facility], Allergy Address [address] [place] [id number] Care Team Providers Care Director Nursing Service Name Role Phone RIVAS HULL Primary Care [...] Modified Time Details Appointments SURGERY 90 2024 12:30P M KODY VALENTIN MD Not available Not available Not available Post Op 2024 03:00P M GISELL GARRISON Not available Not available Not available Lab None recorded. Referral None recorded. Procedures None recorded. Surgeries pharyngop lasty (plastic or reconstru ctive operation on pharynx) (SURG) 2024 025 [email or web address] Not available 10/28/2024 11:11:17 tonsillec neris (SURG) 2024 025 [email or web address] Not available 10/28/2024 11:11:32 Imaging None recorded. Medication Orders None recorded. Patient TargetsNo targets recorded. Patient InstructionsNo instructions recorded. Reason for Referral None Reported. Problems Name Problem SNOMED Code Status Onset Date Resolution Date Notes Provider Name and Address Organization Details Recorded Time Obstructiv e sleep apnea syndrome 72502053 Active 2022 Obstructiv e sleep apnea (adult) (pediatric ); Note: Date Diagnosed: 04/03/2023 11:16 AM (G47.33) Not Available [facility] 4 02:39:34 Problem Notes None recorded. Medical Equipment None Reported. Allergies Allergen ID Allergen Name Allergen Category Reaction Reaction Severity Criticality Documentation Date Start Date Code Code System Note Provider Name and Address Organization Details Recorded Time 928534 lisinopri l medicatio n cough Not available Not available 10/07/2023 53038 RxNorm React ion: Cough ; Not Available [facility] 4 01:14:55 Medications Name Sig Start Date [...] Updated DateTime 10/28/2024 175.26 cm 40.6 kg/m2 090741.9 g JULIO [facility] - [facility] 10/28/2024 10:45:04 Social History None recorded. Functional Status None recorded. Mental Status None recorded. Family History Nothing Reported. Medical History No medical history recorded. Past Encounters Encounter ID Performer Location Encounter Start Date Encounter Closed Date Diagnosis/Indication Diagnosis SNOMED-CT Code Diagnosis ICD10 Code Diagnosis IMO Codes Diagnosis Note [id number] KODY VALENTIN MD [facility] [address] [id number] 10/28/2024 10:14:30 10/28/2024 11:07:38 Obstructive sleep apnea syndrome 08326564 G47.33 Patient will consider weight loss in [...] Frazier Member ID Guarantor Name 10/28/2024 1 [facility] [id number] Pawan Epps [id number] 1 [id number] Pawan Epps Notes Date Note Type Note Provider Name and Address Organization Details Recorded Time 10/28/2024 text/html OSA09/27/[address] Bronson 43AHI 83 with O2 malorie 76%central & mixed - unable to readCPAP - got dizzy, mental fog and then vomit into mask 05[facility]27[facility]2024 [facility] with use of [employer] and mixed none recordedCPAP trial no prior throat surgeryreflux - uses meds PRNwork - heavy labor PV 04/03/23 Jessica SABA, FOL normal, not INSPIRE candidate. offered UPPP tonsil KODY VALENTIN MD [address] [place] [address],[place] [address], [place], [phone], [place] - [facility] 10/28/2024 11:07:28
[2025-03-12 11:57] LABS: Alanine Aminotransferase 48 U/L (0-40); Albumin Level 4.6 g/dL (3.5-5.0); Alkaline Phosphatase 65 U/L (39-117); Anion Gap 14 (12-20); Aspartate Amino Transferase 37 U/L (5-37); Blood Urea Nitrogen 18 mg/dL (9-16); Calcium 8.8 mg/dL (8.4-10.2); Carbon Dioxide 22 mmol/L (22-29); Chloride 105 mmol/L (96-108); Estimated Glomerular Filt Rate > 60; Potassium 4.3 mmol/L (3.3-5.1); Sodium 137 mmol/L (135-145); Total Protein 6.8 g/dL (6.5-8.0)
[2025-03-12 12:01] LABS: Cannabinoid Screen Urine Not Detected (Not Detect)
== END 2025-03-12 09:32 | disposition home or self-care (01) ==
LOC: HO.HMGCLDS 09:31
PROVIDERS: PCP Nurse Practitioner Family; Visit Provider Nurse Practitioner Family
DX: E11.9 Type 2 diabetes mellitus without complications (principal); Z02.83 Encounter for blood-alcohol and blood-drug test
CPT/HCPCS: 80053; 80307

== ENCOUNTER 2025-05-18 08:34 | Outpatient (AMB) | payer OTHER, SELFPAY ==
--- OUTSIDE RECORDS SUMMARY | 2025-05-18 08:37 | XMS_ITS | Clinical Summary ---
Author Organization [facility] Address [address] [place] [phone] Phone Care Team Providers Care Jive Developer Name Role Phone Romulo Griffith NP Primary Care Provider [phone] Allergies Active Allergy Reactions Criticality Noted Date Comments Lisinopril Cough Low 04/05/2025 Medications empagliflozin (Jardiance) 25 mg tablet Take 1 tablet (25 mg total) by mouth 1 (one) time each day. Will stop 3 days prior to sx Active metFORMIN (FORTAMET) 1,000 mg 24 hr tablet Take 1 tablet (1,000 mg total) by mouth 2 (two) times a day. Do not crush, chew, or split. Active amLODIPine (NORVASC) 5 mg tablet Take by mouth 1 (one) time each day. Active irbesartan (AVAPRO) 150 mg tablet Take 1 tablet (150 mg total) by mouth 1 (one) time each day. Active OMEPRAZOLE ORAL Take 40 mg by mouth 1 (one) time each day. Active atorvastatin (LIPITOR) 20 mg tablet Take 1 tablet (20 mg total) by mouth 1 (one) time each day. Active ferrous gluconate (FERGON) 324 mg (38 mg iron) tablet Take 1 tablet (324 mg total) by mouth 1 (one) time each day. Active hydroCHLOROthia zide (HYDRODIURIL) 25 mg tablet Take 1 tablet (25 mg total) by mouth 1 (one) time each day. Active metoprolol succinate (TOPROL-XL) 50 mg 24 hr tablet Take 1 tablet (50 mg total) by mouth 1 (one) time each day. Do not crush or chew. Active spironolactone (ALDACTONE) 25 mg tablet Take by mouth. Activ e diclofenac (VOLTAREN) 75 mg EC tablet Take 1 tablet (75 mg total) by mouth 2 (two) times a day if needed (pain). 5 Active cycloSPORINE (RESTASIS) 0.05 % ophthalmic emulsion Administer 1 drop into both eyes every 12 (twelve) hours. 5 Active cyclobenzaprine (FLEXERIL) 10 mg tablet Take 1 tablet (10 mg total) by mouth at bedtime as needed for muscle spasms. 5 Active cyanocobalamin, vitamin B-12, 1,000 mcg tablet, sublingual Place 1,000 mcg under the tongue 1 (one) time each day. 5 Active Vitamin D3 50 mcg (2,000 unit) capsule Take 1 capsule (2,000 Units total) by mouth 1 (one) time each day. 5 Active acetaminophen (TYLENOL) 325 mg tablet Take 2 tablets (650 mg total) by mouth every 6 (six) hours if needed for mild pain for up to 10 days. 30 tablet 5 05/08/20 25 benzocaine-ment hoL (Cepacol Sore Throat, ari-men,) 15-3.6 mg lozenge Dissolve 1 lozenge in the mouth every 2 (two) hours if needed for sore throat for up to 3 days. 16 each 5 05/01/20 25 Active Problems Problem Noted Date Diagnosed Date Obstructive sleep apnea (adult) (pediatric) 07/2024 Encounters Date Type Department Care Team Description 04/27/2025 10:00 AM EST - 04/27/2025 11:30 AM EST Surgery [facility] OR [address] [place] [phone] Rao Lopez MD TONSILLECTOMY UVULOPALATOPHARYNGOPLASTY [[id number] (CPT ) +1 more] 04/27/2025 9:51 AM EST Anesthesia Event [facility] OR [address] [place] [phone] Brent Ceballos MD Saliga, Jesse L, MD 04/27/2025 7:52 AM EST - 04/28/2025 12:52 PM EST Hospital Encounter [facility]rology [address] [place] [phone] Rao Lopez MD Bukalo, Nermina, MD Shah, Princy, MD Obstructive sleep apnea (adult) (pediatric) Discharge Disposition: Home or Self Care from Last 3 Months Surgical History Surgery Date Site/Laterality Comments OTHER SURGICAL HISTORY ROTATOR CUFF REPAIR Left CHOLECYSTECTOMY DENTAL IMPLANT Medical History Medical History Date Comments Hypertension Hyperlipidemia Diabetes mellitus (CMS/[facility] V24, CMS/[facility] V28) GERD (gastroesophageal reflux disease) Anemia Arthritis Joint pain Sleep apnea Family History Medical History Relation Name Comments Dementia Father bladder cancer Mother Relation Name Status Comments Father Mother Social History Tobacco Use Types Packs/Day Years Used Date Smoking Tobacco: Never Smokeless Tobacco: Never Tobacco Cessation:Counseling Given: Not Answered Alcohol Use Standard Drinks/Week Comments Never 0 (1 standard drink = 0.6 oz pur e alcohol) Housing Instability Answer Date Recorde d Are you worried that in the next 2 months you may not have stable housing? No 04/27/2025 Food Access & Nutrition Answer Date Rec orded Do you have access to a vari ety of food including fruits and vegetables? Yes 04/27/2025 Access to Healthcare Answer Date Record ed Within the last 3 months, ho w many times did you visit the emergency department for your medical care? 0 04/27/2025 Health Literacy Answer Date Recorded How often do you need to hav e someone help you when you read instructions, pamphlets, or other written material from your doctor or pharmacy? Never 04/27/2025 Caregiver: How often do you need to have someone help you when you read instructions, pamphlets, or other written material from your doctor or pharmacy? Not on file 04/27/2025 Financial Risk Answer Date Recorded How hard is it for you to pa y for the very basics like food, housing, medical care, and air conditioning / heating? Not very hard 04/27/2025 Transportation Answer Date Recorded Has the lack of transportati on kept you from meetings, work, or from getting things needed for daily living? No Has the lack of transportati on kept you from medical appointments or from getting medications? No 04/27/2025 Social Isolation Answer Date Recorded How often do you feel lonely or isolated from th ose around you? Never 04/27/2025 Food Risk Answer Date Recorded Within the past 12 months we worried whether our food would run out before we got money to buy more. Never true 04/27/2025 Within the past 12 months th e food we bought just didn't last and we didn't have money to get more. Never true 04/27/2025 Dependent Care Answer Date Recorded Do you need help finding or paying for care for your loved ones. For example, child's nurse or elderly care for an older adult? No 04/27/2025 Education Answer Date Recorded Do you think completing more education or training, like finishing a GED, going to college, or learning a trade, would be helpful for you? N/A 04/27/2025 Employment and Income Answer Date Recor ded During the last four weeks, have you been actively looking for work? No 04/27/2025 Living Situation Answer Date Recorded What is your living situation? Unrecognized valu e 04/27/2025 Interpersonal Safety Answer Date Record ed Physical Abuse Unrecognized value 04/27/2025 Verbal Abuse Unrecognized value 04/27/2025 Sex and Gender Information Value Date Recorded Sex Assigned at Not on file Legal Sex Male 11:14 AM EDT Gender Identity Not on file Sexual Orientation Not on file Last Filed Vital Signs Vital Sign Reading Time Taken Comments Blood Pressure 105/68 04/28/2025 7:57 AM EST Pulse 79 04/28/2025 7:57 AM EST Temperature 36.4 C (97.5 F) 04/28/2025 7:57 AM EST Respiratory Rate 14 04/28/2025 7:57 AM EST Oxygen Saturation 93% 04/28/2025 7:57 AM EST Inhaled Oxygen Concentration - - Weight 127 kg (280 lb) 04/27/2025 8:10 AM EST Height 175.3 cm (5' 9 ) 04/27/2025 8:10 AM EST Body Mass Index 41.35 04/27/2025 8:10 AM EST Plan of Treatment Health Maintenance Due Date Last Done Comments Colorectal Cancer Screening: Colonoscopy 1971 Diabetes: Annual Foot Exam 1981 Diabetes: Annual Retina Eye Exam 1981 DTaP,Tdap,and Td Vaccines (1 - Tdap) 1990 Hepatitis B Vaccines (1 of 3 - 19+ 3-dose series) 1990 Pneumococcal Vaccine: 50+ Years (1 of 2 - PCV) 1990 RSV Immunization Adult Patients (1 - Risk 50-74 years 1-dose series) 2021 Zoster Vaccines (1 of 2) 2021 Depression Screening 05/26/2024 COVID-19 Vaccine (1 - 2024-2 6 season) 2025 Influenza Vaccine (#1) 2025 Cholesterol Screening (Lipid Panel) 03/16/2025 HIV Screening 03/16/2025 Hepatitis C Screening 03/16/2025 Diabetes: Annual Urine Albumin-Creatinine Ratio (uACR) 05/01/2025 Diabetes: Blood Sugar Contro l Test (HGBA1C) 05/01/2025 Social Influencers of Health Screening 04/27/2026 04/27/2025 Diabetes: Annual GFR (Glomerular Filtration Rate) 04/28/2026 04/28/2025, 04/27/2025 Hypertension/CHF/CAD Annual BMP Blood Test 04/28/2026 04/28/2025, 04/27/2025 HIB Vaccines Aged Out No longer eligi ble based on patient's age to complete this topic HPV Vaccines Aged Out No longer eligi ble based on patient's age to complete this topic Hepatitis A Vaccines Aged Out No long er eligible based on patient's age to complete this topic IPV Vaccines Aged Out No longer eligi ble based on patient's age to complete this topic MMR Vaccines Aged Out No longer eligi ble based on patient's age to complete this topic Meningococcal ACWY Vaccine Aged Out N o longer eligible based on patient's age to complete this topic Meningococcal B Vaccine Aged Out No l onger eligible based on patient's age to complete this topic RSV Immunization Patients Under 20 months Aged Out No longer eligible b ased on patient's age to complete this topic Varicella Vaccines Aged Out No longer eligible based on patient's age to complete this topic Goals Goal Patient Goal Type Associated Problems Recent Progress Patient-Stated? Author Autogene magdi Goal Care Plan Autogenerated Problem No Alyx Dodge Procedures Procedure Name Priority Date/Time Associated Diagnosis Comments POCT GLUCOSE BLOOD Routine 04/28/2025 11 :22 AM EST POCT GLUCOSE BLOOD Routine 04/28/2025 7: 55 AM EST CBC WITH AUTO DIFFERENTIAL Routine 04/28/2025 6:01 AM EST BASIC METABOLIC PANEL Routine 04/28/2025 6:01 AM EST CBC AND DIFFERENTIAL Routine 04/28/2025 6:01 AM EST POCT GLUCOSE BLOOD Routine 04/27/2025 7: 46 PM EST POCT GLUCOSE BLOOD Routine 04/27/2025 4: 33 PM EST ECG 12-LEAD STAT 04/27/2025 4:28 PM EST BASIC METABOLIC PANEL STAT 04/27/2025 12:06 PM EST CBC WITH AUTO DIFFERENTIAL STAT 04/27/2025 12:05 PM EST CBC AND DIFFERENTIAL STAT 04/27/2025 12:05 PM EST TISSUE EXAM Routine 04/27/2025 10:24 AM EST Obstructive sleep apnea (adult) (pediatric) TH AN ENDOTRACHEAL(NO CHARGE) Routine 04/27/2025 10:18 AM EST MT PHARYNGOPLASTY PLASTIC/RECONSTRUCTIV E OPERATION ON PHARYNX 04/27/2025 9:52 AM EST Obstructive sleep apnea (adult) (pediatric) Case Notes 23-HR BED Special Needs CPT CODE 32758 MT TONSILLECTOMY PRIMARY OR SECONDARY AGE 12 OR OLDER 04/27/2025 9:52 AM EST Obstructive sleep apnea (adult) (pediatric) Case Notes 23-HR BED Special Needs CPT CODE 94625 POCT GLUCOSE BLOOD Routine 04/27/2025 8: 14 AM EST from Last 3 Months Results * (ABNORMAL) POCT Glucose, blood (04/28/2025 11:22 AM EST) Only the most recent of5 resultswithin the time period is included. Pathologist [facility] Glucose POCT 169(H) 70 - 100 mg/dL 04/28/2025 11:23 AM [facility] Blood Capillary blood specimen / Unknown 04/28/2025 11:22 AM EST 04/28/2025 11:24 AM EST Jorge Avery MD LAB POINT OF CARE TE ST DOCKED DEVICE UNSOLICITED RESULTS Final Result [facility] [address] [place] [address], * (ABNORMAL) CBC auto differential (04/28/2025 6:01 AM EST) Only the most recent of2 resultswithin the time period is included. [facility] WBC 14.5(H) 4.8 - 10.8 K/mcL LAB HEMETOLOGY METHOD 04/28/2025 7:19 AM [facility] RBC 5.10 4.50 - 5.50 M/mcL LAB HEMETOLOGY METHOD 04/28/2025 7:19 AM [facility] Hemoglobin 15.2 13.5 - 17.5 g/dL LAB HEMETOLOGY METHOD 04/28/2025 7:19 AM [facility] Hematocrit 45.0 42.0 - 54.0 % LAB HEMETOLOGY METHOD 04/28/2025 7:19 AM [facility] MCV 88.4 79.0 - 98.0 FL LAB HEMETOLOGY METHOD 04/28/2025 7:19 AM [facility] MCH 29.9 27.0 - 32.0 pcg LAB HEMETOLOGY METHOD 04/28/2025 7:19 AM [facility] MCHC 33.8 32.0 - 37.0 g/dL LAB HEMETOLOGY METHOD 04/28/2025 7:19 AM [facility] RDW 13.0 11.0 - 15.0 % LAB HEMETOLOGY METHOD 04/28/2025 7:19 AM [facility] Platelets 266 130 - 400 K/mcL LAB HEMETOLOGY METHOD 04/28/2025 7:19 AM [facility] MPV 10.2 7.0 - 11.0 FL LAB HEMETOLOGY METHOD 04/28/2025 7:19 AM [facility] NRBC 0.0 <1.0 % LAB HEMETOLOGY METHOD 04/28/2025 7:19 AM [facility] NRBC Absolute 0.00 <0.10 K/mcL LAB HEMETOLOGY METHOD 04/28/2025 7:19 AM [facility] Neutrophils Relative 71.4 % LAB HEMETOLOGY METHOD 04/28/2025 7:19 AM [facility] Comment:This is an appended report. These results have been appended to a previously preliminary verified report. Lymphocytes Relative 14.6 % LAB HEMETOLOGY METHOD 04/28/2025 7:19 AM [facility] Comment:This is an appended report. These results have been appended to a previously preliminary verified report. Monocytes Relative 11.5 % LAB HEMETOLOGY METHOD 04/28/2025 7:19 AM [facility] Comment:This is an appended report. These results have been appended to a previously preliminary verified report. Eosinophils Relative 1.4 % LAB HEMETOLOGY METHOD 04/28/2025 7:19 AM [facility] Comment:This is an appended report. These results have been appended to a previously preliminary verified report. Basophils Relative 0.4 % LAB HEMETOLOGY METHOD 04/28/2025 7:19 AM [facility] Comment:This is an appended report. These results have been appended to a previously preliminary verified report. Immature Granulocytes Relative 0.7 % LAB HEMETOLOGY METHOD 04/28/2025 7:19 AM [facility] Comment:This is an appended report. These results have been appended to a previously preliminary verified report. Neutrophils Absolute 10.34(H) 1.50 - 7.00 K/mcL LAB HEMETOLOGY METHOD 04/28/2025 7:19 AM [facility] Comment:This is an appended report. These results have been appended to a previously preliminary verified report. Lymphocytes Absolute 2.12 1.00 - 5.00 K/mcL LAB HEMETOLOGY METHOD 04/28/2025 7:19 AM [facility] Comment:This is an appended report. These results have been appended to a previously preliminary verified report. Monocytes Absolute 1.66(H) 0.20 - 1.00 K/mcL LAB HEMETOLOGY METHOD 04/28/2025 7:19 AM [facility] Comment:This is an appended report. These results have been appended to a previously preliminary verified report. Eosinophils Absolute 0.20 0.00 - 0.50 K/mcL LAB HEMETOLOGY METHOD 04/28/2025 7:19 AM [facility] Comment:This is an appended report. These results have been appended to a previously preliminary verified report. Basophils Absolute 0.06 0.00 - 0.20 K/mcL LAB HEMETOLOGY METHOD 04/28/2025 7:19 AM [facility] Comment:This is an appended report. These results have been appended to a previously preliminary verified report. Immature Granulocytes Absolute 0.10(H) 0.00 - 0.03 K/mcL LAB HEMETOLOGY METHOD 04/28/2025 7:19 AM [facility] Comment:This is an appended report. These results have been appended to a previously preliminary verified report. Blood Venous blood specimen / Unknown Venipuncture / Unknown 04/28/2025 6:01 AM EST 04/28/2025 6:25 AM EST us Brook JAMESON LAB BLOOD ORDERABLES Final Resu lt [facility] [address] [place] [address], * (ABNORMAL) Basic metabolic panel (04/28/2025 6:01 AM EST) Only the most recent of2 resultswithin the time period is included. Sodium 134 133 - 145 mmol/L 04/28/2025 7:06 AM [facility] Potassium 3.6 3.5 - 5.5 mmol/L 04/28/2025 7:06 AM [facility] Chloride 94(L) 96 - 110 mmol/L 04/28/2025 7:06 AM [facility] CO2 31 21 - 32 mmol/L 04/28/2025 7:06 AM [facility] Anion Gap 9 3 - 11 04/28/2025 7:06 AM [facility] Glucose 154(H) 70 - 100 mg/dL 04/28/2025 7:06 AM [facility] BUN 12 5 - 25 mg/dL 04/28/2025 7:06 AM [facility] Creatinine 0.81 0.70 - 1.30 mg/dL 04/28/2025 7:06 AM [facility] eGFR 105 >=60 mL/min/1. 73m2 04/28/2025 7:06 AM [facility] Comment:Calculation based on the Chronic Kidney Disease Epidemiology Collaboration (CKD-EPI) equation refit without adjustment for race. BUN/Creatinine Ratio 14.8 04/28/2025 7:06 AM [facility] Calcium 9.0 8.5 - 10.5 mg/dL 04/28/2025 7:06 AM [facility] Blood Venous blood specimen / Unknown Venipuncture / Unknown 04/28/2025 6:01 AM EST 04/28/2025 6:25 AM EST Brook JAMESON LAB BLOOD ORDERABLES Final Resu lt [facility] [address] [place] [address], [place] [phone] * ECG 12 lead (04/27/2025 4:28 PM EST) Ventricular Rate ECG 112 BPM GEMUSE Atrial Rate 112 BPM GEMUSE P-R Interval 138 ms GEMUSE QRS Duration 92 ms GEMUSE Q-T Interval 326 ms GEMUSE QTc 444 ms GEMUSE P Wave [place] 43 degrees GEMUSE R [place] 46 degrees GEMUSE T [place] 27 degrees GEMUSE ECG Interpretation Sinus tachycardia Otherwise normal ECG No previous ECGs available Confirmed by MD ALIZE ROMULO ([id number]) on 04/27/2025 9:35:41 PM GEMUSE 04/27/2025 4:28 PM EST 04/27/2025 9:35 PM EST Piter Hannah MD ECG ORDERABLES Final Result GEMUSE * Tissue exam (04/27/2025 10:24 AM EST) Final Diagnosis A. Right tonsil, tonsillectomy: Benign tonsil with lymphoid hyperplasia B. Left tonsil, tonsillectomy: Benign tonsil with lymphoid hyperplasia C. Uvula, excision: Benign uvula 04/28/2025 12:49 PM EST [facility] at 1249 EST Gross Description A. Tonsil, Right, : Labeled tonsil, are . Received in formalin is a soft, guillory-pink, lobular tonsil measuring 2.5 x 1.1 x 0.8 cm. The mucosa is shiny and pink. The base is cauterized. The cut surfaces are soft and guillory-pink, with a cryptic architecture. The crypts contain a small amount of soft, guillory debris. General Sales Manager sections are submitted one cassette, two pieces. B. Tonsil, Left, : Labeled tonsil, L . Received in formalin is a soft, guillory-pink, lobular tonsil measuring 2.7 x 1.5 x 1.0 cm. The mucosa is shiny and pink. The base is cauterized. The cut surfaces are soft and guillory-pink, with a cryptic architecture. A workforce services representative section is submitted in one cassette. C. Other, UVULA: Labeled uvula . Received in formalin is a 1.2 x 1.0 x 0.8 cm soft, lobular mucosal covered tissue with a cauterized base. The specimen section submitted in cassette, one piece. TS 04/28/2025 12:49 PM [facility] Disclaimer Unless otherwise specified, all tissue is 10% NB formalin fixed and paraffin embedded. 04/28/2025 12:49 PM [facility] Tissue Right faucial tonsil structure / Unknown 04/27/2025 10:24 AM EST 04/27/2025 11:38 AM EST Tissue specimen (specimen) Left faucial tonsil structure / Unknown 04/27/2025 10:26 AM EST 04/27/2025 11:38 AM EST Tissue specimen (specimen) Topography unknown / Unknown 04/27/2025 10:28 AM EST 04/27/2025 11:38 AM EST Rao Lopez MD LAB PATHOLOGY ORDERABLES Final Result [facility] [address] [place] [address], * TH AN ENDOTRACHEAL(NO CHARGE) (04/27/2025 10:18 AM EST) Narrative Eloina Lester SRNA - 04/27/2025 10:18 AM EST [facility] 04/27/2025 10:19 AM General Information and Staff Patient location during procedure: OR Other anesthesia staff: [facility] Performed: other anesthesia staff Performed by: [facility] Authorized by: Brent Ceballos MD Intubation Airway not difficult Reason: elective Final Airway Details Successful airway: ETT Cuffed: yes Successful intubation technique: video laryngoscopy Adjuncts used in placement: intubating stylet Endotracheal tube insertion site: oral Blade: Silke Blade size: #4 ETT size (mm): 7.5 Cormack-Lehane Classification: grade I - full view of glottis Placement verified by: chest auscultation, capnometry and palpation of cuff Cuff volume (mL): 9 Measured from: lips ETT to lips (cm): 23 Final airway type: endotracheal airway Indications and Patient Condition Indications for airway management: airway protection and anesthesia Sedation level: Yes Preoxygenated: yesSoft Tissue Damage: No Dentition Unchanged: Yes Patient position: ramp Mask difficulty assessment: 2 - vent by mask + OA or adjuvant +/- NMBA us Brent Ceballos MD ANESTHESIA ORDERABLES Final Re sult from Last 3 Months Additional Health Concerns Active Problems Noted Date Diagnosed Date Autogenerated Problem 03/16/[address] [place] [address] [address] PLAN Advance Directives * Full Code - Default (Latest Code Status on File) Date Activated Date Inactivated Comments 04/27/2025 2:01 PM 04/28/2025 2:53 PM This is orde r is used when code status has not been discussed with the patient, or code status is otherwise unknown/unconfirmed To update the patient's code status, place a code status order. Do not modify or discontinue any currently active code status orders. Care Teams Jive Developer Relationship Specialty Start Date End Date Romulo Griffith NP [address] [facility] [place], [place] PCP - General Family Medicine 04/20/25
--- OUTSIDE RECORDS SUMMARY | 2025-05-18 08:37 | XMS_ITS | Data Portability ---
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 Referral None recorded. Procedures None recorded. Surgeries pharyngop lasty (plastic or reconstru ctive operation on pharynx) (SURG) 2024 025 [email or web address] Not available 10/28/2024 11:11:17 tonsillec neris (SURG) 2024 025 [email or web address] Not available 10/28/2024 11:11:32 Imaging None recorded. Medication Orders None recorded. Patient TargetsNo targets recorded. Patient InstructionsNo instructions recorded. Reason for Referral None Reported. Results Created Date Observation Date Name Description Value Unit Range Abnormal Flag Note LastModifiedBy Organization Detail LastModifiedTime 04/27/2004/27/2025 TISSU E EXAM .note See Note Origi nal Order ing Provi sathish: FLAVIA L PLOSK Y [facility] - [address], [address], [place] [id number] Not Available [facility]/S Dept [address] [place], [address], 04/28/2025 12:51:10 04/27/20 25 04/27/2025 TISSU E EXAM final diagnosis A. Right tonsil , tonsil lectom y: Benig n tonsi l with lymph oid hyper plasi a B. Left tonsi l, tonsi llect anna: Benig n tonsi l with lymph oid hyper plasi a C. Uvula , excis ion: Benig n uvula Elect maura garner d by Keren Vasquez MD on 2024 at 1249 EST Not Available [facility] Dept [address] [place], [address], 04/28/2025 12:51:10 04/27/20 25 04/27/2025 TISSU E EXAM gross description A. Tonsil , Right, : Label ed tonsi l, are . Recei chel in forma cris is a soft, guillory-p ink, lobul ar tonsi l measu ring 2.5 x 1.1 x 0.8 cm. The mucos a is shiny and pink. The base is caute rized . The cut surfa allan are soft and guillory-p ink, with a crypt ic archi tectu re. The crypt s conta in a small amoun t of soft, guillory debri s. Repre senta tive secti ons are submi tted one casse tte, two piece s. B. Tonsi l, Left, : Label ed tonsi l, L . Recei chel in forma cris is a soft, guillory-p ink, lobul ar tonsi l measu ring 2.7 x 1.5 x 1.0 cm. The mucos a is shiny and pink. The base is caute rized . The cut surfa allan are soft and guillory-p ink, with a crypt ic archi tectu re. A repre senta tive secti on is submi tted in one casse tte. C. Other , UVULA : Label ed uvul a . Recei chel in forma cris is a 1.2 x 1.0 x 0.8 cm soft, lobul ar mucos al cover ed tissu e with a caute rized base. The speci men secti on submi tted in casse tte, one piece . TS Not Available [facility]/ Dept [address] [place] [address], [id number], 04/28/2025 12:51:10 04/27/20 25 04/27/2025 TISSU E EXAM disclaimer Unles s other aparicio speci fied, all tissu e is 10% NB forma cris fixed and paraf fin embed ded. Not Available [facility]/ Dept [address] [place] [address], [id number], 04/28/2025 12:51:10 04/27/20 25 04/27/2025 H&P No observ ation record ed. [facility]/ Dept [address] [place] [address], [id number], 04/27/2025 15:19:52 04/27/20 25 04/27/2025 op note No observ ation record ed[email or web address] [address] [place] [address], [place], [address], 04/27/2025 15:19:52 04/27/20 25 04/27/2025 H&P No observ ation record ed. [facility]/S Dept [address] [place], [address], 04/27/2025 15:19:52 04/28/20 25 04/27/2025 disch arge summa ry No observ ation record ed. [facility]/S Dept [address] [place], [address], 04/28/2025 14:31:29 Result Notes None recorded. Problems Name Problem SNOMED Code Status Onset Date Resolution Date Notes Provider Name and Address Organization Details Recorded Time Obstructiv e sleep apnea syndrome 58168919 Active 2022 Obstructiv e sleep apnea (adult) (pediatric ); Note: Date Diagnosed: 04/03/2023 11:16 AM (G47.33) Not Available [facility] 4 02:39:34 Problem Notes None recorded. Procedures Surgical History Date Name Laterality Status Provider Name and Address Organization Details Recorded Time 2024 uvulopalatopharyngoplasty completed KODY VALENTIN MD [address] [place] [address], [phone] , [facility] - [facility] 5 14:59:47 Imaging Results None recorded. Procedure Notes None recorded. Medical Equipment None Reported. Allergies Allergen ID Allergen Name Allergen Category Reaction Reaction Severity Criticality Documentation Date Start Date Code Code System Note Provider Name and Address Organization Details Recorded Time 180403 lisinopri l medicatio n cough Not available Not available 10/07/2023 81033 RxNorm React ion: Cough ; Not Available [facility] 4 01:14:55 Medications Name Sig Start Date [...] Updated DateTime 10/28/2024 175.26 cm 40.6 kg/m2 739747.9 g JULIO HARPER [place] - [facility] 10/28/2024 10:45:04 Social History None recorded. Functional Status None recorded. Mental Status None recorded. Family History Nothing Reported. Medical History No medical history recorded. Past Encounters Encounter ID Performer Location Encounter Start Date Encounter Closed Date Diagnosis/Indication Diagnosis SNOMED-CT Code Diagnosis ICD10 Code Diagnosis IMO Codes Diagnosis Note [id number] KODY VALENTIN MD [facility] [address] [place] [address] 10/28/2024 10:14:30 10/28/2024 11:07:38 Obstructive sleep apnea syndrome 26085451 G47.33 Patient will consider weight loss in [...] Member ID Frazier Member ID Guarantor Name 05/02/[address] [facility] [id number] Pawan Epps [id number] 1 [id number] Pawan Epps Notes Date Note Type Note Provider Name and Address Organization Details Recorded Time 10/28/2024 text/html OSA09/27/[address] [facility] 43AHI 83 with O2 malorie 76%central & mixed - unable to readCPAP - got dizzy, mental fog and then vomit into mask 05/27/2024 Home PSG at [facility] 40.3AHI 26.3 with use of MADCentral and mixed none recordedCPAP trial no prior throat surgeryreflux - uses meds PRNwork - heavy labor PV 04/03/23 Jessica SABA, FOL normal, not INSPIRE candidate. offered UPPP tonsil KODY VALENTIN MD [address] [facility] [address], [place], [address], [facility] - [facility] 10/28/2024 11:07:28
[2025-05-18 09:04] VITALS: BP 110/64; PULSE 73; RESP 16; O2SAT 96; BMI 40.5
--- NOTE | 2025-05-18 09:04 | A.OFFPC_ITS ---
Vital Signs 05/18/25 09:04 Height 5 ft 9 in Weight 274 lb BMI 40.5 BP 110/64 Blood Pressure Location Rt brachial Position Sitting Respiration 16 Pulse 73 Pulse Source Pulse Oximeter Pulse Oximetry (%) 96 Oxygen Delivery Method Room Air Intake Visit Reasons: 6 months f/up Top Distribution Executive Required: No Accompanied by: Self / Same As Patient Allergies lisinopril Adverse Reaction (Intermediate, Verified 05/18/25 09:05) Cough Tobacco use date assessed: 11/17/24 Dental Screening Dental Screen Date: 11/17/24 HPI 6 months f/up HPI Details Chief Complaint The patient presents for follow-up for diabetes. History of Present Illness The patient is a 55 year old male presenting for follow-up for diabetes. His most recent A1C was 7.4, and his eye exam is up to date. He has been working on his diet. His history is also significant for an umbilical hernia, dyslipidemia for which he is on a statin, and hypertension which is stable on his current medication regimen. He is also prescribed vitamin B12. Social History - Diet: The patient has been working on his diet. Health Maintenance The patient will receive the influenza vaccination today. He is also due for the pneumococcal 23-valent vaccine (PSV23). Review of Systems denies any cp, sob, neuropathy, BANUELOS, blurred vision, dizziness, n/v Physical Exam General: Cooperative, healthy appearing, comfortable, no acute distress and well developed, morbidly obese Orientation: Patient oriented x3 Limitations: No limitations Head: Normal to inspection Ears: Hearing grossly normal bilaterally Nose: Normal external nose present Face and sinus: Normal facial exam Eyes: Appearance normal, both eyes and all related structures Neck: Normal visual inspection and Yes full ROM Respiratory: Normal respiratory effort and able to speak in complete sentences. Clear to auscultation bilaterally Cardiovascular: Regular rate and rhythm. Normal S1 and S2 GI: Umbilical hernia noted, abdominal hernia Skin: No rashes or lesions noted Neuro: Patient oriented x3 Extremities: Normal to inspection, foot exam completely benign, positive sensation with use of monofilament, could feel the vibration on the 128 tuning fork Results - Labs: Most recent A1C was 7.4. Plan 1. Diabetes Mellitus The patient's most recent A1C was 7.4. No medication changes will be made at this time, with plans to re-evaluate after the holidays. Addition of glipizide or another medication will be considered at the next visit. Fasting labs will be ordered for the near future. 2. Umbilical Hernia An umbilical hernia was noted on exam. 3. Dyslipidemia The patient is currently on a statin. Lipid levels will be checked with upcoming labs. 4. Hypertension The patient's blood pressure is stable on his current medication regimen. Monitoring will continue. 5. Vitamin B12 Monitoring The patient is on vitamin B12 supplementation. The vitamin B12 level will be rechecked with his upcoming labs. Discussion Notes I advised the patient that we will not make any changes to his diabetes medications at this time but may consider adding a medication like glipizide after the holidays, depending on his next lab results. I discussed the need for him to get fasting labs in the near future. We also discussed vaccinations, and he will receive his flu shot today and is due for a pneumonia vaccine. Patient Instructions - Continue to work on your diet to help manage your diabetes. - Please get fasting lab work done soon. - You will receive your flu shot today. - You are also due for a pneumonia vacci ne (Pneumovax 23). - We will not change your diabetes medic ine today but will reassess at your next visit after the holidays. [facility] Medical History Arthritis Hx of concussion (~2014) Tubular adenoma of colon Fatty liver GERD (gastroesophageal reflux disease) Cervical radiculopathy SABA (obstructive sleep apnea) Morbid obesity Dyslipidemia Leukocytosis Diabetes HTN (hypertension) Surgical History History of uvulopalatopharyngoplasty (04/27/25) Hx of tonsillectomy (04/27/25) History of colonoscopy History of laparoscopic cholecystectomy History of oral surgery History of rotator cuff surgery Family History Father Hypothyroidism Hypercholesteremia Colon cancer Dementia Mother Bladder cancer Paternal Grandmother Myocardial infarction Paternal Grandfather Stroke Paternal Aunt Breast cancer Brother No problems noted. Sister No problems noted. Brother No problems noted. Social History Household Members: None Housing: House Are you a primary respiratory care assistant to a significant other at home: No Do you presently have visiting nurse or other home services: No 75 years or older and lives alone: No Alcohol intake: current Alcohol intake frequency: holidays/special occasions only Comment: soreness Patient Tobacco Use Status: Never used Tobacco e-Cigarette/Vaping Use: Never Used Second Hand Smoke Exposure: No service: No Current occupational status: employed Current occupation: Between Cognitive needs: No Hearing needs: No Vision needs: No Questionnaire Thrive Questionnaire Date Thrive assessed: 11/10/24 I am a: Patient What is your living situation today?: I have a steady place to live Within the past 12 months, did the food you bought not last and you didn't have the money to get more?: Sometimes True Within the past 12 months, did you worry whether your food would run out before you got money to buy more?: Sometimes True Do you have trouble paying for medicines?: I choose not to answer this question Do you have trouble getting transportation to medical appointments?: No Do you have trouble paying your heating and electricity bill?: No Do you have trouble taking care of your child, family member or friend?: No Do you have trouble with day-to-day activities such as bathing, preparing meals, shopping, managing finances, etc.?: No Are you currently unemployed and looking for a job?: No Are you interested in more education?: I choose not to answer this question Currently or been in a relationship where the following occur: No concerns reported THRIVE Score: 2 EDGAR-7 AMB Questionnaire EDGAR-7 Date EDGAR - 7 assessed: 11/17/24 Source: Developed by Drs. Dane Holden, Mackenzie Perez, Nasir Grossman and colleagues, with an educational hector from [employer]. Physical exam (Primary Care) Vital Signs: Last Vital Signs Pulse 73 05/18/25 09:04 Resp 16 05/18/25 09:04 BP 110/64 05/18/25 09:04 Pulse Ox 96 05/18/25 09:04 Oxygen Delivery Method Room Air 05/18/25 09:04 BMI result Body Mass Index 40.5 Tobacco/Smoking Status: Tobacco use Status Tobacco use date assessed 11/17/24 05/18/25 09:10 Patient Tobacco Use Status Never used Tobacco 05/18/25 09:10 e-Cigarette/Vaping Use Never Used 05/18/25 09:10 Thrive Assessment: Date of Thrive Assessment Date Thrive assessed 11/10/24 05/18/25 09:10 Currently or been in a relationship where the following occur: No concerns reported Office Procedures Diabetic Foot Exam G9226 - Diabetic Foot Exam (+ sensation with use of monofilament and tuning fork bilat) Flu Questionnaire Does the patient have a severe egg allergy?: No Does the patient have severe life threatening allergies?: No Does the patient have a fever or illness today?: No Has the patient ever had Guillain-[place] Syndrome?: No Has the patient ever had any past reaction to a flu shot?: No Immunizations Fluarix [id number] (PF) 45 mcg (15 mcg x 3)/0.5 mL IM syringe Performing Provider: MARY Randle Performing Location: [facility] Administered by: Maine Bethea MA on 05/18/25 09:39 Dose Route Admin Location Dispensed Lot Number Expiration Date NDC Divorce Lawyer 0.5 mL IM Right Deltoid 0.5 mL [id number] 11/22/25 70257-184-09 [employer]LA[employer]SMNeprisKLINE VIS Given Date VIS Provided VIS Publication Date 05/18/25 Single Vaccine 24 Eligibility Eligibility Date Funding Source Not [facility] Eligible 05/18/25 Private Coding Level of Care Code Est Pt Level 4 (64433) Diagnoses Diabetes E11.9 HTN (hypertension) I10 Dyslipidemia E78.5 B12 deficiency E53.8 Morbid obesity E66.01 Low vitamin D level R79.89 CPT Codes Diabetic Foot Exam - CPT: G9226 - Diabetic Foot Exam ([id number]) Assessment & Plan Assessment & Plan (1) Diabetes: Code(s): E11.9 - Type 2 diabetes mellitus without complications Category: Medical (2) HTN (hypertension): Code(s): I10 - Essential (primary) hypertension Category: Medical (3) Dyslipidemia: Code(s): E78.5 - Hyperlipidemia, unspecified Category: Medical (4) B12 deficiency: Code(s): E53.8 - Deficiency of other specified B group vitamins Category: Medical (5) Morbid obesity: Code(s): E66.01 - Morbid (severe) obesity due to excess calories Category: Medical (6) Low vitamin D level: Code(s): R79.89 - Other specified abnormal findings of blood chemistry Category: Medical Plan . Orders: Orders Comprehensive Jackpot. Panel Fast Today E11.9 - Type 2 diabetes mellitus without complications Lipid Panel Today E11.9 - Type 2 diabetes mellitus without complications Influenza 2403-1472 Immunization Today Z23 - Encounter for immunization Vitamin B12 and Folate Today E53.8 - Deficiency of other specified B group vitamins Complete Blood Count Auto Diff Today E11.9 - Type 2 diabetes mellitus without complications TSH reflex Free T4 Today E11.9 - Type 2 diabetes mellitus without complications UA CC w/rflx Micro + Cult Today E11.9 - Type 2 diabetes mellitus without complications Vitamin D 25-OH (D2 and D3) Today E66.01 - Morbid (severe) obesity due to excess calories, R79.89 - Other specified abnormal findings of blood chemistry
== END 2025-05-18 09:41 | disposition home or self-care (01) ==
LOC: HO.HMCC 08:34
PROVIDERS: PCP Nurse Practitioner Family; Visit Provider Nurse Practitioner Family
DX: E11.9 Type 2 diabetes mellitus without complications (principal); E66.01 Morbid (severe) obesity due to excess calories; Z68.41 Body mass index [BMI] 40.0-44.9, adult; I10 Essential (primary) hypertension; E78.5 Hyperlipidemia, unspecified; E53.8 Deficiency of other specified B group vitamins; R79.89 Other specified abnormal findings of blood chemistry; Z23 Encounter for immunization

== ENCOUNTER → 2025-05-18 08:34 | Outpatient (BNVA) | payer OTHER, SELFPAY | PROVIDERS: PCP Nurse Practitioner Family; Visit Provider Nurse Practitioner Family | DX: Z23 Encounter for immunization (principal); G47.33 Obstructive sleep apnea (adult) (pediatric); R20.0 Anesthesia of skin; R20.2 Paresthesia of skin; D72.829 Elevated white blood cell count, unspecified; E53.8 Deficiency of other specified B group vitamins; M62.838 Other muscle spasm; D50.9 Iron deficiency anemia, unspecified; R53.82 Chronic fatigue, unspecified; R79.89 Other specified abnormal findings of blood chemistry; E11.9 Type 2 diabetes mellitus without complications; I10 Essential (primary) hypertension; E78.5 Hyperlipidemia, unspecified; E66.01 Morbid (severe) obesity due to excess calories; Z68.41 Body mass index [BMI] 40.0-44.9, adult | CPT/HCPCS: 90471; 90656; 99212 ==

== ENCOUNTER 2025-05-18 13:24 | Outpatient (AMB) | payer OTHER, SELFPAY ==
[2025-05-18 13:50] VITALS: BP 130/92; PULSE 71; O2SAT 96; BMI 41.4
--- NOTE | 2025-05-18 13:50 | MHC.OFFVIS ---
Vital Signs 05/18/25 13:50 Height 5 ft 9 in Weight 280 lb 6 oz BMI 41.4 BP 130/92 H Blood Pressure Location Lt brachial Position Sitting Pulse 71 Pulse Source Pulse Oximeter Pulse Oximetry (%) 96 Oxygen Delivery Method Room Air Intake Visit Reasons: 3 mnts f/u Intake Note: Patient presents follow up SABA. PSG booked 06/22. Accompanied by: Self / Same As Patient Allergies lisinopril Adverse Reaction (Intermediate, Verified 05/18/25 13:51) Cough HPI Comments Details: 55 year old male with moderate saba is here for a f/u, he is using his somno-guard oral appliance device. Interim Med Hx: Apr 27 2025, [facility] [place] with Dr. Valentino, Fgbam-homcxr-ycbqtdctjvtxahm (UPPP) and notices oxygenation has improved to 95%. He is able to fall asleep and stay asleep through the night. He sleeps well goes to bed at 9pm, wakes up at 5am and feels refreshed in the morning. Since his procedure he notices an expansion of the airway. ENT evaluation for Inspire therapy completed, however BMI is 41 and he is motivated to lose weight. He has his dentist adjust his mandibular device as needed due to an under-bite, so retracting lower jaw and now feels, the quality of his sleep has improved. He is no longer yawning, snoring, coughing or gasping for air. Denies headaches, jaw pain, dizziness, brain fog, and or forgetfulness. He attempted the CPAP twice in the past and started vomiting immediately. He then had a tingling sensation in his hands and toes. He is claustrophobic and sleeps prone, he was not able to tolerate the cpap. He has a ventral hernia, BMI is elevated to 41.1 and weight reduction is difficult, though he was approved for Zepbound, he has needle phobia. RLS symptoms, he complains of pins and needles below the knees which start at his ankles and travel up, quick spasm. His L. foot is worse than the R. foot, he has quick shock-like stabbing spasms, which cause him to jump out of bed to stretch the legs. [facility] Medical History Arthritis Hx of concussion (~2015) Tubular adenoma of colon Fatty liver GERD (gastroesophageal reflux disease) Cervical radiculopathy SABA (obstructive sleep apnea) Morbid obesity Dyslipidemia Leukocytosis Diabetes HTN (hypertension) Surgical History History of uvulopalatopharyngoplasty (04/27/25) Hx of tonsillectomy (04/27/25) History of colonoscopy History of laparoscopic cholecystectomy History of oral surgery History of rotator cuff surgery Family History Father Hypothyroidism Hypercholesteremia Colon cancer Dementia Mother Bladder cancer Paternal Grandmother Myocardial infarction Paternal Grandfather Stroke Paternal Aunt Breast cancer Brother No problems noted. Sister No problems noted. Brother No problems noted. Social History Household Members: None Housing: House Are you a primary critical care transport nurse to a significant other at home: No Do you presently have visiting nurse or other home services: No 75 years or older and lives alone: No Alcohol intake: current Alcohol intake frequency: holidays/special occasions only Comment: soreness Patient Tobacco Use Status: Never used Tobacco e-Cigarette/Vaping Use: Never Used Second Hand Smoke Exposure: No service: No Current occupational status: employed Current occupation: [employer] Cognitive needs: No Hearing needs: No Vision needs: No Physical Exam Vital Signs: Last Vital Signs Pulse 71 05/18/25 13:50 BP 130/92 H 05/18/25 13:50 Pulse Ox 96 05/18/25 13:50 Oxygen Delivery Method Room Air 05/18/25 13:50 BMI result Body Mass Index 41.4 Const General: cooperative Nutritional Appearance: obese Orientation/consciousness: patient oriented x3 HEENT Other: Mallampati grade III. Head: Yes normal to inspection Eyes Pupils: Equal, round and reactive pupils present Resp Effort & Inspection: normal respiratory effort and able to speak in complete sentences Neuro Other: Mallampti score is 4, unable to visualize the [place] and he is being followed with ENT for Inspire. mild tremor LUE >RUE noted. General: patient oriented x3 and moves all extremities Cranial nerves: Yes Facial sensation intact/muscles of mastication intact, Yes Equal, round and reactive pupils present, Yes Normal accommodation reflex present, Yes Normal facial strength present, Yes Midline tongue present, Yes Ability to bilaterally rotate head present and Yes Ability to bilaterally elevate shoulders present Motor exam (neuro): 5/5 motor strength present throughout and Normal motor muscle tone present throughout Psych Appearance: grossly normal Affect: normal affect Thought process: Normal thought process present Thought content: Normal thought content present Assessment & Plan Assessment & Plan (1) SABA (obstructive sleep apnea): Comment: Severe degree of sleep apnea. The AHI was 83/hr and oxygen malorie was 76%. Code(s): G47.33 - Obstructive sleep apnea (adult) (pediatric) Category: Medical (2) Numbness and tingling of both feet: Code(s): R20.0 - Anesthesia of skin; R20.2 - Paresthesia of skin Category: Medical (3) Leukocytosis: Code(s): D72.829 - Elevated white blood cell count, unspecified Category: Medical Qualifiers: Leukocytosis type: unspecified Qualified Code(s): D72.829 - Elevated white blood cell count, unspecified (4) B12 deficiency: Code(s): E53.8 - Deficiency of other specified B group vitamins Category: Medical (5) Muscle spasms of lower extremity: Code(s): M62.838 - Other muscle spasm Category: Medical (6) Anemia: Comment: ferritin is 22 Code(s): D64.9 - Anemia, unspecified Category: Medical Qualifiers: Anemia type: iron deficiency Iron deficiency anemia type: unspecified iron deficiency Qualified Code(s): D50.9 - Iron deficiency anemia, unspecified (7) Chronic fatigue: Code(s): R53.82 - Chronic fatigue, unspecified Category: Medical (8) Low vitamin D level: Code(s): R79.89 - Other specified abnormal findings of blood chemistry Category: Medical Plan HST May 2024 reviewed with pt in detail AHI is 26 and O2 Nadirs to 82%, with moderate snoring. ENT for Nancy villanueva. due to elevated BMI 41.1, unable to implant at this time, he is using his mouth guard and has 3 clicks prior to completing jaw retraction. Ventral Hernia unable to exercise or overexert himself physically, we discussed walking daily and limiting carbs. Uvulopalatopharyngoplastay Apr [address] Valentino. Improved quality of sleep and recovering. He is a good candidate for Inspire therapy once BMI is <40. Will evaluate SABA with a PSG- in lab and with anxiolytic such as lorazepam. If he is amenable to re-evaluation since oral appliance and UPPP. RLS: will monitor after Iron panel, B12, Folate, MMA, B12 Homocysteine. Ferritin is 22, Vit D is low, and B12 can be improved is low/normal, will start B12 and send rx, however if not improved due to insurance, purchase B12 1000mcg sublingual, and Vit D 2000units daily, Ferrous Sulfate 325mg po daily or 65mg elemental iron daily to be taken with a glass of oj for absorption at lunch time. Pt. to follow-up in 3 months Orders: Orders Ferritin 05/18/25 D72.829 - Elevated white blood cell count, unspecified, E53.8 - Deficiency of other specified B group vitamins, R20.0 - Anesthesia of skin, R20.2 - Paresthesia of skin Methylmalonic Acid 05/18/25 D72.829 - Elevated white blood cell count, unspecified, E53.8 - Deficiency of other specified B group vitamins, G47.9 - Sleep disorder, unspecified, R20.0 - Anesthesia of skin, R20.2 - Paresthesia of skin, R53.83 - Other fatigue Homocysteine 05/18/25 D72.829 - Elevated white blood cell count, unspecified, E53.8 - Deficiency of other specified B group vitamins, G47.9 - Sleep disorder, unspecified, R20.0 - Anesthesia of skin, R20.2 - Paresthesia of skin, R53.83 - Other fatigue Vitamin D 25-OH Total 05/18/25 D72.829 - Elevated white blood cell count, unspecified, E53.8 - Deficiency of other specified B group vitamins, R20.0 - Anesthesia of skin, R20.2 - Paresthesia of skin Medications: Refilled mecobalamin (vitamin B12) 1,000 mcg PO DAILY 90 tabs 0RF anemia 3 months MDD 1000mcg D50.9 - Iron deficiency anemia, unspecified Patient Instructions: Please complete the following fasting labs to rule out deficiencies. CBC/CMP/ B12/ Vit D/ TSH/ Homocysteine and MMA/ Ferritin. Sleep Hygiene provided: set a scheduled bedtime and wake time to help regulate the circadian rhythm and balance the release of pituitary hormones. Sleep in a dark room, temperatures below 68 degrees, and no devices n bed. Limit caffeinated products 6 hours prior to bed, and limit fluids 2-4 hours prior to bed. Gentle night yoga, diffusing essential oils, and playing soft music can be relaxing. Monitor BP, walk daily if able. The number one modifiable risk factor of cardiovascular disease is good blood pressure control. Coding Level of Care Code Est Pt Level 4 (03320) Diagnoses SABA (obstructive sleep apnea) G47.33 Numbness and tingling of both feet R20.0; R20.2 Leukocytosis, unspecified type D72.829 Leukocytosis type: unspecified B12 deficiency E53.8 Muscle spasms of lower extremity M62.838 Iron deficiency anemia, unspecified iron deficiency anemia type D50.9 Anemia type: iron deficiency Iron deficiency anemia type: unspecified iron deficiency Chronic fatigue R53.82 Low vitamin D level R79.89
== END 2025-05-18 14:18 | disposition home or self-care (01) ==
LOC: HO.HSMC 13:24
PROVIDERS: PCP Nurse Practitioner Family; Visit Provider Physician Assistant Medical
DX: G47.33 Obstructive sleep apnea (adult) (pediatric) (principal); R20.0 Anesthesia of skin; R20.2 Paresthesia of skin; D72.829 Elevated white blood cell count, unspecified; E53.8 Deficiency of other specified B group vitamins; M62.838 Other muscle spasm; D50.9 Iron deficiency anemia, unspecified; R53.82 Chronic fatigue, unspecified; R79.89 Other specified abnormal findings of blood chemistry
CPT/HCPCS: 99214